=== PATIENT | female | born 2005 | race Caucasian/White ===

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

== ENCOUNTER 2024-03-20 14:42 | Emergency (ER) | payer OTHER, SELFPAY ==
[2024-03-20 14:53] VITALS: BP 137/81; PULSE 92; RESP 18; TEMP 36.5; O2SAT 100
[2024-03-20 15:14] LABS: EDSTREPNEGPOS1 Negative (Negative)
--- NOTE | 2024-03-20 15:15 | ED.URI ---
HPI - URI/Sore Throat General Chief Complaint: Upper Respiratory Infection Stated Complaint: strep symptoms Time Seen by Provider: 03/20/24 15:15 Source: patient Mode of arrival: ambulatory Limitations: no limitations History of Present Illness HPI Narrative: 18-year-old female presents with complaint of nasal congestion, sinus pressure, postnasal drainage, sore throat for the past 2-3 days. Patient reports sore throat is worse at night. Afebrile. Reports fatigue. Patient reports she is congested all the time. In the past tested ENT and biology specialist. Has been told she needs to take allergy medication daily but patient states they do not help so she does not take them anymore. Patient does report that congestion is worse. All systems reviewed and negative except as noted above. Related Data Home Medications Medication Instructions Recorded Confirmed spironolactone 25 mg tablet 25 mg PO DAILY 01/21/24 03/20/24 Allergies Allergy/AdvReac Type Severity Reaction Status Date / Time No Known Allergies Allergy Verified 03/20/24 14:58 Review of Systems Review of Systems: CONSTITUTIONAL: Denies fever, chills, or sweats. reports fatigue. EYES: Denies visual changes, redness, or discharge. ENT: Reports rhinorrhea, congestion, sore throat. Denies otalgia. CARDIOVASCULAR: Denies chest pain, palpitations, or edema. RESPIRATORY: Denies cough or dyspnea. GASTROINTESTINAL: Denies abdominal pain, nausea, vomiting, or diarrhea. GENITOURINARY: Denies dysuria or hematuria. SKIN: Denies rash or itching. MUSCULOSKELETAL: Denies back pain, joint pain, or myalgia. NEUROLOGIC: Denies headache, numbness, or weakness. PSYCHIATRIC: Denies anxiety or depression. All other systems reviewed are negative, except as documented in HPI. [facility] Past Medical History Medical History Acid reflux Anemia Asthma Environmental allergies Family History Family History Grandparent Breast cancer Diabetes mellitus Hypertension Lung cancer Father Diabetes mellitus Hypertension Social History Social History Smoking status: Never smoker Alcohol intake: never Substance use: never Lack of Transportation: No Lack of Food: Never True Current Housing: I Have Housing Concerned About Future Housing: No Difficulty Paying Gas/Electric Bills: No Difficulty Paying for Meds: No Currently Unemployed: No Education: High School Diploma/GED Living arrangements: with family Occupation/Education: student Gender identity (if verbalized by the patient): Female Sexual Orientation (if Verbalized by the Patient): Straight or Heterosexual Spiritual care concerns: No Comments At time of signature, agree with nursing past medical, surgical, social and family history. There is no relevant family history pertinent to the presenting complaint. Exam Narrative: GENERAL: This is a well-nourished, well-developed patient, in no apparent distress. HEAD: normocephalic, atraumatic. EYES: PERRL. Sclera clear/white. Vision is grossly intact. EARS: External ears normal, auditory canals clear and without drainage, TMs normal without perforation. Hearing grossly intact. NOSE: External nose normal with Purulent nasal drainage, erythema and swelling to bilateral nares. Ethmoid and maxillary sinus tenderness on palpation bilaterally. THROAT: Mucous membranes moist, Erythematous with postnasal drainage. No swelling or exudates. NECK: Neck supple, non-tender without lymphadenopathy, masses or thyromegaly. CARDIOVASCULAR: Regular rate and rhythm without murmurs, gallops, or rubs. RESPIRATORY: Clear to auscultation. Breath sounds equal bilaterally. No wheezes, rales, or rhonchi. SKIN: warm, Dry, intact with no suspicious lesions or rash, good texture and turgor. NEURO: awake, alert, and oriented to person, place and time. There were no obvious focal neurologic abnormalities. EXTREMITIES: No joint tenderness, effusion, or edema noted. Course Course Level of Care: Express Care Visit Vital Signs Vital signs: Vital Signs Temperature 36.5 C 03/20/24 14:53 Pulse Rate 92 03/20/24 14:53 Respiratory Rate 18 03/20/24 14:53 Blood Pressure 137/81 03/20/24 14:53 Pulse Oximetry 100 03/20/24 14:53 Oxygen Delivery Room Air 03/20/24 14:53 Temperature 36.5 C 03/20/24 14:53 Pulse Rate 92 03/20/24 14:53 Respiratory Rate 18 03/20/24 14:53 Blood Pressure 137/81 03/20/24 14:53 Pulse Oximetry 100 03/20/24 14:53 Oxygen Delivery Room Air 03/20/24 14:53 Reviewed MDM - URI/Sore Throat MDM Narrative Medical decision making narrative: negative strep test. Will treat patient with antibiotic for bacterial sinusitis due to duration of symptoms and exam findings. Patient is aware of diagnosis, understands and agrees to treatment plan. Anticipatory guidance given. Patient agrees to follow-up as directed and is aware of reasons to seek care at the emergency department. Portions of this record may have been created with voice recognition software Differential Diagnosis Differential diagnosis: Likely upper respiratory infection, sinusitis and viral infection Lab Data Labs: Lab Results 03/20/24 Range/Units 15:12 POC Grp A Strep Screen Negative (Negative) Discharge Plan Discharge Clinical Impression: Acute bacterial sinusitis Patient Disposition: Home, Self-Care Condition: Stable Instructions: Antibiotic Form, Sinusitis (ED) Additional Instructions: your strep test was negative today. Take medications as prescribed. Take ibuprofen or Tylenol every 6-8 hours as needed for pain. Drink at least 64 oz of water a day. Follow-up with your doctor if symptoms are not improving. Prescriptions: New amoxicillin 875 mg tablet 875 mg PO Q12H 7 Days Qty: 14 0RF methylprednisolone [Medrol (Erickson)] 4 mg tablets,dose pack See Rx Instructions PO .COMPLEX Qty: 21 0RF Rx Instructions: orally per package directions fexofenadine [Cara Allergy] 180 mg tablet 180 mg PO DAILY 30 Days Qty: 30 0RF azelastine 205.5 mcg (0.15 %) spray,non-aerosol 2 spray intranasal DAILY Qty: 30 0RF Rx Instructions: administer into each nostril No Action albuterol sulfate 2.5 mg /3 mL (0.083 %) solution for nebulization 2.5 mg inhalation Q4H PRN (Reason: shortness of breath or wheezing) Qty: 75 0RF spironolactone 25 mg tablet 25 mg PO DAILY etonogestrel-ethinyl estradiol [EluRyng] 0.12-0.015 mg/24 hr ring See Rx Instructions .ROUTE .COMPLEX Qty: 3 4RF Dose Instruction: INSERT 1 RING VAGINALLY ONCE DIRECTED Rx Instructions: INSERT 1 RING VAGINALLY ONCE DIRECTED Follow-up/Referrals: Severino Zelaya MD [Primary Care Provider] - Time of Disposition: 15:27
== END 2024-03-20 15:30 | disposition home or self-care (01) ==
PROVIDERS: Emergency Provider Nurse Practitioner Family; PCP Pediatrics
DX: J01.90 Acute sinusitis, unspecified (principal); K21.9 Gastro-esophageal reflux disease without esophagitis; J45.909 Unspecified asthma, uncomplicated
CPT/HCPCS: 87081; 87880; 99213; G0463

== ENCOUNTER 2024-05-09 10:38 | Outpatient (CLI) | payer OTHER, SELFPAY ==
--- OUTSIDE RECORDS SUMMARY | 2024-05-16 22:39 | XMS_ITS | Encounter Summary ---
Author Organization [facility] Address [facility] [place] [address] Care Team Providers Care Funeral Service Manager Name Role Phone Severino Zelaya Primary Care Provider Unavailsushil e Encounter Details Date Type Department Care Team (Latest Contact Info) Description 01/20/2024 Travel Social History Tobacco Use Types Packs/Day Years Used Date Smoking Tobacco: Never Smokeless Tobacco: Never Alcohol Use Standard Drinks/Week Comments Never 0 (1 standard drink = 0.6 oz pur e alcohol) AUDIT-C Answer Date Recorded Q1: How often do you have a drink containing alc ohol? Never 08/13/2020 Average Number of Drinks Not on file 021 Frequency of Binge Drinking Not on file 07/17 PHQ-2 Answer Date Recorded Patient Health Questionnaire-2 Score 0 01/20/2024 Sex and Gender Information Value Date Recorded Sex Assigned at Not on file Gender Identity Not on file Sexual Orientation Not on file documented as of this encounter Plan of Treatment Not on file documented as of this encounter Visit Diagnoses Not on filedocumented in this encounter Care Teams Funeral Service Manager Relationship Specialty Start Date End Date Severino Zelaya Update Information PCP - General 07/03/20 documented as of this encounter
--- OUTSIDE RECORDS SUMMARY | 2024-05-16 22:39 | XMS_ITS | Encounter Summary ---
Author Organization [facility] Address [facility] [address] Care Team Providers Care Patient Scheduling Manager Name Role Phone Severino Zelaya Primary Care Provider Onel e Encounter Details Date Type Department Care Team (Latest Contact Info) Description 02/18/2023 Travel Social History Tobacco Use Types Packs/Day [...] of Binge Drinking Not on file 07/17 Sex and Gender Information Value Date Recorded Sex Assigned at Not on file Gender Identity Not on file Sexual Orientation Not on file documented as of this encounter Plan of Treatment Not on file documented as of this encounter Visit Diagnoses Not on filedocumented in this encounter Care Teams Patient Scheduling Manager Relationship Specialty Start Date End Date Severino Zelaya Update Information PCP - General 07/03/20 documented as of this encounter
--- OUTSIDE RECORDS SUMMARY | 2024-05-16 22:39 | XMS_ITS | Encounter Summary ---
Author Organization [facility] Address [address] [place] [address] Care Team Providers Care Ice Cream Vendor Name Role Phone Severino Zelaya Primary Care Provider Unavailsushil e Reason for Visit * Reason Comments Follow-up Sinus congestion. ed prescribed meds for 2 weeks then quit. Encounter Details Date Type Department Care Team (Latest Contact Info) Description 02/18/2023 10:19 AM CDT - 02/18/2023 11:59 PM CDT Hospital Encounter [facility] - ENT [address] [facility] [place] [address] Greg Ochoa MD [address] [place] [address] Discharge Disposition: Home or Self Care Social History Tobacco Use Types Packs/Day Years [...] on file documented as of this encounter Last Filed Vital Signs Vital Sign Reading Time Taken Comments Blood Pressure - - Pulse - - Temperature - - Respiratory Rate - - Oxygen Saturation - - Inhaled Oxygen Concentration - - Weight 86.8 kg (191 lb 5.8 oz) 02/19/20 10:23 AM CDT Height 167.5 cm (5' 5.95 ) 02/18/2023 1 0:23 AM CDT Body Mass Index 30.94 02/18/2023 10:23 AM CDT Body Mass Index Percentile 95.19% 02/18 10:23 AM CDT Growth Chart: [facility] (Girls, 2- 20 Years) documented in this encounter Discharge Instructions * Patient Instructions* Greg Ochoa MD - 02/18/2023 10:54 AM CDT 1. Take flonase, astelin, claritin, singulair as desired. 2. Will arrange for allergy testing. Call if no you haven't heard from us by next week. 3. FU with ENT some time after testing complete. Depending on interval symptoms, exam, we may consider watchful waiting, additional medications, allergy immunotherapy, or ultimately a surgery including septoplasty/turbinate reduction. Today, pt with mild symptom improvement with meds. Surgery offered, but family prefers testing for now. ENT Nurse Office: [phone] documented in this encounter Medications at Time of Discharge Medication Sig Dispensed Refills Start Date End Date Advair Diskus 100-50 MCG/ACT inhaler INHALE 1 PUFF BY MOUTH EVERY 12 HOURS 10/12/2022 albuterol (Proventil;Ventolin) (2.5 MG/3ML) 0.083% nebulizer solution 10/12/2022 albuterol HFA (PROVENTIL;VENTOLIN;NV OAIR) 108 (90 Base) MCG/ACT inhaler Inhale 2 (two) puffs by mouth every 6 hours as needed 08/11/2020 clindamycin (CLEOCIN) 1 % gel Apply to affected area on face daily. 30 day supply. 30 g 3 04/15/2021 clindamycin-benzoyl peroxide (BENZACLIN) 1-5 % gel Apply to face area daily. 30 days supply. 50 g 3 12/10/2020 diphenhydrAMINE (Benadryl) 25 MG tablet Take by mouth every 4 hours as needed for Itching EluRyng 0.12-0.015 MG/24HR vaginal ring INSERT 1 RING VAGINALLY 1 TIME MONTHLY DIRECTED 12/06/2022 FEROSUL 325 (65 Fe) MG tablet Take 325 mg by mouth 2 times daily 07/02/2020 fluticasone propionate (Flonase) 50 MCG/ACT nasal spray [place] 2 (two) sprays into each nostril once daily montelukast (Singulair) 10 MG tablet Take 1 (one) tablet by mouth once daily 30 tablet 3 12/24/2022 azelastine (Astelin) 0.1 % nasal spray [place] 1 (one) spray into each nostril 2 times daily 30 mL 3 12/24/2022 01/20/2024 tretinoin (RETIN-A) 0.025 % creamIndications:Acne vulgaris Pea sized amount to entire face at night. 30 days supply. 20 g 3 04/15/2021 12/13/2023 documented as of this encounter Progress Notes * Greg Ochoa MD - 02/18/2023 10:27 AM CDT ENT Clinic Note 02/18/2023 Chief Complaint Patient presents with ??? Follow-up Sinus congestion. Used prescribed meds for 2 weeks then quit. History of Present Illness 12/24/2022: 17 yo WF with PMH s/f asthma, acne, who presents with 1) allergic rhinitis, suspect incomplete control on current regimen 2) nasal obstruction, with moderate-severe L septal deviation and turbinate hypertrophy on scope 12/24/22 ?? Chronic congestion/minimal response to OTC meds She's always had sinus problems. Always stuffy and congested. This year worse. Really started in July? Stuffy. Has asthma but never had trouble until this year. Was at and ER. Gave her an advairinhaler. Can't blow her nose. Sniff it/swallow it. Trouble breathing. Sometimes in her lungs. We tried claritin/claritin D/zyrtec and zyrtec D/ignacia, nose spray. Sometimes it works for a while. I always feel like there is something in my throat and I can't get it out. I made this appt. ?? Took her to an ENT when she was small. History of Present Illness 02/18/2023: 17 yo WF with PMH s/f asthma, acne, who presents with 1) allergic rhinitis, suspect incomplete control on current regimen 2) nasal obstruction, with moderate-severe L septal deviation and turbinate hypertrophy on scope 12/24/22 Take flonase, astelin, claritin, singulair. I felt fine for a while. And then once fall started to hit it was really bad. She's stuffy right now. Which is her normal. Pt feels like her symptoms on medicines were 50% better. I really wasn't congested when I started taking it. She really didn't like that white bottle nose spray. Tastes really bad. Allergies: Patient has no known allergies. Medications: Current Outpatient Medications: ??? Advair Diskus 100-50 MCG/ACT inhaler, INHALE 1 PUFF BY MOUTH EVERY 12 HOURS, Disp: , Rfl: ??? albuterol (Proventil;Ventolin) (2.5 MG/3ML) 0.083% nebulizer solution, , Disp: , Rfl: ??? albuterol HFA (PROVENTIL;VENTOLIN;PROAIR) 108 (90 Base) MCG/ACT inhaler, Inhale 2 (two) puffs by mouth every 6 hours as needed, Disp: , Rfl: ??? azelastine (Astelin) 0.1 % nasal spray, [place]field 1 (one) spray into each nostril 2 times daily, Disp: 30 mL, Rfl: 3 ??? clindamycin (CLEOCIN) 1 % gel, Apply to affected area on face daily. 30 day supply. (Patient not taking: Reported on 06/09/2022), Disp: 30 g, Rfl: 3 ??? clindamycin-benzoyl peroxide (BENZACLIN) 1-5 % gel, Apply to face area daily. 30 days supply. (Patient not taking: Reported on 06/09/2022), Disp: 50 g, Rfl: 3 ??? diphenhydrAMINE (Benadryl) 25 MG tablet, Take by mouth every 4 hours as needed for Itching, Disp: , Rfl: ??? EluRyng 0.12-0.015 MG/24HR vaginal ring, INSERT 1 RING VAGINALLY 1 TIME MONTHLY DIRECTED, Disp: , Rfl: ??? FEROSUL 325 (65 Fe) MG tablet, Take 325 mg by mouth 2 times daily (Patient not taking: Reportedon 06/09/2022), Disp: , Rfl: ??? fluticasone propionate (Flonase) 50 MCG/ACT nasal spray, [place]field 2 (two) sprays into each nostrilonce daily, Disp: , Rfl: ??? montelukast (Singulair) 10 MG tablet, Take 1 (one) tablet by mouth once daily, Disp: 30 tablet,Rfl: 3 ??? tretinoin (RETIN-A) 0.025 % cream, Pea sized amount to entire face at night. 30 days supply. (Patient not taking: Reported on 06/09/2022), Disp: 20 g, Rfl: 3 No past medical history on file. No significant change in past medical, surgical, social, or family history or review of systems. Physical Exam: Height: 167.5 cm (5' 5.95 ) Weight: 86.8 kg (191 lb 5.8 oz) Body mass index is 30.94 kg/m??. Estimated body mass index is 30.94 kg/m?? as calculated from the following: Height as of this encounter: 1.675 m (5' 5.95 ). Weight as of this encounter: 86.8 kg (191 lb 5.8 oz). 97 %ile (Z= 1.85) based on CDC (Girls, 2-20 Years) [id number] data using vitals from 02/18/2023. Constitutional: no retractions or cyanosis Head and Face: no lesions or masses; facies symmetrical Eyes: ocular motion with gaze alignment Ears: Inspection: normal pinnae shape and position Otoscopy: External canal: normal bilaterally Tympanic membrane: Right ear: normal appearance and landmarks Left ear: normal appearance and landmarks Nasal: normal external nose, mucous membranes, moderate L septal deviation Oral Cavity: moist mucous membranes; normal uvula, palate and tongue size Throat: tonsils 1-2+ Neck: supple without tenderness or crepitus; no palpable adenopathy Cranial Nerve Exam: grossly intact; CN VII symmetrical Respiration: unlabored breathing Skin: skin healthy ASSESSMENT: 17 yo WF with PMH s/f asthma, acne, who presents with 1) allergic rhinitis, suspect incomplete control on current regimen 2) nasal obstruction, with moderate-severe L septal deviation and turbinate hypertrophy on scope 12/24/22 PLAN: 1. Take flonase, astelin, claritin, singulair as desired. 2. Will arrange for allergy testing. Call if no you haven't heard from us by next week. 3. FU with ENT some time after testing complete. Depending on interval symptoms, exam, we may consider watchful waiting, additional medications, allergy immunotherapy, or ultimately a surgery including septoplasty/turbinate reduction. Today, pt with mild symptom improvement with meds. Surgery offered, but family prefers testing for now. Greg Ochoa MD documented in this encounter Plan of Treatment Not on file documented as of this encounter Visit Diagnoses Diagnosis Allergic rhinitis, unspecified seasonality, unspecified trigger- Primary Nasal septal deviation Deviated nasal septum Nasal turbinate hypertrophy Hypertrophy of nasal turbinates documented in this encounter Care Teams Ice Cream Vendor Relationship Specialty Start Date End Date Severino Zelaya Update Information PCP - General 07/03/20 documented as of this encounter
--- OUTSIDE RECORDS SUMMARY | 2024-05-16 22:39 | XMS_ITS | Encounter Summary ---
Author Organization [facility] Address [address] [place] [address] Care Team Providers Care Spring Layer Name Role Phone Severino Zelaya MD Primary Care Provider [phone] Reason for Referral * Radiology Services - Closed Specialty Diagnoses / Procedures Referred By Ricardo garcia Referred To Contact Diagnoses Vesicoureteral reflux, unspecified or without reflux nephropathy Unspecified urinary incontinence Procedures US KIDNEY AND BLADDER Chichi Gonzalez, CAPABILITY LEAD-SKEINER [address] [place] [address] [facility] [address] [place] [phone] Referral ID Status Reason Start Date Expiration Date Visits Re quested Visits Authorized [id number] Closed 10/17/2013 10/17/2013 1 1 Reason for Visit * Radiology Services - Closed Specialty Diagnoses / Procedures Referred By Ricardo garcia Referred To Contact Diagnoses Vesicoureteral reflux, unspecified or without reflux nephropathy Unspecified urinary incontinence Procedures US KIDNEY AND BLADDER Chichi Gonzalez, CAPABILITY LEAD-SKEINER [address] [place] [address] [facility] [place] [address] [place] [phone] Referral ID Status Reason Start Date Expiration Date Visits Re quested Visits Authorized [id number] Closed 10/17/2013 10/17/2013 1 1 Encounter Details Date Type Department Care Team (Latest Contact Info) Description 10/17/2013 7:35 AM CDT - 10/17/2013 8:31 AM CDT Hospital Encounter [facility] - Ultrasound [address] [place] [id number] Chichi Gonzalez, CAPABILITY LEAD-SKEINER [address] [place] [address] Discharge Disposition: Home or Self Care Social History Tobacco Use Types Packs/Day Years Used Date Smoking Tobacco: Never Assessed Sex and Gender Information Value Date Recorded Sex Assigned at Not on file Gender Identity Not on file Sexual Orientation Not on file documented as of this encounter Miscellaneous Notes * Miscellaneous Scans - Document, Scanned - 10/27/2013 4:36 AM CDT documented in this encounter Plan of Treatment Not on file documented as of this encounter Procedures Procedure Name Priority Date/Time Associated Diagnosis Comments US KIDNEYS W BLADDER Routine 10/17/2013 8:13 AM CDT Vesicoureteral reflux, unspecified or without reflux nephropathy Unspecified Urinary Incontinence documented in this encounter Results * US KIDNEY AND BLADDER (10/17/2013 8:13 AM CDT) Anatomical Region Laterality Modality Ultrasound 10/17/2013 8:21 AM CDT Impressions 10/17/2013 1:00 PM CDT Normal renal ultrasound. D: Mary Kate Alexis M.D. I, Arpita Yuan, have personally reviewed the images and I agree with this report. Narrative 10/17/2013 1:00 PM CDT EXAMINATION: Renal ultrasound dated ??October 17, 2013 COMPARISON: December 20, 2008 FINDINGS: Both kidneys have grown since the prior exam. Renal cortical echogenicity is normal. ??No hydronephrosis, masses, or stones are seen. The ureters are not dilated. Length: Right kidney ??10.0 x 4.0 x 4.7 cm Left kidney ??9.6 x 3.5 x 3.7 cm The bladder is distended with fluid, measuring up to 14.2 cm in diameter. The bladder wall thickness measures approximately 5 mm, within normal limits. Procedure Note Arpita Yuan MD - 10/17/2013 EXAMINATION: Renal ultrasound dated October 17, 2013 COMPARISON: December 20, 2008 FINDINGS: Both kidneys have grown since the prior exam. Renal cortical echogenicity is normal. No hydronephrosis, masses, or stones are seen. The ureters are not dilated. Length: Right kidney 10.0 x 4.0 x 4.7 cm Left kidney 9.6 x 3.5 x 3.7 cm The bladder is distended with fluid, measuring up to 14.2 cm in diameter. The bladder wall thickness measures approximately 5 mm, within normal limits. IMPRESSION Normal renal ultrasound. D: Mary Kate Alexis M.D. I, Arpita Yuan, have personally reviewed the images and I agree with this report. Chichi Gonzalez CAPABILITY LEAD-SKEINER US ORDERABLE S documented in this encounter Visit Diagnoses Diagnosis Vesicoureteral reflux, unspecified or without reflux nephropathy Unspecified urinary incontinence documented in this encounter Care Teams Spring Layer Relationship Specialty Start Date End Date Severino Zelaya MD PCP - General Pediatrics 08/23/13 07/02/20 documented as of this encounter
--- OUTSIDE RECORDS SUMMARY | 2024-05-16 22:39 | XMS_ITS | Encounter Summary ---
Author Organization [facility] Address [address] [place], [place] [address] [address] Care Team Providers Care Quilting Machine Helper Name Role Phone Severino Zelaya Primary Care Provider Unavailabl e Reason for Visit * Reason Comments Refill Request Encounter Details Date Type Department Care Team (Late st Contact Info) Description 03/21/2021 Refill [facility] [address] [facility] [place] [phone] Marialuisa Gupta DO [address] [place] [address] Refill Request Social History Tobacco Use Types Packs/Day Years [...] as of this encounter Miscellaneous Notes * Telephone Encounter - Nicole Ye - 03/21/2021 9:45 PM CDT KEEGAN 12/10/20 RTC in 4 months KEEGAN states Increase Spironolactone to 150mg daily NOV 04/15/21 rx sent for 30 days Nicole Ye documented in this encounter Plan of Treatment Not on file documented as of this encounter Visit Diagnoses Diagnosis Acne vulgaris Other acne documented in this encounter Care Teams Quilting Machine Helper Relationship Specialty Start Date End Date Severino Zelaya Update Information PCP - General 07/03/20 documented as of this encounter
--- OUTSIDE RECORDS SUMMARY | 2024-05-16 22:39 | XMS_ITS | Encounter Summary ---
Author Organization [facility] Address [address] [place], [place] [address] [address] Care Team Providers Care Finished Hardware Erector Name Role Phone Severino Zelaya Primary Care Provider Unavailabl e Reason for Referral * Medication Prior Authorization - Closed Specialty Diagnoses / Procedures Referred By Ricardo t Referred To Contact Marialuisa Gupta DO [address] [place] [address] Referral ID Status Reason Start Date Expiration Date Visits Re quested Visits Authorized [id number] Closed 1 1 Reason for Visit * Reason Comments Acne 4 month follow up, s ymptoms have improved, but having an flare today Encounter Details Date Type Department Care Team (Late st Contact Info) Description 12/10/2020 10:50 AM CDT Office Visit [facility] [address] [facility] [place] [id number] Marialuisa Gupta DO [address] [place] [address] Acne vulgaris (Primary Dx) Social History Tobacco Use Types Packs/Day Years [...] on file Sexual Orientation Not on file COVID-19 Exposure Response Date Recorded In the last month, have you been in contact with someone who was confirmed or suspected to have Coronavirus / COVID-19? Unable to assess 11/13/2020 9:43 AM CDT documented as of this encounter Patient Instructions * Patient Instructions* Marialuisa Gupta DO - 12/10/2020 11:37 AM CDT Thank you for your visit today. We will follow up with you in Increase spironolactone to 150mg daily. Start benzaclin gel daily (morning). Continue tretinoin 0.025% cream nightly. Spironolactone What is Spironolactone? Spironolactone is a potassium-sparing diuretic (water pill) that prevents your body from absorbing too much salt and keeps your potassium levels from dropping too low. Spironolactone was originally used to treat high blood pressure, congestive heart failure, cirrhosis of the liver, or kidney disorders. However, now it is used more often to help regulate hormonal imbalances in females and prescribed by dermatologists for conditions such as hormonal acne, excess hair growth, and male pattern hair loss. For adult women who don't completely respond to antibiotics for acne and if there is suspicion of ahormonal component, spironolactone is often a very good choice. It is not an antibiotic, but ratherblocks hormones from binding in the skin and therefore is helpful for hormone-induced acne. Onset of improvement ranges from weeks to up to 6 months, so it could be a slow process, but it is effective more often than not. Side Effects The most common side effect is change in menstrual patterns (approx 15-20%). Less common side effects are headache and breast tenderness. In people who are prone to low blood pressure, they can sometimes get dizzy upon standing. It can cause low potassium, but in young healthy patients who are not on blood pressure medications, we do not need to check potassium levels. To decrease the chances of side effects, spironolactone is often started at a lower dose and then increased over time. You cannot take spironolactone if you are or trying to become , as it can be harmful to an unborn baby ( category D). It can also be passed into breast milk. If you are thinking about , thisis not a good choice for acne treatment. What should I discuss with my doctor before starting spironolactone? Do not use this medicine if you have: - Kidney disease or are unable to urinate; - High potassium levels; or - If you are taking potassium supplements or other potassium-sparing diuretics (water-pills) - If you are , trying to become , or documented in this encounter Progress Notes * Marialuisa Gupta DO - 12/10/2020 11:30 AM CDT Chief Complaint Patient presents with ??? Acne 4 month follow up, symptoms have improved, but having an flare today HPI: Aris Stephens a 15 year old female presents for acne. Here with mother and sisters. LV 08/13/20 - 1. Acne - mod/severe. start Spironolactone 100mg daily, Doxy 100mg BID, start tretinoin 0.025% cream QHS, start BP wash daily. Stop clindamycin, continue OCP Concerns: 1. Acne Status of condition: - Improved overall, but with flaring in the past week - Pt did not start Doxycycline after last visit - Also states she thinks she would not want to do Accutane for her acne (was discussed last visit) Current treatment: Spironolactone 100mg daily, tretinoin 0.025% cream once every other week Side effects of treatment: none History of acne: Duration: 3 years Location: face>buttock Symptoms: deep inflammatory cystic papules Exacerbating factors: ovulation, has regular periods Previous treatment: clindamycin TID - did not help Pertinent additional history: -was on karine, made periods worse. Was on lo lo estrin in the past as well. Endorses picking Past medical history, social history and family history were reviewed. ROS: As per HPI above. PE: No acute distress. Mood clear/affect appropriate. Alert and oriented. Sclera anicteric. Mucous membranes moist. Waist up skin exam was conducted to include the scalp, face, lips/teeth, lids/conjunctiva, ears, neck, chest, back, right and left hands and forearms and was normal with the following exceptions: - Few inflammatory papules on the R cheek and chin today - Rare follicular red papules on posterior upper L thigh A/P: Problem List Items Addressed This Visit [facility] Problems Acne vulgaris - Improving overall, however, with recent flare - Increase Spironolactone to 150mg daily - Will hold off on Doxycycline at this time (recommended at previous visit) - Start Benzaclin 1-5% gel QAM - Cont tretinoin 0.025% cream Relevant Medications tretinoin (RETIN-A) 0.025 % cream spironolactone (ALDACTONE) 50 MG tablet Coding Rationale New or est? Established Patient Highest problem complexity: 1 or more chronic illnesses with exacerbation, progression, or side effects of treatment Highest level of risk: Moderate Suggested code: 80973 RTC 4 mo Patient seen and discussed with attending physician Dr Eric Gupta DO [facility] Dermatology Resident, PGY-4 * Ashok Reyes MD - 12/10/2020 11:28 AM CDT Patient seen and examined with Resident. Please see note for further details. I was present for thekey portions of any procedures performed. I confirm history, exam, assessment and plan with the following exceptions/additions: CC: acne vulgaris HPI: Has hx acne vulgaris since yrs. Occurs josie face. Superf & deep, inflamed lesions when at its worst. ROS: No recent relevant illnesses/fevers or other skin complaints except noted otherwise. Relevant past medical history, social history and family history were reviewed, no changes or remarkable points unless otherwise noted. Siblings acne PE: -as above Gen: Alert, oriented, NAD, affect appropriate, pleasant Skin: Exam of the face, eyelids, scalp, lips, neck, bilat upper extr including nails and digits, chest, back, abd, bilat lower extr examined and unremarkable unless otherwise noted below: -papules Assessment/Plan Acne vulgaris -maximize topicals incl rx -figueroa Ashok Reyes MD documented in this encounter Plan of Treatment Not on file documented as of this encounter Visit Diagnoses Diagnosis Acne vulgaris- Primary Other acne documented in this encounter Care Teams Finished Hardware Erector Relationship Specialty Start Date End Date Severino Zelaya Update Information PCP - General 07/03/20 documented as of this encounter
--- OUTSIDE RECORDS SUMMARY | 2024-05-16 22:39 | XMS_ITS | Encounter Summary ---
Author Organization [facility] Address [address] [place] [address] Care Team Providers Care Stadium Attendant Name Role Phone Severino Zelaya MD Primary Care Provider [phone] Encounter Details Date Type Department Care Team (Latest Contact Info) Description 10/17/2013 8:32 AM CDT - 10/17/2013 10:16 AM CDT Hospital Encounter [facility] - [address] [place] [address] Severino Zelaya MD [address] [place] [address] Discharge Disposition: Home or Self Care Social History Tobacco Use Types Packs/Day Years Used Date Smoking Tobacco: Never Assessed Sex and Gender Information Value Date Recorded Sex Assigned at Not on file Gender Identity Not on file Sexual Orientation Not on file documented as of this encounter Last Filed Vital Signs Vital Sign Reading Time Taken Comments Blood Pressure - - Pulse 96 10/17/2013 9:15 AM CDT Temperature 36.1 ??C (96.9 ??F) 10/17/2013 8:30 AM CD T Respiratory Rate 12 10/17/2013 9:15 AM CDT Oxygen Saturation 98% 10/17/2013 10: 15 AM CDT Inhaled Oxygen Concentration - - Weight 52.8 kg (116 lb 6.5 oz) 10/17/2013 8:30 A M CDT Height 148 cm (4' 10.27 ) 10/17/2013 8:30 AM CDT Body Mass Index 24.11 10/17/2013 8:30 AM CDT Body Mass Index Percentile 97.06% 10/17/2013 8:3 0 AM CDT Growth Chart: [facility] (Girls, 2- 20 Years) documented in this encounter Discharge Instructions * Discharge Instructions* Kaykay Robins RN - 10/17/2013 10:15 AM CDT Post Sedation Instructions Your child may experience any of the following: Alert one minute, drowsy, dizzy, or sleepy the next minute. Sometimes irritable ( cranky ) throughout the day. Not hungry for a few hours until sedation medication has worn off . Rest: Your child may be drowsy for the rest of the day. It is best to lay your child on his/her side while asleep. Allow your child to sleep 3-4 hours, then arouse the child and offer sips of clear fluids.Allow your child to rest as much as desired. Check your child frequency to make sure he/she is sleeping comfortably and not having breathing problems. Traveling Home: Your child should be placed in a car seat or other appropriate auto restraint for the trip home. Beaware your child may be at risk for breathing problems should their head fall forward while in a sitting position. Have someone else sit next to the child if possible while traveling home so they canbe checked on frequently. Even though your child may appear awake and not as sleepy, they still maybe clumsy and should be watched so they stay safe. Nourishment: Begin feeding with sips of clear liquids (apple juice, Bernardo-Aid, or water), then increase liquids as tolerated. Begin with liquids and light foods that are not irritating to the stomach. If your child vomits, stop feeding for 30-60 minutes, then gradually resume clear liquids as tolerated. Call the doctor if your child has: Frequent nausea or vomiting Excessive weakness or dizziness Breathing problems If your child refuses to drink If your child is very sleepy or is difficult to wake from sleep Your child received Sedative: Versed Route by mouth If you have questions please call: Dept: Special Procedures [phone] If unable to contact the department, seek medical care from your laundry worker or [facility] * Discharge Instructions* Document, Scanned - 10/18/2013 10:08 PM CDT documented in this encounter Procedure Notes * Mariola Staley MD - 10/17/2013 11:05 AM CDT POST-SEDATION EVALUATION 10/17/2013 11:05 AM Aris Stephens is a 8 y.o. female sedated today for VCUG. The patient is sufficiently recovered from the acute administration of the sedation so as to participate in the evaluation or neurologic status has returned to pre-sedation or expected level of consciousness. The post-sedation assessment was completed based upon the elements below. The patient is stable andhas adequately recovered from sedation unless otherwise noted. Post-sedation Evaluation: Temp: 96.9 ??F Pulse: 96 Resp: 12 SpO2: 98 % Pain Rating Score #: 0 Resp function: Natural Airway Cardiac Function: Stable Mental Status : Awake/Alert Pain: Comfortable / acceptable Nausea / Vomiting: None Post Procedure Hydration: Adequate A post-op evaluation was performed on the patient with the following assessment: No Apparent Anesthesia Complications;Vital Signs and Mental Status unchanged from Preop Unless otherwise indicated, the patient is being discharged from sedation service care. Mariola Staley MD documented in this encounter Consult Notes * Mariola Staley MD - 10/17/2013 9:03 AM CDTAssociated Order(s): IP CONSULT TO PEDIATRIC SEDATION SERVICES Pediatric Sedation Consultation Note Aris Stephens 2005 [id number] Admit Date: 10/17/2013 8:32 AM Pediatrics was consulted by pediatric urology service to evaluate their patient Aris Stephens [place] [facility] for VCUG. History of Present Illness Aris Stephens is a 8 y.o. female who presents for VCUG to evaluate for vesicoureteral reflux and urinary incontinence. Patient had a VCUG at the age of 2 and is was very traumatic for her. Parent and patient requesting sedation/anxiolysis for this procedure. Past Medical History No history on file. No past medical history on file. No past surgical history on file. Allergies No Known Allergies Family History No family history on file. Social History History Social History Narrative ??? No narrative on file Review of Systems Constitutional: Denies fever, fatigue, unexplained weight loss/gain Eyes: denies erythema, injection, d/c ENT: denies otalgia and otorrhea, denies rhinorrhea, denies oral lesions or pharyngitis CV: denies tachycardia or bradycardia, cyanosis, palpitations Pulmonary: denies cough, shortness of breath, wheezing GI: denies vomiting diarrhea, nausea, abdominal pain : denies dysuria, frequency, urgency Neuro: denies headaches, syncope, dizziness or recent seizures Allergy: denies any drug or food related allergies Exam Vitals Temp: 96.9 ??F (10/17/13829) Pulse: 96 (10/17/13914) Resp: 12 (10/17/13914) Height: 148 cm (4' 10.27 ) (10/17/13829) Weight: 52.8 kg (116 lb 6.5 oz) (10/17/13829) Gen: Awake, alert, NAD Neck:supple, no LAD, no masses Heart: normal S1/S2, no murmur Lungs: Clear to Auscultation Bilaterally Abd: Soft, Non-tender, non-distended, Normal bowel sounds, no organomegaly Ext: Moves all extremities well, no peripheral edema, no pain to palpation Impression/Recommendations Procedural Sedation - Aris presents for VCUG. Aris will likely require minimal sedation and anxiolysis for this procedure and this can be accomplished with midazolam alone. Will given midazolam 20 mg oral route 20 minutes prior to procedure. I will be present throughout and will provide furthersedation if required. Thank you for allowing us to participate in the care of your patient. Please feel free to contact us with further questions. Mariola Staley MD Credentialed: Rajinder 05/16/12 CC: Severino Zelaya [address] [place] [id number] documented in this encounter Miscellaneous Notes * Miscellaneous Scans - Document, Scanned - 10/18/2013 10:08 PM CDT * Miscellaneous Scans - Document, Scanned - 10/18/2013 10:08 PM CDT * Miscellaneous Scans - Document, Scanned - 10/18/2013 10:08 PM CDT documented in this encounter Plan of Treatment Not on file documented as of this encounter Visit Diagnoses Not on filedocumented in this encounter Administered Medications Inactive Administered Medications - up to 3 most recent administrations Medication Order MAR Action Action Date Dose Rate Site midazolam (VERSED) solution 20 mg 20 mg, Oral, INTRA-PROCEDURE MULTIPLE, Starting on Wed10/17/13 at 0902, Until Wed10/18/13 at 0118, 10 - 15 minutes prior to sedation. Maximum dose = 20 mg (per dose). High Risk, High Alert Medication: Must document double check on IV MAR flowsheet. $ Given 10/17/2013 9:04 AM CDT 20 mg documented in this encounter Care Teams Stadium Attendant Relationship Specialty Start Date End Date Severino Zelaya MD PCP - General Pediatrics 08/23/13 07/02/20 documented as of this encounter
--- OUTSIDE RECORDS SUMMARY | 2024-05-16 22:39 | XMS_ITS | Encounter Summary ---
Author Organization [facility] Address [facility] [place] [address] Care Team Providers Care Hub Lead Name Role Phone Severino Zelaya Primary Care Provider Unavailabl e Reason for Referral * Procedure (Routine) - Closed Specialty Diagnoses / Procedures Referred By Ricardo t Referred To Contact Pulmonary Disease Diagnoses Other cough Procedures Complete PFT [facility] PFT Lab Jensen Arceo MD [address] [place] [address] DIV OF ALLERGY/[place] [address] [facility] [address] [place] [address] Referral ID Status Reason Start Date Expiration Date Visits Re quested Visits Authorized [id number] Closed 01/20/2024 01/19/2025 1 1 Encounter Details Date Type Department Care Team (Late st Contact Info) Description 01/20/2024 2:00 PM CDT Office Visit [facility] - Allergy [address] [place] [address], [place] [address] Jensen Arceo MD [address] OF [place] [address] Allergic rhinitis, unspecified seasonality, unspecified trigger (Primary Dx); Other cough; Gastroesophageal reflux disease without esophagitis Social History Tobacco Use Types Packs/Day Years [...] Sign Reading Time Taken Comments Blood Pressure 123/77 01/20/2024 2:18 PM CDT Pulse 98 01/20/2024 2:18 PM CDT Temperature 36.5 ??C (97.7 ??F) 01/20/2024 2:18 PM CD T Respiratory Rate - - Oxygen Saturation 98% 01/20/2024 2:18 PM CDT Inhaled Oxygen Concentration - - Weight 87.3 kg (192 lb 6.4 oz) 01/20/2024 2:18 P M CDT Height 165.1 cm (5' 5 ) 01/20/2024 2:18 PM CDT Body Mass Index 32.02 01/20/2024 2:18 PM CDT documented in this encounter Patient Instructions * Patient Instructions* Jensen Arceo MD - 01/20/2024 4:04 PM CDT Nose, your allergy skin test today showed to house dust mites, see instructions below to reduce your exposure, and a mold called Alternaria which can be present in outdoor air as well as indoor dust. Your skin test were affected by something called dermatographia is him which means by scratching the skinyou get a certain amount of a reaction from that. At some point in the future should allergy shots be considered, we would advise obtaining allergy blood test to take out the factor of the dermatographia is him. Suggested for nose spray, you use azelastine 2 sprays each nostril twice daily as needed. You should get benefit within 15 to 30 minutes, although full benefit is achieved when you are taking it on ongoing basis for a number of days at a time. If having congestion, would also stressed that she use fluticasone Flonase nasal spray 1 spray eachnostril twice daily, spacing out by about 10 minutes from the azelastine spray If you get your nose under better control by the use of the nose sprays, you will be more likely tokeep open the passageways to your sinuses, and potentially be less likely to develop sinus infections Acid reflux Discussed possible role of acid reflux aggravating nose problems, although you have structural noseproblems that have been diagnosed by Dr. Foy Asthma? Getting lung function test For pressurized spray can such as albuterol, breathing and slowly over 5 seconds to get full benefit Should you use the Advair Diskus, that is inhaled rapidly, however the onset of benefit is typically 60 minutes or more, much slower than the relief that 1 would expect from albuterol Nasal Somerset technique: Avoid spraying nose spray towards center of nose [septum], use nose to toes position [after spraying upright, then bending down as far as you can for approximately 20 seconds] to prevent medication dripping down throat and to reduce taste. If you develop nose bleeds, hold taking nose spray for several days, andif nose bleeds * continue, please contact us. What are house dust mites? Tiny microscopic creatures called house dust mites are an important cause of allergic reactions to house dust. They belong to the family of eight-legged creatures called arachnids. This family also includes spiders, chiggersand ticks. Dust mites are urrutia creatures that live well and multiply easily in warm, humid places. They prefer temperatures at or above 70 degrees Fahrenheit with a relative humidity of 75 percent to 80 percent and whenthe humidity falls below 40 percent to 50 percent. They are rarely found in dry climates. As many as 10 percent of the general population and (in some regions) 90 percent of people with allergic asthma are sensitive to dust mites. Dust mite particles are just the right size to be inhaled. They are found in the highest concentrations in pillows, mattresses, carpeting and upholstered furniture. They float into the air when anyone vacuums, walks on a carpet or disturbs bedding, but settle out of the air once the disturbance is over. A dust mite allergic patient who sleeps for eight hours every night spends one third of his life with his nose in direct contact with a pillow loaded with dust mite particles! There may be many as 19,000 dust mites in an amount of dust equal to the weight of a paper clip. Mites eat particles of skin and dander, so they thrive in places where there are people. Dust mites don't bite, and cannot spread diseases. They are harmful only to people who become allergic to them. While usual household insecticides have no effect on dust mites, there are several ways that allergicpeople can reduce exposure. How to Avoid Dust Mites Avoidance of house dust is the least expensive and most effective method of treating allergies to house dust mites. First line steps- Focus on the bedroom - people spend a lot of time there and the bedroom often contains the most dust mites. Routine Cleaning - dust and vacuum at least once a week. The person with allergies should should beout of the room during and after cleaning for at least 30 minutes to allow the dust particles to settle. If this is not possible, use a facemask purchased from a mail order supplier. Window Covers - use washable curtains rather than blinds, (more difficult to clean). Avoid clutter to minimize places that collect dust. Bedding - use only synthetic, hypoallergenic, washable blankets and pillows. Avoid old quilts, downcomforters and old mattresses. - Wash all bedding, mattress pads and pillows every 2 weeks to kill the dust mites and destroy the mite allergen. Alternatively, bedspreads may be dry cleaned frequently. - Cover all bedding in the room (pillows, mattresses) with hypoallergenic casings.Search the internet for dust mite covers to find vendors. Fatimah -The ideal floor covering is either hardwood or linoleum, with throw rugs that can be washed weekly. Stuffed Animals - these are a major reservoir for dust mites. Either put them on a shelf, or wash in hot water every month. Items too delicate to be washed, may be placed a tightly sealed plastic bag, and put in the freeze overnight. Allow the item to completely thaw before removing from the bag, to prevent condensing moisture to ackerman any remaining dust mite eggs. Furniture - keep overstuffed furniture and bookshelves to a minimum in the bedroom. Closets - minimize clutter; store infrequently used items in areas other than the bedroom, because disturbing these items may trigger allergic reactions. Vents & Ducts - replace filters on central heating and cooling units every 4-6 weeks. Cover thebedroom ducts with a filter that can be made from gauze or cheesecloth; check the internet for similar duct filters. Change filters once a month when heating and air-conditioning is used. Commercial cleaning of the vents and ducts is not recommended. Consider using a high-efficiency or electrostatic filter. Gastroesophageal Reflux Disease (GERD) Gastroesophageal reflux disease, or GERD occurs when the lower esophageal sphincter (LES) does not close properly and the stomach contents leak back, or reflux, into the esophagus. The esophagus carried food from the mouth tothe stomach. The LES is a ring of muscles at the bottom of the esophagus that acts like a valve between the esophagus and the stomach. When refluxed stomach acid touches the lining of the esophagus, it causes a burning sensation in the chest or throat called heartburn. The fluid may even be tasted in the back of the mouth, and this is called acid indigestion. Occasional heartburn is common but does not necessarily mean one has GERD. Heartburn that occurs more than twice a week may be considered GERD, and it can eventually lead to more serious health problems. The term Laryngopharyngeal Reflux (LPR) refers to the backflow of food or stomach acid all of the way back up into the larynx (the voice box) or the pharynx (the throat). LPR can occur during the dayor night, even if a person who has LPR hasn't eaten anything during the last couple of hours. What are the symptoms of GERD? Dry cough Bad breath Persistent heartburn and acid regurgitation Pain in the chest Hoarseness or sore throat in the morning Trouble swallowing (feels like you have food stuck in your throat, a choking sensation, or that your throat is tight) Other factors that may contribute to GERD include: Alcohol use Overweight Smoking Hiatal Hernia Food associated with reflux events include: (foods to avoid or eat in moderation) Gonzales fruits Chocolate Drinks with caffeine Fatty and fried foods Garlic and onions Mint flavorings Spicy foods Tomato-based foods such as, spaghetti sauce, chili, and pizza How is GERD treated? Depending on how severe your GERD is, treatment may involve one or more of the following - lifestyle changes, medications or surgery. Lifestyle Changes: If you smoke, stop Do not drink alcohol Lose weight if needed Eat small meals Wear loose-fitting clothes Avoid lying down for 3 hours after meals Raise the head of your bed 6 to 8 inches by putting blocks of wood under the bedposts. Medications used to treat GERD include [id number] Antacids (Kaila-Galien, Maalox, Rolaids, etc.), Foaming agents (Gaviscon), H2 blockers such as (Tagament, Pepcid, Zantac), and prescription medications called Proton Pump Inhibitors (Prevacid, Protonix, Nexium, Aciphex). Your doctor is the best source of information on how to use medications for GERD. What if symptoms persist? If your heartburn does not improve with lifestyle changes or medications, you may need to be referred to a Station Worker (GI) - (a doctor that specializes in diseases of the gastrointestinal tract). Some tests that may be performed include: Barium Swallow Upper endoscopy PH monitoring examination Fundoplication (surgical procedure) documented in this encounter Progress Notes * Jensen Arceo MD - 01/20/2024 3:19 PM CDT Images from the original note were not included. ATTENDING I have verified the documentation of the medical student including all history, exam, and medical decision-making details. I have personally performed a physical exam and have personally reviewed thedata to support my medical decision-making as outlined in the note derived from the student note that I have edited below, and I arrive at the conclusions and plan as noted. My total encounter time on DOS was 61 minutes which includes time spent prior to the visit and after the visit in direct care of the patient. Time involved in the performance of separately billable procedures [skin testing] and teaching is not included in total time date of service. Allergy & Immunology Initial Visit Note REFERRING PHYSICIAN: Dr. Greg Rushing, ENT CHIEF COMPLAINT: allergies HISTORY OF PRESENT ILLNESS Aris Stephens is a 18 year old female who presents for evaluation of rhinitis. She has not seen an Visualization Developer before. She saw ENT on 02/18/23 and was diagnosed with allergic rhinitis and nasal obstruction, with moderate-severe L septal deviation and turbinate hypertrophy based on fiberoptic largyngoscopy done 12/24/22. Surgery is option. Rhinoconjunctivitis Symptoms started in childhood She has been having nasal congestion, rhinorrhea, eye itching, morning sore throat, wheezing, all year long, worse in early Spring (July). Most bothersome symptom(s): congestion Nasal congestion is equal on both sides Currently using: Flonase 2 SEN QD PRN (about once a month), Claritin PRN (once a month), Singulair 10 mg PRN (once a month). Does not remember to take meds Prescribed Astelin by ENT but not using Previously tried Zyrtec/Zyrtec-D, Cara?D , and Sudafed-D works better (uses sometimes when feeling really congested) They feel like they have to change regimens frequently because meds stop working Last took nasal spray and oral antihistamine in November Symptoms are best relieved with Sudafed-D. Flonase clears congestion for a min or two and comes back Symptoms does not improve on vacations out of the area. Symptoms are triggered/worsened with exposure to: Irritants: [] Detergents/soap, [] cooking odors, [] perfumes/strong odor, [] passive smoke exposure House Dust: [] Dusting, [] vacuuming Molds: [] cutting grass, [] raking leaves, [] basements Pets/animals: [x] Dogs [x] Cats , any animals Weather: [] hot , [] Cold, [] humid, [] damp, [] sudden temperature/humidity changes Medications: [] aspirin/NSAID exposure, [] Lisinopril Rhinosinusitis: She has had 1-2 sinus infections per year requiring antibiotics. She had experienced throat pain, worse congestion, facial pressure HOW LONG decreased smell/taste: Yes -- only when congested Halitosis: No facial pressure: Yes when congested green/yellow drainage: No Previously sinus CTs/x-rays:No Asthma: Since childhood (~2 years old) Usually exertion induced 2x this year went ER (winter and spring) Patient Thought had PNA -- congestion, coughing, chest pain, wheezing and had SOB ---> got Advair at one of those visits --> took Advair for about week or so and felt like it helped She is not taking Advair 100-50 mcgand Singulair 10 mg QD She uses albuterol rarely (about once a month after phsical activity or sick). Last used 5 months ago She has shortness of breath, or cough after URI and on cold air exposure. She has lingering cough after URI. She has never been intubated for asthma in the past. She has never been hospitalized for asthma Over the last year, she has received prednisone steroid burst once (unsure if she did but likely when but it was during a visit for a URI) Asthma Control Test Score 24/25 In the past 4 weeks, how much of the time did your asthma keep you from getting as much done at work, school, or home? All of the time (1). Most of the time (2). Some of the time (3). A little of thetime (4). None of the time (5). 2. During the past 4 weeks,how often have you had shortness of breath? More than once a day (1). Once a day (2). 3-6 times a week (3). Once or twice a week (4). Not at all (5). 3. During the past 4 weeks, how often did your asthma symptoms (wheezing, coughing, shortness of breath, chest tightness, of pain) wake you up at night or earlier than usual in the morning? 4 or morenights a week (1). 2-3 nights a week (2). Once a week (3). Once or twice (4). Not at all (5). 4. During the past 4 weeks, how often have you used your rescue inhaler or nebulizer medication (such as albuterol)? 3 or more times per day (1). 1-2 times per day (2). 2-3 times per week (3). Once aweek or less (4). Not at all (5). 5. How would you rate your asthma control during the past 4 weeks? Not controlled at all (1). Poorly controlled (2). Somewhat controlled (3). Well controlled (4). Completely controlled (5). Vocal Cord Dysfunction: History of hoarseness: No Feeling of throat tightness: No GERD screening: Currently taking Tums PRN Wakes up in middle of the night every night Eating anything triggers it [x] epigastric pain [x] regurgitation of food -- sometimes [] wakes up with sour or bitter taste [] eats within 3 hours prior to bed [] drinks liquids within 1 hour prior to bed Eczema: None Urticaria: No itching, hives, or swelling Infection History Infection #/lifetime Infection #/lifetime Pneumonia 2 Bronchiolitis 0 Bronchitis 1 Croup 0 OM 4 Influenza 0 Pharyngitis 5 Thrush 0 Cellulitis 0 Zoster 0 Abscess 0 Varicella 0 Diarrhea 0 Fungal nail infection 0 Conjunctivitis 0 Fungal skin infection 0 Sinusitis 10 IV antibiotics 0 ALLERGIES & SENSITIVITIES: Food: Tolerates milk, egg, wheat, soy, peanut, tree nuts, fish, and shellfish. Drug: Patient has no known allergies. No Known Allergies Stinging insect: No sensitivity Latex (e.g. gloves, balloons, condoms): none Current Outpatient Medications Medication Sig Advair Diskus 100-50 MCG/ACT inhaler INHALE 1 PUFF BY MOUTH EVERY 12 HOURS (Patient not taking: Reported on 12/13/2023) albuterol (Proventil;Ventolin) (2.5 MG/3ML) 0.083% nebulizer solution (Patient not taking: Reportedon 12/13/2023) albuterol HFA (PROVENTIL;VENTOLIN;PROAIR) 108 (90 Base) MCG/ACT inhaler Inhale 2 (two) puffs by mouth every 6 hours as needed (Patient not taking: Reported on 12/13/2023) azelastine (Astelin) 0.1 % nasal spray Somerset 2 (two) sprays into each nostril 2 times daily clindamycin (CLEOCIN) 1 % gel Apply to affected area on face daily. 30 day supply. (Patient not taking: Reported on 06/09/2022) clindamycin-benzoyl peroxide (BENZACLIN) 1-5 % gel Apply to face area daily. 30 days supply. (Patient not taking: Reported on 06/09/2022) diphenhydrAMINE (Benadryl) 25 MG tablet Take by mouth every 4 hours as needed for Itching doxycycline hyclate 100 MG tablet Take 1 (one) tablet by mouth 2 times daily Reasons: Common Acne EluRyng 0.12-0.015 MG/24HR vaginal ring INSERT 1 RING VAGINALLY 1 TIME MONTHLY DIRECTED famotidine (Pepcid) 20 MG tablet Take 1 (one) tablet by mouth 2 times daily FEROSUL 325 (65 Fe) MG tablet Take 325 mg by mouth 2 times daily (Patient not taking: Reported on 06/09/2022) fluticasone propionate (Flonase) 50 MCG/ACT nasal spray [place] 2 (two) sprays into each nostril oncedaily (Patient not taking: Reported on 12/13/2023) montelukast (Singulair) 10 MG tablet Take 1 (one) tablet by mouth once daily (Patient not taking: Reported on 12/13/2023) spironolactone (Aldactone) 100 MG tablet TAKE 2 TABLETS BY MOUTH EVERY DAY No current facility-administered medications for this visit. 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 IMMUNIZATION STATUS: Stated as up to date, has not received COVID19 vaccines. SOCIAL/ENVIRONMENTAL HISTORY: She lives in a House for 8 years, with central heat/air Basement: [] none [x] unfinished [x] finished [] dry [] damp. 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 Disease Father's side Mother's side Brother and sister Allergic rhinitis negative Positive Positive Asthma negative Positive Positive Food allergy negative negative negative Atopic dermatitis negative negative negative Rheumatoid arthritis negative negative negative SLE negative negative negative Thyroid disease negative negative negative Immunodeficiency negative negative negative Urticaria negative negative negative Leukemia negative negative negative Lymphoma negative negative negative REVIEW OF SYSTEMS: Per MS4 Constitutional: [] weight changes [] fever/chills [] night sweats [] sleep problems [] loss of appetite [] fatigue Eyes: [] vision difficulty [] frequent tearing [] redness [x] itching [] dark circles ENT: [] hearing difficulty [] earache [x] nasal congestion [] nose bleeds [x] sore throat [x] sinusproblems [] headache near eyes [x] post nasal drip [] itchy nose CV: [] chest pain [] palpitations [] orthopnea [] leg swelling. Resp: [x] frequent cough [] hemoptysis [] shortness of breath [] wheezing GI: [] nausea [] vomiting [] diarrhea [] constipation [] change in bowel pattern [] abdominal pain [x] heartburn : [] dysuria [] hematuria MS: [] back pain [] joint pain [] bone pain, swelling, or redness [] muscle pain, cramps, or weakness Skin: [] rash [] itching [] suspicious lesions or spots [] dryness Neuro: [] weakness [] seizures [] frequent headaches [] lightheadedness or dizziness or syncope Psych: [] depression [] anxiety Endocrine: [] polyuria [] polydipsia [] flushing Heme/Lymph: [] easy bruising [] prolonged bleeding [] enlarged lymph nodes Allergic/Immunologic: [] hives [x] hay fever [] persistent infections [] pneumonia [] sinus infection [] history of meningitis [] HIV exposure [] angioedema PHYSICAL EXAM: BP 123/77 (BP Location: Left arm, Patient Position: Sitting, BP Cuff Size: Adult) Pulse 98 Temp97.7 ??F (36.5 ??C) (Temporal) Ht 1.651 m (5' 5 ) Wt 87.3 kg (192 lb 6.4 oz) SpO2 98% GENERAL: No acute distress EYES: Conjunctiva clear bilaterally; no allergic shiners present. ENT: ---EARS: TM clear bilaterally ---NOSE: mucosa pale & boggy, turbinates enlarged, no secretions ---OROPHARYNX: no cobblestoning, nonerythematous CARDIOVASCULAR: Heart with regular rate and rhythm, normal S1 RESPIRATORY: Lungs clear to auscultation bilaterally, no wheezes/rales/rhonchi ABDOMEN: Soft, non-tender, non-distended EXTREMITIES: No cyanosis, edema, or clubbing SKIN: No lesions/rashes LYMPHATIC: Palpation of nodes in neck reveals no lymphadenopathy PSYCHIATRIC: Pleasant, conversant TESTING: Percutaneous Skin Testing by Multi-test (read at 20 minutes): NOTE #40 Skin tests done; on scanned sheet negative briceno not entered for Boards 4 and 5, but tablethat follows records negative results BOARD 1 (PERENNIAL) Cockroach -- Cat -- Mouse 1+ Dog -- Saline/glycerin -- Derm far (dust mite) -- Histamine 3+ Appropriately positive Derm ptery (dust mite) 2+ BOARD 2 (MOLDS AND BASIC SEASONAL SCREEN) Alternaria (mold) 2+ Penicillium (mold) -- Aspergillus (mold) -- KORTS (grass) -- Bipolaris (mold) -- Ragan (tree) -- Cladosporium (mold) 1+ Ragweeed, SHORT (DEC-FEB) -- BOARD 3 (SPRING) Sami (tree) -- Elm (tree) -- Birch (tree) -- Centennial (tree) JUL -- Happy (tree) -- Maple/[place] (tree) AUG 15+ [place] (tree) -- Bar[place] (tree) -- BOARD 4 (SPRING/SUMMER) [place] (tree) -- [place] (tree) -- Sweet gum (tree) -- [place] (tree) -- Bahia (grass) ALEXIS -- Marion (tree) -- Bermuda (grass) -- Dock/[place]air (weed) -- BOARD 5 (SUMMER/FALL) Radhames (grass) -- Ordaz elder (weed) -- Burning camejo (weed) -- Mugwort (weed) -- Uzbek plantain (weed) -- Pigweed (weed) -- Lambs quarter (weed) -- Ragweed, GIANT DEC-FEB 14+ Extracts: Blank 1:20 in 50% glycerin except Cat/D. ptery/D. far (Blank 10,000 BAU/ml) and Dog (Tomasa-Winter AP-dog) TESTING:og (Tomasa-Winter AP-dog) ASSESSMENT AND PLAN Encounter Diagnoses Name Primary? Allergic rhinitis, unspecified seasonality, unspecified trigger Yes Other cough Gastroesophageal reflux disease without esophagitis Allergic Rhinitis: Dermatographism: - Allergic skin testing today showed sensitivity to house dust mites and Alternaria - Certain skin findings more difficult to discern due to dermatographism - If she were to opt for allergy shots in the future, recommend allergy blood testing - Explained that her rhinitis symptoms may be multifactorial including sensitivity to environmentalallergens, anatomic structural problems as diagnosed by ENT, and possible contribution from GERD - Discussed and provided written information on environmental control measures to decrease overall relevant aeroallergen exposure. - Start azelastine 0.1% 2 spray each nostril BID - Discussed that Flonase and azelastine can be both be used for better control of symptoms - Can continue to use Flonase 2 sprays each nostril daily or PRN - Recommended patient use nasal sprays at ~10 minutes apart with nose to toes technique. Rationale discussed and technique demonstrated. Mild Persistent Asthma: - Continue using ADVAIR Diskus 100-50 mcg 1 puff BID - Continue albuterol rescue inhaler PRN - Proper inhaler technique discussed with patient. - For albuterol or other pressured container recommended patient breath out, puff, and inhale slowly over 5 seconds, then hold breath for up to 10 seconds. - For Advair inhale quickly as the medication is sprayed - Obtain PFTs for further evaluation GERD: - Start famotidine 20 mg BID See detailed patient Instructions in After Visit Summary that were discussed. FOLLOWS Nose, your allergy skin test today showed to house dust mites, see instructions below to reduce your exposure, and a mold called Alternaria which can be present in outdoor air as well as indoor dust. Your skin test were affected by something called dermatographia is him which means by scratching the skinyou get a certain amount of a reaction from that. At some point in the future should allergy shots be considered, we would advise obtaining allergy blood test to take out the factor of the dermatographia is him. Suggested for nose spray, you use azelastine 2 sprays each nostril twice daily as needed. You should get benefit within 15 to 30 minutes, although full benefit is achieved when you are taking it on ongoing basis for a number of days at a time. If having congestion, would also stressed that she use fluticasone Flonase nasal spray 1 spray eachnostril twice daily, spacing out by about 10 minutes from the azelastine spray If you get your nose under better control by the use of the nose sprays, you will be more likely tokeep open the passageways to your sinuses, and potentially be less likely to develop sinus infections Acid reflux Discussed possible role of acid reflux aggravating nose problems, although you have structural noseproblems that have been diagnosed by Dr. Foy Asthma? Getting lung function test For pressurized spray can such as albuterol, breathing and slowly over 5 seconds to get full benefit Should you use the Advair Diskus, that is inhaled rapidly, however the onset of benefit is typically 60 minutes or more, much slower than the relief that 1 would expect from albuterol Nasal [place] technique: Avoid spraying nose spray towards center of nose [septum], use nose to toes position [after spraying upright, then bending down as far as you can for approximately 20 seconds] to prevent medication dripping down throat and to reduce taste. If you develop nose bleeds, hold taking nose spray for several days, andif nose bleeds * continue, please contact us. What are house dust mites? Tiny microscopic creatures called house dust mites are an important cause of allergic reactions to house dust. They belong to the family of eight-legged creatures called arachnids. This family also includes spiders, chiggersand ticks. Dust mites are urrutia creatures that live well and multiply easily in warm, humid places. They prefer temperatures at or above 70 degrees Fahrenheit with a relative humidity of 75 percent to 80 percent and whenthe humidity falls below 40 percent to 50 percent. They are rarely found in dry climates. As many as 10 percent of the general population and (in some regions) 90 percent of people with allergic asthma are sensitive to dust mites. Dust mite particles are just the right size to be inhaled. They are found in the highest concentrations in pillows, mattresses, carpeting and upholstered furniture. They float into the air when anyone vacuums, walks on a carpet or disturbs bedding, but settle out of the air once the disturbance is over. A dust mite allergic patient who sleeps for eight hours every night spends one third of his life with his nose in direct contact with a pillow loaded with dust mite particles! There may be many as 19,000 dust mites in an amount of dust equal to the weight of a paper clip. Mites eat particles of skin and dander, so they thrive in places where there are people. Dust mites don't bite, and cannot spread diseases. They are harmful only to people who become allergic to them. While usual household insecticides have no effect on dust mites, there are several ways that allergicpeople can reduce exposure. How to Avoid Dust Mites Avoidance of house dust is the least expensive and most effective method of treating allergies to house dust mites. First line steps- Focus on the bedroom - people spend a lot of time there and the bedroom often contains the most dust mites. Routine Cleaning - dust and vacuum at least once a week. The person with allergies should should beout of the room during and after cleaning for at least 30 minutes to allow the dust particles to settle. If this is not possible, use a facemask purchased from a mail order supplier. Window Covers - use washable curtains rather than blinds, (more difficult to clean). Avoid clutter to minimize places that collect dust. Bedding - use only synthetic, hypoallergenic, washable blankets and pillows. Avoid old quilts, downcomforters and old mattresses. - Wash all bedding, mattress pads and pillows every 2 weeks to kill the dust mites and destroy the mite allergen. Alternatively, bedspreads may be dry cleaned frequently. - Cover all bedding in the room (pillows, mattresses) with hypoallergenic casings.Search the internet for dust mite covers to find vendors. Fatimah -The ideal floor covering is either hardwood or linoleum, with throw rugs that can be washed weekly. Stuffed Animals - these are a major reservoir for dust mites. Either put them on a shelf, or wash in hot water every month. Items too delicate to be washed, may be placed a tightly sealed plastic bag, and put in the freeze overnight. Allow the item to completely thaw before removing from the bag, to prevent condensing moisture to ackerman any remaining dust mite eggs. Furniture - keep overstuffed furniture and bookshelves to a minimum in the bedroom. Closets - minimize clutter; store infrequently used items in areas other than the bedroom, because disturbing these items may trigger allergic reactions. Vents & Ducts - replace filters on central heating and cooling units every 4-6 weeks. Cover thebedroom ducts with a filter that can be made from gauze or cheesecloth; check the internet for similar duct filters. Change filters once a month when heating and air-conditioning is used. Commercial cleaning of the vents and ducts is not recommended. Consider using a high-efficiency or electrostatic filter. Gastroesophageal Reflux Disease (GERD) Gastroesophageal reflux disease, or GERD occurs when the lower esophageal sphincter (LES) does not close properly and the stomach contents leak back, or reflux, into the esophagus. The esophagus carried food from the mouth tothe stomach. The LES is a ring of muscles at the bottom of the esophagus that acts like a valve between the esophagus and the stomach. When refluxed stomach acid touches the lining of the esophagus, it causes a burning sensation in the chest or throat called heartburn. The fluid may even be tasted in the back of the mouth, and this is called acid indigestion. Occasional heartburn is common but does not necessarily mean one has GERD. Heartburn that occurs more than twice a week may be considered GERD, and it can eventually lead to more serious health problems. The term Laryngopharyngeal Reflux (LPR) refers to the backflow of food or stomach acid all of the way back up into the larynx (the voice box) or the pharynx (the throat). LPR can occur during the dayor night, even if a person who has LPR hasn't eaten anything during the last couple of hours. What are the symptoms of GERD? Dry cough Bad breath Persistent heartburn and acid regurgitation Pain in the chest Hoarseness or sore throat in the morning Trouble swallowing (feels like you have food stuck in your throat, a choking sensation, or that your throat is tight) Other factors that may contribute to GERD include: Alcohol use Overweight Smoking Hiatal Hernia Food associated with reflux events include: (foods to avoid or eat in moderation) [place] fruits Chocolate Drinks with caffeine Fatty and fried foods Garlic and onions Mint flavorings Spicy foods Tomato-based foods such as, spaghetti sauce, chili, and pizza How is GERD treated? Depending on how severe your GERD is, treatment may involve one or more of the following - lifestyle changes, medications or surgery. Lifestyle Changes: If you smoke, stop Do not drink alcohol Lose weight if needed Eat small meals Wear loose-fitting clothes Avoid lying down for 3 hours after meals Raise the head of your bed 6 to 8 inches by putting blocks of wood under the bedposts. Medications used to treat GERD include [id number]-fyzttky Antacids (Kaila-Galien, Maalox, Rolaids, etc.), Foaming agents (Gaviscon), H2 blockers such as (Tagament, Pepcid, Zantac), and prescription medications called Proton Pump Inhibitors (Prevacid, Protonix, Nexium, Aciphex). Your doctor is the best source of information on how to use medications for GERD. What if symptoms persist? If your heartburn does not improve with lifestyle changes or medications, you may need to be referred to a Station Worker (GI) - (a doctor that specializes in diseases of the gastrointestinal tract). Some tests that may be performed include: Barium Swallow Upper endoscopy PH monitoring examination Fundoplication (surgical procedure) Return in about 6 months (around 07/19/2024). * Gi Rucker - 01/20/2024 1:04 PM CDT Allergy & Immunology Initial Visit Note REFERRING PHYSICIAN: Dr. Greg Rushing, ENT CHIEF COMPLAINT: allergies HISTORY OF PRESENT ILLNESS Aris Stephens is a 18 year old female who presents for evaluation of rhinitis. She has not seen an Visualization Developer before. She saw ENT on 02/18/23 and was diagnosed with allergic rhinitis and nasal obstruction, with moderate-severe L septal deviation and turbinate hypertrophy based on fiberoptic largyngoscopy done 12/24/22. She was given the option to have surgery, but opted for allergy evaluation for medical management. Rhinoconjunctivitis Symptoms started in childhood She has been having nasal congestion, rhinorrhea, eye itching, morning sore throat, wheezing, all year long, worse in early Spring (July). Most bothersome symptom(s): congestion Nasal congestion is equal on both sides Currently using: Flonase 2 SEN QD PRN (about once a month), Claritin PRN (once a month), Singulair 10 mg PRN (once a month). Prescribed Astelin by ENT but not using Previously tried Zyrtec/Zyrtec-D, Cara, and Sudafed-D works better (uses sometimes when feeling really congested) They feel like they have to change regimens frquently because meds stop working Last took nasal spray and oral antihistamine in November Symptoms are best relieved with Sudafed-D. Flonase clears congestion for a minute or two and comes back Symptoms does not improve on vacations out of the area. Symptoms are triggered/worsened with exposure to: Irritants: [] Detergents/soap, [] cooking odors, [] perfumes/strong odor, [] passive smoke exposure House Dust: [] Dusting, [] vacuuming Molds: [] cutting grass, [] raking leaves, [] basements Pets/animals: [x] Dogs [x] Cats , any animals Weather: [] hot , [] Cold, [] humid, [] damp, [] sudden temperature/humidity changes Medications: [] aspirin/NSAID exposure, [] Lisinopril Rhinosinusitis: She has had 1-2 sinus infections per year requiring antibiotics. She had experienced throat pain, worse congestion, facial pressure that last >10 days decreased smell/taste: Yes -- when congested Halitosis: No facial pressure: Yes -- when congested green/yellow drainage: No Had ENT fiberoptic largyngoscopy 12/24/22 showing nasal obstruction, with moderate-severe L septal deviation and turbinate hypertrophy Previously sinus CTs/x-rays:No Asthma: Diagnosed in childhood (~2 years old) She has shortness of breath, or cough after URI and on cold air exposure. She has lingering cough after URI. Usually exertion induced symptoms Went ER twice this year for exacerbation symptoms (winter 2022 and spring 2023) Thought she had pneumonia due to congestion, coughing, chest pain, wheezing. and SOB got Advair prescribed at one of those visits took Advair for about week or so and felt like it helped Not currently using prescribed Advair and Singulair 10 mg QD She uses albuterol rarely (about once a month after phsical activity or sick). Last used 5 months ago She has never been intubated for asthma in the past. She has never been hospitalized for asthma Over the last year, she has received prednisone steroid burst once (unsure if she did but likely when but it was during a visit for a URI) Asthma Control Test Score 24/25 In the past 4 weeks, how much of the time did your asthma keep you from getting as much done at work, school, or home? All of the time (1). Most of the time (2). Some of the time (3). A little of thetime (4). None of the time (5). 2. During the past 4 weeks,how often have you had shortness of breath? More than once a day (1). Once a day (2). 3-6 times a week (3). Once or twice a week (4). Not at all (5). 3. During the past 4 weeks, how often did your asthma symptoms (wheezing, coughing, shortness of breath, chest tightness, of pain) wake you up at night or earlier than usual in the morning? 4 or morenights a week (1). 2-3 nights a week (2). Once a week (3). Once or twice (4). Not at all (5). 4. During the past 4 weeks, how often have you used your rescue inhaler or nebulizer medication (such as albuterol)? 3 or more times per day (1). 1-2 times per day (2). 2-3 times per week (3). Once aweek or less (4). Not at all (5). 5. How would you rate your asthma control during the past 4 weeks? Not controlled at all (1). Poorly controlled (2). Somewhat controlled (3). Well controlled (4). Completely controlled (5). Vocal Cord Dysfunction Screening: History of hoarseness: No Feeling of throat tightness: No GERD: Currently taking Tums PRN Wakes up in middle of the night every night Eating anything triggers it [x] epigastric pain [x] regurgitation of food -- sometimes [] wakes up with sour or bitter taste [] eats within 3 hours prior to bed [] drinks liquids within 1 hour prior to bed Eczema: None Urticaria: No itching, hives, or swelling Infection History Infection #/lifetime Infection #/lifetime Pneumonia 2 Bronchiolitis 0 Bronchitis 1 Croup 0 OM 4 Influenza 0 Pharyngitis 5 Thrush 0 Cellulitis 0 Zoster 0 Abscess 0 Varicella 0 Diarrhea 0 Fungal nail infection 0 Conjunctivitis 0 Fungal skin infection 0 Sinusitis 10 IV antibiotics 0 ALLERGIES & SENSITIVITIES: Food: Tolerates milk, egg, wheat, soy, peanut, tree nuts, fish, and shellfish. Drug: Patient has no known allergies. No Known Allergies Stinging insect: No sensitivity Latex (e.g. gloves, balloons, condoms): none Current Outpatient Medications Medication Sig Advair Diskus 100-50 MCG/ACT inhaler INHALE 1 PUFF BY MOUTH EVERY 12 HOURS (Patient not taking: Reported on 12/13/2023) albuterol (Proventil;Ventolin) (2.5 MG/3ML) 0.083% nebulizer solution (Patient not taking: Reportedon 12/13/2023) albuterol HFA (PROVENTIL;VENTOLIN;PROAIR) 108 (90 Base) MCG/ACT inhaler Inhale 2 (two) puffs by mouth every 6 hours as needed (Patient not taking: Reported on 12/13/2023) azelastine (Astelin) 0.1 % nasal spray [place] 2 (two) sprays into each nostril 2 times daily clindamycin (CLEOCIN) 1 % gel Apply to affected area on face daily. 30 day supply. (Patient not taking: Reported on 06/09/2022) clindamycin-benzoyl peroxide (BENZACLIN) 1-5 % gel Apply to face area daily. 30 days supply. (Patient not taking: Reported on 06/09/2022) diphenhydrAMINE (Benadryl) 25 MG tablet Take by mouth every 4 hours as needed for Itching doxycycline hyclate 100 MG tablet Take 1 (one) tablet by mouth 2 times daily Reasons: Common Acne EluRyng 0.12-0.015 MG/24HR vaginal ring INSERT 1 RING VAGINALLY 1 TIME MONTHLY DIRECTED famotidine (Pepcid) 20 MG tablet Take 1 (one) tablet by mouth 2 times daily FEROSUL 325 (65 Fe) MG tablet Take 325 mg by mouth 2 times daily (Patient not taking: Reported on 06/09/2022) fluticasone propionate (Flonase) 50 MCG/ACT nasal spray [place] 2 (two) sprays into each nostril oncedaily (Patient not taking: Reported on 12/13/2023) montelukast (Singulair) 10 MG tablet Take 1 (one) tablet by mouth once daily (Patient not taking: Reported on 12/13/2023) spironolactone (Aldactone) 100 MG tablet TAKE 2 TABLETS BY MOUTH EVERY DAY No current facility-administered medications for this visit. 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 IMMUNIZATION STATUS: Stated as up to date, has not received COVID19 vaccines. SOCIAL/ENVIRONMENTAL HISTORY: She lives in a House for 8 years, with central heat/air Basement: [] none [x] unfinished [x] finished [] dry [] damp. 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 FAMILY HISTORY: Disease Father's side Mother's side Brother and sister Allergic rhinitis negative Positive Positive Asthma negative Positive Positive Food allergy negative negative negative Atopic dermatitis negative negative negative Rheumatoid arthritis negative negative negative SLE negative negative negative Thyroid disease negative negative negative Immunodeficiency negative negative negative Urticaria negative negative negative Leukemia negative negative negative Lymphoma negative negative negative REVIEW OF SYSTEMS: Constitutional: [] weight changes [] fever/chills [] night sweats [] sleep problems [] loss of appetite [] fatigue Eyes: [] vision difficulty [] frequent tearing [] redness [x] itching [] dark circles ENT: [] hearing difficulty [] earache [x] nasal congestion [] nose bleeds [x] sore throat [x] sinusproblems [] headache near eyes [x] post nasal drip [] itchy nose CV: [] chest pain [] palpitations [] orthopnea [] leg swelling. Resp: [x] frequent cough [] hemoptysis [] shortness of breath [] wheezing GI: [] nausea [] vomiting [] diarrhea [] constipation [] change in bowel pattern [] abdominal pain [x] heartburn : [] dysuria [] hematuria MS: [] back pain [] joint pain [] bone pain, swelling, or redness [] muscle pain, cramps, or weakness Skin: [] rash [] itching [] suspicious lesions or spots [] dryness Neuro: [] weakness [] seizures [] frequent headaches [] lightheadedness or dizziness or syncope Psych: [] depression [] anxiety Endocrine: [] polyuria [] polydipsia [] flushing Heme/Lymph: [] easy bruising [] prolonged bleeding [] enlarged lymph nodes Allergic/Immunologic: [] hives [x] hay fever [] persistent infections [] pneumonia [] sinus infection [] history of meningitis [] HIV exposure [] angioedema PHYSICAL EXAM: BP 123/77 (BP Location: Left arm, Patient Position: Sitting, BP Cuff Size: Adult) Pulse 98 Temp97.7 ??F (36.5 ??C) (Temporal) Ht 1.651 m (5' 5 ) Wt 87.3 kg (192 lb 6.4 oz) SpO2 98% GENERAL: No acute distress EYES: Conjunctiva clear bilaterally; no allergic shiners present. ENT: ---EARS: TM clear bilaterally ---NOSE: mucosa pale & boggy, turbinates enlarged, no secretions ---OROPHARYNX: no cobblestoning, nonerythematous CARDIOVASCULAR: Heart with regular rate and rhythm, normal S1 RESPIRATORY: Lungs clear to auscultation bilaterally, no wheezes/rales/rhonchi ABDOMEN: Soft, non-tender, non-distended EXTREMITIES: No cyanosis, edema, or clubbing SKIN: No lesions/rashes LYMPHATIC: Palpation of nodes in neck reveals no lymphadenopathy PSYCHIATRIC: Pleasant, conversant TESTING: Percutaneous Skin Testing by Multi-test (read at 20 minutes): BOARD 1 (PERENNIAL) Cockroach -- Cat -- Mouse 1+ Dog -- Saline/glycerin -- Derm far (dust mite) -- Histamine 3+ Appropriately positive Derm ptery (dust mite) 2+ BOARD 2 (MOLDS AND BASIC SEASONAL SCREEN) Alternaria (mold) 2+ Penicillium (mold) -- Aspergillus (mold) -- KORTS (grass) -- Bipolaris (mold) -- Ragan (tree) -- Cladosporium (mold) 1+ Ragweeed, SHORT () -- BOARD 3 (SPRING) Sami (tree) -- Elm (tree) -- Birch (tree) -- [place]ennial (tree) JUL -- Happy (tree) -- Maple/[place] (tree) AUG 15+ [place] (tree) -- [place] (tree) -- BOARD 4 (SPRING/SUMMER) [place] (tree) -- [place] (tree) -- Sweet gum (tree) -- [place] (tree) -- Bahia (grass) ALEXIS -- [place] (tree) -- Berm[place] (grass) -- Dock/[place] (weed) -- BOARD 5 (SUMMER/FALL) Radhames (grass) -- Ordaz elder (weed) -- Burning camejo (weed) -- Mugwort (weed) -- Uzbek plantain (weed) -- Pigweed (weed) -- Lambs quarter (weed) -- Ragweed, GIANT FEB 14+ Extracts: Blank 1:20 in 50% glycerin except Cat/D. ptery/D. far (Blank 10,000 BAU/ml) and Dog (Jessica AP-dog) ASSESSMENT AND PLAN Encounter Diagnoses Name Primary? Allergic rhinitis, unspecified seasonality, unspecified trigger Yes Other cough Gastroesophageal reflux disease without esophagitis Allergic Rhinitis: Dermatographism: - Allergic skin testing today showed sensitivity to house dust mites and Alternaria - Certain skin findings more difficult to discern due to dermatographism - If she were to opt for allergy shots in the future, recommend allergy blood testing - Explained that her rhinitis symptoms may be multifactorial including sensitivity to environmentalallergens, anatomic structural problems as diagnosed by ENT, and possible contribution from GERD - Discussed and provided written information on environmental control measures to decrease overall relevant aeroallergen exposure. - Start azelastine 0.1% 2 spray each nostril BID - Discussed that Flonase and azelastine can be both be used for better control of symptoms - Can continue to use Flonase 2 sprays each nostril daily or PRN - Recommended patient use nasal sprays at ~10 minutes apart with nose to toes technique. Rationale discussed and technique demonstrated. Mild Persistent Asthma: - Continue using ADVAIR Diskus 100-50 mcg 1 puff BID - Continue albuterol rescue inhaler PRN - Proper inhaler technique discussed with patient. - For albuterol or other pressured container recommended patient breath out, puff, and inhale slowly over 5 seconds, then hold breath for up to 10 seconds. - For Advair inhale quickly as the medication is sprayed - Obtain PFTs for further evaluation GERD: - Start famotidine 20 mg BID Return in about 6 months (around 07/19/2024). Signed: This note and any recommendations are not final until attested by the attending physician. Gi Rucker, MS4 01/20/2024 4:43 PM documented in this encounter Plan of Treatment Scheduled Orders Name Type Priority Associated Diagnoses Orde r Schedule Complete PFT [facility] PFT Lab Respiratory Care Routine Other cough Ordered: 01/20/2024 documented as of this encounter Visit Diagnoses Diagnosis Allergic rhinitis, unspecified seasonality, unspecified trigger- Primary Other cough Gastroesophageal reflux disease without esophagitis Esophageal reflux documented in this encounter Care Teams Hub Lead Relationship Specialty Start Date End Date Severino Zelaya Update Information PCP - General 07/03/20 documented as of this encounter
--- OUTSIDE RECORDS SUMMARY | 2024-05-16 22:39 | XMS_ITS | Encounter Summary ---
Author Organization [facility] Address [address] [place] [address] [place] [address] Care Team Providers Care Fur Sorter Name Role Phone Severino Zelaya Primary Care Provider Onel e Encounter Details Date Type Department Care Team (Latest Contact Info) Description 12/13/2023 Travel Social History Tobacco Use Types Packs/Day [...] on filedocumented in this encounter Care Teams Fur Sorter Relationship Specialty Start Date End Date Severino Zelaya Update Information PCP - General 07/03/20 documented as of this encounter
--- OUTSIDE RECORDS SUMMARY | 2024-05-16 22:39 | XMS_ITS | Encounter Summary ---
Author Organization [facility] Address [address] [place] [address] Care Team Providers Care Graves Registration Specialist Name Role Phone Severino Zelaya Primary Care Provider Unavailsushil e Reason for Visit * Reason Comments Injury Knee playing soccer Encounter Details Date Type Department Care Team (Late st Contact Info) Description 01/22/2021 11:28 PM CDT - 01/23/2021 1:06 AM CDT Emergency ER at [address] [address] Americo Daly MD [address] [place] [id number] Injury of left knee, initial encounter; Acute pain of left knee Discharge Disposition: Home or Self Care Social [...] Sign Reading Time Taken Comments Blood Pressure 144/78 01/22/2021 11:03 PM CDT Pulse 72 01/22/2021 11:03 PM CDT Temperature 36.6 ??C (97.9 ??F) 01/22/2021 11:03 PM C DT Respiratory Rate 16 01/22/2021 11:03 PM CDT Oxygen Saturation - - Inhaled Oxygen Concentration - - Weight 74 kg (163 lb 2.3 oz) 01/22/2021 11:03 PM CDT Height - - Body Mass Index - - documented in this encounter Discharge Instructions * Attachments The following attachments cannot be sent through Care Everywhere. * Swollen Knee Joint (AfterCare(R) Instructions(ER/ED)) (Surinamese) documented in this encounter Medications at Time of Discharge Medication Sig Dispensed Refills Start Date End Date albuterol HFA (PROVENTIL;VENTOLIN;PRO AIR) 108 (90 Base) MCG/ACT inhaler Inhale 2 (two) puffs by mouth every 6 hours as needed 08/11/2020 clindamycin-benzoyl peroxide (BENZACLIN) 1-5 % gel Apply to face area daily. 30 days supply. 50 g 3 12/10/2020 FEROSUL 325 (65 Fe) MG tablet Take 325 mg by mouth 2 times daily 07/02/2020 clindamycin (CLEOCIN) 1 % gel Apply to affected area on face daily. 30 day supply. 60 g 3 12/23/2020 04/15/2021 doxycycline monohydrate 100 MG capsuleIndications:Acne vulgaris Take 1 (one) capsule by mouth every 12 hours 60 capsule 3 08/13/2020 12/24/2022 drospirenone-ethinyl estradiol (ADRIANA) 3-0.02 MG tablet Take 1 (one) tablet by mouth once daily 07/02/2020 12/24/2022 spironolactone (ALDACTONE) 50 MG tabletIndications:Acne vulgaris Take three tablets daily. 90 tablet 3 12/10/2020 03/21/2021 tretinoin (RETIN-A) 0.025 % creamIndications:Acne vulgaris Pea sized amount to entire face at night. 30 days supply. 20 g 3 12/10/2020 04/15/2021 documented as of this encounter ED Notes * Nichol Foley MD - 01/23/2021 1:06 AM CDT [facility] ED Encounter Note A oovecofiq-pt-mjlzmzme working with a supervising attending writes the following note. As such, the note will be abbreviated specifying couch portions of the ED encounter. A more complete note of the ED encounter from the supervising attending physician can be found in the medical record. HISTORY Provider contact with the patient: 01/23/2021 Aris Stephens [id number] Chief Complaint Patient presents with ??? Injury Knee playing soccer The chief complaint narrative was entered by a triage nurse, not by physician. HPI I have discussed the HPI documented in the supervisory provider's note, unless otherwise stated below. REVIEW OF SYSTEMS I have discussed the ROS documented in supervisory provider's note, unless otherwise stated below. PHYSICAL EXAM I have discussed the PE documented in supervisory provider's note. Pertinent physical exam findingsstated below. Physical Exam PE: BP 144/78 Pulse 72 Temp 97.9 ??F (36.6 ??C) (Oral) Resp 16 Wt 74 kg (163 lb 2.3 oz) PROCEDURE Procedures LABS/ORDERS Orders Placed This Encounter ??? CRUTCHES ADULT TALL ??? XR KNEE LEFT 2VW OR LESS XR KNEE LEFT 2VW OR LESS (Results Pending) No results found for this visit on 01/22/21. ED COURSE Aris Stephens is a 15 year old female presenting with: - patient playing soccer earlier this afternoon - running, tried to abruptly stop to kick ball with right leg, felt left knee give out and fell on field, unable to ambulate afterwards - did not feel a pop - unable to appreciate if knee hyperextended vs rolled Differential Diagnoses: Muscle sprain vs ligament sprain vs fracture vs patellar dislocation Clinical Impressions as of Jan 24 528 Injury of left knee, initial encounter Acute pain of left knee ED Management: - patient exam reassuring: no bruising, no edema noted - anterior/posterior drawer negative, valgus/varus negative - no concern for MCL, LCL or intra-articular process - pain to palpation just distal to patellar, on tibial plateau - Xray negative for fracture - discussed supportive care including ice, rest, elevation, nonweight bearing, pain management - crutches provided - f/u in PCP or ortho in two weeks if not improved Medical Decision Making CLINICAL IMPRESSIONS AND DISPOSITION Final Diagnosis: Final diagnoses: Injury of left knee, initial encounter Acute pain of left knee Disposition: DC * Ebony Dudley RN - 01/23/2021 1:05 AM CDT Pt given crutches and crutch teaching, knee wrapped in shirley wrap. * Ebony Dudley RN - 01/23/2021 1:05 AM CDT Discharge instructions reviewed with mom including symptom management of knee injury and further symptoms to watch for and follow up with PCP and ortho and medications. Patient alert, awake, ambulatory, NAD at this time. No questions or concerns. * Americo Daly MD - 01/23/2021 12:14 AM CDT Provider contact with the patient: 01/23/2021 12:14 AM [facility] Aris Stephens [id number] History Chief Complaint Patient presents with ??? Injury Knee playing soccer Chief complaint narrative was entered by triage nurse, not by physician. I have read the resident/medical student/COLOR GRINDER history. Unless appended by me below, I agree with findings as documented. HPI History provided per: Patient Aris Stephens is a 15 year old female with no significant PMHx who presents to ED for evaluation of a knee injury that began today. Pt was running at soccer practice when she went to stop and her knee gave out. Pt denies hearing a pop but was unable to ambulate afterwards. No swelling or bruisingnoted. No exacerbating or alleviating factors. No other recent injuries or illnesses. All immunizations are up-to-date. No Known Allergies No past medical history on file. Social History Socioeconomic History ??? Marital status: Single Spouse name: Not on file ??? Number of children: Not on file ??? Years of education: Not on file ??? Highest education level: Not on file Occupational History ??? Not on file Tobacco Use ??? Smoking status: Never Smoker ??? Smokeless tobacco: Never Used Vaping Use ??? Vaping Use: Never used Substance and Sexual Activity ??? Alcohol use: Never ??? Drug use: Never ??? Sexual activity: Never Other Topics Concern ??? Not on file Social History Narrative ??? Not on file Social Determinants of Health Financial Resource Strain: ??? Difficulty of Paying Living Expenses: Food Insecurity: ??? Worried About Running Out of Food in the Last Year: ??? Ran Out of Food in the Last Year: Transportation Needs: ??? Lack of Transportation (Medical): ??? Lack of Transportation (Non-Medical): Physical Activity: ??? Days of Exercise per Week: ??? Minutes of Exercise per Session: Stress: ??? Feeling of Stress : Social Connections: ??? Frequency of Communication with Friends and Family: ??? Frequency of Social Gatherings with Friends and Family: ??? Attends Mu-Ism Services: ??? Active Member of Clubs or Organizations: ??? Attends Club or Organization Meetings: ??? Marital Status: Intimate Partner Violence: ??? Fear of Current or Ex-Partner: ??? Emotionally Abused: ??? Physically Abused: ??? Sexually Abused: No family history on file. Patient's Medications New Prescriptions No medications on file Previous Medications ALBUTEROL HFA (PROVENTIL;VENTOLIN;PROAIR) 108 (90 BASE) MCG/ACT INHALER Inhale 2 puffs by mouth every 6 hours as needed CLINDAMYCIN (CLEOCIN) 1 % GEL Apply to affected area on face daily. 30 day supply. CLINDAMYCIN-BENZOYL PEROXIDE (BENZACLIN) 1-5 % GEL Apply to face area daily. 30 days supply. DOXYCYCLINE MONOHYDRATE 100 MG CAPSULE Take 1 (one) capsule by mouth every 12 hours DROSPIRENONE-ETHINYL ESTRADIOL (ADRIANA) 3-0.02 MG TABLET Take 1 tablet by mouth once daily FEROSUL 325 (65 FE) MG TABLET Take 325 mg by mouth 2 times daily SPIRONOLACTONE (ALDACTONE) 50 MG TABLET Take three tablets daily. TRETINOIN (RETIN-A) 0.025 % CREAM Pea sized amount to entire face at night. 30 days supply. Modified Medications No medications on file Discontinued Medications No medications on file Review of Systems All relevant systems reviewed and all negative except as noted in resident/medical student/COLOR GRINDER and attending HPI/ROS. Constitutional: No activity change, appetite change or fever HENT: No congestion or rhinorrhea Respiratory: No cough or wheezing Cardiovascular: Negative GI: No abdominal pain, diarrhea, nausea or vomiting : No decreased urine output MS: +knee injury Neuro: Negative Skin: No rash or wounds All other systems negative except as noted above. Physical Exam I have reviewed the resident/medical student/COLOR GRINDER physical exam. Unless appended by me below, I agreewith the PE as documented. Vitals: 01/22/21 2303 BP: (!) 144/78 Pulse: 72 Resp: 16 Temp: 97.9 ??F (36.6 ??C) Weight: 74 kg (163 lb 2.3 oz) Constitutional: Pt appears well-developed and well-nourished; in no acute distress Head: Normocephalic; atraumatic. Eyes: Conjunctivae are normal. ENT: Mucous membranes moist. Neck: Supple. Normal ROM. Cardiovascular: Regular rate and rhythm. S1 and S2 normal. No murmurs, rubs or gallops. Pulmonary: Normal respiratory effort. Breath sounds clear and equal bilaterally; no wheezing, rales, or rhonchi. Abdominal: Soft. No abdominal tenderness. No distension. Extremities: Full ROM. Neurological: Pt is alert and interactive. Skin: No rash or lesions. Nursing notes and vitals reviewed. Procedures Procedures Labs/Orders Orders Placed This Encounter ??? XR KNEE LEFT 2VW OR LESS XR KNEE LEFT 2VW OR LESS (Results Pending) No results found for this visit on 01/22/21. ED Course Initial Assessment & Plan: 15 yo female presents with left knee injury while at soccer practice. XR normal. Physical exam not concerning for intraarticular injuries. Attempt to walk patient but states pain too much. Will place in shirley wrap and crutches. RICE protocol. Will DC home with supportive care. 12:24 AM The patient remains stable at the time of discharge. My/Our clinical impression was discussed and results were reviewed. The patient/guardian was given the opportunity to ask questions, and I/we addressed them as completely as possible given the information available at present. The therapeutic plan was discussed, instructions were given and the importance of primary care follow up was stressed and encouraged. The patient/guardian voiced understanding of the plan, indications to return, and the need for follow up. Medical Decision Making Medical Decision Making I have reviewed the: Previous Chart, Nursing Notes, Vitals. I have interpreted the following results: X-Ray, Oxygen Saturation. I have discussed the case with Family/Caregiver. The total time providing critical care (excluding time spent for procedures) was: 0 minutes. Clinical Impression and Disposition Final Diagnosis: Final diagnoses: Injury of left knee, initial encounter Acute pain of left knee New Medications: New Prescriptions No medications on file I have advised the patient to follow-up with: Severino Zelaya Update Information Call As needed, If symptoms worsen [facility] [address] [place] [address] Schedule an appointment as soon as possible for a visit F/u with ortho if pain does not improve in two weeks Disposition: Discharged 01/23/2021 12:24 AM Scribe Attestation By signing my name below, I, Francisco Bates, attest that this documentation has been prepared under the direction and in the presence of Dr. Daly Electronically Signed: Francisco Bates 01/23/2021 12:14 AM Provider Attestation I, Dr. Daly, personally performed the services described in this documentation. All medical record entries made by the scribe were at my direction and in my presence. I have reviewed the chart andagree that the record reflects my personal performance and is accurate and complete. I have fully pa rticipated in the care of this patient. I have reviewed all pertinent clinical information available to me during this encounter, including history, physical exam and plan. I have reviewed nursing notes, vital signs, available labs and radiographic studies. With respect to physicians in training and mid-level providers, I, Dr. Daly, agree with the assessment and plan except if revised in my note. documented in this encounter Plan of Treatment Not on file documented as of this encounter Procedures Procedure Name Priority Date/Time Associated Diagnosis Comments XR KNEE LEFT 2VW OR LESS STAT 01/22/2021 11:43 PM CDT Injury of left knee, initial encounter documented in this encounter Results * XR KNEE LEFT 2VW OR LESS (01/22/2021 11:43 PM CDT) Anatomical Region Laterality Modality Lower Extremity Radiographic Arti ging 01/23/2021 7:48 AM CDT Impressions 01/23/2021 7:48 AM CDT No fracture or dislocation. *Reading Radiologist: Bo Cuello on 01/23/2021 at 7:48 AM Narrative 01/23/2021 7:48 AM CDT INDICATION: Pain COMPARISON: None available. TECHNIQUE: Frontal and lateral views of the left knee. FINDINGS: There is no fracture or osseous abnormality. The joint alignment is normal. The soft tissues are normal without evidence of joint effusion. Procedure Note Bo Cuello, DO - 01/23/2021 INDICATION: Pain COMPARISON: None available. TECHNIQUE: Frontal and lateral views of the left knee. FINDINGS: There is no fracture or osseous abnormality. The joint alignment is normal. The soft tissues are normal without evidence of joint effusion. IMPRESSION No fracture or dislocation. *Reading Radiologist: Bo Cuello on 01/23/2021 at 7:48 AM Americo Daly MD DIAGNOSTIC IMAGING O RDERABLES documented in this encounter Visit Diagnoses Diagnosis Injury of left knee, initial encounter Acute pain of left knee documented in this encounter Care Teams Graves Registration Specialist Relationship Specialty Start Date End Date Severino Zelaya Update Information PCP - General 07/03/20 documented as of this encounter
--- OUTSIDE RECORDS SUMMARY | 2024-05-16 22:39 | XMS_ITS | Encounter Summary ---
Author Organization [facility] Address [address] [facility] [place] [address] Care Team Providers Care Environmental Monitoring Technician Name Role Phone Severino Zelaya MD Primary Care Provider [phone] Reason for Visit * Reason Onset Date Comments Follow-up 10/27/2013 Encounter Details Date Type Department Care Team (Late st Contact Info) Description 10/27/2013 Telephone [facility] Pediatrics - Urology [address] [place] [address] Nettie Jimenez APRN-CNP [address] [place] [phone] Follow-up Social History Tobacco Use Types Packs/Day Years Used Date Smoking Tobacco: Never Assessed Sex and Gender Information Value Date Recorded Sex Assigned at Not on file Gender Identity Not on file Sexual Orientation Not on file documented as of this encounter Miscellaneous Notes * Telephone Encounter - Nettie Jimenez APRN-CNP - 10/27/2013 2:[address] Caceres reviewed Nancy records and tests last week and is recommending a procedure to correct the reflux. If you have questions or wish to have an apt scheduled with / Nicki, please callGU nurseline at [phone] documented in this encounter Plan of Treatment Not on file documented as of this encounter Visit Diagnoses Not on filedocumented in this encounter Care Teams Environmental Monitoring Technician Relationship Specialty Start Date End Date Severino Zelaya MD PCP - General Pediatrics 08/23/13 07/02/20 documented as of this encounter
--- OUTSIDE RECORDS SUMMARY | 2024-05-16 22:39 | XMS_ITS | Encounter Summary ---
Author Organization [facility] Address [address] [place] [address] Care Team Providers Care Interior Decorator Paperhanging Name Role Phone Severino Zelaya MD Primary Care Provider [phone] Reason for Visit * Reason Comments Evaluation VUR Encounter Details Date Type Department Care Team (Latest Contact Info) Description 12/11/2013 10:30 AM CDT - 12/11/2013 11:59 PM CDT Hospital Encounter [facility] Pediatrics - Urology [address] [place] [id number] Trent Caceres MD [address] [place] [id number] Discharge Disposition: Home or Self Care Social History Tobacco Use Types Packs/Day Years Used Date Smoking Tobacco: Never Assessed Sex and Gender Information Value Date Recorded Sex Assigned at Not on file Gender Identity Not on file Sexual Orientation Not on file documented as of this encounter Last Filed Vital Signs Vital Sign Reading Time Taken Comments Blood Pressure 120/60 12/11/2013 10:41 AM CDT Pulse 76 12/11/2013 10:41 AM CDT Temperature - - Respiratory Rate 20 12/11/2013 10:4 1 AM CDT Oxygen Saturation - - Inhaled Oxygen Concentration - - Weight 50.7 kg (111 lb 11.2 oz) 014 10:41 AM CDT Height 146.8 cm (4' 9.8 ) 12/11/2013 10 :41 AM CDT Body Mass Index 23.51 12/11/2013 10:41 AM CDT Body Mass Index Percentile 96.36% 12/11 10:41 AM CDT Growth Chart: [facility] (Girls, 2- 20 Years) documented in this encounter Medications at Time of Discharge Medication Sig Dispensed Refills Start Date End Date montelukast (SINGULAIR) 5 MG chew tablet Take 5 mg by mouth at bedtime. 08/13/2020 documented as of this encounter Progress Notes * Trent Caceres MD - 12/11/2013 11:10 AM CDT Urologic Surgery Clinic Note 12/11/2013 HPI: Aris Stephens (8 y.o.female) was seen in clinic on 12/11/2013 for further evaluation of vesicoureteral reflux. This was previously bilateral grade III, but was right grade I She's had some infections in the past, but primarily dribbling and malodorous urine. She's been well recently and has been on a q2hr voiding schedule. She has no constipation or encopresis. Past Medical History: has no past medical history on file. Current Outpatient Prescriptions Medication Sig Dispense Refill ??? montelukast (SINGULAIR) 5 MG chew tablet Take 5 mg by mouth at bedtime. No current facility-administered medications for this encounter. Family History: na Social History: na ROS: Review of Symptoms:as above; seems to have vaginal voiding with postvoid dribbling All Others Negative: YES Physical Exam: height is 1.468 m (4' 9.8 ) and weight is 50.667 kg (111 lb 11.2 oz). Her blood pressure is 120/60 and her pulse is 76. Her respiration is 20. General appearance: alert, well appearing, and in no distress. Abdominal exam: soft, nontender, nondistended, no masses or organomegaly. Imaging: [facility]:as above Assessment: Aris Stephens is a 8 y.o. 2 m.o. female with resolving vesicoureteral reflux and improvement of her urinary symptoms. Plan: Can f/u prn. No further imaging needed. documented in this encounter Plan of Treatment Not on file documented as of this encounter Visit Diagnoses Not on filedocumented in this encounter Care Teams Interior Decorator Paperhanging Relationship Specialty Start Date End Date Severino Zelaya MD PCP - General Pediatrics 08/23/13 07/02/20 documented as of this encounter
--- OUTSIDE RECORDS SUMMARY | 2024-05-16 22:39 | XMS_ITS | Encounter Summary ---
Author Organization [facility] Address [facility] [facility] [place] [address] Care Team Providers Care Tire Worker Name Role Phone Severino Zelaya MD Primary Care Provider [phone] Reason for Referral * Radiology Services - Closed Specialty Diagnoses / Procedures Referred By Ricardo garcia Referred To Contact Diagnoses Urinary tract infection, site not specified Procedures FL CYSTOGRAM VOIDING Chichi Gonzalez, PASSENGER BOOKING CLERK-CHIEF DEPUTY SHERIFF [address] [place] [address] Referral ID Status Reason Start Date Expiration Date Visits Re quested Visits Authorized [id number] Closed 09/04/2013 03/03/2014 1 1 Reason for Visit * Radiology Services - Closed Specialty Diagnoses / Procedures Referred By Ricardo garcia Referred To Contact Diagnoses Urinary tract infection, site not specified Procedures FL CYSTOGRAM VOIDING Chichi Gonzalez, PASSENGER BOOKING CLERK-CHIEF DEPUTY SHERIFF [address] [place] [address] Referral ID Status Reason Start Date Expiration Date Visits Re quested Visits Authorized [id number] Closed 09/04/2013 03/03/2014 1 1 Encounter Details Date Type Department Care Team (Latest Contact Info) Description 10/17/2013 7:35 AM CDT - 10/17/2013 8:31 AM CDT Hospital Encounter [facility] Pediatrics - Radiology [address] [place] [address] Chichi Gonzalez, PASSENGER BOOKING CLERK-CHIEF DEPUTY SHERIFF [address] [place] [address] Discharge Disposition: Home or Self Care Social [...] Procedure Name Priority Date/Time Associated Diagnosis Comments FL CYSTOGRAM VOIDING Routine 10/17/2013 10:05 AM CDT Urinary tract infection, site not specified documented in this encounter Results * FL CYSTOGRAM VOIDING (10/17/2013 10:05 AM CDT) Anatomical Region Laterality Modality Abdomen, Pelvis Radio Fluoroscop y 10/17/2013 10:3 0 AM CDT Impressions 10/17/2013 11:49 AM CDT 1. Grade 1 right vesicoureteral reflux. 2. No post void residual. D: Jenaro Crowe MD. I, Arpita Yuan, have personally reviewed the images and I agree with this report. Narrative 10/17/2013 11:49 AM CDT EXAM: Voiding cystogram, AP, oblique, and post void views DATE: 10/17/2013 at 9:01 AM HISTORY: Urinary tract infection. COMPARISON: Voiding cystogram 05/27/2008 FINDINGS: City Detective images show moderate amount of stool within the colon. The osseous structures are intact. The bladder was catheterized by the space technologist to infuse 700 mL Cystografin by gravity. The bladder was smooth in contour without evidence of filling defects. Mild right vesicoureteral reflux is seen into the distal aspect of the right ureter. No vesicoureteral reflux is seen on the left. The bladder emptied completely. Procedure Note Arpita Yuan MD - 10/17/2013 EXAM: Voiding cystogram, AP, oblique, and post void views DATE: 10/17/2013 at 9:01 AM HISTORY: Urinary tract infection. COMPARISON: Voiding cystogram 05/27/2008 FINDINGS: City Detective images show moderate amount of stool within the colon. The osseous structures are intact. The bladder was catheterized by the space technologist to infuse 700 mL Cystografin by gravity. The bladder was smooth in contour without evidence of filling defects. Mild right vesicoureteral reflux is seen into the distal aspect of the right ureter. No vesicoureteral reflux is seen on the left. The bladder emptied completely. IMPRESSION 1. Grade 1 right vesicoureteral reflux. 2. No post void residual. D: Jenaro Crowe MD. I, Arpita Yuan, have personally reviewed the images and I agree with this report. Chichi Gonzalez PASSENGER BOOKING CLERK-[facility] FLUOROSCOPY ORDERABLES documented in this encounter Visit Diagnoses Diagnosis Urinary tract infection, site not specified- Primary Vesicoureteral reflux, unspecified or without reflux nephropathy documented in this encounter Administered Medications Inactive Administered Medications - up to 3 most recent administrations Medication Order MAR Action Action Date Dose Rate Site diatrizoate meglumine (CYSTOGRAFIN-DILUTE) 18 % solution Urethral, CONTRAST ONCE, Starting on Tu10/17/13 at 0940, Until 10/18/13 at 0118 $ Given 10/17/2013 9:42 AM CDT 700 mL documented in this encounter Care Teams Tire Worker Relationship Specialty Start Date End Date Severino Zelaya MD PCP - General Pediatrics 08/23/13 07/02/20 documented as of this encounter
--- OUTSIDE RECORDS SUMMARY | 2024-05-16 22:39 | XMS_ITS | Encounter Summary ---
Author Organization [facility] Address [address] [place] [address] [place] [address] Care Team Providers Care Shearer Helper Name Role Phone Severino Zelaya Primary Care Provider Unavailabl e Reason for Visit * Reason Onset Date Comments Refill Request 03/31/2022 Appt ..23 but out of meds now for 1 month Encounter Details Date Type Department Care Team (Late st Contact Info) Description 03/31/2022 Telephone [facility] [address] [facility] [place] [address] Daylin Michaels MD [address] [place] [address] Refill Request (Appt 1..23 but out of meds now for 1 month) Social History Tobacco Use Types Packs/Day Years [...] encounter Miscellaneous Notes * Telephone Encounter - Sidra Toledo - 04/01/2022 8:37 AM CST LV 04/15/21 [place] 06/09/22 RTC 3mths *refilled through appt* Sidra Toledo CARE RN * Telephone Encounter - Eliazar Ricci - 03/31/2022 2:05 PM CST Pt in need of Nurse call. Pt without Spironolactone for 1 month. Please call to arrange refill, pharmacy has made attempts to refill without success. CARE RN documented in this encounter Plan of Treatment Not on file documented as of this encounter Visit Diagnoses Diagnosis Acne vulgaris Other acne documented in this encounter Care Teams Shearer Helper Relationship Specialty Start Date End Date Severino Zelaya Update Information PCP - General 07/03/20 documented as of this encounter
--- OUTSIDE RECORDS SUMMARY | 2024-05-16 22:39 | XMS_ITS | Encounter Summary ---
Author Organization [facility] Address [address] [place] [address] Care Team Providers Care Radial Drill Press Operator For Plastic Name Role Phone Severino Zelaya MD Primary Care Provider [phone] Encounter Details Date Type Department Care Team (Latest Contact Info) Description 10/17/2013 10:17 AM CDT - 10/17/2013 10:59 AM CDT Hospital Encounter [address] [address] Chichi Gonzalez, [address] [address] Discharge Disposition: Home or Self Care Social [...] Procedure Name Priority Date/Time Associated Diagnosis Comments URINALYSIS REFLEX TO MICROSCOPIC NO CULTURE Routine 10/17/2013 9:50 AM CDT Vesicoureteral reflux, unspecified or without reflux nephropathy URINE MICROSCOPIC ONLY Routine 10/17/2013 9:50 AM CDT Vesicoureteral reflux, unspecified or without reflux nephropathy CULTURE URINE Routine 10/17/2013 9:50 AM CDT Vesicoureteral reflux, unspecified or without reflux nephropathy documented in this encounter Results * URINALYSIS MICROSCOPIC ONLY (10/17/2013 9:50 AM CDT) RBC UA 0-2 0-2, 2-5 # /hpf 10/17/2013 11:03 AM CDT [facility] WBC UA 0-2 0-2, 2-5 # /hpf 10/17/2013 11:03 AM CDT [facility] Bacteria UA None Seen None Seen, Trace 10/17/2013 11:03 AM CDT [facility] Epithelial Cell UA 0-2 0-2, 2-5 10/17/2013 11:03 AM T [facility] Urine URINE SPECIMEN COLLECTION, CATHETERIZED / Unknown 10/17/2013 9:50 AM CDT 10/17/2013 10:22 AM CDT Chichi Gonzalez [facility] - URINAL YSIS ORDERABLES Performing Organization Address City/State/[facility] Co de Phone Number [facility] [address] [place] [address] * (ABNORMAL) URINALYSIS ROUTINE AUTO (10/17/2013 9:50 AM CDT) Color UA Yellow Straw, Yellow, Dark Yellow 10/17/2013 11:03 AM CDT [facility] Clarity UA Clear 10/17/2013 11:03 AM T [facility] Specific [place] UA 1.015 1.005 - 1.030 10/17/2013 11:03 AM T [facility] pH UA 6.0 5.0 - 8.0 pH 10/17/2013 11:03 AM T [facility] Protein UA Negative Negative 10/17/2013 11:03 AM T [facility] Blood UA Trace(A) Negative 10/17/2013 11:03 AM T [facility] Leukocyte UA Negative Negative 10/17/2013 11:03 AM CDT [facility] Nitrite UA Negative Negative 10/17/2013 11:03 AM CDT [facility] Glucose UA Negative Negative 10/17/2013 11:03 AM CDT [facility] Ketone UA Negative Negative 10/17/2013 11:03 AM CDT [facility] Bilirubin UA Negative Negative 10/17/2013 11:03 AM CDT [facility] Urobilinogen UA 0.2 0.1 - 1.0 EU/dL 10/17/2013 11:03 AM CDT [facility] Urine URINE SPECIMEN COLLECTION, CATHETERIZED / Unknown 10/17/2013 9:50 AM CDT 10/17/2013 10:22 AM CDT Chichi Gonzalez [facility] - URINAL YSIS ORDERABLES Performing Organization Address [facility]/ZIP Co de Phone Number [facility] [place] [address] * CULTURE URINE (10/17/2013 9:50 AM CDT) Culture No Growth (<100 CFU/mL) 10/19/2013 5:32 AM CDT [facility] Urine URINE SPECIMEN COLLECTION, CATHETERIZED / Unknown 10/17/2013 9:50 AM CDT 10/17/2013 10:22 AM CDT Chichi Gonzalez [facility] - MICROB IOLOGY ORDERABLES Performing Organization Address City/[facility]/ZIP Co de Phone Number [facility] [address] [place] documented in this encounter Visit Diagnoses Diagnosis Vesicoureteral reflux, unspecified or without reflux nephropathy- Primary documented in this encounter Care Teams Radial Drill Press Operator For Plastic Relationship Specialty Start Date End Date Severino Zelaya MD PCP - General Pediatrics 08/23/13 07/02/20 documented as of this encounter
--- OUTSIDE RECORDS SUMMARY | 2024-05-16 22:39 | XMS_ITS | Encounter Summary ---
Author Organization [facility] Address [address] [place] [address] [place] [address] Care Team Providers Care Supervisor Maintenance Name Role Phone Severino Zelaya Primary Care Provider Unavailabl e Reason for Visit * Reason Onset Date Comments Medication Prior Auth Request 12/11/2020 be [email or web address] Encounter Details Date Type Department Care Team ([facility] st Contact Info) Description 12/11/2020 Telephone [facility] [address] [place] [address], [facility] [place] [id number] Ashok Reyes MD [address] [place] [address] [address] [place] [address] Medication Prior Auth Request (benzaclin ) Social History Tobacco Use Types Packs/Day Years [...] AM CDT documented as of this encounter Miscellaneous Notes * Addendum Note - Dilia Cavanaugh - 12/23/2020 5:51 PM CDTAddended by: DILIA CAVANAUGH on: 12/23/2020 05:51 PM Modules accepted: Orders * Telephone Encounter - Dilia Cavanaugh - 12/23/2020 5:51 PM CDT Changed to clindamycin gel per Dr Gupta's okay and sent to pharmacy Dilia Cavanaugh * Telephone Encounter - Dilia Cavanaugh - 12/23/2020 3:25 PM CDT Denied stating patient must try and fail 2 preferred alternatives for at least 90 days Alternative listed Clindamycin phosphate 1% gel Dilia Cavanaugh * Telephone Encounter - Dilia Cavanaugh - 12/11/2020 11:47 AM CDT PA was started on CMM for patients Benzaclin [place] [id number] Awaiting insurance response Dilia Cavanaugh documented in this encounter Plan of Treatment Not on file documented as of this encounter Visit Diagnoses Not on filedocumented in this encounter Care Teams Supervisor Maintenance Relationship Specialty Start Date End Date Severino Zelaya Update Information PCP - General 07/03/20 documented as of this encounter
--- OUTSIDE RECORDS SUMMARY | 2024-05-16 22:39 | XMS_ITS | Referral Summary ---
Author Organization [facility] Address [address] [facility] [place] [address] Care Team Providers Care Welding Setter Name Role Phone Severino Zelaya Primary Care Provider Unavailabl e Source Comments [facility],non-owned Affiliates and Associated Physician Practices is amultiple site organization consisting of ambulatory clinics and hospital sitesin [place], [place], [place] and [place]. This disclosure is being madepursuant to the Care Everywhere program and may not contain all information available regarding this patient. Last updated 18.[facility] Allergies No known active allergies Medications * Be aware that medications may not be up to date on this document. Alwaysverify current medications with the patient. Medication Sig Dispensed Refills Start Date End Date Status albuterol HFA (PROVENTIL;VENTOLI N;PROAIR) 108 (90 Base) MCG/ACT inhaler Inhale 2 (two) puffs by mouth every 6 hours as needed 08/11/2020 Active FEROSUL 325 (65 Fe) MG tablet Take 325 mg by mouth 2 times daily 07/02/2020 Active clindamycin-benzoy l peroxide (BENZACLIN) 1-5 % gel Apply to face area daily. 30 days supply. 50 g 3 12/10/2020 Active Additional Information Patient not taking.Reported on 06/09/2022 clindamycin (CLEOCIN) 1 % gel Apply to affected area on face daily. 30 day supply. 30 g 3 04/15/2021 Active Additional Information Patient not taking.Reported on 06/09/2022 Advair Diskus 100-50 MCG/ACT inhaler INHALE 1 PUFF BY MOUTH EVERY 12 HOURS 10/12/2022 Active EluRyng 0.12-0.015 MG/24HR vaginal ring INSERT 1 RING VAGINALLY 1 TIME MONTHLY DIRECTED 12/06/2022 Active albuterol (Proventil;Ventoli n) (2.5 MG/3ML) 0.083% nebulizer solution 10/12/2022 Active montelukast (Singulair) 10 MG tablet Take 1 (one) tablet by mouth once daily 30 tablet 3 12/24/2022 Active Additional Information Patient not taking.Reported on 12/13/2023 fluticasone propionate (Flonase) 50 MCG/ACT nasal spray [place] 2 (two) sprays into each nostril once daily Active diphenhydrAMINE (Benadryl) 25 MG tablet Take by mouth every 4 hours as needed for Itching Active spironolactone (Aldactone) 100 MG tabletIndications: Acne vulgaris TAKE 2 TABLETS BY MOUTH EVERY DAY 180 tablet 05/25/2023 Active doxycycline hyclate 100 MG tabletIndications: Acne Vulgaris Take 1 (one) tablet by mouth 2 times daily Reasons: Common Acne 60 tablet 2 12/13/2023 Active famotidine (Pepcid) 20 MG tablet Take 1 (one) tablet by mouth 2 times daily 90 tablet 4 01/20/2024 Active azelastine (Astelin) 0.1 % nasal spray [place] 2 (two) sprays into each nostril 2 times daily 30 mL 11 01/20/2024 Active Active Problems Problem Noted Date Diagnosed Date Acne vulgaris 08/13/2020 Assessment & Plan (08/13/2020 6:21 PM CDT): -mod/severe, mild scarring -discussed tx options including -has meridian, needs to fail 2 antibiotics before trial isotretinoin -stop clindamycin -start doxycycline 100 mg BID discussed sun sensitivity -start tretinoin 0.025% cr nightly to face, pea sized amount to entire face rather then spor treatment -start BP wash daily, samples provided -start spironolactone 100 mg daily, discussed SE defects, increased urination, patient will return on control, lo lo estrin vs rec ortho tri cyclen (did not tolerate karine) -consider isotretinoin at f/u if not improved 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 Assessment & Plan (08/13/2020 6:22 PM CDT): -L posterior upper thigh -suspect ruptured cyst due to size, though patient recalls no previous cyst -consider staph furuncle, patient on doxycycline for acne, no pustule to culture currently -monitor for resolution at next visit Immunizations Name Administration Dates Next Due DTAP, HISTORIC VACCINE 01/09/2010,2005,05/14/2005,04/02,2004 HEP A PED and ADULT, HISTORIC VACCINE 02/03/2007 ,03/04/2006 HEP B, HISTORIC VACCINE 05/14/2005,04/02/2005, Hib,HISTORIC VACCINE 03/04/2006,04/02/2005,10/25 Human Papilloma Virus Nine[place] lent Vaccine 03/18/2020,12/08/2018 Human Papilloma Virus [place]sha valent Vaccine 01/23/2016 INFLUENZA 01/23/2016,02/18/2015,01/14/2011 MENINGOCOCCAL MCV4O 02/24/2016 MMR 01/09/2010,09/17/2005 POLIO OPV 01/09/2010, 5,04/02/2005,10/25 Pneumococcal Pcv13 Conj 09/17/2005,05/14,04/02/2005,10/25 TDAP (7yrs+) 02/18/2015 VARICELLA 01/09/2010,09/17/2005 Social History Tobacco Use Types Packs/Day Years Used Date Smoking Tobacco: Never Smokeless Tobacco: Never Tobacco Cessation:Counseling Given: Not Answered Alcohol Use Standard Drinks/Week Comments Never 0 [...] on file Sexual Orientation Not on file Last Filed Vital Signs Vital Sign Reading Time Taken Comments Blood Pressure 123/77 01/20/2024 2:18 PM CDT Pulse 98 01/20/2024 2:18 PM CDT Temperature 36.5 ??C (97.7 ??F) 01/20/2024 2:18 PM CD T Respiratory Rate 16 01/22/2021 11:03 PM CDT Oxygen Saturation 98% 01/20/2024 2:18 PM CDT Inhaled Oxygen Concentration - - Weight 87.3 kg (192 lb 6.4 oz) 01/20/2024 2:18 P M CDT Height 165.1 cm (5' 5 ) 01/20/2024 2:18 PM CDT Body Mass Index 32.02 01/20/2024 2:18 PM CDT Plan of Treatment Not on file Care Teams Welding Setter Relationship Specialty Start Date End Date Severino Zelaya Update Information PCP - General 07/03/20
--- OUTSIDE RECORDS SUMMARY | 2024-05-16 22:39 | XMS_ITS | Clinical Summary ---
Author Organization [facility] Address [address] [facility] [place] [address] Care Team Providers Care Travel Pta Name Role Phone Severino Zelaya Primary Care Provider Unavailsushil e Source Comments [facility],non-owned Affiliates and Associated Physician Practices is amultiple site organization consisting of ambulatory clinics and hospital sitesin [place], [place], [place] and [place]. This disclosure is being madepursuant to the Care Everywhere program and may not contain all information available regarding this patient. Last updated 18.[facility] Allergies No known active allergies Medications * [...] fluticasone propionate (Flonase) 50 MCG/ACT nasal spray [place] 2 (two) sprays into each nostril once [...] Active azelastine (Astelin) 0.1 % nasal spray [place] 2 (two) sprays into each nostril 2 [...] 01/20/2024 2:18 PM CDT Plan of Treatment Health Maintenance Due Date Last Done Comments HEPATITIS B VACCINE (4 of 4 - 4-dose series) 05/28/2005 05/14/2005, 04/02/2005, 2004 HIV SCREENING 09/13/2019 CHLAMYDIA/GONORRHEA SCREENING 2020 HEPATITIS C SCREENING 09/08/2022 COVID-19 VACCINE ( season) 2024 INFLUENZA VACCINE (#1) 2024 6, 02/18/2015, 01/14/2011 DTAP/TDAP/TD VACCINES (7 - Td or Tdap) 02/18/2025 02/18/2015, 01/09/2010, 03/04/2006, Additional history exists ZOSTER VACCINE (1 of 2) 2054 PNEUMOCOCCAL VACCINE Completed 09/17/2005, 05/14/2005, 04/02/2005, Additional history exists HIB VACCINE Completed 03/04/2006, 03/17, 2004 MENINGOCOCCAL VACCINE Aged Out 02/24/2016 No radha nitin eligible based on patient's age to complete this topic HPV VACCINE Completed 03/18/2020, 11/15, 01/23/2016 DEPRESSION SCREENING Completed 01/20/2024 Care Teams Travel Pta Relationship Specialty Start Date End Date Severino Zelaya Update Information PCP - General 07/03/20
--- OUTSIDE RECORDS SUMMARY | 2024-05-16 22:39 | XMS_ITS | Encounter Summary ---
Author Organization [facility] Address [facility] [facility] [place] [address] Care Team Providers Care Atm Technician Name Role Phone Severino Zelaya Primary Care Provider Unavailabl e Reason for Visit * Reason Comments Acne face Encounter Details Date Type Department Care Team (Late st Contact Info) Description 12/13/2023 2:50 PM CDT Office Visit [facility] - Dermatology [address] [place] [phone] [place] [address] [place] [phone] Other acne (Primary Dx) Social History Tobacco Use Types [...] on file documented as of this encounter Patient Instructions * Patient Instructions* Bernard Banuelos MD - 12/13/2023 3:07 PM CDT It was a pleasure seeing you in the office today. Please make a follow up appointment in 2 months to see how your acne is doing. Most acne treatments take 6-8 weeks to start being effective so consistent use of medications is very important. Please follow your acne regimen as we discussed: Take spironolactone 100mg twice daily. This medication can cause increased urination, breast tenderness, irregular menses, and rarely highpotassium. Anti-androgenic effects of this medication can cause feminization of the male fetus during the first trimester so women must not get while on this medication. Take doxycycline 100mg twice daily. This medication can cause GI upset so take with food. This medication can cause photosensitivity (ie, easier to sunburn) so wear sunscreen daily. ACNE VULGARIS What causes acne? Acne can be treated but it can't be cured. Pimples begin in your pores, which are connected to oil glands. When the oil and cells that line your pores stick together, the pore gets blocked, forming ablackhead or powell.The blackhead is not dirt, so scrubbing can't remove it. Whiteheads form larger pimples when the oil, cells and germs collected in the pore break through the pore wall and cause irritation under the skin. What makes acne worse? Picking Washing too often or scrubbing Friction - for example, helmet chin straps or tight headbands or hats Menstrual cycles Stress - exercise, plenty of sleep, and a healthy diet can help reduce stress. Experts disagree about whether certain foods make acne worse. What does not make acne worse? Dirt does not cause acne. You do not need to wash multiple times a day or use astringents, masks orscrubbers. Makeup does not cause acne, but the safest products are labeled oil-free or noncomedogenic. . How is acne treated? There are many effective medications to choose from. The biggest difference in the products is the feel or smell. Some medications cause side effects in some people. Your doctor will help you choose the medication that you will like best. Some people need to use more than one medication. You will need to use medicine every day for at least 6 weeks to see a change in your skin. Be patient. Don't give up. documented in this encounter Progress Notes * Bernard Banuelos MD - 12/13/2023 3:07 PM CDT Chief Complaint Patient presents with Acne face HPI: Aris Stephens a 18 year old female presents with complaint of acne. Location: Face, Duration: years Symptoms: none Severity: Moderate-severe Exacerbating factors: Not being on her period Alleviating factors: None Previous treatments: spironolactone 100 mg BID, various topicals Effect of treatment: Patient did not think topicals were helpful. Spironolacotne initially did great for her, but recently it hasn't been enough Previous workup: none Past medical history, social history and family history were reviewed. ROS: As per HPI above. PE: No acute distress. Mood clear/affect appropriate. Alert and oriented. Mucous membranes moist. Sclera anicteric. Visible skin exam was conducted to include the scalp, face, lips/teeth, lids/conjunctiva, ears, neck, right and left hands and forearms and was normal with the following exceptions: -On the cheeks, and chin are multiple open and closed comedones with inflammatory papules throughout A/P: Lisa was seen today for acne. Diagnoses and all orders for this visit: Acne vulgaris - Counseled patient on diagnosis, etiology, natural disease course, and treatment options - Start doxy 100mg BID, counseled SE, take with food, sun protection - Continue spironolactone 100 mg BID - Future considerations: isotretinoin RTC in 3-4 months Billing Guide Bernard Banuelos MD documented in this encounter Plan of Treatment Not on file documented as of this encounter Visit Diagnoses Diagnosis Other acne- Primary documented in this encounter Care Teams Atm Technician Relationship Specialty Start Date End Date Severino Zelaya Update Information PCP - General 07/03/20 documented as of this encounter
--- OUTSIDE RECORDS SUMMARY | 2024-05-16 22:39 | XMS_ITS | Patient Health Summary ---
Author Organization [facility] Address [address] [facility] [place] [address] Care Team Providers Care Real Estate Office Manager Name Role Phone Severino Zelaya Primary Care Provider Onel e Note from [facility],non-owned Affiliates and Associated Physician Practices is amultiple site organization consisting of ambulatory clinics and hospital sitesin [place], [place], [place] and [place]. This disclosure is being madepursuant to the Care Everywhere program and may not contain all information available regarding this patient. Last updated 18.[facility] Allergies No known active allergies Medications * Be aware that medications may not be up to date on this document. Alwaysverify current medications with the patient. * albuterol HFA (PROVENTIL;VENTOLIN;PROAIR) 108 (90 Base) MCG/ACT inhaler (Started 08/11/2020) Inhale 2 (two) puffs by mouth every 6 hours as needed * FEROSUL 325 (65 Fe) MG tablet(Started 07/02/2020) Take 325 mg by mouth 2 times daily * clindamycin-benzoyl peroxide (BENZACLIN) 1-5 % gel(Started 12/10/2020) Apply to face area daily. 30 days supply. 3 refills by 12/10/2021 * clindamycin (CLEOCIN) 1 % gel(Started 04/15/2021) Apply to affected area on face daily. 30 day supply. 3 refills by 04/15/2022 * Advair Diskus 100-50 MCG/ACT inhaler(Started 10/12/2022) INHALE 1 PUFF BY MOUTH EVERY 12 HOURS * EluRyng 0.12-0.015 MG/24HR vaginal ring(Started 12/06/2022) INSERT 1 RING VAGINALLY 1 TIME MONTHLY DIRECTED * albuterol (Proventil;Ventolin) (2.5 MG/3ML) 0.083% nebulizer solution(Started 10/12/2022) * montelukast (Singulair) 10 MG tablet(Started 12/24/2022) Take 1 (one) tablet by mouth once daily 3 refills by 12/24/2023 * fluticasone propionate (Flonase) 50 MCG/ACT nasal spray [place]rose 2 (two) sprays into each nostril once daily * diphenhydrAMINE (Benadryl) 25 MG tablet Take by mouth every 4 hours as needed for Itching * spironolactone (Aldactone) 100 MG tablet(Started 05/25/2023) TAKE 2 TABLETS BY MOUTH EVERY DAY * doxycycline hyclate 100 MG tablet(Started 12/13/2023) Take 1 (one) tablet by mouth 2 times daily Reasons: Common Acne 2 refills by 12/12/2024 * famotidine (Pepcid) 20 MG tablet(Started 01/20/2024) Take 1 (one) tablet by mouth 2 times daily 4 refills by 01/19/2025 * azelastine (Astelin) 0.1 % nasal spray(Started 01/20/2024) [place] 2 (two) sprays into each nostril 2 times daily 11 refills by 01/19/2025 Active Problems Problem Noted Date Diagnosed Date Acne vulgaris 08/13/2020 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 Immunizations * DTAP, HISTORIC VACCINE(Given 01/09/2010, 03/04/2006, 05/14/2005, 04/02/2005, 2004) * HEP A PED and ADULT, HISTORIC VACCINE(Given 02/03/2007, 03/04/2006) * HEP B, HISTORIC VACCINE(Given 05/14/2005, 04/02/2005, 2004) * Hib,HISTORIC VACCINE(Given 03/04/2006, 04/02/2005, 2004) * Human Papilloma Virus Ninevalent Vaccine(Given 03/18/2020, 12/08/2018) * Human Papilloma Virus Quadrivalent Vaccine(Given 01/23/2016) * INFLUENZA(Given 01/23/2016, 02/18/2015, 01/14/2011) * MENINGOCOCCAL MCV4O(Given 02/24/2016) * MMR(Given 01/09/2010, 09/17/2005) * POLIO OPV(Given 01/09/2010, 05/14/2005, 04/02/2005, 2004) * Pneumococcal Pcv13 Conj(Given 09/17/2005, 05/14/2005, 04/02/2005, 2004) * TDAP (7yrs+)(Given 02/18/2015) * VARICELLA(Given 01/09/2010, 09/17/2005) Social History Tobacco Use Types Packs/Day Years [...] Mass Index 32.02 01/20/2024 2:18 PM CDT Procedures * XR KNEE LEFT 2VW OR LESS(Performed 01/22/2021) Performed for Injury of left knee, initial encounter * LAB RESULTS ORDER(Performed 10/24/2013) * FL CYSTOGRAM VOIDING(Performed 10/17/2013) Performed for Urinary tract infection, site not specified * CALCIUM/CREAT RATIO URINE RANDOM PANEL(Performed 10/17/2013) Performed for Unspecified Urinary Incontinence * URINE MICROSCOPIC ONLY(Performed 10/17/2013) Performed for Vesicoureteral reflux, unspecified or without reflux nephropathy * URINALYSIS REFLEX TO MICROSCOPIC NO CULTURE(Performed 10/17/2013) Performed for Vesicoureteral reflux, unspecified or without reflux nephropathy * CULTURE URINE(Performed 10/17/2013) Performed for Vesicoureteral reflux, unspecified or without reflux nephropathy * US KIDNEYS W BLADDER(Performed 10/17/2013) Performed for Vesicoureteral reflux, unspecified or without reflux nephropathy, Unspecified UrinaryIncontinence Results * XR KNEE LEFT 2VW OR [...] Americo Daly MD DIAGNOSTIC IMAGING O RDERABLES * LAB RESULTS ORDER (10/24/2013 10:35 PM CDT) Narrative 10/24/2013 10:35 PM CDT Ordered by an unspecified provider. Transcriptions Document, Scanned - 10/24/2013 10:35 PM CDT Scanned Document LAB - THERAPEUTIC DR JUNIOR MONITORING ORDERABLES * FL CYSTOGRAM VOIDING (10/17/2013 10:05 AM [...] tract infection. COMPARISON: Voiding cystogram 05/27/2008 FINDINGS: Bus Inspector images show moderate amount of stool within the colon. The osseous structures are intact. The bladder was catheterized by the radiology specialist to infuse 700 mL Cystografin by gravity. [...] tract infection. COMPARISON: Voiding cystogram 05/27/2008 FINDINGS: Bus Inspector images show moderate amount of stool within the colon. The osseous structures are intact. The bladder was catheterized by the radiology specialist to infuse 700 mL Cystografin by gravity. [...] I agree with this report. Chichi Gonzalez POUNCER-TRAINING DESIGNER FLUOROSCOPY ORDERABLES * (ABNORMAL) URINALYSIS ROUTINE AUTO (10/17/2013 9:50 AM CDT) Color UA Yellow Straw, Yellow, Dark Yellow 10/17/2013 11:03 AM T [facility] Clarity UA Clear 10/17/2013 11:03 AM [facility] Specific [place] UA 1.015 1.005 - 1.030 10/17/2013 11:03 AM [facility] pH UA 6.0 5.0 - 8.0 pH 10/17/2013 11:03 AM [facility] Protein UA Negative Negative 10/17/2013 11:03 AM [facility] Blood UA Trace(A) Negative 10/17/2013 11:03 AM [facility] Leukocyte UA Negative Negative 10/17/2013 11:03 AM [facility] Nitrite UA Negative Negative 10/17/2013 11:03 AM [facility] Glucose UA Negative Negative 10/17/2013 11:03 AM [facility] Ketone UA Negative Negative 10/17/2013 11:03 AM [facility] Bilirubin UA Negative Negative 10/17/2013 11:03 AM [facility] Urobilinogen UA 0.2 0.1 - 1.0 EU/dL 10/17/2013 11:03 AM [facility] Urine URINE SPECIMEN COLLECTION, CATHETERIZED / Unknown 10/17/2013 9:50 AM CDT 10/17/2013 10:22 AM CDT Chichi Gonzalez POUNCER-TRAINING DESIGNER LAB - URINAL YSIS ORDERABLES [facility] [address] [place] [address] * URINALYSIS MICROSCOPIC ONLY (10/17/2013 9:50 AM CDT) RBC UA 0-2 0-2, 2-5 # /hpf 10/17/2013 11:03 AM CDT [facility] WBC UA 0-2 0-2, 2-5 # /hpf 10/17/2013 11:03 AM CDT [facility] Bacteria UA None Seen None Seen, Trace 10/17/2013 11:03 AM CDT [facility] Epithelial Cell UA 0-2 0-2, 2-5 10/17/2013 11:03 AM CDT [facility] Urine URINE SPECIMEN COLLECTION, CATHETERIZED / Unknown 10/17/2013 9:50 AM CDT 10/17/2013 10:22 AM CDT Chichi Gonzalez APRN-[facility] LAB - URINAL YSIS ORDERABLES Performing Organization Address [facility] Co de Phone Number [facility] [address] [place] [phone] * CULTURE URINE (10/17/2013 9:50 AM CDT) Culture No Growth (<100 CFU/mL) 10/19/2013 5:32 AM CDT [facility] Urine URINE SPECIMEN COLLECTION, CATHETERIZED / Unknown 10/17/2013 9:50 AM CDT 10/17/2013 10:22 AM CDT Chichi Gonzalez POUNCER-TRAINING DESIGNER LAB - MICROB IOLOGY ORDERABLES Performing Organization Address [facility] Co de Phone Number [facility] [address] [place] [address], [facility] [place] * CALCIUM/CREAT RATIO URINE RANDOM PANEL (10/17/2013 9:50 AM CDT) Calcium Urine 4.16 mg/dL 10/17/2013 1:48 PM CDT [facility] Creatinine Urine 28.65 mg/dL 10/17/2013 1:48 PM CDT [facility] Calcium/Creatin ine Ratio Urine 0.15 10/17/2013 1:48 PM CDT [facility] Urine URINE SPECIMEN OBTAINED BY CLEAN CATCH PROCEDURE / Unknown 10/17/2013 9:50 AM CDT 10/17/2013 12:52 PM CDT Narrative [facility] - 10/17/2013 1:48 PM CDT Normal ? <0.16 Borderline ??0.16-0.20 Abnormal ?? >0.20 Nettie Jimenez SEBASTRAINING DESIGNER LAB - URINE CHEM ISTRY ORDERABLES [facility] [address] [facility] [place] [address] * US KIDNEY AND BLADDER (10/17/2013 8:13 [...] I agree with this report. Chichi Gonzalez POUNCER-TRAINING DESIGNER US ORDERABLE S Care Teams Real Estate Office Manager Relationship Specialty Start Date End Date Severino Zelaya Update Information PCP - General 07/03/20
--- OUTSIDE RECORDS SUMMARY | 2024-05-16 22:39 | XMS_ITS | Encounter Summary ---
Author Organization [facility] Address [facility] [facility] [place] [address] Care Team Providers Care Renovator Machine Operator Name Role Phone Severino Zelaya Primary Care Provider Unavailabl e Reason for Visit * Reason Comments Acne facial Encounter Details Date Type Department Care Team (Late st Contact Info) Description 04/15/2021 10:50 AM PAYROLL PROCESSOR Office Visit [facility] [address] [facility] [place] [address] Rochelle Gupta, [address] [place] [address] Acne vulgaris (Primary Dx) Social [...] this encounter Patient Instructions * Patient Instructions* Rochelle Gupta DO - 04/15/2021 11:52 AM PAYROLL PROCESSOR Thank you for your visit today. We will follow up with you in 3-4 months Increase spironolactone to 200mg daily. Continue daily control (chanell). Increase use of tretinoin cream to nightly Start clindamycin gel every morning. Start using benzoyl peroxide 4% wash (over the counter). This comes in various brands such as Neutrogena clear pore or cerave acne foaming facial cleanser. Use as a face wash every morning. OLL PROCESSOR documented in this encounter Progress Notes * Ashok Reyes MD - 04/15/2021 12:00 PM CST Patient seen and examined with Resident. Please [...] examined and unremarkable unless otherwise noted below: -papules, comedones Assessment/Plan Acne vulgaris -impr, not enough -maximize topicals incl rx -figueroa--incr dose Ashok Reyes MD OLL PROCESSOR * Rochelle Gupta DO - 04/15/2021 11:42 AM CST Chief Complaint Patient presents with ??? Acne facial HPI: Aris Triplett Angelo a 15 year old female presents for skin exam. Patient is here with her mom today. 11/2020 - Increase Spironolactone to 150mg QD, start Benzaclin 1-5% gel, cont tretinoin 0.025% cream. Concerns: 1. Acne Status of condition: Improved - Still with flares, cheeks - Also states she thinks she would not want to do Accutane for her acne (was discussed last visit -does not tolerate blood draws) Current treatment: - Spironolactone 150mg daily - Chanell OCP daily (through Ob) - Clindamycin 1% gel four times weekly - Tretinoin 0.25% cream once weekly Side effects of treatment: none History of acne: Duration: ~3 years Location: face>buttock Symptoms: deep inflammatory cystic papules Exacerbating factors: ovulation, has regular periods Previous treatment: clindamycin TID - did not help Pertinent additional history: -was on chanell, made periods worse. Was on lo lo estrin in the past as well. Endorses picking ?? Past medical history, social history and family history were reviewed. ?? ROS: As per HPI above. PE: No acute distress. Mood clear/affect appropriate. Alert and oriented. Mucous membranes moist. Sclera anicteric. Waist up skin exam was conducted to include the scalp, face, lips/teeth, lids/conjunctiva, ears, neck, chest, back, right and left hands and forearms and was normal with the following exceptions: - Inflammatory pink papules b/l cheeks - Acneiform scarring b/l cheeks - Scattered closed comedones A/P: Aris was seen today for acne. Diagnoses and all orders for this visit: Acne vulgaris - Improving, still active - Increase Spironolactone to 200mg daily - Cont Chanell QD (through Credit Office Manager) - Increase tretinoin 0.025% use to nightly - Increase Clindamycin 1% gel to QAM, BP wash QAM - tretinoin (RETIN-A) 0.025 % cream; Pea sized amount to entire face at night. 30 days supply. - spironolactone (ALDACTONE) 100 MG tablet; TAKE 2 TABLETS BY MOUTH DAILY Other orders - clindamycin (CLEOCIN) 1 % gel; Apply to affected area on face daily. 30 day supply. RTC in 3 months Coding Rationale New or est? Established Patient Highest problem complexity: 1 or more chronic illnesses with exacerbation, progression, or side effects of treatment Highest level of risk: Moderate Suggested code: 31573 Rochelle Gupta DO OLL PROCESSOR documented in this encounter Miscellaneous Notes * Addendum Note - Rochelle Gupta DO - 04/24/2021 3:32 PM CSTAddended by: ROCHELLE GUPTA on: 04/24/2021 03:32 PM Modules accepted: Orders OLL PROCESSOR documented in this encounter Plan of Treatment Not on file documented as of this encounter Visit Diagnoses Diagnosis Acne vulgaris- Primary Other acne documented in this encounter Care Teams Renovator Machine Operator Relationship Specialty Start Date End Date Severino Zelaya Update Information PCP - General 07/03/20 documented as of this encounter
--- OUTSIDE RECORDS SUMMARY | 2024-05-16 22:39 | XMS_ITS | Encounter Summary ---
Author Organization [facility] Address [address] [place], [place] [address] [address] Care Team Providers Care Procurement Agent Name Role Phone Severino Zelaya Primary Care Provider Unavailabl e Reason for Visit * Reason Comments Refill Request Encounter Details Date Type Department Care Team (Late st Contact Info) Description 05/25/2023 Refill [facility] - Dermatology [address] [place] [address], [place] [address] Ashok Reyes MD [address] [place] [address] [address] [place] [address] Refill Request Social History Tobacco Use Types [...] encounter Miscellaneous Notes * Telephone Encounter - Bernard Banuelos MD - 05/25/2023 1:49 PM CST Patient will need to be seen before any additional refills are given after today. GAGE LOAN REVIEWER * Telephone Encounter - Liz Crawley - 05/25/2023 12:40 PM CST LV: 06/09/22 NV: no appointment RTC: 6 months to 1 year Liz Crawley GAGE LOAN REVIEWER documented in this encounter Plan of Treatment Not on file documented as of this encounter Visit Diagnoses Diagnosis Acne vulgaris Other acne documented in this encounter Care Teams Procurement Agent Relationship Specialty Start Date End Date Severino Zelaya Update Information PCP - General 07/03/20 documented as of this encounter
--- OUTSIDE RECORDS SUMMARY | 2024-05-16 22:39 | XMS_ITS | Encounter Summary ---
Author Organization [facility] Address [address] [place], [place] [address] [address] Care Team Providers Care Automotive Airconditioning Mechanic Name Role Phone Severino Zelaya Primary Care Provider Onel e Encounter Details Date Type Department Care Team (Late st Contact Info) Description 12/17/2023 Telephone [facility]erm[facility] [address] [facility], [place] [address] Osiel Lama MD [address] [facility] [place] [address] Social History Tobacco Use Types Packs/Day Years [...] encounter Miscellaneous Notes * Telephone Encounter - Bay Cohen - 12/17/2023 11:07 AM CDT Booked patient with Dr. Lama 03/16/24 at 1:00 pm Patient accepted date and time. documented in this encounter Plan of Treatment Not on file documented as of this encounter Visit Diagnoses Not on filedocumented in this encounter Care Teams Automotive Airconditioning Mechanic Relationship Specialty Start Date End Date Severino Zelaya Update Information PCP - General 07/03/20 documented as of this encounter
--- OUTSIDE RECORDS SUMMARY | 2024-05-16 22:39 | XMS_ITS | Encounter Summary ---
Author Organization [facility] Address [facility] [facility] [place] [address] Care Team Providers Care International Account Executive Name Role Phone Severino Zelaya Primary Care Provider Unavailabl e Reason for Visit * Reason Comments Acne Face MEDICATION REFILL Encounter Details Date Type Department Care Team (Late st Contact Info) Description 06/09/2022 11:10 AM MERCHANDISE CLERK Office Visit [facility] General Dermatology [address] [facility] [place] [address] Daylin Michaels MD [address] [place] [address] Acne vulgaris (Primary Dx) Social History Tobacco [...] this encounter Patient Instructions * Patient Instructions* Daylin Michaels MD - 06/09/2022 11:59 AM MERCHANDISE CLERK It was a pleasure seeing you in clinic today. We will follow up with you in 6 months to 1 year, depending on how your acne is doing. Try to decrease your dose of Spironolactone to 100 mg (1 pill) once daily. If tolerating well and acne is doing well on this, continue dose. If your acne flares and is not doing well on above dose, increase back up to 200 mg (2 pills) once daily. HANDISE CLERK documented in this encounter Progress Notes * Daylin Michaels MD - 06/09/2022 11:49 AM CST Chief Complaint Patient presents with ??? Acne Face ??? MEDICATION REFILL HPI: Aris Stephens a 16 year old female presents for follow up of acne. Patient was last seen on 04/15/21. Patient is here with mother today. Concerns: 1. Acne Status of condition: Doing well Current treatment: - Spironolactone to 200mg daily - pt reprots sometimes forgets to take and sometimes only takes 1 pill once daily without acne flaring - Patient got Nuva ring placed ~2 months, stopped taking Chanell then - Not using Tretinoin QHS ( can't rememeber to/doesn't want to per mother) - Not using Clindamycin 1% gel ( same reason as above ) - Easier to take pills than apply topicals Side effects of treatment: none ROS: ??As per HPI above. ?? PE: No acute distress. Mood clear/affect appropriate. Alert and oriented. Mucous membranes moist. Sclera anicteric. Visible skin exam was conducted to include the scalp, face, lips/teeth, lids/conjunctiva, ears, neck, right and left hands and forearms and was normal with the following exceptions: - Face overall clear today - Chest and back clear A/P: Aris was seen today for acne and medication refill. Diagnoses and all orders for this visit: Acne vulgaris - Face, chest, and back overall clear today. Iinconsistent use of Spironolactone (pt reports taking1 pill QD sometimes and forgetting to take on some days); pt denies recent flares - Since patient's condition is doing well, discussed decreasing dose of Spironolactone - pt prefersto go down to 100 mg QD instead of 150 mg QD. Advised that if doing well on 100 mg QD, to continue this dose. If pt starts to flare, okay to increase back up to 200 mg QD. - Patient defers refill of topicals at this time (she is not currently using them and prefers oral over topical meds) RTC in 6 months to 1 year, depending on how patient is doing. Coding Rationale New or est? Established Patient Highest problem complexity: 1 stable chronic illness Highest level of risk: Moderate Suggested code: 08292 Patient was seen, examined, and discussed with attending physician, Dr. Reyes. Daylin Michaels MD Dermatology Resident, PGY-4 [facility], Department of Dermatology HANDISE CLERK * Ashok Reyes MD - 06/09/2022 11:36 AM CST I have seen and examined the patient with the resident and I agree with the findings and plan of care as documented by the resident. I confirm history, exam, assessment and plan with no exceptions/additions unless otherwise noted: Date of Service: 06/09/22 CC: acne vulgaris HPI: Has hx acne [...] bilat upper extr including nails and digits, examined and unremarkable unless otherwise noted below: -minimal papules, comedones Assessment/Plan Acne vulgaris -impr -figueroa Ashok Reyes MD HANDISE CLERK documented in this encounter Plan of Treatment Not on file documented as of this encounter Visit Diagnoses Diagnosis Acne vulgaris- Primary Other acne documented in this encounter Care Teams International Account Executive Relationship Specialty Start Date End Date Severino Zelaya Update Information PCP - General 07/03/20 documented as of this encounter
--- OUTSIDE RECORDS SUMMARY | 2024-05-16 22:39 | XMS_ITS | Encounter Summary ---
Author Organization [facility] Address [address] [place] [address] Care Team Providers Care Track Repair Person Name Role Phone Severino Zelaya Primary Care Provider Onel e Encounter Details Date Type Department Care Team (Late st Contact Info) Description 11/13/2020 9:45 AM CDT - 11/13/2020 12:13 PM CDT Hospital Encounter [facility] at [address] [address] Dee Pelletier MD [address] [place] [id number] Social History Tobacco Use Types Packs/Day Years [...] AM CDT documented as of this encounter Medications at Time of Discharge Medication Sig Dispensed Refills Start Date End Date albuterol HFA (PROVENTIL;VENTOLIN;PRO AIR) 108 (90 Base) MCG/ACT inhaler Inhale 2 (two) puffs by mouth every 6 hours as needed 08/11/2020 FEROSUL 325 (65 Fe) MG tablet Take 325 mg by mouth 2 times daily 07/02/2020 doxycycline monohydrate 100 MG capsuleIndications:Acne vulgaris Take 1 (one) capsule by mouth every 12 hours 60 capsule 3 08/13/2020 12/24/2022 drospirenone-ethinyl estradiol (ADRIANA) 3-0.02 MG tablet Take 1 (one) tablet by mouth once daily 07/02/2020 12/24/2022 spironolactone (ALDACTONE) 100 MG tabletIndications:Acne vulgaris Take 1 (one) tablet by mouth once daily 90 tablet 1 08/13/2020 12/10/2020 tretinoin (RETIN-A) 0.025 % creamIndications:Acne vulgaris Pea sized amount to entire face at night. 30 days supply. 20 g 5 08/13/2020 12/10/2020 documented as of this encounter Plan of Treatment Not on file documented as of this encounter Visit Diagnoses Diagnosis Screening for cardiovascular condition Screening for other and unspecified cardiovascular conditions documented in this encounter Care Teams Track Repair Person Relationship Specialty Start Date End Date Severino Zelaya Update Information PCP - General 07/03/20 documented as of this encounter
--- OUTSIDE RECORDS SUMMARY | 2024-05-16 22:39 | XMS_ITS | Encounter Summary ---
Author Organization [facility] Address [address] [place] [address] Care Team Providers Care Laborer Turkey Farm Name Role Phone Severino Zelaya Primary Care Provider Unavailsushil e Reason for Visit * Reason Comments Congested Nose Sinus Problem Encounter Details Date Type Department Care Team (Latest Contact Info) Description 12/24/2022 10:50 AM CDT - 12/24/2022 4:22 PM CDT Hospital Encounter [facility] Pediatrics - ENT [address] [place] [address] Greg Ochoa MD [address] [place] [address] Discharge Disposition: Home or Self Care Social [...] - Inhaled Oxygen Concentration - - Weight 90 kg (198 lb 6.6 oz) 12/24/2022 11:15 AM CDT Height 166.3 cm (5' 5.47 ) 12/24/2022 11:15 AM C DT Body Mass Index 32.54 12/24/2022 11:15 AM CDT Body Mass Index Percentile 96.11% 12/24/2022 11: 15 AM CDT Growth Chart: [facility] (Girls, 2- 20 Years) documented in this encounter Discharge Instructions * Patient Instructions* Greg Ochoa MD - 12/24/2022 12:27 PM CDT 1. Take flonase, astelin, claritin, singulair. 2. FU with ENT in 4-6 weeks. Depending on interval symptoms, exam, we may consider watchful waiting, additional medications, allergy referral, or ultimately a surgery including septoplasty/turbinate reduction. ENT Nurse Office: [phone] documented in this encounter Medications at Time of Discharge Medication Sig Dispensed Refills Start Date End Date Advair Diskus 100-50 MCG/ACT inhaler INHALE 1 PUFF BY MOUTH EVERY 12 HOURS 10/12/2022 albuterol (Proventil;Ventolin) (2.5 MG/3ML) 0.083% nebulizer solution 10/12/2022 albuterol HFA (PROVENTIL;VENTOLIN;SD OAIR) 108 (90 Base) MCG/ACT inhaler Inhale 2 (two) puffs by mouth every 6 hours as needed 08/11/2020 clindamycin (CLEOCIN) 1 % gel Apply to affected area on face daily. 30 day supply. 30 g 3 04/15/2021 clindamycin-benzoyl peroxide (BENZACLIN) 1-5 % gel Apply to face area daily. 30 days supply. 50 g 3 12/10/2020 EluRyng 0.12-0.015 MG/24HR vaginal ring INSERT 1 RING VAGINALLY 1 TIME MONTHLY DIRECTED 12/06/2022 FEROSUL 325 (65 Fe) MG tablet Take 325 mg by mouth 2 times daily 07/02/2020 montelukast (Singulair) 10 MG tablet Take 1 (one) tablet by mouth once daily 30 tablet 3 12/24/2022 azelastine (Astelin) 0.1 % nasal spray Bovina 1 (one) spray into each nostril 2 times daily 30 mL 3 12/24/2022 01/20/2024 tretinoin (RETIN-A) 0.025 % creamIndications:Acne vulgaris Pea sized amount to entire face at night. 30 days supply. 20 g 3 04/15/2021 12/13/2023 documented as of this encounter Progress Notes * Greg Ochoa MD - 12/24/2022 11:22 AM CDT ENT Clinic Note 12/24/2022 Chief Complaint Patient presents with ??? Congested Nose ??? Sinus Problem History of Present Illness 12/24/2022: 17 yo WF with PMH s/f asthma, acne, who presents with 1) allergic rhinitis, suspect incomplete control on current regimen 2) nasal obstruction, with moderate-severe L septal deviation and turbinate hypertrophy on scope 12/24/22 Chronic congestion/minimal response to OTC meds She's [...] get it out. I made this appt. Took her to an ENT when she was small. Allergies: Patient has no known allergies. Medications: Current Outpatient Medications: ??? Advair Diskus 100-50 MCG/ACT inhaler, INHALE 1 PUFF BY MOUTH EVERY 12 HOURS, Disp: , Rfl: ??? albuterol (Proventil;Ventolin) (2.5 MG/3ML) 0.083% nebulizer solution, , Disp: , Rfl: ??? albuterol HFA (PROVENTIL;VENTOLIN;PROAIR) 108 (90 Base) MCG/ACT inhaler, Inhale 2 (two) puffs by mouth every 6 hours as needed, Disp: , Rfl: ??? clindamycin (CLEOCIN) 1 % gel, Apply to affected area on face daily. 30 day supply. (Patient not taking: Reported on 06/09/2022), Disp: 30 g, Rfl: 3 ??? clindamycin-benzoyl peroxide (BENZACLIN) 1-5 % gel, Apply to face area daily. 30 days supply. (Patient not taking: Reported on 06/09/2022), Disp: 50 g, Rfl: 3 ??? EluRyng 0.12-0.015 MG/24HR vaginal ring, INSERT 1 RING VAGINALLY 1 TIME MONTHLY DIRECTED, Disp: , Rfl: ??? FEROSUL 325 (65 Fe) MG tablet, Take 325 mg by mouth 2 times daily (Patient not taking: Reportedon 06/09/2022), Disp: , Rfl: ??? tretinoin (RETIN-A) 0.025 % cream, Pea sized amount to entire face at night. 30 days supply. (Patient not taking: Reported on 06/09/2022), Disp: 20 g, Rfl: 3 No past medical history on file. Immunizations: are up to date hearing screen passed and development: Age appropriate yes Receiving additional services: no Surgical History: No past surgical history on file. Previous Surgery No Family history: hearing loss No. Surgical or anesthesia complications No Bleeding problems: no ENT sx - You saw Neal - said he had a deviated septum. Tonsils or tonsils and adenoids out. Seeing the other doctor at 1:40 today. Social history: Lives with biological mother, 3 siblings. Here with biological mother. Exposure to smoking: No. Aris attends school. Starting college soon ( [employer] ) Review of systems: Constitutional: child is weight appropriate Ears, Nose, Mouth, Throat: has had no tonsillitis or strep throat; has not had frequent URI's Cardiovascular: does not have heart disease Respiratory: has asthma or wheezing Integumentary: does not have rash or eczema Neurological: does not have seizures Endocrine: does not have a history of thyroid problems Hematologic: does not have easy bruising Gastrointestinal: does not have reflux disease or GI illness Psychiatric: does not have ADHD or depression Allergy/Immunology: has known environmental or food allergy Physical Exam: Height: 166.3 cm (5' 5.47 ) There is no height or weight on file to calculate BMI. Estimated body mass index is 23.51 kg/m?? as calculated from the following: Height as of 12/11/13: 1.468 m (4' 9.8 ). Weight as of 12/11/13: 50.7 kg (111 lb 11.2 oz). No weight on file for this encounter. Constitutional: no retractions or cyanosis Head and Face: no lesions or masses; facies symmetrical Eyes: ocular motion with gaze alignment Ears: Inspection: normal pinnae shape and position Otoscopy: External canal: normal bilaterally Tympanic membrane: Right ear: normal appearance and landmarks Left ear: normal appearance and landmarks Nasal: normal external nose, mucous membranes and septum Oral Cavity: moist mucous membranes; normal uvula, palate and tongue size Throat: tonsils 1-2+ Neck: supple without tenderness or crepitus; no palpable adenopathy Cranial Nerve Exam: grossly intact; CN VII symmetrical Respiration: unlabored breathing Skin: skin healthy Procedure: fiberoptic laryngoscopy Indication: nasal obstruction Note: Verbal consent for the procedure was obtained.Pt was anesthetized topically flexible scope passed through the nares Findings: Moderate severe left septal deviation, turbinate hypertrophy, otherwise normal nasal cavity. Adenoids obstructing 5% of postnasal space (normal less than 40%). Otherwise normal nasopharynx,oropharynx, hypopharynx, and larynx. Good TVC mobility bilaterally. ASSESSMENT: 17 yo WF with PMH s/f asthma, acne, who presents with 1) allergic rhinitis, suspect incomplete control on current regimen 2) nasal obstruction, with moderate-severe L septal deviation and turbinate hypertrophy on scope 12/24/22 PLAN: 1. Take flonase, astelin, claritin, singulair. 2. FU with ENT in 4-6 weeks. Depending on interval symptoms, exam, we may consider watchful waiting, additional medications, allergy referral, or ultimately a surgery including septoplasty/turbinate reduction. Greg Ochoa MD documented in this encounter Plan of Treatment Not on file documented as of this encounter Visit Diagnoses Diagnosis Allergic rhinitis, unspecified seasonality, unspecified trigger- Primary Nasal septal deviation Deviated nasal septum Nasal turbinate hypertrophy Hypertrophy of nasal turbinates documented in this encounter Administered Medications Inactive Administered Medications - up to 3 most recent administrations Medication Order MAR Action Action Date Dose Rate Site lidocaine (Xylocaine) 4 % solution Topical, ONCE, 1 dose, On Rebecca 12/24/22 at 1200 $ Given 12/24/2022 11:48 AM CDT oxymetazoline (Afrin) 0.05 % nasal spray 1 spray 1 spray, Each Nostril, NOW, 1 dose, On Rebecca 12/24/22 at 1145, . WASTE DISPOSAL INSTRUCTIONS: Black Bin Disposal required. $ Given 12/24/2022 11:47 AM CDT 1 spray documented in this encounter Care Teams Laborer Turkey Farm Relationship Specialty Start Date End Date Severino Zelaya Update Information PCP - General 07/03/20 documented as of this encounter
--- OUTSIDE RECORDS SUMMARY | 2024-05-16 22:39 | XMS_ITS | Encounter Summary ---
Author Organization [facility] Address [facility] [facility] [place] [address] Care Team Providers Care Hypoid Gear Generator Name Role Phone Severino Zelaya Primary Care Provider Onel e Encounter Details Date Type Department Care Team (Latest Contact Info) Description 11/13/2020 Travel Social History Tobacco Use Types Packs/Day [...] AM CDT documented as of this encounter Plan of Treatment Not on file documented as of this encounter Visit Diagnoses Not on filedocumented in this encounter Care Teams Hypoid Gear Generator Relationship Specialty Start Date End Date Severino Zelaya Update Information PCP - General 07/03/20 documented as of this encounter
--- OUTSIDE RECORDS SUMMARY | 2024-05-16 22:39 | XMS_ITS | Encounter Summary ---
Author Organization [facility] Address [facility] [facility] [place] [address] Care Team Providers Care Clothespin Drier Operator Name Role Phone Severino Zelaya Primary Care Provider Unavailabl e Reason for Visit * Reason Comments Establish Care Acne Facial & Buttock Encounter Details Date Type Department Care Team (Late st Contact Info) Description 08/13/2020 9:30 AM CDT Office Visit [facility] [address] [facility] [place] [id number] [place] [id number] [phone] Acne vulgaris (Primary Dx); Neoplasm of uncertain behavior Social History Tobacco Use Types Packs/Day Years [...] this encounter Patient Instructions * Patient Instructions* Dolores Delgadillo MD - 08/13/2020 10:04 AM CDT It was a pleasure seeing you in the office today. We will plan on following up with you in 4 months for your acne. Please follow YOUR ACNE REGIMEN as we discussed: Spironolactone 100 mg one tab daily Can restart lo estrin, or if you are switching consider ortho tri cyclen Start taking Doxycycline 100 mg twice daily. You can take this medication whenever it is convenient, but do not take it just before lying down. If you get any stomach upset with this medication, try taking it with food. The medication helps decrease the inflammationin your skin. EVERY MORNING: -Wash your face, chest and back with a benzoyl peroxide wash. I recommend Neutrogena Clear Pore 3.5% wash as it works well, but is not too drying to use with other acne prescription medications. Remember this can bleach fabrics, so it is best to use in the shower. EVERY EVENING: -Apply a pea sized amount of tretinoin 0.025% cream to your entire face. This medication is known as a retinoid and prevents new acne from forming, but it takes a few months to work at its fullest. Make sure you follow the instructions below to allow your skin to get usedto the medication. Please call us with any questions about your care. RETINOIDS (Tretinoin, Adapalene, Tazarotene) This topical medication helps treat and prevent acne. Your acne may become worse before it gets better. Use only a pea size amount for the entire face. Do not use only for spot treatment. Dot the cream on each side of your forehead, each side of your cheek and your chin, then spread a thin layer over your entire face. Stop all other toners, cleansers, scrubs, and acne products that are not prescribed by your doctor. Wash your face with a mild soap such as Dove for sensitive skin, Cetaphil, Purpose, or Oil of Olay.It is best if you wait until the skin is completely dry, 20 -30 minutes, before applying the medication. HOW TO USE: Week 1 use only Wednesday and Wednesday Week 2 use every other day Week 3 use every day only if you are able to tolerate the medication. Otherwise continue using every other day. You can expect some peeling / flaking but your skin should not be irritated. If irritation occurs use the medication less often. Use a non-comedogenic moisturizer (Cetaphil, Purpose, Oil of Olay, or Neutrogena) in the morning and / or night if needed. Stop the medication if you become . Be cautious with waxing (upper lip / eyebrows) when on these products - skin may be more sensitive. You may need to discontinue them a week or more before such treatments. 10. Be patient. It may take as long as 3 months before you notice improvement. WHAT YOU NEED TO KNOW ABOUT ACNE What causes acne? Acne can be treated but it can???t be cured. Pimples begin in your pores, which are connected to oil glands. When the oil and cells that line your pores stick together, the pore gets blocked, forminga blackhead or powell.The blackhead is not dirt, so scrubbing can???t remove it. Whiteheads formlarger pimples when the oil, cells and germs collected in the pore break through the pore wall and c ause irritation under the skin. What makes acne worse? Picking Washing too often or scrubbing Friction - for example, helmet chin straps or tight headbands or hats Menstrual cycles Stress makes everything worse, including acne. Exercise, plenty of sleep, and a healthy diet help reduce stress. Experts disagree about whether certain foods make acne worse. What does not make acne worse? Dirt does not cause acne. You do not need to wash multiple times a day or use astringents, masks orscrubbers. Makeup does not cause acne, but the safest products are labeled ???oil-free?? , ???nonacnegenic?? or ???noncomedogenic.?? . How is acne treated? There are [...] a change in your skin. Be patient. Don???t give up. documented in this encounter Progress Notes * Sidra Harley MD - 08/13/2020 10:12 AM CDT I have seen and examined the patient with the resident and I agree with the findings and plan of care as documented by the resident. Date of Service: 08/13/2020 1. AV with early scarring -spironolactone -BP -tretinoin -restart OCP from PCP -alfredo Harley MD * Dolores Delgadillo MD - 08/13/2020 9:40 AM CDT Chief Complaint Patient presents with ??? Establish Care ??? Acne Facial & Buttock HPI: Aris Stephens a 14 year old female presents for acne. Here with mother and sister Concerns: 1. acne Duration: 3 years Location: face>buttock Symptoms: deep inflammatory cystic papules Progression: worsening Exacerbating factors: ovulation Current treatment: clindamycin TID , not helping Pertinent additional history: -stopped control recently, was on lo lo estrogen -was on karine, made periods worse Has regular periods for at least three years Endorses picking Past medical history, social history and family history were reviewed. ROS: As per HPI above. PE: No acute distress. Mood clear/affect appropriate. Alert and oriented. Sclera anicteric. Mucous membranes moist. Waist up skin exam was conducted to include the scalp, face, lips/teeth, lids/conjunctiva, ears, neck, chest, back, right and left hands and forearms and was normal with the following exceptions: Rare inflammatory papule on upper back Moderate densely scattered inflammatory cystic and comedonal papules on face with mild scarring Rare follicular red papules on posterior upper thighs L posterior upper thigh with large 3 cm subcutaneous firm ill defined nodule without fluctuance with overlying red desquamating papule A/P: Problem List Items Addressed This Visit Acne vulgaris - Primary -mod/severe, mild scarring -discussed tx options including [...] -consider isotretinoin at f/u if not improved Relevant Medications spironolactone (ALDACTONE) 100 MG tablet doxycycline monohydrate 100 MG capsule tretinoin (RETIN-A) 0.025 % cream Neoplasm of uncertain behavior -L posterior upper thigh -suspect ruptured cyst due to size, though patient recalls no previous cyst -consider staph furuncle, patient on doxycycline for acne, no pustule to culture currently -monitor for resolution at next visit Coding Rationale New or est? New Patient Highest problem complexity: 1 undiagnosed new problem with uncertain prognosis Highest level of risk: Moderate Suggested code: 54754 RTC 4 mo Patient seen and discussed with attending physician Dr Cherri Delgadillo MD [facility] Dermatology Resident, PGY-4 documented in this encounter Plan of Treatment Not on file documented as of this encounter Visit Diagnoses Diagnosis Acne vulgaris- Primary Other acne Neoplasm of uncertain behavior Neoplasm of uncertain behavior, site unspecified * Assessment & Plan Note - Dolores Delgadillo MD - 08/13/2020 6:21 PM CDT Associated Problem(s): Neoplasm of uncertain behavior -L posterior upper thigh -suspect ruptured cyst due to size, though patient recalls no previous cyst -consider staph furuncle, patient on doxycycline for acne, no pustule to culture currently -monitor for resolution at next visit * Assessment & Plan Note - Dolores Delgadillo MD - 08/13/2020 3:10 PM CDT Associated Problem(s): Acne vulgaris -mod/severe, mild scarring -discussed tx options including [...] -consider isotretinoin at f/u if not improved documented in this encounter Care Teams Clothespin Drier Operator Relationship Specialty Start Date End Date Severino Zelaya Update Information PCP - General 07/03/20 documented as of this encounter
--- OUTSIDE RECORDS SUMMARY | 2024-05-16 22:39 | XMS_ITS | Encounter Summary ---
Author Organization [facility] Address [address] [place] [address] Care Team Providers Care Dungeon Master Name Role Phone Severino Zelaya MD Primary Care Provider [phone] Reason for Visit * Reason Onset Date Comments Follow-up 10/23/2013 Encounter Details Date Type Department Care Team (Late st Contact Info) Description 10/23/2013 Telephone [facility] Pediatrics - Urology [address] [place] [id number] Nettie Jimenez APRN-CNP [address] [place] [id number] Follow-up Social History Tobacco Use Types Packs/Day Years Used Date Smoking Tobacco: Never Assessed Sex and Gender Information Value Date Recorded Sex Assigned at Not on file Gender Identity Not on file Sexual Orientation Not on file documented as of this encounter Miscellaneous Notes * Telephone Encounter - Nettie Jimenez APRN-CNP - 10/23/2013 10:[address] Caceres reviewed records and diagnostic studies. He is recommending an office visit with him to discuss surgical correction of the reflux, but it is essential for her to adhere to the timed voiding regimen to tone and shrink her bladder. Please call [phone] ext [phone], to discuss and to schedule apt. With Dr. Caceres documented in this encounter Plan of Treatment Not on file documented as of this encounter Visit Diagnoses Not on filedocumented in this encounter Care Teams Dungeon Master Relationship Specialty Start Date End Date Severino Zelaya MD PCP - General Pediatrics 08/23/13 07/02/20 documented as of this encounter
--- OUTSIDE RECORDS SUMMARY | 2024-05-16 22:39 | XMS_ITS | Encounter Summary ---
Author Organization [facility] Address [address] [place] [address] [place] [address] Care Team Providers Care Pole Truck Driver Name Role Phone Severino Zelaya Primary Care Provider Unavailabl e Reason for Visit * Reason Comments Refill Request Encounter Details Date Type Department Care Team (Late st Contact Info) Description 04/22/2021 Refill [facility] [address] [facility] [place] [phone] Marialuisa Gupta DO [address] [place] [address] Refill Request Social History Tobacco [...] acne documented in this encounter Care Teams Pole Truck Driver Relationship Specialty Start Date End Date Severino Zelaya Update Information PCP - General 07/03/20 documented as of this encounter
--- OUTSIDE RECORDS SUMMARY | 2024-05-16 22:39 | XMS_ITS | Encounter Summary ---
Author Organization [facility] Address [address] [place], [place] [address] [place] [address] Care Team Providers Care Steam Station Supervisor Name Role Phone Severino Zelaya Primary Care Provider Unavailabl e Reason for Visit * Reason Comments Refill Request Encounter Details Date Type Department Care Team (Late st Contact Info) Description 12/31/2021 Refill [facility] [address] [facility] [place] [phone] Marialuisa Gupta DO [address] [place] [address] Refill Request Social History Tobacco [...] * Telephone Encounter - Sidra Toledo - 01/01/2022 11:52 AM CDT LV 04/15/21 [place] no appts scheduled RTC 3mths Sidra Toledo documented in this encounter Plan of Treatment Not on file documented as of this encounter Visit Diagnoses Diagnosis Acne vulgaris Other acne documented in this encounter Care Teams Steam Station Supervisor Relationship Specialty Start Date End Date Severino Zelaya Update Information PCP - General 07/03/20 documented as of this encounter
--- OUTSIDE RECORDS SUMMARY | 2024-05-16 22:39 | XMS_ITS | Encounter Summary ---
Author Organization [facility] Address [facility] [facility] [place] [address] Care Team Providers Care Fundraising Manager Name Role Phone Severino Zelaya Primary Care Provider Onel e Encounter Details Date Type Department Care Team (Latest Contact Info) Description 12/24/2022 Travel Social History Tobacco Use Types Packs/Day [...] on filedocumented in this encounter Care Teams Fundraising Manager Relationship Specialty Start Date End Date Severino Zelaya Update Information PCP - General 07/03/20 documented as of this encounter
--- OUTSIDE RECORDS SUMMARY | 2024-05-16 22:40 | XMS_ITS | Encounter Summary ---
Author Organization [facility] Address [address] [facility] [place] [address] Care Team Providers Care Incident Response Coordinator Name Role Phone Severino Zelaya MD Primary Care Provider [phone] Reason for Visit * Reason Comments Follow-up enuresis Encounter Details Date Type Department Care Team (Latest Contact Info) Description 10/17/2013 11:00 AM CDT - 10/17/2013 11:59 PM T Hospital Encounter [facility] Pediatrics - Urology [address] [place] [address] Chichi Gonzalez, DATA CONVERSION DEVELOPER-[address] [address] Discharge Disposition: Home or Self Care Social [...] - Inhaled Oxygen Concentration - - Weight 51.4 kg (113 lb 5.1 oz) 10/18/19 14 11:14 AM CDT Height 149.3 cm (4' 10.78 ) 10/17/2013 11:14 AM CDT Body Mass Index 23.06 10/17/2013 11:14 AM CDT Body Mass Index Percentile 96.13% 10/17 11:14 AM CDT Growth Chart: [facility] (Girls, 2- 20 Years) documented in this encounter Discharge Instructions * Patient Instructions* Nettie Jimenez APRN-MORE - 10/17/2013 12:15 PM CDT ?? Void every 2 hours during waking hours, Sing the ABC's to self and void again. ?? Urinary and bowel limitations and recommendations ?? Elimination diary for 2 weeks ?? School letter ?? Wiggle and wick--girls should wipe front to back. Take another piece of toilet paper, hold it against her private area, stand up and wiggle a little or jump. This will catch any drops of urine that may be caught in her private area. ?? Behavior modification reward calendar for 4 weeks BOWEL MANAGEMENT PROTOCOL Many children with urinary tract problems also have the added problem of constipation or infrequentbowel movements. The following recommendations have been developed as the first step in eliminatingthe risk factor for developing urinary tract problems. Lack of success with this protocol may warrant further evaluation. STEP 1: Keep track of your child's bowel movements on an elimination diary for 2 weeks. Foods to be encouraged: Your child should pick at least 3 from these groups: Whole grain bread e.g.. Gill Castaneda Brumble, Cinnamon Raisin, Brown Sugar, Smooth and Soft; Wonder- Whole Grain White; Iron Kids or Essentials bread. Gill Castaneda also has a hot dog and hamburger buns that are whole grain. Arnold brand high fiber buns. Check the fiber content on the package. Fresh fruits especially apples and pears (not bananas) Salads or any fresh vegetables-uncooked is best but cooked works too. Dried fruits e.g. Raisins, prunes, apricots, Craisins by Sanders Bancroft (they come in flavors of wilson, strawberry, orange and plain) Hot cereal (especially oatmeal). Bran, Total, Wheaties, Frosted Mini Wheats, Frosted Northbridge Mini Wheats Fiber Plus granola bars or any other high fiber granola bar. Fiber One low calorie lemon bars, brownies, and cinnamon bars Kashi cereals (there are multiple varieties/may also a small amount to another cereal if hesitant to try it alone) Increase fluids-drinks 6-8 glasses per day with one glass before breakfast. Good juices: Grape (white or purple), prune, peach, apricot, or pear nectars: if no urinary symptoms may also use orange or orange combinations to treat constipation. Mix koolaid or another juice like Paulo D with prune juice and freeze to make popsicles. Use equal parts of each. Popcorn-for children over 3 years old. Wal[employer] has raisin bran bagels (7Gm. Fiber) and fig bars (1 Gm. Per cookie) as well as breakfast breads like cinnamon raisin. Shannan Splash (fiber infusion packets/just add to water). Sugarfree life savers--start with a 2 per day may help BM's since it has a laxative effect. Nelida says 4 life-savers and eating them in excess may have laxative effect. So increase 1 per day to see how many work. Smooth Move Tea-- (12 yo or older) tea bags to make hot cup of tea; available at [employer], [employer] and [employer]; drink in the evening and get up with soft BM in the morning. In the tea/coffee section. Yogi brand--Get Regular tea (also for 12 yo and older) in the herbal tea section. Benefiber can be added to foods or liquids and used in cooking to add fiber. 2. Limited quantities of milk: 2-3 servings (8 ounce/serving) are enough for a day. That should include milk, cheese, yogurt, ice cream, cottage cheese, and custard. Too much dairy products can cause hard BM's. 3. Eliminate the following foods for the first month (each of these foods/drinks may cause hardened or infrequent bowel movements). Cheese Apple Juice Tea Applesauce Bananas 4. The following foods/drinks may be bladder irritants/discontinue for bladder health: Caffeine Brown chocolate Sussex fruits and juices Carbonation Energy drinks Gatorade Zyrtec Benadryl STEP 2: Send the calendar to our office (att'n. Pediatric Urology) or fax it to us at [phone].Include your child's name, your name and a daytime phone number with the area code. We will call you back to advise you. DO'S AND DON'TS OF URINARY AND BOWEL HEALTH DO'S: Use Dove or Tone bar soap without additives (we have no data on either soap in its liquid form). These are the closest to normal skin pH. Use all cotton panties (not just cotton panty liners) Use unscented menstrual pads and tampons Use menstrual pads without plastic liners Use diaper wipes without alcohol or scents SHOWERS! --hand held showers offer the benefit of better hygiene. (If you do not have a hand held shower, you can use an empty squirt bottle filled with warm water. Bancroft the genital area to improve hygiene after spreading the labia apart). Use color and fragrance free moisturizers and cleansers. May have sodium LAURATH sulfate. Wipe front to back and use different paper when cleaning after having a bowel movement. Potty train when closer to 3 years and can tell you he/she has to go and shows interest in learning. Being able to wake up dry is also a sign of readiness. Girls should spread their legs in a V-Shape when urinating. Always wipe from front to the back. Drink more water and decrease salt. Eat more fruits and vegetables. Boys should not drape their penis over the waistband of pants. Pull pants down to void. Can try taking sugarfeee lifesavers to help make BM's soft. Start with 1-2 per day and increase if needed. DO NOT'S: The following may cause problems with your bladder: Caffeine (check all drinks, sodas, yogurts, ice cream, etc for caffeine eg mocha flavors) Sussex fruit and juices Energy drinks (contain guarana) Carbonation Chocolate (white chocolate is ok) Gatorade (too much salt) Zyrtec (allergy medicine) The following may cause problems with the bowel: Bananas Applesauce Apple juice or apple juice combinations Tea Slices of cheese, grilled cheese, string cheese, etc. More than 3 servings of milk products per day -- there is also some possible correlation to bedwetting so no milk products after lunch may also help. The following have been associated with infections, irritation, and/or blood in the urine: Always menstrual pads or any other pads with a plastic barrier on the pad. Tampons and menstrual pads with scent or deodorant Thong underwear Douches Powders Many bath soaps are very harsh and extremely irritating to skin in the genital area eg. Zest, Ivory, Tongan Spring, Coast, Dial, Lever 2000 Bubble baths or tub baths with shampoo and soapy water Scented toilet paper Diaper wipes with alcohol Cleansers and moisturizers with color, fragrance or sodium LAURYL sulfate Potty training at 2 years or younger -- many children learn to hold too well Soda has been associated with kidney stones No powders, talc, or diaper ointments should be used after diaper changes Other possible associations with enuresis or bed wetting are carbonated drinks, artificial colors, citric acid (orange, lemon and grapefruit), vitamin C, sugary foods and candy, and milk products in the evening. documented in this encounter Medications at Time of Discharge Medication Sig Dispensed Refills Start Date End Date montelukast (SINGULAIR) 5 MG chew tablet Take 5 mg by mouth at bedtime. 08/13/2020 documented as of this encounter Progress Notes * Nettie Jimenez APRN-CNP - 10/17/2013 1:16 PM CDT Aris Stephens is a 8 y.o. White/ female who comes to us today for an evaluation and management of bilateral gr 3 vesicoureteral reflux, urine leakage, and foul odor to urine. Aris Stephens was originally seen here in Urology in 2008; she was diagnosed with bilateral grade 3 vesicoureteral reflux after she had a febrile urinary tract infection. Mom reports her sewage plant supervisor told them Aris would outgrow the reflux and did not need to take maintenance antibiotics. Mom requested a visit to Urology now because the child frequently has damp underwear and a very foul odor to her urine;mom is concerned she still has reflux. Mom states child is very stubborn and embaressed by the situation and doesn't like to talk about it. We think she voids about 5 times a day; parents think she has bowel movements every other day. She is in good health otherwise. FAMILY HISTORY No known history of kidney or bladder issues except for kidney stones in maternal grand mother SOCIAL HISTORY: Lives with family; attends elementary school ROS: Complete Negative Except For: bilateral grade 3 vesicoureteral reflux, urinary leakage, foul odor ASSESSMENT: Ht 1.493 m (4' 10.78 ) Wt 51.4 kg (113 lb 5.1 oz) BMI 23.06 kg/m2 GENERAL: still sleepy from the sedation for the VCUG SKIN: negative HEENT: normocephalic CHEST: clear all lung ferguson CARDIO: RRR ABDOMEN/GI: Soft, no tenderness to palpation, bowel sounds present : Female exam: Deep vestible NEUROMUSCULAR: grossly normal IMPRESSION Megacystis Grade 1 vesicoureteral reflux DISCHARGE INSTRUCTIONS: UA, urine culture, calcium/creatinine ratio- obtained in Radiology Will review testing with Dr. Caceres q 2 hr timed voiding schedule during the day, with special emphasis on positioning and wiping techniques; spend 1-2 full minutes by the clock Elimination diary x 2 weeks- return to me for review Enuresis protocol, bowel managemeent protocol, do's and don'ts of bladder and bowel health Follow up pending Contact info Call if questions or concerns BACILIO Long 10/19/2013 9:48 AM documented in this encounter Procedure Notes * Document, Scanned - 10/24/2013 10:35 PM CDTAssociated Order(s): LAB RESULTS ORDER documented in this encounter Miscellaneous Notes * Miscellaneous Scans - Document, Scanned - 10/19/2013 2:00 AM CDT documented in this encounter Plan of Treatment Not on file documented as of this encounter Procedures Procedure Name Priority Date/Time Associated Diagnosis Comments LAB RESULTS ORDER 10/24/2013 10: 35 PM CDT CALCIUM/CREAT RATIO URINE RANDOM PANEL Routine 10/17/2013 9:50 AM CDT Unspecified Urinary Incontinence documented in this encounter Results * LAB RESULTS ORDER (10/24/2013 10:35 PM CDT) Narrative 10/24/2013 10:35 PM CDT Ordered by an unspecified provider. Transcriptions Document, Scanned - 10/24/2013 10:35 PM CDT Scanned Document LAB - THERAPEUTIC DR UG MONITORING ORDERABLES * CALCIUM/CREAT RATIO URINE RANDOM PANEL (10/17/2013 9:50 AM CDT) Calcium Urine 4.16 mg/dL 10/17/2013 1:48 PM CDT [facility] Creatinine Urine 28.65 mg/dL 10/17/2013 1:48 PM CDT [facility] Calcium/Creatin ine Ratio Urine 0.15 10/17/2013 1:48 PM CDT [facility] Urine URINE SPECIMEN OBTAINED BY CLEAN CATCH PROCEDURE / Unknown 10/17/2013 9:50 AM CDT 10/17/2013 12:52 PM CDT Narrative [facility] - 10/17/2013 1:48 PM CDT Normal ? <0.16 Borderline ??0.16-0.20 Abnormal ?? >0.20 Nettie [facility]IB[facility] - URINE CHEM ISTRY ORDERABLES Performing Organization Address City/State/[facility] Co de Phone Number [facility] [address] [place] [address] documented in this encounter Visit Diagnoses Diagnosis Unspecified urinary incontinence- Primary Cystitis, unspecified Vesicoureteral reflux, unspecified or without reflux nephropathy documented in this encounter Care Teams Incident Response Coordinator Relationship Specialty Start Date End Date Severino Zelaya MD PCP - General Pediatrics 08/23/13 07/02/20 documented as of this encounter
--- OUTSIDE RECORDS SUMMARY | 2024-05-16 22:40 | XMS_ITS | Encounter Summary ---
Author Organization [facility] Address [facility] [facility] [place], [place] [address] [place] [address] Care Team Providers Care Sizer Hand Name Role Phone Unavailable Primary Care Provider Unavailabl e Encounter Details Date Type Department Care Team (Latest Contact Info) Description 11/02/2023 Travel Social History Tobacco Use Types Packs/Day Years Used Date Smoking Tobacco: Never Assessed Comments Unknown Sex and Gender Information Value Date Recorded Sex Assigned at Not on file Legal Sex Female 12:04 PM CDT Gender Identity Not on file Sexual Orientation Not on file documented as of this encounter Plan of Treatment Not on file documented as of this encounter Visit Diagnoses Not on filedocumented in this encounter
--- OUTSIDE RECORDS SUMMARY | 2024-05-16 22:40 | XMS_ITS | Encounter Summary ---
Author Organization [facility] Address [address] [facility] [place] [address] Care Team Providers Care Scale Shooter Name Role Phone Severino Zelaya MD Primary Care Provider [phone] Reason for Referral * Radiology Services - Closed Specialty Diagnoses / Procedures Referred By Ricardo garcia Referred To Contact Diagnoses Urinary tract infection, site not specified Procedures FL CYSTOGRAM VOIDING Chichi Gonzalez, LAMAR-CONSUMER SERVICES CONSULTANT [address] [place] [address] Referral ID Status Reason Start Date Expiration Date Visits Re quested Visits Authorized [id number] Closed 09/04/2013 03/03/2014 1 1 Electronically signed by Chichi Gonzalez MEDICAL INSURANCE CLERK-CONSUMER SERVICES CONSULTANT at 09/04/2013 3:32 PM CDT Reason for Visit * Reason Onset Date Comments Consultation 09/04/2013 Encounter Details Date Type Department Care Team ([facility] Contact Info) Description 09/04/2013 Telephone [facility] Pediatrics - Urology [address] [place] [id number] Chichi Nicholson I, RN Consultation Social History Tobacco Use Types Packs/Day Years Used Date Smoking Tobacco: Never Assessed Sex and Gender Information Value Date Recorded Sex Assigned at Not on file Gender Identity Not on file Sexual Orientation Not on file documented as of this encounter Miscellaneous Notes * Telephone Encounter - Chichi Nicholson I RN - 09/04/2013 3:39 PM CDT Mom returned call, per report, Aris continues to be wet during the day with foul odor to urine, but when cultures are obtained they are usually negative for UTI. Talked with mom about follow up RUSand VCUG, mom verbalized understanding and would like to have VCUG sedated, as the previous one wasvery traumatic for Aris. Will coordinate appointments and inform mom of date and times. Orders placed in EPIC. Talked with sedation department, will schedule appointments for October 17, 2013[facility] and explain sedation procedure. documented in this encounter Plan of Treatment Not on file documented as of this encounter Results * FL CYSTOGRAM VOIDING [...] tract infection. COMPARISON: Voiding cystogram 05/27/2008 FINDINGS: Program Services Assistant images show moderate amount of stool within the colon. The osseous structures are intact. The bladder was catheterized by the medical lab technologist to infuse 700 mL Cystografin by [...] tract infection. COMPARISON: Voiding cystogram 05/27/2008 FINDINGS: Program Services Assistant images show moderate amount of stool within the colon. The osseous structures are intact. The bladder was catheterized by the medical lab technologist to infuse 700 mL Cystografin by [...] I agree with this report. Chichi Gonzalez MEDICAL INSURANCE CLERK-[facility] FLUOROSCOPY ORDERABLES documented in this encounter Visit Diagnoses Diagnosis Urinary tract infection, site not specified- Primary Urinary tract infection, site not specified- Primary Vesicoureteral reflux, unspecified or without reflux nephropathy documented in this encounter Care Teams Scale Shooter Relationship Specialty Start Date End Date Severino Zelaya MD PCP - General Pediatrics 08/23/13 07/02/20 documented as of this encounter
--- OUTSIDE RECORDS SUMMARY | 2024-05-16 22:40 | XMS_ITS | Encounter Summary ---
Author Organization [facility] Address [address] [place] [address] Care Team Providers Care Instructional Design Technologist Name Role Phone Severino Zelaya MD Primary Care Provider [phone] Reason for Visit * Reason Onset Date Comments Consultation 08/23/2013 Encounter Details Date Type Department Care Team (Late st Contact Info) Description 08/23/2013 Telephone [facility] Pediatrics - Urology [facility] [place] [address] Chichi Nicholson I RN Consultation Social History Tobacco Use Types Packs/Day Years Used Date Smoking Tobacco: Never Assessed Sex and Gender Information Value Date Recorded Sex Assigned at Not on file Gender Identity Not on file Sexual Orientation Not on file documented as of this encounter Miscellaneous Notes * Telephone Encounter - Chichi Nicholson RN - 08/23/2013 3:43 PM CDT Mom called requesting urology office visit for Aris due to urinary frequency and daytime wetting accidents. Mom reports Aris's underware are always damp with very foul odor. Per mom, Aris was seen by urology about 5 years ago, diagnosed with grade 3 VUR, no follow up since then. Mom states Aris has not been taking antibiotics. Mom requesting records from PCP to be faxed to urology. Will request old chart from [facility]. When records received, will review and call mom to schedule office visit with any recommended testing. Mom verbalized understanding. documented in this encounter Plan of Treatment Not on file documented as of this encounter Visit Diagnoses Not on filedocumented in this encounter Care Teams Instructional Design Technologist Relationship Specialty Start Date End Date Severino Zelaya MD PCP - General Pediatrics 08/23/13 07/02/20 documented as of this encounter
--- OUTSIDE RECORDS SUMMARY | 2024-05-16 22:40 | XMS_ITS | Encounter Summary ---
Author Organization [facility] Address [address] [facility] [place] [address] Care Team Providers Care Director University Name Role Phone Severino Zelaya MD Primary Care Provider [phone] Reason for Visit * Reason Onset Date Comments Consultation 08/25/2013 Encounter Details Date Type Department Care Team (Late st Contact Info) Description 08/25/2013 Telephone [facility] Pediatrics - Urology [facility] [place] [address] Chichi Nicholson I RN Consultation Social History Tobacco Use Types Packs/Day Years Used Date Smoking Tobacco: Never Assessed Sex and Gender Information Value Date Recorded Sex Assigned at Not on file Gender Identity Not on file Sexual Orientation Not on file documented as of this encounter Miscellaneous Notes * Telephone Encounter - Chichi Nicholson RN - 08/25/2013 12:10 PM CDT Message left on home phone that records have been received from [facility] and reviewed. Requested call back to discuss recommendations (GIOVANNI and VCUG) and schedule appointments. [facility] [place] [place] [facility]. documented in this encounter Plan of Treatment Not on file documented as of this encounter Visit Diagnoses Not on filedocumented in this encounter Care Teams Director University Relationship Specialty Start Date End Date Severino Zelaya MD PCP - General Pediatrics 08/23/13 07/02/20 documented as of this encounter
--- OUTSIDE RECORDS SUMMARY | 2024-05-16 22:40 | XMS_ITS | Clinical Summary ---
Author Organization [facility] Address [facility] [facility] [place] [address] [place] [address] Care Team Providers Care Client Services Director Name Role Phone Unavailable Primary Care Provider Unavailabl e Immunizations Name Administration Dates Next Due Dtap (Generic) 01/09/2010, 6,05/14/2005,03/17,2004 HPV GARDASIL 9-VALENT 03/18/2020,12/08/2018 HPV4 (Gardasil) 01/23/2016 Hepatitis A (Generic) 02/03/2007,03/04/2006 Hepatitis B 05/14/2005,04/02/2005,2004 Hib (Generic) 03/04/2006,04/02/2005,2004 Influenza (Generic) 01/14/2011 Influenza Adult (Generic) 01/23/2016,02/18/2015 MENINGOCOCCAL A C Y&W-135 oligosaccharide (MENVEO) 02/24/2016 MMR (MMRII) 01/09/2010,09/17/2005 Pneumococcal (Prevnar 13) 09/17/2005,,04/02/2005,10/15 Polio Opv (Generic) 01/09/2010, 5,04/02/2005,10/15 Tdap (Generic) 02/18/2015 Varicella (Varivax) 01/09/2010,09/17/2005 Social History Tobacco Use Types Packs/Day Years Used Date Smoking Tobacco: Never Assessed Comments Unknown Sex and Gender Information Value Date Recorded Sex Assigned at Not on file Legal Sex Female 12:04 PM CDT Gender Identity Not on file Sexual Orientation Not on file Plan of Treatment Health Maintenance Due Date Last Done Comments Hepatitis B Vaccines (4 of 4 - 4-dose series) 05/28/2005 05/14/2005, 04/02/2005, 2004 Annual Physical 09/13/2007 Hepatitis C 2022 COVID-19 Vaccine ( season) 2024 Influenza Adult (#1) 2024 01/23/2016, 02/18/2015, 01/14/2011 DTaP, Tdap and Td Vaccines (7 - Td or Tdap) 02/18/2025 02/18/2015, 01/09/2010, 03/04/2006, Additional history exists Pneumococcal Vaccine: Pediatrics (0 to 5 Years) and At-Risk Patients (6 to 64 Years) Completed 09/17/2005, 05/14/2005, 04/02/2005, Additional history exists Meningococcal Vaccine Aged Out 02/24/2016 No radha nitin eligible based on patient's age to complete this topic HPV Vaccines Completed 03/18/2020, 11/15, 01/23/2016 RSV Immunizations Under 20 Months Aged Out No longer eligible based on patient's age to complete this topic Insurance
--- OUTSIDE RECORDS SUMMARY | 2024-05-16 22:40 | XMS_ITS | Encounter Summary ---
Author Organization [facility] Address [facility]. [place], [place] [address] [place] [address] Care Team Providers Care Nremt Name Role Phone Unavailable Primary Care Provider Unavailabl e Encounter Details Date Type Department Care Team (Latest Contact Info) Description 12/30/2021 Travel Social History Tobacco Use Types Packs/Day Years Used Date Smoking Tobacco: Never Assessed Comments Unknown Sex and Gender Information Value Date Recorded Sex Assigned at Not on file Legal Sex Female 12:04 PM CDT Gender Identity Not on file Sexual Orientation Not on file COVID-19 Exposure Response Date Recorded In the last 10 days, have yo u been in contact with someone who was confirmed or suspected to have Coronavirus/COVID-19? No / Unsure 12/30/2021 2:22 PM CDT documented as of this encounter Plan of Treatment Not on file documented as of this encounter Visit Diagnoses Not on filedocumented in this encounter
--- OUTSIDE RECORDS SUMMARY | 2024-05-16 22:40 | XMS_ITS | Encounter Summary ---
Author Organization [facility] Address [address] [facility] [place] [address] Care Team Providers Care Medical Delivery Technician Name Role Phone Severino Zelaya MD Primary Care Provider [phone] Reason for Referral * Radiology Services - Closed Specialty Diagnoses / Procedures Referred By Ricardo garcia Referred To Contact Diagnoses Vesicoureteral reflux, unspecified or without reflux nephropathy Unspecified urinary incontinence Procedures US KIDNEY AND BLADDER Chichi Gonzalez, ELECTROPLATER-PATENT LEATHER SORTER [address] [place] [address] [facility] OP [address] [place] [phone] Referral ID Status Reason Start Date Expiration Date Visits Re quested Visits Authorized [id number] Closed 10/17/2013 10/17/2013 1 1 Encounter Details Date Type Department Care Team (Late st Contact Info) Description 08/25/2013 Orders Only [facility] Pediatrics - Urology [address] [place] [id number] Chichi Nicholson I, RN Vesicoureteral reflux, unspecified or without reflux nephropathy ; Unspecified urinary incontinence Social History Tobacco Use Types Packs/Day Years Used Date Smoking Tobacco: Never Assessed Sex and Gender Information Value Date Recorded Sex Assigned at Not on file Gender Identity Not on file Sexual Orientation Not on file documented as of this encounter Plan of Treatment Not on file documented as of this encounter Results * US KIDNEY AND [...] I agree with this report. Chichi Gonzalez ELECTROPLATER-PATENT LEATHER SORTER US ORDERABLE S documented in this encounter Visit Diagnoses Diagnosis Vesicoureteral reflux, unspecified or without reflux nephropathy- Primary Unspecified urinary incontinence Vesicoureteral reflux, unspecified or without reflux nephropathy Unspecified urinary incontinence documented in this encounter Care Teams Medical Delivery Technician Relationship Specialty Start Date End Date Severino Zelaya MD PCP - General Pediatrics 08/23/13 07/02/20 documented as of this encounter
== END 2024-05-09 10:39 | disposition home or self-care (01) ==
LOC: ANHLAB 10:39
PROVIDERS: PCP Pediatrics; Visit Provider Obstetrics & Gynecology
DX: N92.6 Irregular menstruation, unspecified (principal)
CPT/HCPCS: 36415; 84702

== ENCOUNTER 2024-05-11 10:53 | Outpatient (CLI) | payer OTHER, SELFPAY | END 2024-05-11 10:54 | disposition home or self-care (01) | PROVIDERS: PCP Pediatrics; Visit Provider Obstetrics & Gynecology | DX: N93.9 Abnormal uterine and vaginal bleeding, unspecified (principal) | CPT/HCPCS: 36415; 84702 ==

== ENCOUNTER 2024-05-30 14:44 | Outpatient (CLI) | payer OTHER, SELFPAY ==
--- NOTE | ~2024-05-30 | US_ITS ---
EXAMINATION: US OB <= 14 weeks fetus DATE: 05/30/2024 15:21 INDICATION: with inconclusive viability during first trimester TECHNIQUE: Real-time pelvic ultrasound utilizing transabdominal probe was performed. The ran alaniz radiologist was not present for the study. COMPARISON: None. FINDINGS: The uterus measures 10.0 x 7.1 x 8.0 cm. There is an intrauterine gestational sac. A single internal pole is identified. The crown rump length measures 4.1 cm, which correlates with an estimated gestational age of 11 weeks and 0 days. heart motion is identified measuring 166 beats per alysa te (bpm) by M-mode Doppler. The right ovary measures 3.1 x 2.0 x 3.1 cm. Sami of flow seen at the right ovary on color Doppler at the periphery of a 1.6 cm very hypoechoic corpus luteum cyst. The left ovary is not visualized. There is no free fluid in the pelvis. IMPRESSION: 1. Single living fetus with heart of 166 bpm. 2. Gestational age by ultrasound of 11 weeks 0 day(s) +/- 7 day(s) with ultrasound estimated date of delivery (BILL) of 12/19/2024. Reviewed, dictated and finalized at location B. SULFIDE OPERATOR IMPRESSION: 1. Single living fetus with heart of 166 bpm. 2. Gestational age by ultrasound of 11 weeks 0 day(s) +/- 7 day(s) with ultras ound estimated date of delivery (BILL) of 12/19/2024.
== END 2024-05-30 14:45 | disposition home or self-care (01) ==
PROVIDERS: PCP Pediatrics; Visit Provider Nurse Practitioner Obstetrics & Gynecology
DX: O36.80X0 Pregnancy with inconclusive fetal viability, not applicable or unspecified (principal); Z3A.11 11 weeks gestation of pregnancy
CPT/HCPCS: 76801

== ENCOUNTER 2024-06-20 18:11 | Emergency (ER) | payer OTHER, SELFPAY ==
--- OUTSIDE RECORDS SUMMARY | 2024-06-20 18:14 | XMS_ITS | Clinical Summary ---
Author Organization [facility] Address [address] [place] [address] Care Team Providers Care Chro Name Role Phone Unavailable Primary Care Provider [...] 05/28/2005 05/14/2005, 04/02/2005, 2004 Annual Physical 09/13/2007 PHQ-2 (Physician [place]) 2016 Meningococcal B Vaccine (1 of 2 - Standard) 2020 Hepatitis C 2022 COVID-19 Vaccine (1 - season) 2024 Influenza Adult (#1) 2024 01/23/2016, 02/18/2015, 01/14/2011 PHQ-2 (Physician [place]) 05/17/2024 DTaP, Tdap and Td Vaccines (7 - [...]
--- OUTSIDE RECORDS SUMMARY | 2024-06-20 18:14 | XMS_ITS | Referral Summary ---
Author Organization [facility] Address [address] [place] [address] Care Team Providers Care Retail Service Technician Name Role Phone Severino Zelaya Primary Care Provider Unavailabl e Source Comments [facility],non-owned Affiliates and Associated Physician Practices is amultiple site organization consisting of ambulatory clinics and hospital sitesin [place], [place], [place] and [place]. This disclosure is being madepursuant to the Care Everywhere program and may not contain all information available regarding this patient. Last updated 18.[facility] Allergies No known active allergies Medications [...] fluticasone propionate (Flonase) 50 MCG/ACT nasal spray [place] 2 (two) sprays into each nostril once [...] Active azelastine (Astelin) 0.1 % nasal spray [place] 2 (two) sprays into each nostril 2 [...] Due DTAP, HISTORIC VACCINE 01/09/2010,2005,05/14/2005,04/02,2004 HEP A PED/ADULT VACCINE 02/03/2007,03/04/2006 HEP B VACCINE 05/14/2005,04/02/2005,2004 HIB VACCINE 03/04/2006,04/02/2005,2004 Human Papilloma Virus [place] lent Vaccine 03/18/2020,12/08/2018 Human Papilloma Virus [place] valent Vaccine 01/23/2016 INFLUENZA VACCINE 01/23/2016,02/18/2015,01/15/20 11 MENINGOCOCCAL MCV4O 02/24/2016 MMR 01/09/2010,09/17/2005 POLIO OPV [...] of Treatment Not on file Care Teams Retail Service Technician Relationship Specialty Start Date End Date Severino Zelaya Update Information PCP - General 07/03/20
--- OUTSIDE RECORDS SUMMARY | 2024-06-20 18:14 | XMS_ITS | Patient Health Summary ---
Author Organization [facility] Address [address] [facility] [place] [address] Care Team Providers Care Nipping Machine Operator Name Role Phone Severino Zelaya Primary Care Provider Onel e Note from [facility],non-owned Affiliates and Associated Physician Practices is amultiple site organization consisting of ambulatory clinics and hospital sitesin [place], [place], [place] and [place]. This disclosure is being madepursuant to the Care Everywhere program and may not contain all information available regarding this patient. 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 Immunizations * DTAP, HISTORIC VACCINE(Given 01/09/2010, 03/04/2006, 05/14/2005, 04/02/2005, 2004) * HEP A PED/ADULT VACCINE(Given 02/03/2007, 03/04/2006) * HEP B VACCINE(Given 05/14/2005, 04/02/2005, 2004) * HIB VACCINE(Given 03/04/2006, 04/02/2005, 2004) * Human Papilloma Virus Ninevalent Vaccine(Given 03/18/2020, 12/08/2018) * Human Papilloma Virus Quadrivalent Vaccine(Given 01/23/2016) * INFLUENZA VACCINE(Given 01/23/2016, 02/18/2015, 01/14/2011) * MENINGOCOCCAL MCV4O(Given 02/24/2016) [...] CDT Scanned Document LAB - THERAPEUTIC DR PACHECO MONITORING ORDERABLES * [place] CYSTOGRAM VOIDING (10/17/2013 [...] tract infection. COMPARISON: Voiding cystogram 05/27/2008 FINDINGS: Senior Nuclear Medicine Technologist images show moderate amount of stool within the colon. The osseous structures are intact. The bladder was catheterized by the electrical design technologist to infuse 700 mL Cystografin by [...] tract infection. COMPARISON: Voiding cystogram 05/27/2008 FINDINGS: Senior Nuclear Medicine Technologist images show moderate amount of stool within the colon. The osseous structures are intact. The bladder was catheterized by the electrical design technologist to infuse 700 mL Cystografin by [...] I agree with this report. Chichi Gonzalez CRACKER DOUGH MIXER[facility] FLUOROSCOPY ORDERABLES * (ABNORMAL) URINALYSIS ROUTINE AUTO (10/17/2013 9:50 AM CDT) Color UA Yellow Straw, Yellow, Dark Yellow 10/17/2013 11:03 AM T [facility] Clarity UA Clear 10/17/2013 11:03 AM [facility] Specific [place] UA 1.015 1.005 - 1.030 10/17/2013 11:03 AM [facility] pH UA 6.0 5.0 - 8.0 pH 10/17/2013 11:03 AM T [facility] Protein UA Negative Negative 10/17/2013 11:03 AM [facility] Blood UA Trace(A) Negative 10/17/2013 11:03 AM T [facility] Leukocyte UA Negative Negative 10/17/2013 11:03 AM T [facility] Nitrite UA Negative Negative 10/17/2013 11:03 AM T [facility] Glucose UA Negative Negative 10/17/2013 11:03 AM T [facility] Ketone UA Negative Negative 10/17/2013 11:03 AM [facility] Bilirubin UA Negative Negative 10/17/2013 11:03 AM [facility] Urobilinogen UA 0.2 0.1 - 1.0 EU/dL 10/17/2013 11:03 AM [facility] Urine URINE SPECIMEN COLLECTION, CATHETERIZED / Unknown 10/17/2013 9:50 AM CDT 10/17/2013 10:22 AM CDT Chichi Gonzalez CRACKER DOUGH MIXER[facility] LAB - URINAL YSIS ORDERABLES [facility] [address] [place] [address] * URINALYSIS MICROSCOPIC ONLY (10/17/2013 9:50 AM CDT) RBC UA 0-2 0-2, 2-5 # /hpf 10/17/2013 11:03 AM CDT [facility] WBC UA 0-2 0-2, 2-5 # /hpf 10/17/2013 11:03 AM CDT [facility] Bacteria UA None Seen None Seen, Trace 10/17/2013 11:03 AM CDT [facility] Epithelial Cell UA 0-2 0-2, 2-5 10/17/2013 11:03 AM CDT [facility] Urine URINE SPECIMEN COLLECTION, CATHETERIZED / Unknown 10/17/2013 9:50 AM CDT 10/17/2013 10:22 AM CDT Chichi Gonzalez [facility] - URINAL YSIS ORDERABLES Performing Organization Address City/[facility]/ZIP Co de Phone Number [facility] [address] [place] [phone] * CULTURE URINE (10/17/2013 9:50 AM CDT) Pathologist [facility] Culture No Growth (<100 CFU/mL) 10/19/2013 5:32 AM CDT [facility]CRO[facility] Urine URINE SPECIMEN COLLECTION, CATHETERIZED / Unknown 10/17/2013 9:50 AM CDT 10/17/2013 10:22 AM CDT Chichi Gonzalez [facility] - MICROB IOLOGY ORDERABLES Performing Organization Address City/[facility]/ZIP Co de Phone Number [facility] MICROBIOLOGY [address] [place] [address], [facility] * CALCIUM/CREAT RATIO URINE RANDOM PANEL (10/17/2013 9:50 AM CDT) Calcium Urine 4.16 mg/dL 10/17/2013 1:48 PM CDT [facility] Creatinine Urine 28.65 mg/dL 10/17/2013 1:48 PM CDT [facility] Calcium/Creatin ine Ratio Urine 0.15 10/17/2013 1:48 PM CDT [facility] Urine URINE SPECIMEN OBTAINED BY CLEAN CATCH PROCEDURE / Unknown 10/17/2013 9:50 AM CDT 10/17/2013 12:52 PM CDT Narrative [facility] - 10/17/2013 1:48 PM CDT Normal ? <0.16 Borderline ??0.16-0.20 Abnormal ?? >0.20 Nettie Jimenez [facility] LAB - URINE CHEM ISTRY ORDERABLES [facility] [address] [facility] [place] [address] * US KIDNEY AND BLADDER (10/17/2013 8:13 [...] I agree with this report. Chichi Gonzalez CRACKER DOUGH MIXER-CRANE LADLE PERSON US ORDERABLE S Care Teams Nipping Machine Operator Relationship Specialty Start Date End Date Severino Zelaya Update Information PCP - General 07/03/20
--- OUTSIDE RECORDS SUMMARY | 2024-06-20 18:14 | XMS_ITS | Clinical Summary ---
Author Organization [facility] Address [address] [place] [address] Care Team Providers Care Driving Instructor Name Role Phone Severino Zelaya Primary Care Provider Unavailsushil e Source Comments [facility],non-owned Affiliates and Associated Physician Practices is amultiple site organization consisting of ambulatory clinics and hospital sitesin [place], [place], [place] and [place]. This disclosure is being madepursuant to the Care Everywhere program and may not contain all information available regarding this patient. Last updated 18.[facility] Allergies No known active allergies Medications * [...] fluticasone propionate (Flonase) 50 MCG/ACT nasal spray [place] 2 (two) sprays into each nostril once [...] Active azelastine (Astelin) 0.1 % nasal spray [place] 2 (two) sprays into each nostril 2 [...] 2004 HIV SCREENING 09/13/2019 CHLAMYDIA/GONORRHEA SCREENING 2020 MENINGOCOCCAL (Group B) VACCINE (1 of 2 - Standard) 2020 HEPATITIS C SCREENING 09/08/2022 COVID-19 VACCINE () 01/16/2024 INFLUENZA VACCINE (#1) 2024 6, 02/18/2015, 01/14/2011 DEPRESSION SCREENING 05/17/2024 01/20/2024 DTAP/TDAP/TD VACCINES (7 - Td or Tdap) 02/18/2025 02/18/2015, 01/09/2010, 03/04/2006, Additional history exists ZOSTER VACCINE (1 of 2) 2054 PNEUMOCOCCAL VACCINE Completed 09/17/2005, 05/14/2005, 04/02/2005, Additional history exists HIB VACCINE Completed 03/04/2006, 03/17, 2004 MENINGOCOCCAL VACCINE Aged Out 02/24/2016 No radha nitin eligible based on patient's age to complete this topic HPV VACCINE Completed 03/18/2020, 11/15, 01/23/2016 Care Teams Driving Instructor Relationship Specialty Start Date End Date Severino Zelaya Update Information PCP - General 07/03/20
--- OUTSIDE RECORDS SUMMARY | 2024-06-20 18:14 | XMS_ITS | Encounter Summary ---
Author Organization [facility] Address [address] [place], [place] [address] [address] Care Team Providers Care Pediatric Associate Name Role Phone Severino Zelaya Primary Care Provider Onel e Encounter Details Date Type Department Care Team (Late st Contact Info) Description 12/17/2023 Telephone [facility] - Dermatology [address] [facility] [place] [address] Osiel Lama MD [address] [facility] [place] [address] Social History Tobacco Use Types [...] on filedocumented in this encounter Care Teams Pediatric Associate Relationship Specialty Start Date End Date Severino Zelaya Update Information PCP - General 07/03/20 documented as of this encounter
--- OUTSIDE RECORDS SUMMARY | 2024-06-20 18:14 | XMS_ITS | Encounter Summary ---
Author Organization [facility] Address [address] [place] [address] [place] [address] Care Team Providers Care Tennis Camp Instructor Name Role Phone Severino Zelaya Primary Care Provider Unavailabl e Reason for Visit * Reason Comments Refill Request Encounter Details Date Type Department Care Team (Late st Contact Info) Description 04/22/2021 Refill [facility] D[facility] [address] [facility] [place] [id number] Marialuisa Gupta DO [address] [place] [address] Refill Request Social History Tobacco [...] acne documented in this encounter Care Teams Tennis Camp Instructor Relationship Specialty Start Date End Date Severino Zelaya Update Information PCP - General 07/03/20 documented as of this encounter
[2024-06-20 18:17] VITALS: BP 135/96; PULSE 137; RESP 20; TEMP 37.6; O2SAT 100
--- NOTE | 2024-06-20 18:17 | ED.URI ---
HPI - URI/Sore Throat General Chief Complaint: Upper Respiratory Infection Stated Complaint: URI Time Seen by Provider: 06/20/24 18:16 Source: patient Mode of arrival: ambulatory Limitations: no limitations History of Present Illness HPI Narrative: Patient is a 18-year-old female with a cough and congestion for the past few days. Her significant other has similar symptoms and is here being seen today too. She is 4 months. No complaints during the . she was prior sick with a gastroenteritis earlier last month and then was sick again and placed on azithromycin by the primary doctor. She is finishing azithromycin today. She is here with new sickness complaint over the past 3 days. MD elicited complaint: fever, cough, sore throat and nasal congestion Pertinent past history: other ( at this time 4 months) Onset (ago): day(s) (3) Consistency: constant Severity: moderate Pain scale (0-10): 2 Description of mucous: clear Able to tolerate fluids by mouth: Yes Exacerbating factors: nothing Relieving factors: nothing Context: sick contacts and other(s) with similar symptoms Associated symptoms: fever, myalgias, rhinorrhea, nasal congestion, sore throat and cough Treatments prior to arrival: antibiotics Related Data Home Medications ?Medication ?Instructions ?Recorded ?Confirmed ?Last Taken ?Type vitamin#30 30 mg iron-10 cap PO 05/31/24 05/31/24 Unknown History mg iron-folic acid 1 mg-omg3 capsule Allergies Allergy/AdvReac Type Severity Reaction Status Date / Time No Known Allergies Allergy Verified 06/20/24 18:39 Review of Systems Review of Systems: All systems reviewed & are unremarkable except as noted in HPI and below Constitutional: Constitutional: Reports no additional constitutional complaints Eyes: Eyes: Reports no additional eye complaints ENT: Reports system reviewed and no additional complaints, except as documented Cardiovascular: Cardiovascular: Reports no additional cardiovascular complaints Respiratory: Respiratory: Reports no additional respiratory complaints Gastrointestinal: Gastrointestinal: Reports no additional gastrointestinal complaints Genitourinary: Genitourinary: Reports no additional female genitourinary complaints Musculoskeletal: Musculoskeletal: Reports no additional musculoskeletal complaints Integumentary/Breasts: Skin/Breast: Reports system reviewed and no additional complaints, except as docu Neurologic: Reports system reviewed and no additional complaints, except as documented Psychiatric: Psychiatric: Reports no additional psychiatric complaints Endocrine: Endocrine: Reports no additional endocrine complaints Hematologic/Lymphatic: Hematologic/Lymphatic: Reports no additional hematologic/lymphatic complaints Allergic/Immunologic: Allergic/Immunologic: Reports no additional allergic/immunologic complaints [facility] Past Medical History Medical History Environmental allergies Asthma Acid reflux Anemia Family History Family History Grandparent Breast cancer Diabetes mellitus Hypertension Lung cancer Father Diabetes mellitus Hypertension Social History Social History Smoking status: Never smoker Alcohol intake: never Substance use: never Lack of Transportation: No Lack of Food: Never True Current Housing: I Have Housing Concerned About Future Housing: No Difficulty Paying Gas/Electric Bills: No Difficulty Paying for Meds: No Currently Unemployed: No Education: High School Diploma/GED Living arrangements: with family Occupation/Education: student Gender identity (if verbalized by the patient): Female Sexual Orientation (if Verbalized by the Patient): Straight or Heterosexual Spiritual care concerns: No Exam Const: General: ill appearing Nutritional Appearance: well nourished Orientation/consciousness: patient oriented x3 Limitations: no limitations HENMT: Head: normal to inspection Ears: external ears normal Face/Nose/Sinus: Normal external nose present Eyes: Conjunctivae: conjunctivae normal Pupils: Equal, round and reactive pupils present EOM: EOMs intact bilaterally Neck: Neck: normal visual inspection Chest: Chest palpation & inspection: normal inspection of the chest Resp: Effort & Inspection: normal respiratory effort and not labored Auscultation: clear to auscultation bilaterally and no crackles Cardio: Rate: regular rate Rhythm: regular rhythm Heart sounds: no murmurs GI: Inspection: non-distended GI Palp: Yes Soft to palpation and No Tenderness to palpation present (GI) Auscultation: normal bowel sounds : General: Yes bladder normal to palpation Back/Spine/Pelvis: Back: no CVA tenderness Skin: General skin exam: normal color Rashes: no rashes Wounds: no wounds Neuro: General: patient oriented x3 Cranial nerves: Yes Nystagmus not present Speech: normal speech Extrem: General: normal to inspection Psych: Mental Status: mental status grossly normal Affect: normal affect Attitude: cooperative Course Vital Signs Vital signs: Vital Signs Oxygen Delivery Room Air 06/20/24 18:11 Temperature 37.7 C H 06/20/24 19:57 Pulse Rate 126 H 06/20/24 19:57 Respiratory Rate 18 06/20/24 19:57 Blood Pressure 130/64 06/20/24 19:57 Pulse Oximetry 100 06/20/24 19:57 Oxygen Delivery Room Air 06/20/24 19:00 MDM - URI/Sore Throat MDM Narrative Medical decision making narrative: Patient is a 18-year-old female with viral-like syndrome and . We will go ahead and check COVID panel at this time and strep. Urinalysis also done. Urinalysis was equivocal. Due to the fact that she is we will go ahead and add 7 days of antibiotics to cover urine possible infection. She will get Tamiflu. Lab Data Attestation: I reviewed the patient's lab results. Labs: Lab Results 06/20/24 06/20/24 Range/Units 18:20 18:40 Urine Color Light yellow (Yellow) Urine Appearance Cloudy A (Clear) Urine pH 7.5 (5.0-8.0) Ur Specific [place] 1.020 (1.010-1.020) Urine Protein Negative (Negative) Urine Glucose (UA) Negative (Negative) Urine Ketones Negative (Negative) Ur Blood (Man) Negative (Negative) Urine Nitrate Negative (Negative) Urine Bilirubin Negative (Negative) Urine Urobilinogen 0.2 (0.2-1.0) mg/dL Ur Leukocyte Esterase Trace H (Negative) Urine RBC 0-2 (0-2) /hpf Urine WBC 0-3 (0-3) /hpf Ur Squamous Epith Cells Rare (Few) /hpf Amorphous Sediment Moderate H (None) Urine Bacteria 1+ H (None) /hpf Influenza A (RT-PCR) Positive A (Negative) Influenza B (RT-PCR) Negative (Negative) RSV (RT-PCR) Negative (Negative) SARS-CoV-2 RNA (RT-PCR) Negative (Negative) Group A Strep (PCR) Not detected (Negative) Discharge Plan Discharge Clinical Impression: Influenza A Qualifiers: Weeks of gestation: unspecified Qualified Code(s): Z34.90 - Encounter for supervision of normal , unspecified, unspecified trimester UTI (urinary tract infection) Qualifiers: Urinary tract infection type: acute cystitis Hematuria presence: without hematuria Qualified Code(s): N30.00 - Acute cystitis without hematuria Patient Disposition: Home, Self-Care Condition: Stable Instructions: Influenza (ED) Patient Language: Malay Prescriptions: New oseltamivir [Tamiflu] 75 mg capsule 75 mg PO BID 5 Days Qty: 10 0RF cephalexin 500 mg capsule 500 mg PO BID 7 Days Qty: 14 0RF No Action albuterol sulfate 2.5 mg /3 mL (0.083 %) solution for nebulization 2.5 mg inhalation Q4H PRN (Reason: shortness of breath or wheezing) Qty: 75 0RF fexofenadine [Cara Allergy] 180 mg tablet 180 mg PO DAILY 30 Days Qty: 30 0RF PNV #[id number] 30 mg iron-10 mg iron-1 mg capsule PO Follow-up/Referrals: UNKNOWN,DOCTOR [Non-Staff] - Stand Alone Forms: Work/School Release IP Time of Disposition: 19:27
--- NOTE | 2024-06-20 18:27 | PC.NURSE ---
covid culture sent to lab
[2024-06-20 18:47] LABS: Add Urine Microscopic? YES; Appearance Urine Cloudy (Clear); Bilirubin Urine Negative (Negative); Blood Urine Negative (Negative); Color Urine Light Yellow (Yellow); Glucose Urine UA Negative (Negative); Ketones Urine Negative (Negative); Leukocyte Esterase Ur Trace (Negative); Nitrate Urine Negative (Negative); Protein Urine Negative (Negative); Urobilinogen Urine 0.2 mg/dL (0.2-1.0); pH Urine 7.5 (5.0-8.0)
[2024-06-20 18:52] LABS: RBC Urine 0-2 /hpf (0-2); Squamous Epithelial Cell Urine Rare /hpf (Few); WBC Urine 0-3 /hpf (0-3)
[2024-06-20 18:53] LABS: Amorphous Sediment Urine Moderate; Bacteria Urine 1+ /hpf
[2024-06-20 19:00] VITALS: BP 140/96; PULSE 122; RESP 20; TEMP 37.4; O2SAT 99
--- OUTSIDE RECORDS SUMMARY | 2024-06-20 19:01 | XMS_ITS | Clinical Summary ---
Author Organization [facility] Address [address] [place] [address] Care Team Providers Care Manager Mall Name Role Phone Unavailable Primary Care Provider [...] 04/02/2005, 2004 Annual Physical 09/13/2007 PHQ-2 (Physician [place]) 2016 Meningococcal B Vaccine (1 of 2 - Standard) 2020 Hepatitis C 2022 COVID-19 Vaccine (1 - season) 2024 Influenza Adult (#1) 2024 01/23/2016, 02/18/2015, 01/14/2011 PHQ-2 (Physician [place]) 05/17/2024 DTaP, Tdap and Td Vaccines (7 [...]
--- OUTSIDE RECORDS SUMMARY | 2024-06-20 19:01 | XMS_ITS | Encounter Summary ---
Author Organization [facility] Address [address] [place] [address] [place] [address] Care Team Providers Care Dock Operations Supervisor Name Role Phone Severino Zelaya Primary Care Provider Unavailabl e Reason for Visit * Reason Comments Refill Request Encounter Details Date Type Department Care Team (Late st Contact Info) Description 04/22/2021 Refill [facility] [address] [facility], [place] [phone] Marialuisa Gupta DO [address] [place] [address] Refill Request Social History Tobacco [...] acne documented in this encounter Care Teams Dock Operations Supervisor Relationship Specialty Start Date End Date Severino Zelaya Update Information PCP - General 07/03/20 documented as of this encounter
--- OUTSIDE RECORDS SUMMARY | 2024-06-20 19:01 | XMS_ITS | Clinical Summary ---
Author Organization [facility] Address [address] [facility] [place] [address] Care Team Providers Care Campaign Management Senior Manager Name Role Phone Severino Zelaya Primary Care Provider Unavailsushil e Source Comments [facility],non-owned Affiliates and Associated Physician Practices is amultiple site organization consisting of ambulatory clinics and hospital sitesin [place], [place], [place] and [place]. This disclosure is being madepursuant to the Care Everywhere program and may not contain all information available regarding this patient. Last updated 18.[facility] Allergies No known active allergies Medications [...] fluticasone propionate (Flonase) 50 MCG/ACT nasal spray [place] 2 (two) sprays into each nostril once [...] Active azelastine (Astelin) 0.1 % nasal spray [place] 2 (two) sprays into each nostril 2 [...] VACCINE Completed 03/18/2020, 11/15, 01/23/2016 Care Teams Campaign Management Senior Manager Relationship Specialty Start Date End Date Severino Zelaya Update Information PCP - General 07/03/20
--- OUTSIDE RECORDS SUMMARY | 2024-06-20 19:01 | XMS_ITS | Encounter Summary ---
Author Organization [facility] Address [address] [place], [place] [address] [address] Care Team Providers Care Medical Planner Name Role Phone Severino Zelaya Primary Care Provider Onel e Encounter Details Date Type Department Care Team (Late st Contact Info) Description 12/17/2023 Telephone [facility] [address] [facility], [place] [address] Osiel Lama MD [address] [facility] [place] [address] Social History Tobacco Use Types [...] on filedocumented in this encounter Care Teams Medical Planner Relationship Specialty Start Date End Date Severino Zelaya Update Information PCP - General 07/03/20 documented as of this encounter
--- OUTSIDE RECORDS SUMMARY | 2024-06-20 19:01 | XMS_ITS | Referral Summary ---
Author Organization [facility] Address [address] [facility] [place] [address] Care Team Providers Care Etl Bi Developer Name Role Phone Severino Zelaya Primary Care Provider Unavailabl e Source Comments [facility],non-owned Affiliates and Associated Physician Practices is amultiple site organization consisting of ambulatory clinics and hospital sitesin [place], [place], [place] and [place]. This disclosure is being madepursuant to the Care Everywhere program and may not contain all information available regarding this patient. Last updated 18.[facility] Allergies No known active allergies [...] fluticasone propionate (Flonase) 50 MCG/ACT nasal spray [place] 2 (two) sprays into each nostril once [...] Active azelastine (Astelin) 0.1 % nasal spray [place] 2 (two) sprays into each nostril 2 [...] of Treatment Not on file Care Teams Etl Bi Developer Relationship Specialty Start Date End Date Severino Zelaya Update Information PCP - General 07/03/20
--- OUTSIDE RECORDS SUMMARY | 2024-06-20 19:01 | XMS_ITS | Patient Health Summary ---
Author Organization [facility] Address [address] [place] [address] Care Team Providers Care Telegraphic Instrument Supervisor Name Role Phone Severino Zelaya Primary Care Provider Onel e Note from [facility],non-owned Affiliates and Associated Physician Practices is amultiple site organization consisting of ambulatory clinics and hospital sitesin [place], [place], [place] and [place]. This disclosure is being madepursuant to the Care Everywhere program and may not contain all information available regarding this patient. Last updated 18.[facility] Allergies No known active allergies Medications * [...] fluticasone propionate (Flonase) 50 MCG/ACT nasal spray [place] 2 (two) sprays into each nostril once [...] azelastine (Astelin) 0.1 % nasal spray(Started 01/20/2024) [place] 2 (two) sprays into each nostril 2 [...] tract infection. COMPARISON: Voiding cystogram 05/27/2008 FINDINGS: Inventory Control/Shipping Receiving images show moderate amount of stool within the colon. The osseous structures are intact. The bladder was catheterized by the senior cytogenetic technologist to infuse 700 mL Cystografin by [...] tract infection. COMPARISON: Voiding cystogram 05/27/2008 FINDINGS: Inventory Control/Shipping Receiving images show moderate amount of stool within the colon. The osseous structures are intact. The bladder was catheterized by the senior cytogenetic technologist to infuse 700 mL Cystografin by [...] I agree with this report. Chichi Gonzalez DIRECTOR [facility] FLUOROSCOPY ORDERABLES * (ABNORMAL) URINALYSIS ROUTINE AUTO (10/17/2013 9:50 AM CDT) Color UA Yellow Straw, Yellow, Dark Yellow 10/17/2013 11:03 AM T [facility] Clarity UA Clear 10/17/2013 11:03 AM [facility] Specific [place] UA 1.015 1.005 - 1.030 10/17/2013 11:03 AM [facility] pH UA 6.0 5.0 - 8.0 pH 10/17/2013 11:03 AM T [facility] Protein UA Negative Negative 10/17/2013 11:03 AM [facility] Blood UA Trace(A) Negative 10/17/2013 11:03 AM T [facility] Leukocyte UA Negative Negative 10/17/2013 11:03 AM T [facility] Nitrite UA Negative Negative 10/17/2013 11:03 AM T [facility] Glucose UA Negative Negative 10/17/2013 11:03 AM T [facility] Ketone UA Negative Negative 10/17/2013 11:03 AM [facility] Bilirubin UA Negative Negative 10/17/2013 11:03 AM [facility] Urobilinogen UA 0.2 0.1 - 1.0 EU/dL 10/17/2013 11:03 AM [facility] Urine URINE SPECIMEN COLLECTION, CATHETERIZED / Unknown 10/17/2013 9:50 AM CDT 10/17/2013 10:22 AM CDT Chichi Gonzalez DIRECTOR [facility] LAB - URINAL YSIS ORDERABLES [facility] [address] [place] [address] * URINALYSIS MICROSCOPIC ONLY (10/17/2013 9:50 AM CDT) RBC UA 0-2 0-2, 2-5 # /hpf 10/17/2013 11:03 AM CDT [facility] WBC UA 0-2 0-2, 2-5 # /hpf 10/17/2013 11:03 AM CDT [facility] Bacteria UA None Seen None Seen, Trace 10/17/2013 11:03 AM CDT [facility] Epithelial Cell UA 0-2 0-2, 2-5 10/17/2013 11:03 AM CDT [facility] Urine URINE SPECIMEN COLLECTION, CATHETERIZED / Unknown 10/17/2013 9:50 AM CDT 10/17/2013 10:22 AM CDT Chichi Gonzalez [facility]OR [facility] - URINAL YSIS ORDERABLES Performing Organization Address City/[facility]/ZIP Co de Phone Number [facility] [address] [place] [phone] * CULTURE URINE (10/17/2013 9:50 AM CDT) Pathologist [facility] Culture No Growth (<100 CFU/mL) 10/19/2013 5:32 AM CDT [facility] Urine URINE SPECIMEN COLLECTION, CATHETERIZED / Unknown 10/17/2013 9:50 AM CDT 10/17/2013 10:22 AM CDT Chichi Gonzalez DIRECTOR [facility] - MICROB IOLOGY ORDERABLES Performing Organization Address City/[facility]/ZIP Co de Phone Number [facility] [address] [place] [address], [facility] * CALCIUM/CREAT RATIO URINE RANDOM PANEL (10/17/2013 9:50 AM CDT) Calcium Urine 4.16 mg/dL 10/17/2013 1:48 PM CDT [facility] Creatinine Urine 28.65 mg/dL 10/17/2013 1:48 PM CDT [facility] Calcium/Creatin ine Ratio Urine 0.15 10/17/2013 1:48 PM CDT [facility] Urine URINE SPECIMEN OBTAINED BY CLEAN CATCH PROCEDURE / Unknown 10/17/2013 9:50 AM CDT 10/17/2013 12:52 PM CDT Narrative [facility] - 10/17/2013 1:48 PM CDT Normal ? <0.16 Borderline ??0.16-0.20 Abnormal ?? >0.20 Nettie Jimenez [facility] - URINE CHEM ISTRY ORDERABLES [facility] [address] [place] [address] * US KIDNEY AND BLADDER (10/17/2013 8:13 [...] I agree with this report. Chichi Gonzalez DIRECTOR CHECK-REUSE TECHNICIAN US ORDERABLE S Care Teams Telegraphic Instrument Supervisor Relationship Specialty Start Date End Date Severino Zelaya Update Information PCP - General 07/03/20
[2024-06-20 19:03] LABS: SARS-CoV-2 RNA PCR Negative (Negative)
--- NOTE | 2024-06-20 19:03 | PC.NURSE ---
HIV FORM SIGNED. HEART TONES OBTAINED. PT IS AWAITING RESULTS. LIGHTS OFF, KLEENEX PROVIDED. WILL CONTINUE TO MONITOR.
[2024-06-20 19:05] LABS: Influenza A QL RT-PCR Positive (Negative); Influenza B QL RT-PCR Negative (Negative); RSV RNA, RT-PCR Negative (Negative)
[2024-06-20 19:17] LABS: Strep Group A RT-PCR NOT DETECTED (Negative)
[2024-06-20 19:57] VITALS: BP 130/64; PULSE 126; RESP 18; TEMP 37.7; O2SAT 100
[2024-06-20] MEDS: OSELTAMIVIR PHOSPHATE 75 MG CAPSULE PO (19:57)
--- NOTE | 2024-06-20 20:45 | PC.NURSE ---
Tried to call pt to let her know that ERP called in antibiotic for UTI. Unable to reach pt.
== END 2024-06-20 20:25 | disposition home or self-care (01) ==
PROVIDERS: Emergency Provider Emergency Medicine; PCP Nurse Practitioner Family
DX: O26.899 Other specified pregnancy related conditions, unspecified trimester (principal); J10.1 Influenza due to other identified influenza virus with other respiratory manifestations; O23.10 Infections of bladder in pregnancy, unspecified trimester; N30.00 Acute cystitis without hematuria; Z20.822 Contact with and (suspected) exposure to COVID-19
CPT/HCPCS: 81001; 87637; 87651; 99283; A9270

== ENCOUNTER 2024-06-21 09:57 | Emergency (ER) | payer OTHER, SELFPAY ==
[2024-06-21 10:20] VITALS: BP 133/79; PULSE 125; RESP 18; TEMP 36.4; O2SAT 100
--- OUTSIDE RECORDS SUMMARY | 2024-06-21 10:49 | XMS_ITS | Encounter Summary ---
Author Organization [facility] Address [address] [place], [place] [address] [address] Care Team Providers Care Agronomy Research Manager Name Role Phone Severino Zelaya Primary Care Provider Onel e Encounter Details Date Type Department Care Team (Late st Contact Info) Description 12/17/2023 Telephone [facility] [address] [facility], [place] [address] Osiel Lama MD [address] [facility] [place] [address] Social History Tobacco Use Types [...] on filedocumented in this encounter Care Teams Agronomy Research Manager Relationship Specialty Start Date End Date Severino Zelaya Update Information PCP - General 07/03/20 documented as of this encounter
--- OUTSIDE RECORDS SUMMARY | 2024-06-21 10:49 | XMS_ITS | Patient Health Summary ---
Author Organization [facility] Address [address] [facility] [place] [address] Care Team Providers Care Headline Writer Name Role Phone Severino Zelaya Primary Care Provider Onel e Note from [facility],non-owned Affiliates and Associated Physician Practices is amultiple site organization consisting of ambulatory clinics and hospital sitesin [place], [place], [place]. This disclosure is being madepursuant to the Care Everywhere program and may not contain all information available regarding this patient. Last updated 18.[facility] Allergies No known active allergies Medications [...] fluticasone propionate (Flonase) 50 MCG/ACT nasal spray [place] 2 (two) sprays into each nostril once [...] azelastine (Astelin) 0.1 % nasal spray(Started 01/20/2024) [place] 2 (two) sprays into each nostril 2 [...] tract infection. COMPARISON: Voiding cystogram 05/27/2008 FINDINGS: Air Traffic Supervisor images show moderate amount of stool within the colon. The osseous structures are intact. The bladder was catheterized by the radiology asst to infuse 700 mL Cystografin by gravity. [...] tract infection. COMPARISON: Voiding cystogram 05/27/2008 FINDINGS: Air Traffic Supervisor images show moderate amount of stool within the colon. The osseous structures are intact. The bladder was catheterized by the radiology asst to infuse 700 mL Cystografin by gravity. [...] I agree with this report. Chichi Gonzalez RESEARCH SOIL SCIENTIST-[facility] FLUOROSCOPY ORDERABLES * (ABNORMAL) URINALYSIS ROUTINE AUTO (10/17/2013 9:50 AM CDT) Color UA Yellow Straw, Yellow, Dark Yellow 10/17/2013 11:03 AM T [facility] Clarity UA Clear 10/17/2013 11:03 AM [facility] Specific [place] UA 1.015 1.005 - 1.030 10/17/2013 11:03 AM [facility] pH UA 6.0 5.0 - 8.0 pH 10/17/2013 11:03 AM T [facility] Protein UA Negative Negative 10/17/2013 11:03 AM [facility] Blood UA Trace(A) Negative 10/17/2013 11:03 AM T [facility] Leukocyte UA Negative Negative 10/17/2013 11:03 AM T [facility] Nitrite UA Negative Negative 10/17/2013 11:03 AM T [facility] Glucose UA Negative Negative 10/17/2013 11:03 AM T [facility] Ketone UA Negative Negative 10/17/2013 11:03 AM [facility] Bilirubin UA Negative Negative 10/17/2013 11:03 AM [facility] Urobilinogen UA 0.2 0.1 - 1.0 EU/dL 10/17/2013 11:03 AM [facility] Urine URINE SPECIMEN COLLECTION, CATHETERIZED / Unknown 10/17/2013 9:50 AM CDT 10/17/2013 10:22 AM CDT Chichi Gonzalez RESEARCH SOIL SCIENTIST-[facility] LAB - URINAL YSIS ORDERABLES [facility] [address] [place] [address] * URINALYSIS MICROSCOPIC ONLY (10/17/2013 9:50 AM CDT) RBC UA 0-2 0-2, 2-5 # /hpf 10/17/2013 11:03 AM CDT [facility] WBC UA 0-2 0-2, 2-5 # /hpf 10/17/2013 11:03 AM CDT [facility] Bacteria UA None Seen None Seen, Trace 10/17/2013 11:03 AM CDT [facility] Epithelial Cell UA 0-2 0-2, 2-5 10/17/2013 11:03 AM CDT [facility] Urine URINE SPECIMEN COLLECTION, CATHETERIZED / Unknown 10/17/2013 9:50 AM CDT 10/17/2013 10:22 AM CDT Chichi Gonzalez RESEARCH SOIL [facility]ENT[facility] - URINAL YSIS ORDERABLES Performing Organization Address City/[facility]/ZIP Co de Phone Number [facility] [address] [place] [phone] * CULTURE URINE (10/17/2013 9:50 AM CDT) Pathologist [facility] Culture No Growth (<100 CFU/mL) 10/19/2013 5:32 AM CDT [facility] Urine URINE SPECIMEN COLLECTION, CATHETERIZED / Unknown 10/17/2013 9:50 AM CDT 10/17/2013 10:22 AM CDT Chichi Gonzalez RESEARCH [facility]IL [facility]ENT[facility] - MICROB IOLOGY ORDERABLES Performing Organization Address City/[facility]/ZIP Co de Phone Number [facility] [address] [place] [address], [facility] * CALCIUM/CREAT RATIO URINE RANDOM PANEL (10/17/2013 9:50 AM CDT) Calcium Urine 4.16 mg/dL 10/17/2013 1:48 PM CDT [facility] Creatinine Urine 28.65 mg/dL 10/17/2013 1:48 PM CDT [facility] Calcium/Creatin ine Ratio Urine 0.15 10/17/2013 1:48 PM CDT [facility] Urine URINE SPECIMEN OBTAINED BY CLEAN CATCH PROCEDURE / Unknown 10/17/2013 9:50 AM CDT 10/17/2013 12:52 PM CDT Narrative [facility] - 10/17/2013 1:48 PM CDT Normal ? <0.16 Borderline ??0.16-0.20 Abnormal ?? >0.20 Nettie Jimenez [facility] - URINE CHEM ISTRY ORDERABLES [facility] [address] [facility] [place] [address] * US KIDNEY AND BLADDER (10/17/2013 8:13 [...] I agree with this report. Chichi Gonzalez RESEARCH SOIL SCIENTIST-SHRIMP HEADER US ORDERABLE S Care Teams Headline Writer Relationship Specialty Start Date End Date Severino Zelaya Update Information PCP - General 07/03/20
--- OUTSIDE RECORDS SUMMARY | 2024-06-21 10:49 | XMS_ITS | Clinical Summary ---
Author Organization [facility] Address [address] [facility] [place] [address] Care Team Providers Care Document Restorer Name Role Phone Severino Zelaya Primary Care Provider Unavailsushil e Source Comments [facility],non-owned Affiliates and Associated Physician Practices is amultiple site organization consisting of ambulatory clinics and hospital sitesin [place], [place], [place] and [place]. This disclosure is being madepursuant to the Care Everywhere program and may not contain all information available regarding this patient. Last updated 18.[facility] Allergies No known active allergies Medications [...] fluticasone propionate (Flonase) 50 MCG/ACT nasal spray [place] 2 (two) sprays into each nostril once [...] Active azelastine (Astelin) 0.1 % nasal spray [place] 2 (two) sprays into each nostril 2 [...] VACCINE Completed 03/18/2020, 11/15, 01/23/2016 Care Teams Document Restorer Relationship Specialty Start Date End Date Severino Zelaya Update Information PCP - General 07/03/20
--- OUTSIDE RECORDS SUMMARY | 2024-06-21 10:49 | XMS_ITS | Encounter Summary ---
Author Organization [facility] Address [address] [place] [address] [place] [address] Care Team Providers Care Scientific Glass Blower Name Role Phone Severino Zelaya Primary Care Provider Unavailabl e Reason for Visit * Reason Comments Refill Request Encounter Details Date Type Department Care Team (Late st Contact Info) Description 04/22/2021 Refill [facility] [address] [facility], [place] [id number] Marialuisa Gupta DO [address] [place] [address] Refill Request Social History Tobacco [...] acne documented in this encounter Care Teams Scientific Glass Blower Relationship Specialty Start Date End Date Severino Zelaya Update Information PCP - General 07/03/20 documented as of this encounter
--- OUTSIDE RECORDS SUMMARY | 2024-06-21 10:49 | XMS_ITS | Referral Summary ---
Author Organization [facility] Address [address] [facility] [place] [address] Care Team Providers Care Director Of Retail Name Role Phone Severino Zelaya Primary Care Provider Unavailabl e Source Comments [facility],non-owned Affiliates and Associated Physician Practices is amultiple site organization consisting of ambulatory clinics and hospital sitesin [place], [place], [place] and [place]. This disclosure is being madepursuant to the Care Everywhere program and may not contain all information available regarding this patient. Last updated 18.[facility] Allergies No known active allergies Medications * [...] fluticasone propionate (Flonase) 50 MCG/ACT nasal spray [place] 2 (two) sprays into each nostril once [...] Active azelastine (Astelin) 0.1 % nasal spray [place] 2 (two) sprays into each nostril 2 [...] of Treatment Not on file Care Teams Director Of Retail Relationship Specialty Start Date End Date Severino Zelaya Update Information PCP - General 07/03/20
--- OUTSIDE RECORDS SUMMARY | 2024-06-21 10:49 | XMS_ITS | Clinical Summary ---
Author Organization [facility] Address [address] [place] [address] Care Team Providers Care Straddle Bug Name Role Phone Unavailable Primary Care Provider [...] 04/02/2005, 2004 Annual Physical 09/13/2007 PHQ-2 (Physician [place]) 2016 Meningococcal B Vaccine (1 of 2 - Standard) 2020 Hepatitis C 2022 COVID-19 Vaccine (1 - season) 2024 Influenza Adult (#1) 2024 01/23/2016, 02/18/2015, 01/14/2011 PHQ-2 (Physician [place]) 05/17/2024 DTaP, Tdap and Td Vaccines (7 [...]
--- NOTE | 2024-06-21 11:29 | ECG_ITS ---
Test Date: 2024-06-21 14:59:36 Measurements Intervals Carbon Rate: 112 P: 43 WY: 125 QRS: 48 QRSD: 86 T: -5 QT: 305 QTc: 417 Interpretive Statements SINUS TACHYCARDIA EARLY PRECORDIAL R/S TRANSITION NONSPECIFIC ST & T-WAVE ABNORMALITY- INF/LAT LEADS BASELINE WANDER- III, AVF, V4-V6 ABNORMAL ECG No previous ECG available for comparison Electronically Signed On 06-21-2024 15:06:27 CO PILOT by Bg Dorado D.O.
--- NOTE | 2024-06-21 11:30 | ED.URI ---
HPI - URI/Sore Throat General Chief Complaint: Upper Respiratory Infection <Negra Aquino APRN - Last Filed: 06/21/24 14:03> Stated Complaint: flu A+, 4 months preg <Negra Aquino APRN - Last Filed: 06/21/24 14:03> Time Seen by Provider: 06/21/24 11:15 <Negra Aquino APRN - Last Filed: 06/21/24 14:03> Focused HPI: Patient is a 18-year-old female who presents to the ER after being diagnosed with influenza at an urgent care yesterday. She endorses runny nose, chills, back pain, fevers. Patient reports her symptoms started approximately 3 days ago. She reports she is 14 weeks . Patient reports she was started on Tamiflu yesterday but it made her quite ill last night so she has not picked up her prescription. She and her mother reports her biggest concern is her bilateral back pain. Patient reports she was recently on a Z-Erickson because there was concern that she had mycoplasma pneumonia. She reports her last ultrasound was on May 30, but heart sounds were performed yesterday at urgent care and they were normal although patient does not remember the baby's heart rate. Patient denies any abdominal cramping, vaginal bleeding, urinary symptoms. She denies any blood in her urine and reports she has continued to urinate regularly. This is patient's 1st . She reports her last menstrual period was about 5 months ago and she is due a December 22. GENERAL: Ill-appearing, well-nourished, and in no acute distress. HEAD: Normocephalic, atraumatic. CHEST: Clear to auscultation. ?No respiratory distress. + Congestion. HEART: Tachycardia. NEURO: ?Alert and oriented x3. Patient screened in triage and initial orders placed.? ?Additional care and disposition to be based upon?diagnostic testing and treatment. <Negra Aquino APRN - Last Filed: 06/21/24 14:03> Related Data Home Medications: Home Medications ?Medication ?Instructions ?Recorded ?Confirmed ?Last Taken ?Type vitamin#30 30 mg iron-10 cap PO 05/31/24 05/31/24 Unknown History mg iron-folic acid 1 mg-omg3 capsule <Negra Aquino APRN - Last Filed: 06/21/24 14:03> Allergies/Adverse Reactions: Allergies Allergy/AdvReac Type Severity Reaction Status Date / Time No Known Allergies Allergy Verified 06/20/24 18:39 <Negra Aquino APRN - Last Filed: 06/21/24 14:03> PMFSH Past Medical History Medical History: Medical History Environmental allergies Asthma Acid reflux Anemia <Negra Aquino APRN - Last Filed: 06/21/24 14:03> Family History Family History: Family History Grandparent Breast cancer Diabetes mellitus Hypertension Lung cancer Father Diabetes mellitus Hypertension <Negra Aquino APRN - Last Filed: 06/21/24 14:03> Social History Social History: Social History Smoking status: Never smoker Alcohol intake: never Substance use: never Lack of Transportation: No Lack of Food: Never True Current Housing: I Have Housing Concerned About Future Housing: No Difficulty Paying Gas/Electric Bills: No Difficulty Paying for Meds: No Currently Unemployed: No Education: High School Diploma/GED Living arrangements: with family Occupation/Education: student Gender identity (if verbalized by the patient): Female Sexual Orientation (if Verbalized by the Patient): Straight or Heterosexual Spiritual care concerns: No <Negra Aquino APRN - Last Filed: 06/21/24 14:03> Exam Narrative: APPEARANCE: No apparent distress. Well-appearing Head: atraumatic. EYES: EOMI, NOSE: Atraumatic NECK: Trachea midline RESPIRATORY: No increased rate of breathing clear to auscultation CARDIOVASCULAR: Tachycardic, no peripheral edema ABDOMINAL: Non-distended soft nontender MUSCULOSKELETAl: No obvious deformities NEURO: Alert. Moving 4/4 extremities SKIN:: Warm, dry. Normal color PSYCHIATRIC: Normal affect <Merlin Doan MD - Last Filed: 06/21/24 16:59> Course Vital Signs Vital signs: Vital Signs Temperature 97.6 F 06/21/24 10:20 Pulse Rate 125 H 06/21/24 10:20 Respiratory Rate 18 06/21/24 10:20 Blood Pressure 133/79 06/21/24 10:20 Pulse Oximetry 100 06/21/24 10:20 Temperature 97.6 F 06/21/24 10:20 Pulse Rate 125 H 06/21/24 10:20 Respiratory Rate 18 06/21/24 10:20 Blood Pressure 133/79 06/21/24 10:20 Pulse Oximetry 100 06/21/24 10:20 <Negra Aquino APRN - Last Filed: 06/21/24 14:03> Vital Signs Temperature 97.6 F 06/21/24 10:20 Pulse Rate 125 H 06/21/24 10:20 Respiratory Rate 18 06/21/24 10:20 Blood Pressure 133/79 06/21/24 10:20 Pulse Oximetry 100 06/21/24 10:20 Temperature 97.6 F 06/21/24 10:20 Pulse Rate 125 H 06/21/24 10:20 Respiratory Rate 18 06/21/24 10:20 Blood Pressure 133/79 06/21/24 10:20 Pulse Oximetry 100 06/21/24 10:20 <Merlin Doan MD - Last Filed: 06/21/24 16:59> MDM - URI/Sore Throat MDM Narrative Medical decision making narrative: -Course: 18-year-old female presenting with flu symptoms. Physical exam she is tachycardic but well appearing overall. Abdominal exam is benign and she has no OBGYN complaints. Given Tylenol/fluid resuscitation with normalization of vital signs. Mother was concerned about her lower back pain which appears to just be muscle aches from her influenza infection. UA showed 6-10 wbcs and +1 leuk esterase. She will be treated due to . Patient will be discharged with Keflex and Zofran. OBGYN follow-up. Given return precautions. -DDX includes but is not limited to: Influenza, dehydration, UTI <Merlin Doan MD - Last Filed: 06/21/24 16:59> Lab Data Result diagrams: 06/21/24 15:21 06/21/24 15:21 <Negra Aquino APRN - Last Filed: 06/21/24 14:03> Labs: Lab Results 06/21/24 06/21/24 Range/Units 15:21 15:51 WBC 4.9 (4.5-10.0) K/mm3 RBC 3.82 L (4.2-5.4) M/mm3 Hgb 11.8 L (12.0-15.0) g/dL Hct 32.9 L (37.0-47.0) % MCV 86.1 (80-100) fl MCH 30.9 (26-34) pg MCHC 35.9 (32-36) g/dl RDW 13.3 (11.5-14.5) % Plt Count 185 (150-375) k/mm3 MPV 9.4 (7.4-10.4) fl Immature Gran % (Auto) 0.2 (0-0.5) % Neut % (Auto) 73.8 H (45.5-73.1) % Lymph % (Auto) 13.4 L (18.3-44.2) % [place] % (Auto) 12.0 H (2.6-8.5) % Eos % (Auto) 0.4 (0-4.4) % Baso % (Auto) 0.2 (0.2-1.2) % Lymph # (Auto) 0.66 L (0.9-3.2) K/mm3 [place] # (Auto) 0.6 (0.1-0.6) K/mm3 Eos # (Auto) 0.0 (0-0.3) K/mm3 Baso # (Auto) 0.0 (0.0-0.1) K/mm3 Abs Immat Gran (auto) 0.01 (0.00-0.031) K/mm3 Absolute Neuts (auto) 3.6 (1.3-6.7) K/mm3 Absolute Nucleated RBC 0.000 (0.0-0.012) K/mm3 Nucleated RBC % 0.0 (0.0-0.2) % PT 13.2 (11.1-14.7) Seconds INR 1.0 APTT 30.4 (22.3-36.8) Seconds Sodium 134 (134-143) mmol/L Potassium 3.2 L (3.4-5.0) mmol/L Chloride 101 (98-107) mmol/L Carbon Dioxide 19 L (22-30) mmol/L Anion Gap 14 H (4-12) mmol/L BUN 4 L (8-21) mg/dL Creatinine 0.46 L (0.7-1.0) mg/dL Estim Creat Clear Calc 186 ml/min Estimated GFR > 60 (59 - ) Glucose 104 (65-110) mg/dL Lactic Acid 2.1 H (0.7-2.0) mmol/L Calcium 8.9 (8.9-10.7) mg/dL Total Bilirubin 0.3 (0.2-1.3) mg/dL AST 40 H (14-36) U/L ALT 35 (6-35) U/L Alkaline Phosphatase 63 (45-116) U/L Troponin I < 0.012 (0.000-0.034) ng/mL Total Protein 7.0 (6.3-8.6) g/dL Albumin 3.6 L (3.7-5.6) g/dL Lipase 37 (23-300) U/L Urine Color Yellow (Yellow) Urine Appearance Clear (Clear) Urine pH 6.0 (5.0-9.0) Ur Specific [place] 1.004 (1.001-1.035) Urine Protein Negative (Negative) mg/dL Urine Glucose (UA) Negative (Negative) mg/dL Urine Ketones Negative (Negative) mg/dL Ur Blood (Man) Trace (Negative) Urine Nitrate Negative (Negative) Urine Bilirubin Negative (Negative) Urine Urobilinogen 0.2 (<2.0) mg/dL Leukocyte Esterase Rfl 1+ H (Negative) GABRIELA/UL Urine RBC 0-2 (0-2) /hpf Urine WBC 6-10 H (0-3) /hpf Ur Squamous Epith Cells Occasional (Few) /hpf Urine Bacteria None seen /hpf Urine Casts 0-2 <Negra Aquino, SENIOR MARKETING DATA ANALYST - Last Filed: 06/21/24 14:03> Lab Results 06/21/24 06/21/24 Range/Units 15:21 15:51 WBC 4.9 (4.5-10.0) K/mm3 RBC 3.82 L (4.2-5.4) M/mm3 Hgb 11.8 L (12.0-15.0) g/dL Hct 32.9 L (37.0-47.0) % MCV 86.1 (80-100) fl MCH 30.9 (26-34) pg MCHC 35.9 (32-36) g/dl RDW 13.3 (11.5-14.5) % Plt Count 185 (150-375) k/mm3 MPV 9.4 (7.4-10.4) fl Immature Gran % (Auto) 0.2 (0-0.5) % Neut % (Auto) 73.8 H (45.5-73.1) % Lymph % (Auto) 13.4 L (18.3-44.2) % [place] % (Auto) 12.0 H (2.6-8.5) % Eos % (Auto) 0.4 (0-4.4) % Baso % (Auto) 0.2 (0.2-1.2) % Lymph # (Auto) 0.66 L (0.9-3.2) K/mm3 [place] # (Auto) 0.6 (0.1-0.6) K/mm3 Eos # (Auto) 0.0 (0-0.3) K/mm3 Baso # (Auto) 0.0 (0.0-0.1) K/mm3 Abs Immat Gran (auto) 0.01 (0.00-0.031) K/mm3 Absolute Neuts (auto) 3.6 (1.3-6.7) K/mm3 Absolute Nucleated RBC 0.000 (0.0-0.012) K/mm3 Nucleated RBC % 0.0 (0.0-0.2) % PT 13.2 (11.1-14.7) Seconds INR 1.0 APTT 30.4 (22.3-36.8) Seconds Sodium 134 (134-143) mmol/L Potassium 3.2 L (3.4-5.0) mmol/L Chloride 101 (98-107) mmol/L Carbon Dioxide 19 L (22-30) mmol/L Anion Gap 14 H (4-12) mmol/L BUN 4 L (8-21) mg/dL Creatinine 0.46 L (0.7-1.0) mg/dL Estim Creat Clear Calc 186 ml/min Estimated GFR > 60 (59 - ) Glucose 104 (65-110) mg/dL Lactic Acid 2.1 H (0.7-2.0) mmol/L Calcium 8.9 (8.9-10.7) mg/dL Total Bilirubin 0.3 (0.2-1.3) mg/dL AST 40 H (14-36) U/L ALT 35 (6-35) U/L Alkaline Phosphatase 63 (45-116) U/L Troponin I < 0.012 (0.000-0.034) ng/mL Total Protein 7.0 (6.3-8.6) g/dL Albumin 3.6 L (3.7-5.6) g/dL Lipase 37 (23-300) U/L Urine Color Yellow (Yellow) Urine Appearance Clear (Clear) Urine pH 6.0 (5.0-9.0) Ur Specific [place] 1.004 (1.001-1.035) Urine Protein Negative (Negative) mg/dL Urine Glucose (UA) Negative (Negative) mg/dL Urine Ketones Negative (Negative) mg/dL Ur Blood (Man) Trace (Negative) Urine Nitrate Negative (Negative) Urine Bilirubin Negative (Negative) Urine Urobilinogen 0.2 (<2.0) mg/dL Leukocyte Esterase Rfl 1+ H (Negative) GABRIELA/UL Urine RBC 0-2 (0-2) /hpf Urine WBC 6-10 H (0-3) /hpf Ur Squamous Epith Cells Occasional (Few) /hpf Urine Bacteria None seen /hpf Urine Casts 0-2 <Merlin Doan MD - Last Filed: 06/21/24 16:59> Discharge Plan Discharge Clinical Impression: Influenza <Negra Aquino APRN - Last Filed: 06/21/24 14:03> Patient Disposition: Home, Self-Care <Negra Aquino APRN - Last Filed: 06/21/24 14:03> Condition: Stable <Negra Aquino APRN - Last Filed: 06/21/24 14:03> Instructions: Antibiotic Form, Influenza (DC) <Negra Aquino APRN - Last Filed: 06/21/24 14:03> Additional Instructions: You were seen in the emergency department for flu. Please make sure you are drinking plenty of fluids. Please complete a course of cephalexin as you may have a UTI. Use Zofran for nausea. If your condition is getting worse, you develop abdominal pain or vaginal bleeding please return to the ED for re-evaluation. <Negra Aquino APRN - Last Filed: 06/21/24 14:03> Patient Language: Slovenian <Negra Aquino APRN - Last Filed: 06/21/24 14:03> Prescriptions: New cephalexin 500 mg capsule 500 mg PO Q12H Qty: 1 0RF ondansetron 4 mg tablet,disintegrating 4 mg PO Q8H PRN (Reason: nausea and vomiting) Qty: 30 0RF No Action oseltamivir [Tamiflu] 75 mg capsule 75 mg PO BID 5 Days Qty: 10 0RF cephalexin 500 mg capsule 500 mg PO BID 7 Days Qty: 14 0RF albuterol sulfate 2.5 mg /3 mL (0.083 %) solution for nebulization 2.5 mg inhalation Q4H PRN (Reason: shortness of breath or wheezing) Qty: 75 0RF fexofenadine [Cara Allergy] 180 mg tablet 180 mg PO DAILY 30 Days Qty: 30 0RF PNV #[id number] 30 mg iron-10 mg iron-1 mg capsule PO <Negra Aquino APRN - Last Filed: 06/21/24 14:03> Follow-up/Referrals: Ale Robles, STRUCTURAL DRAFTSMAN [Advanced Practice Nurse] - <Negra Aquino APRN - Last Filed: 06/21/24 14:03>
[2024-06-21] MEDS: SODIUM CHLORIDE 0.9% IV 3,000 ML 999 ML IV CONT (15:22)
[2024-06-21] MEDS: ACETAMINOPHEN 500 MG TABLET 1000 MG PO (15:29)
[2024-06-21 15:33] LABS: Basophils Percent Auto 0.2 % (0.2-1.2); Eosinophils Percent Auto 0.4 % (0-4.4); Hematocrit 32.9 % (37.0-47.0); Hemoglobin 11.8 g/dL (12.0-15.0); Immature Granulocyte Absolute 0.01 K/mm3 (0.00-0.031); Immature Granulocyte Percent A 0.2 % (0-0.5); Lymphocytes Absolute Auto 0.66 K/mm3 (0.9-3.2); Lymphocytes Percent Auto 13.4 % (18.3-44.2); Mean Corpuscular HGB Conc 35.9 g/dl (32-36); Mean Corpuscular Hemoglobin 30.9 pg (26-34); Mean Corpuscular Volume 86.1 fl (80-100); Mean Platelet Volume 9.4 fl (7.4-10.4); Monocytes Absolute Auto 0.6 K/mm3 (0.1-0.6); Neutrophils Absolute Auto 3.6 K/mm3 (1.3-6.7); Neutrophils Percent Auto 73.8 % (45.5-73.1); Platelet Count Result 185 k/mm3 (150-375); Red Blood Count 3.82 M/mm3 (4.2-5.4); Red Cell Distribution Width 13.3 % (11.5-14.5); White Blood Count 4.9 K/mm3 (4.5-10.0)
[2024-06-21 15:44] LABS: Alanine Aminotransferase 35 U/L (6-35); Albumin Level 3.6 g/dL (3.7-5.6); Alkaline Phosphatase 63 U/L (45-116); Anion Gap 14 mmol/L (4-12); Aspartate Amino Transferase 40 U/L (14-36); Bilirubin,Total 0.3 mg/dL (0.2-1.3); Blood Urea Nitrogen 4 mg/dL (8-21); Calcium 8.9 mg/dL (8.9-10.7); Carbon Dioxide 19 mmol/L (22-30); Chloride 101 mmol/L (98-107); Estimated CRCL calculation 186 ml/min; Estimated Glomerular Filt Rate > 60; Glucose 104 mg/dL (65-110); Lactic Acid Reflex 2.1 mmol/L (0.7-2.0); Lipase 37 U/L (23-300); Potassium 3.2 mmol/L (3.4-5.0); Sodium 134 mmol/L (134-143)
[2024-06-21 15:47] LABS: Partial Thromboplastin Time 30.4 Seconds (22.3-36.8); Prothrombin Time 13.2 Seconds (11.1-14.7)
[2024-06-21] MEDS: ONDANSETRON INJ 4 MG/2 ML VIAL 8 MG IV PUSH (15:52)
[2024-06-21 15:55] LABS: Troponin I < 0.012 ng/mL (0.000-0.034)
[2024-06-21 15:59] VITALS: BP 127/80; PULSE 101; RESP 21; O2SAT 100
[2024-06-21 16:06] LABS: Add Urine Microscopic? YES; Appearance Urine Clear (Clear); Bacteria Urine None Seen /hpf; Bilirubin Urine Negative (Negative); Blood Urine Trace (Negative); Color Urine Yellow (Yellow); Glucose Urine UA Negative (Negative); Ketones Urine Negative (Negative); Leukocyte Esterase Ur 1+ LEU/UL (Negative); Nitrate Urine Negative (Negative); Non Pathogenic Casts 0-2; Protein Urine Negative (Negative); RBC Urine 0-2 /hpf (0-2); Specific Grav Ur 1.004 (1.001-1.035); Squamous Epithelial Cell Urine Occasional /hpf (Few); Urobilinogen Urine 0.2 mg/dL (<2.0)
[2024-06-21 16:55] VITALS: PULSE 96; RESP 22; O2SAT 100
--- OUTSIDE RECORDS SUMMARY | 2024-06-21 17:00 | XMS_ITS | Encounter Summary ---
Author Organization [facility] Address [address] [place] [address] [place] [address] Care Team Providers Care Gas Main Fitter Helper Name Role Phone Severino Zelaya Primary Care Provider Unavailabl e Reason for Visit * Reason Comments Refill Request Encounter Details Date Type Department Care Team (Late st Contact Info) Description 04/22/2021 Refill [facility] [address] [facility], [place] [id number] Marialuisa Gupta DO [address] [place] [address] Refill Request Social History Tobacco [...] acne documented in this encounter Care Teams Gas Main Fitter Helper Relationship Specialty Start Date End Date Severino Zelaya Update Information PCP - General 07/03/20 documented as of this encounter
--- OUTSIDE RECORDS SUMMARY | 2024-06-21 17:00 | XMS_ITS | Clinical Summary ---
Author Organization [facility] Address [address] [facility] [place] [address] Care Team Providers Care Vice President Digital Strategist Name Role Phone Severino Zelaya Primary Care Provider Unavailsushil e Source Comments [facility],non-owned Affiliates and Associated Physician Practices is amultiple site organization consisting of ambulatory clinics and hospital sitesin [place], [place], [place] and [place]. This disclosure is being madepursuant to the Care Everywhere program and may not contain all information available regarding this patient. Last updated 18.[facility] Allergies No known active allergies Medications [...] fluticasone propionate (Flonase) 50 MCG/ACT nasal spray [place] 2 (two) sprays into each nostril once [...] Active azelastine (Astelin) 0.1 % nasal spray [place] 2 (two) sprays into each nostril 2 [...] 98 01/20/2024 2:18 PM CDT Temperature 36.5 C (97.7 F) 01/20/2024 2:18 PM CDT Respiratory Rate 16 01/22/2021 11:03 PM CDT [...] VACCINE Completed 03/18/2020, 11/15, 01/23/2016 Care Teams Vice President Digital Strategist Relationship Specialty Start Date End Date Severino Zelaya Update Information PCP - General 07/03/20
--- OUTSIDE RECORDS SUMMARY | 2024-06-21 17:00 | XMS_ITS | Encounter Summary ---
Author Organization [facility] Address [address] [place], [place] [address] [address] Care Team Providers Care Lung Splitter Name Role Phone Severino Zelaya Primary Care Provider Onel e Encounter Details Date Type Department Care Team (Late st Contact Info) Description 12/17/2023 Telephone [facility] [address] [facility] [place] [address] Osiel Lama MD [address] [facility] [place] [address] Social History Tobacco Use Types [...] on filedocumented in this encounter Care Teams Lung Splitter Relationship Specialty Start Date End Date Severino Zelaya Update Information PCP - General 07/03/20 documented as of this encounter
--- OUTSIDE RECORDS SUMMARY | 2024-06-21 17:00 | XMS_ITS | Clinical Summary ---
Author Organization [facility] Address [address] [place] [address] Care Team Providers Care Millinery Blocker Name Role Phone Unavailable Primary Care Provider [...] 04/02/2005, 2004 Annual Physical 09/13/2007 PHQ-2 (Physician Mead) 2016 Meningococcal B Vaccine (1 of 2 - Standard) 2020 Hepatitis C 2022 COVID-19 Vaccine (1 - season) 2024 Influenza Adult (#1) 2024 01/23/2016, 02/18/2015, 01/14/2011 PHQ-2 (Physician Mead) 05/17/2024 DTaP, Tdap and Td Vaccines (7 [...]
--- OUTSIDE RECORDS SUMMARY | 2024-06-21 17:01 | XMS_ITS | Referral Summary ---
Author Organization [facility] Address [address] [facility] [place] [address] Care Team Providers Care Professor Sculpture Name Role Phone Severino Zelaya Primary Care Provider Unavailabl e Source Comments [facility],non-owned Affiliates and Associated Physician Practices is amultiple site organization consisting of ambulatory clinics and hospital sitesin [place], [place], [place] and [place]. This disclosure is being madepursuant to the Care Everywhere program and may not contain all information available regarding this patient. Last updated 18.[facility] Allergies No known active allergies Medications [...] fluticasone propionate (Flonase) 50 MCG/ACT nasal spray [place] 2 (two) sprays into each nostril once [...] Active azelastine (Astelin) 0.1 % nasal spray [place] 2 (two) sprays into each nostril 2 [...] of Treatment Not on file Care Teams Professor Sculpture Relationship Specialty Start Date End Date Severino Zelaya Update Information PCP - General 07/03/20
--- OUTSIDE RECORDS SUMMARY | 2024-06-21 17:01 | XMS_ITS | Patient Health Summary ---
Author Organization [facility] Address [address] [facility] [place] [address] Care Team Providers Care Lasting Machine Operator Bed Name Role Phone Severino Zelaya Primary Care Provider Onel e Note from [facility],non-owned Affiliates and Associated Physician Practices is amultiple site organization consisting of ambulatory clinics and hospital sitesin [place], [place], [place] and [place]. This disclosure is being madepursuant to the Care Everywhere program and may not contain all information available regarding this patient. Last updated 18.[facility] Allergies No known active allergies [...] fluticasone propionate (Flonase) 50 MCG/ACT nasal spray [place] 2 (two) sprays into each nostril once [...] azelastine (Astelin) 0.1 % nasal spray(Started 01/20/2024) [place] 2 (two) sprays into each nostril 2 [...] IMPRESSION No fracture or dislocation. *Reading Radiologist: CuateBo on 01/23/2021 at 7:48 AM Americo Daly [...] tract infection. COMPARISON: Voiding cystogram 05/27/2008 FINDINGS: Ship Purser images show moderate amount of stool within the colon. The osseous structures are intact. The bladder was catheterized by the principal technologist to infuse 700 mL Cystografin by [...] tract infection. COMPARISON: Voiding cystogram 05/27/2008 FINDINGS: Ship Purser images show moderate amount of stool within the colon. The osseous structures are intact. The bladder was catheterized by the principal technologist to infuse 700 mL Cystografin by [...] I agree with this report. Chichi Gonzalez PATRIOT MISSILE [employer] DEFENSE ARTILLERY-[facility] FLUOROSCOPY ORDERABLES * (ABNORMAL) URINALYSIS ROUTINE AUTO (10/17/2013 9:50 AM CDT) Color UA Yellow Straw, Yellow, Dark Yellow 10/17/2013 11:03 AM T [facility] Clarity UA Clear 10/17/2013 11:03 AM T [facility] Specific [place] UA 1.015 1.005 - 1.030 10/17/2013 11:03 AM T [facility] pH UA 6.0 5.0 - 8.0 pH 10/17/2013 11:03 AM T [facility] Protein UA Negative Negative 10/17/2013 11:03 AM T [facility] Blood UA Trace(A) Negative 10/17/2013 11:03 AM T [facility] Leukocyte UA Negative Negative 10/17/2013 11:03 AM T [facility] Nitrite UA Negative Negative 10/17/2013 11:03 AM T [facility] Glucose UA Negative Negative 10/17/2013 11:03 AM T [facility] Ketone UA Negative Negative 10/17/2013 11:03 AM T [facility] Bilirubin UA Negative Negative 10/17/2013 11:03 AM T [facility] Urobilinogen UA 0.2 0.1 - 1.0 EU/dL 10/17/2013 11:03 AM [facility] Urine URINE SPECIMEN COLLECTION, CATHETERIZED / Unknown 10/17/2013 9:50 AM CDT 10/17/2013 10:22 AM CDT Chichi Gonzalez PATRI[employer] ARTILLERY-SPEEDER FRAME TENDER LAB - URINAL YSIS ORDERABLES [facility] [address] [place] [address] * URINALYSIS MICROSCOPIC ONLY (10/17/2013 9:50 AM CDT) RBC UA 0-2 0-2, 2-5 # /hpf 10/17/2013 11:03 AM CDT [facility] WBC UA 0-2 0-2, 2-5 # /hpf 10/17/2013 11:03 AM CDT [facility] Bacteria UA None Seen None Seen, Trace 10/17/2013 11:03 AM CDT [facility] Epithelial Cell UA 0-2 0-2, 2-5 10/17/2013 11:03 AM CDT [facility] Urine URINE SPECIMEN COLLECTION, CATHETERIZED / Unknown 10/17/2013 9:50 AM CDT 10/17/2013 10:22 AM CDT Chichi Gonzalez APRN-[facility] LAB - URINAL YSIS ORDERABLES Performing Organization Address City/[facility]/ZIP Co de Phone Number [facility] [address] [place] [address] * CULTURE URINE (10/17/2013 9:50 AM CDT) Pathologist [facility] [place] Culture No Growth (<100 CFU/mL) 10/19/2013 5:32 AM CDT [facility]CRO[facility] Urine URINE SPECIMEN COLLECTION, CATHETERIZED / Unknown 10/17/2013 9:50 AM CDT 10/17/2013 10:22 AM CDT Chichi Gonzalez PATRIOT MIS[employer] DEFENSE [facility] - MICROB IOLOGY ORDERABLES [facility] [address] [place] [address], [facility] * CALCIUM/CREAT RATIO URINE RANDOM PANEL (10/17/2013 9:50 AM CDT) Calcium Urine 4.16 mg/dL 10/17/2013 1:48 PM CDT [facility] Creatinine Urine 28.65 mg/dL 10/17/2013 1:48 PM CDT [facility] Calcium/Creatin ine Ratio Urine 0.15 10/17/2013 1:48 PM CDT [facility] Urine URINE SPECIMEN OBTAINED BY CLEAN CATCH PROCEDURE / Unknown 10/17/2013 9:50 AM CDT 10/17/2013 12:52 PM CDT Narrative [facility] - 10/17/2013 1:48 PM CDT Normal <0.16 Borderline 0.16-0.20 Abnormal >0.20 Nettie Jimenez [employer] ARTILLERY-SPEEDER FRAME TENDER LAB - URINE CHEM ISTRY ORDERABLES Performing Organization Address City/State/[facility] Co de Phone Number [facility] [address] [facility] [place] [address] * US KIDNEY AND BLADDER (10/17/2013 8:13 AM CDT) Anatomical Region Laterality Modality Ultrasound 10/17/2013 8:21 AM CDT Impressions 10/17/2013 1:00 PM CDT Normal renal ultrasound. D: Mary Kate Alexis M.D. I, Arpita Yuan, have personally reviewed the images and I agree with this report. Narrative 10/17/2013 1:00 PM CDT EXAMINATION: Renal ultrasound dated October 17, 2013 [...] I agree with this report. Chichi Gonzalez [employer] ARTILLERY-SPEEDER FRAME TENDER ORDERABLE S Care Teams Lasting Machine Operator Bed Relationship Specialty Start Date End Date Severino Zelaya Update Information PCP - General 07/03/20
[2024-06-21] MEDS: POTASSIUM CHLORIDE 20 MEQ PACKET (FOR LIQUID) 40 MEQ PO (17:11)
[2024-06-21] MEDS: CEPHALEXIN 500 MG CAPSULE PO (17:16)
[2024-06-21 17:30] VITALS: BP 131/68; PULSE 100; RESP 16; O2SAT 100
[2024-06-21 18:30] LABS: Reflex Lactic Acid Yes or No Add Lactic
== END 2024-06-21 17:30 | disposition home or self-care (01) ==
LOC: ANHED 16:58
PROVIDERS: Registered Nurse; Emergency Provider Emergency Medicine
DX: O98.512 Other viral diseases complicating pregnancy, second trimester (principal); Z3A.14 14 weeks gestation of pregnancy; J11.1 Influenza due to unidentified influenza virus with other respiratory manifestations
CPT/HCPCS: 36415; 80053; 81001; 83605; 83690; 84484; 85025; 85610; 85730; 87086; 93005; 96361; 96374; 99284; A9270; J2405; J7030

== ENCOUNTER 2024-07-10 12:06 | Outpatient (CLI) | payer OTHER, SELFPAY ==
[2024-07-10 12:48] LABS: Hematocrit 32.6 % (37.0-47.0); Hemoglobin 11.2 g/dL (12.0-15.0); Mean Corpuscular HGB Conc 34.4 g/dl (32-36); Mean Corpuscular Hemoglobin 30.3 pg (26-34); Mean Corpuscular Volume 88.1 fl (80-100); Mean Platelet Volume 9.3 fl (7.4-10.4); Platelet Count Result 255 k/mm3 (150-375); Red Cell Distribution Width 13.3 % (11.5-14.5); White Blood Count 9.8 K/mm3 (4.5-10.0)
[2024-07-10 12:55] LABS: Add Urine Microscopic? YES; Appearance Urine Cloudy (Clear); Bacteria Urine 2+ /hpf; Bilirubin Urine Negative (Negative); Blood Urine Negative (Negative); Color Urine Yellow (Yellow); Glucose Urine UA Negative (Negative); Ketones Urine Negative (Negative); Leukocyte Esterase Ur 1+ LEU/UL (Negative); Nitrate Urine Negative (Negative); Non Pathogenic Casts 0-2; Protein Urine Trace mg/dL (Negative); RBC Urine 0-2 /hpf (0-2); Specific Grav Ur 1.027 (1.001-1.035); Squamous Epithelial Cell Urine Many /hpf (Few); WBC Urine 21-50 /hpf (0-3); pH Urine 6.5 (5.0-9.0)
[2024-07-10 13:41] LABS: HIV 1/2 Ab P24 Ag Result Negative (Negative)
[2024-07-10 13:48] LABS: Hepatitis B Surface Antigen Negative (Negative); Rubella IgG Antibody 39.4 IU/ML
--- OUTSIDE RECORDS SUMMARY | 2024-07-10 13:50 | XMS_ITS | Clinical Summary ---
Author Organization [facility] Address [address] [place] [address] Phone Care Team Providers Care Whiting Machine Operator Name Role Phone Unavailable Primary Care Provider Unavailabl e Social History Tobacco Use Types Packs/Day Years Used Date Smoking Tobacco: Never Assessed Comments Unknown Sex and Gender Information Value Date Recorded Sex Assigned at Not on file Legal Sex Female 7:41 AM ART DISPLAY MAKER Gender Identity Not on file Sexual Orientation Not on file Plan of Treatment Upcoming Encounters Date Type Department Care Team (Late st Contact Info) Description 08/03/2024 2:30 PM CDT Appointment [facility] [place] [address] [place] [address] David Tolbert MD [address] [place] [address] Health Maintenance Due Date Last Done Comments CHLAMYDIA SCREENING (ANNUAL) 11-24 YEARS 09/13/2015 HPV VACCINES (1 - 3-dose series) 09/13/2019 DTAP/TDAP/TD VACCINES (1 - Tdap) 09/13/2023 HEPATITIS B VACCINES (1 of 3 - 19+ 3-dose series) 08/16 INFLUENZA VACCINE (#1) 2023
--- OUTSIDE RECORDS SUMMARY | 2024-07-10 13:50 | XMS_ITS | Referral Summary ---
Author Organization [facility] Address [address] [facility] [place] [address] Care Team Providers Care Leveler Name Role Phone Severino Zelaya Primary Care Provider Unavailabl e Source Comments [facility],non-owned Affiliates and Associated Physician Practices is amultiple site organization consisting of ambulatory clinics and hospital sitesin [place], [place], [place] and [place]. This disclosure is being madepursuant to the Care Everywhere program and may not contain all information available regarding this patient. Last updated 18.[facility] Allergies No known active [...] fluticasone propionate (Flonase) 50 MCG/ACT nasal spray [place] 2 (two) sprays into each nostril once [...] Active azelastine (Astelin) 0.1 % nasal spray [place] 2 (two) sprays into each nostril 2 [...] of Treatment Not on file Care Teams Leveler Relationship Specialty Start Date End Date Severino Zelaya Update Information PCP - General 07/03/20
--- OUTSIDE RECORDS SUMMARY | 2024-07-10 13:50 | XMS_ITS | Encounter Summary ---
Author Organization [facility] Address [address] [place], [place] [address] [address] Care Team Providers Care Aviation Electronic Warfare Operator Name Role Phone Severino Zelaya Primary Care Provider Onel e Encounter Details Date Type Department Care Team (Late st Contact Info) Description 12/17/2023 Telephone [facility] Derm[facility]ology [address] [facility] [place] [address] Osiel Lama MD [address] [facility] [place] [address] Social History Tobacco Use Types [...] on filedocumented in this encounter Care Teams Aviation Electronic Warfare Operator Relationship Specialty Start Date End Date Severino Zelaya Update Information PCP - General 07/03/20 documented as of this encounter
--- OUTSIDE RECORDS SUMMARY | 2024-07-10 13:50 | XMS_ITS | Clinical Summary ---
Author Organization [facility] Address [address] [facility] [place] [address] Care Team Providers Care Testing Consultant Name Role Phone Severino Zelaya Primary Care Provider Unavailsushil e Source Comments [facility],non-owned Affiliates and Associated Physician Practices is amultiple site organization consisting of ambulatory clinics and hospital sitesin [place], [place], [place] and [place]. This disclosure is being madepursuant to the Care Everywhere program and may not contain all information available regarding this patient. Last updated 18.[facility] Allergies No known active allergies Medications * [...] fluticasone propionate (Flonase) 50 MCG/ACT nasal spray [place] 2 (two) sprays into each nostril once [...] Active azelastine (Astelin) 0.1 % nasal spray [place] 2 (two) sprays into each nostril 2 [...] rec ortho tri cyclen (did not tolerate kairne) -consider isotretinoin at f/u if not improved [...] VACCINE Completed 03/18/2020, 11/15, 01/23/2016 Care Teams Testing Consultant Relationship Specialty Start Date End Date Severino Zelaya Update Information PCP - General 07/03/20
--- OUTSIDE RECORDS SUMMARY | 2024-07-10 13:50 | XMS_ITS | Encounter Summary ---
Author Organization [facility] Address [address] [place] [address] [place] [address] Care Team Providers Care Studio Musician Name Role Phone Severino Zelaya Primary Care Provider Unavailabl e Reason for Visit * Reason Comments Refill Request Encounter Details Date Type Department Care Team (Late st Contact Info) Description 04/22/2021 Refill [facility] [address] [facility] [place] [id number] Marialuisa Gupta DO [address] [place] [address] Refill Request Social History Tobacco [...] acne documented in this encounter Care Teams Studio Musician Relationship Specialty Start Date End Date Severino Zelaya Update Information PCP - General 07/03/20 documented as of this encounter
--- OUTSIDE RECORDS SUMMARY | 2024-07-10 13:50 | XMS_ITS | Patient Health Summary ---
Author Organization [facility] Address [address] [facility] [place] [address] Care Team Providers Care Nursing Support Worker Name Role Phone Severino Zelaya Primary Care Provider Onel e Note from [facility],non-owned Affiliates and Associated Physician Practices is amultiple site organization consisting of ambulatory clinics and hospital sitesin [place], [place], [place] and [place]. This disclosure is being madepursuant to the Care Everywhere program and may not contain all information available regarding this patient. Last updated 18.[facility] Allergies No known active allergies Medications [...] fluticasone propionate (Flonase) 50 MCG/ACT nasal spray [place] 2 (two) sprays into each nostril once [...] azelastine (Astelin) 0.1 % nasal spray(Started 01/20/2024) [place] 2 (two) sprays into each nostril 2 [...] tract infection. COMPARISON: Voiding cystogram 05/27/2008 FINDINGS: Superintendent Production images show moderate amount of stool within the colon. The osseous structures are intact. The bladder was catheterized by the chief radiology to infuse 700 mL Cystografin by gravity. [...] tract infection. COMPARISON: Voiding cystogram 05/27/2008 FINDINGS: Superintendent Production images show moderate amount of stool within the colon. The osseous structures are intact. The bladder was catheterized by the chief radiology to infuse 700 mL Cystografin by gravity. [...] I agree with this report. Chichi Gonzalez VACCINE CUSTOMER REPRESENTATIVE-[facility] FLUOROSCOPY ORDERABLES * (ABNORMAL) URINALYSIS ROUTINE AUTO (10/17/2013 9:50 AM CDT) Color UA Yellow Straw, Yellow, Dark Yellow 10/17/2013 11:03 AM T [facility] Clarity UA Clear 10/17/2013 11:03 AM T [facility] Specific [place] UA 1.015 1.005 - 1.030 10/17/2013 11:03 AM T [facility] pH UA 6.0 5.0 - 8.0 pH 10/17/2013 11:03 AM T [facility] Protein UA Negative Negative 10/17/2013 11:03 AM T [facility] Blood UA Trace(A) Negative 10/17/2013 11:03 AM T [facility] Leukocyte UA Negative Negative 10/17/2013 11:03 AM T [facility] Nitrite UA Negative Negative 10/17/2013 11:03 AM T [facility] Glucose UA Negative Negative 10/17/2013 11:03 AM T [facility] Ketone UA Negative Negative 10/17/2013 11:03 AM T [facility] Bilirubin UA Negative Negative 10/17/2013 11:03 AM T [facility] Urobilinogen UA 0.2 0.1 - 1.0 EU/dL 10/17/2013 11:03 AM [facility] Urine URINE SPECIMEN COLLECTION, CATHETERIZED / Unknown 10/17/2013 9:50 AM CDT 10/17/2013 10:22 AM CDT Chichi Gonzalez VACCINE CUSTOMER REPRESENTATIVE-[facility] - URINAL YSIS ORDERABLES [facility] [address] [place] [address] * URINALYSIS MICROSCOPIC ONLY (10/17/2013 9:50 AM CDT) RBC UA 0-2 0-2, 2-5 # /hpf 10/17/2013 11:03 AM CDT [facility] WBC UA 0-2 0-2, 2-5 # /hpf 10/17/2013 11:03 AM CDT [facility] Bacteria UA None Seen None Seen, Trace 10/17/2013 11:03 AM CDT [facility] Epithelial Cell UA 0-2 0-2, 2-5 10/17/2013 11:03 AM CDT [facility] Urine URINE SPECIMEN COLLECTION, CATHETERIZED / Unknown 10/17/2013 9:50 AM CDT 10/17/2013 10:22 AM CDT Chichi Gonzalez APRN-[facility] LAB - URINAL YSIS ORDERABLES Performing Organization Address City/[facility]/ZIP Co de Phone Number [facility] [address] [place] [address] * CULTURE URINE (10/17/2013 9:50 AM CDT) Pathologist [facility] Culture No Growth (<100 CFU/mL) 10/19/2013 5:32 AM CDT [facility] Urine URINE SPECIMEN COLLECTION, CATHETERIZED / Unknown 10/17/2013 9:50 AM CDT 10/17/2013 10:22 AM CDT Chichi Gonzalez VACCINE CUSTOMER [facility] - MICROB IOLOGY ORDERABLES [facility] [address] [place] [address], [facility] * CALCIUM/CREAT RATIO URINE RANDOM PANEL (10/17/2013 9:50 AM CDT) Calcium Urine 4.16 mg/dL 10/17/2013 1:48 PM CDT [facility] Creatinine Urine 28.65 mg/dL 10/17/2013 1:48 PM CDT [facility] Calcium/Creatin ine Ratio Urine 0.15 10/17/2013 1:48 PM CDT [facility] Urine URINE SPECIMEN OBTAINED BY CLEAN CATCH PROCEDURE / Unknown 10/17/2013 9:50 AM CDT 10/17/2013 12:52 PM CDT Narrative [facility] - 10/17/2013 1:48 PM CDT Normal <0.16 Borderline 0.16-0.20 Abnormal >0.20 Nettie Jimenez VACCINE CUSTOMER REPRESENTATIVE-[facility] T[facility] LAB - URINE CHEM ISTRY ORDERABLES Performing Organization Address City/State/[facility] Co de Phone Number [facility] [address] [facility] [place] [address] * [facility] (10/17/2013 8:13 [...] I agree with this report. Chichi Gonzalez VACCINE CUSTOMER REPRESENTATIVE-[employer] MACHINE TENDER ORDERABLE S Care Teams Nursing Support Worker Relationship Specialty Start Date End Date Severino Zelaya Update Information PCP - General 07/03/20
--- OUTSIDE RECORDS SUMMARY | 2024-07-10 13:50 | XMS_ITS | Clinical Summary ---
Author Organization [facility] Address [address] [place] [address] Care Team Providers Care Manager Culture Name Role Phone Unavailable Primary Care Provider [...] 04/02/2005, 2004 Annual Physical 09/13/2007 PHQ-2 (Physician [place]) 2016 Meningococcal B Vaccine (1 of 2 - Standard) 2020 Hepatitis C 2022 COVID-19 Vaccine (1 - season) 2024 Influenza Adult (#1) 2024 01/23/2016, 02/18/2015, 01/14/2011 PHQ-2 (Physician [place]) 05/17/2024 DTaP, Tdap and Td Vaccines (7 [...]
[2024-07-10 14:05] LABS: Hepatitis C Virus Antibody Negative (Negative)
[2024-07-11 08:58] LABS: Varicella IgG Antibody 2.59 S/CO
[2024-07-11 13:20] LABS: RPR Screen NON-REACTIVE (NON-REACTIVE)
[2024-07-12 23:23] LABS: Hematocrit 34.2 % (35.0-45.0); Hemoglobin 11.3 g/dL (11.7-15.5); MCV 93.7 fL (80.0-100.0); RDW 14.5 % (11.0-15.0); Red Blood Cell Count 3.65 Million/uL (3.80-5.10)
== END 2024-07-10 12:07 | disposition home or self-care (01) ==
LOC: ANHLAB 12:06
PROVIDERS: Visit Provider Obstetrics & Gynecology
DX: Z34.90 Encounter for supervision of normal pregnancy, unspecified, unspecified trimester (principal)
CPT/HCPCS: 36415; 81001; 83021; 84443; 85027; 86592; 86703; 86762; 86787; 86803; 86850; 86900; 86901; 87086; 87340; G0432

== ENCOUNTER 2024-09-07 14:59 | Outpatient (CLI) | payer MEDICAID, SELFPAY ==
--- OUTSIDE RECORDS SUMMARY | 2024-09-07 16:14 | XMS_ITS | Clinical Summary ---
Author Organization [facility] Address [address] [place] [phone] Phone Care Team Providers Care Physical Meteorologist Name Role Phone Unavailable Primary Care Provider Unavailabl e Encounters Date Type Department Care Team Description 08/31/2024 2:15 PM CDT - 08/31/2024 11:59 PM CDT Hospital Encounter [facility] [address] [place] [address] Maged Ambriz MD Discharge Disposition: Home or Self Care 08/29/2024 External Device Data STL ABSTRACTION Provider, Abstract 08/08/2024 External Device Data STL ABSTRACTION Provider, Abstract 08/08/2024 External Device Data STL ABSTRACTION Provider, Abstract 08/08/2024 External Device Data STL ABSTRACTION Provider, Abstract 08/03/2024 2:30 PM CDT - 08/03/2024 11:59 PM CDT Hospital Encounter [facility] [address] [place] [phone] Ham Guerra MD Discharge Disposition: Home or Self Care from Last 3 Months Social History Tobacco Use Types Packs/Day Years Used Date Smoking Tobacco: Never Assessed Comments Unknown Sex and Gender Information Value Date Recorded Sex Assigned at Not on file 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 Gender Identity Not on file Sexual Orientation Not on file Plan of Treatment Health Maintenance Due Date Last Done Comments HEPATITIS B VACCINES (4 of 4 - 4-dose series) 05/28/2005 05/14/2005, 04/02/2005, 2004 CHLAMYDIA SCREENING (ANNUAL) 11-24 YEARS 09/13/2015 Preventative Visit-Managed Medicaid 09/13/2023 INFLUENZA VACCINE (#1) 2023 DTAP/TDAP/TD VACCINES (2 - T d or Tdap) 02/18/2025 02/18/2015, 01/09/2010, 03/04/2006, Additional history exists HPV VACCINES Completed 03/18/2020, 11/15, 01/23/2016 Procedures Procedure Name Priority Date/Time Associated Diagnosis Comments US OB FOLLOW UP PER FETUS Routine 08/31/2024 3:01 PM CDT screening for malformation using ultrasonics US OB DETAIL SINGLE GEST Routine 08/03/2024 4:00 PM CDT screening for malformation using ultrasonics from Last 3 Months Results * US OB FOLLOW UP PER FETUS (08/31/2024 3:01 PM CDT) Anatomical Region Laterality Modality Pelvis Ultrasound 08/31/2024 2:34 PM CDT Narrative 08/31/2024 3:18 PM CDT STL FOLLOW UP ----- Pat. Name: ARIS STEPHENS Study Date: 08/31/2024 2:34pm Pat. NO: [id number] Referring MD: HAM GUERRA MD Site: [facility]isted Living: Suly Marc RDMS : 2005 Age: 18 ----- INDICATION ----- Screening Follow-Up Maternal Obesity (BMI<40) Complicating CODING ----- Diagnoses Z3A.24: Weeks of gestation O99.212: Obesity complicating Z36.2: Encounter for other screening follow-up Procedures 37854: Ultrasound, uterus, real time with image documentation, follow up, transabdominal approach per fetus HISTORY ----- OB History 1 MATERNAL ASSESSMENT ----- Physical Exam Weight 100 kg. BMI 35.51 kg/m METHOD ----- Transabdominal ultrasound examination ----- Toth . Number of fetuses: 1 DATING ----- GA by prior assessment 24 w + 2 d BILL by prior assessment: 12/19/2024 Ultrasound examination on: 08/31/2024 GA by U/S based upon: AC, BPD, EFW, Femur, HC GA by U/S 24 w + 0 d BILL by U/S: 12/21/2024 Method of dating: Restore dating from previous exam Assigned: based on stated BILL, selected on 08/03/2024 Assigned GA 24 w + 2 d Assigned BILL: 12/19/2024 BIOMETRY ----- BPD 55.9 mm 23w 0d 8% Hadlock OFD 75.9 mm 25w 0d 74% Jose HC 212.0 mm 23w 2d 6% Hadlock AC 194.4 mm 24w 1d 36% Hadlock Femur 45.7 mm 25w 1d 65% Hadlock HC / AC 1.09 24% Nicolaides Weight Calculation: EFW 689 g 24w 1d 44% Hadlock EFW (lb,oz) 1 lb 8 oz EFW by Hadlock ([id number]) Extremities / Bony Struc Biometry: FL / BPD 0.82 FL / HC 0.22 FL / AC 0.24 GENERAL EVALUATION ----- Cardiac activity present. FHR 144 bpm. movements: present. Presentation: breech Placenta: Placental site: posterior Umbilical cord: Cord vessels: 3 vessel cord Amniotic fluid: Amount of AF: normal amount. MVP 4.6 cm. CODY 15.5 cm. Q1 4.6 cm, Q2 3.2 cm, Q3 4.0 cm, Q4 3.8 cm ANATOMY ----- The following structures appear normal: Head / Neck Cranium. Lateral ventricles. Choroid plexus. Midline falx. Cavum septi pellucidi. Cerebellum. Cisterna magna. Face Palate. Heart / Thorax RVOT view. 5-zmyfoj-spryyym view. Cardiac rhythm. Diaphragm. Abdomen Stomach. Kidneys. Bladder. Spine Sacral spine. Extremities / Left foot. Skeleton The following structures could not be adequately visualized: Heart / Thorax 4-chamber view. LVOT view. GROWTH OVERVIEW ----- Exam date GA BPD (mm) HC (mm) AC (mm) FL (mm) HL (mm) EFW (g) 08/03/2024 20w 2d 44.7 19% 170.7 17% 144.5 27% 33.7 52% 32.9 80% 331 34% 08/31/2024 24w 2d 55.9 8% 212.0 6% 194.4 36% 45.7 65% 689 44% COMMENT ----- Patient's name and date of were verified by the dull coat mill operator prior to the exam IMPRESSION ----- Toth @ 24w 2d referred for reassessment of anatomy. - The biometry is consistent with dates with the EFW at the 44%th percentile. - Amniotic fluid indices are within normal limits. - Visualized anatomy is unremarkable. However some views remain limited in the images provided likely due to persistent poor position. Suboptimal imaging includes the followincv, LVOT. Given the persistent suboptimal imaging, a targeted ultrasound is recommended in 1-2 weeks in the Center to complete the anatomy. Thank you for allowing us to participate in the care of your patient. Procedure Note Mikaela Malin MD - 08/31/2024 STL FOLLOW UP ----- Pat. Name:Moshe STEPHENS Date:08/31/2024 2:34pm Pat. NO: [id number] MD:HAM GUERRA MD [facility] RD[facility] :2005Age:18 ----- INDICATION ----- Screening Follow-Up Maternal Obesity (BMI<40) Complicating CODING ----- Diagnoses Z3A.24: Weeks of gestation O99.212: Obesity complicating Z36.2: Encounter for other screeningfollow-up Procedures 35321: Ultrasound, uterus, real time withimage documentation, follow up, transabdominal approach per fetus HISTORY ----- OB History 1 MATERNAL ASSESSMENT ----- Physical Exam Weight 100 kg. BMI 35.51 kg/m METHOD ----- Transabdominal ultrasound examination ----- Toth . Number of fetuses: 1 DATING ----- GA by prior [id number] w + 2 d BILL by prior assessment:12/19/2024 Ultrasound examination on:08/31/2024 GA by U/S based upon:AC, BPD, EFW, Femur, HC GA by U/S24 w + 0 d BILL by U/S:12/21/2024 Method of dating:Restore dating from previous exam Assigned:based on stated BILL, selected on 08/03/2024 Assigned GA24 w + 2 d Assigned BILL:12/19/2024 BIOMETRY ----- BPD 55.9 mm 23w 0d 8%Hadlock OFD 75.9 mm 25w 0d 74%Jose HC 212.0 mm 23w 2d 6%Hadlock AC 194.4 mm 24w 1d 36%Hadlock Femur 45.7 mm 25w 1d 65%Hadlock HC / AC 1.09 24%Nicolaides Weight Calculation: EFW 689 g 24w 1d 44%Hadlock EFW (lb,oz) 1 lb 8 oz EFW by Hadlock ([id number]) Extremities / Bony Struc Biometry: FL / BPD 0.82 FL / HC 0.22 FL / AC 0.24 GENERAL EVALUATION ----- Cardiac activity present. FHR 144 bpm. movements: present.Presentation: breech Placenta: Placental site: posterior Umbilical cord: Cord vessels: 3 vessel cord Amniotic fluid: Amount of AF: normal amount. MVP 4.6 cm. CODY 15.5 cm. Q14.6 cm, Q2 3.2 cm, Q3 4.0 cm, Q4 3.8 cm ANATOMY ----- The following structures appear normal: Head / Neck Cranium. Lateral ventricles. Choroid plexus.Midline falx. Cavum septi pellucidi. Cerebellum. Cisterna magna. Face Palate. Heart / Thorax RVOT view. 7-qxjdtv-lkxoxhk view. Cardiacrhythm. Diaphragm. Abdomen Stomach. Kidneys. Bladder. Spine Sacral spine. Extremities / Left foot. Skeleton The following structures could not be adequately visualized: Heart / Thorax 4-chamber view. LVOT view. GROWTH OVERVIEW ----- Exam date GA BPD (mm) HC (mm) AC (mm) FL(mm) HL (mm) EFW (g) 08/03/2024 20w 2d 44.7 19% 170.7 17% 144.5 27%33.7 52% 32.9 80% 331 34% 08/31/2024 24w 2d 55.9 8% 212.0 6% 194.4 36%45.7 65% 689 44% COMMENT ----- Patient's name and date of were verified by the dull coat mill operator prior tothe exam IMPRESSION ----- Toth @ 24w 2d referred for reassessment of anatomy. - The biometry is consistent with dates with the EFW at the 44%thpercentile. - Amniotic fluid indices are within normal limits. - Visualized anatomy is unremarkable. However some views remainlimited in the images provided likely due to persistent poor position. Suboptimal imaging includes the followincv,LVOT. Given the persistent suboptimal imaging, a targeted ultrasound isrecommended in 1-2 weeks in the Center to complete the anatomy. Thank you for allowing us to participate in the care of your patient. us Maged Ambriz MD US ORDERABLES Final Re sult * US OB DETAIL SINGLE GEST (08/03/2024 4:00 PM CDT) Anatomical Region Laterality Modality Pelvis Ultrasound 08/03/2024 2:50 PM CDT Narrative 08/03/2024 4:03 PM CDT STL COMP ----- Pat. Name: ARIS STEPHENS Study Date: 08/03/2024 2:50pm Pat. NO: [id number] Referring MD: HAM GUERRA MD Site: [facility] Assisted Living: Rach Alicia RDMS : 2005 Age: 18 ----- INDICATION ----- Anatomy Survey Maternal Obesity (BMI<40) Complicating CODING ----- Diagnoses Z3A.20: Weeks of gestation O99.212: Obesity complicating Z36.3: Encounter for screening for malformations Procedures 22784: Ultrasound, uterus, real time with image documentation, and maternal evaluation plus detailed anatomic examination, transabdominal approach HISTORY ----- OB History 1 MATERNAL ASSESSMENT ----- Physical Exam Weight 97 kg. BMI 34.54 kg/m METHOD ----- Transabdominal ultrasound examination ----- Toth . Number of fetuses: 1 DATING ----- Method of dating: based on stated BILL GA by prior assessment 20 w + 2 d BILL by prior assessment: 12/19/2024 Ultrasound examination on: 08/03/2024 GA by U/S based upon: AC, BPD, EFW, Femur, HC GA by U/S 19 w + 6 d BILL by U/S: 12/22/2024 Assigned: based on stated BILL, selected on 08/03/2024 Assigned GA 20 w + 2 d Assigned BILL: 12/19/2024 BIOMETRY ----- BPD 44.7 mm 19w 4d 19% Hadlock OFD 61.3 mm 21w 1d 77% Jose HC 170.7 mm 19w 5d 17% Hadlock Cerebellum tr 20.1 mm 20w 0d 40% Bowers Nuchal fold 4.5 mm AC 144.5 mm 19w 5d 27% Hadlock Femur 33.7 mm 20w 4d 52% Hadlock Humerus 32.9 mm 21w 1d 80% Jose HC / AC 1.18 54% Nicolaides Weight Calculation: EFW 331 g 20w 0d 34% Hadlock EFW (lb,oz) 0 lb 12 oz EFW by Hadlock ([id number]) Head / Face / Neck Biometry: Director Clinical Research 6.5 mm CM 4.6 mm 35% Nicolaides Inner IOD 14.8 mm Nasal 7.1 mm bone Extremities / Bony Struc Biometry: FL / BPD 0.75 88% Hadlock FL / HC 0.20 89% Hadlock FL / AC 0.23 86% Hadlock GENERAL EVALUATION ----- Cardiac activity present. FHR 145 bpm. movements: present. Presentation: breech Placenta: Placental site: posterior Umbilical cord: Cord vessels: 3 vessel cord. Insertion site: normal insertion Amniotic fluid: Amount of AF: normal amount. MVP 3.3 cm ANATOMY ----- The following structures appear normal: Head / Neck Cranium. Lateral ventricles. Choroid plexus. Midline falx. Cavum septi pellucidi. Cerebellum. Cisterna magna. Thalami. Nuchal fold. Face Lips. Profile. Nose. Orbits. Heart / Thorax RVOT view. 3-vessel view. 6-alujyg-uoenzpi view. Situs. Aortic arch view. Ductal arch view. Superior vena cava. Inferior vena cava. High short axis view. Cardiac rhythm. Diaphragm. Abdomen Abdominal wall. Cord insertion. Stomach. Kidneys. Bladder. Genitals. Spine Cervical spine. Thoracic spine. Lumbar spine. Extremities / Arms. Right hand. Left hand. Legs. Right foot. Skeleton The following structures could not be adequately visualized: Face Palate. Heart / Thorax 4-chamber view. LVOT view. Spine Sacral spine. Extremities / Left foot. Skeleton MATERNAL STRUCTURES ----- Cervix Visualized Approach - Transabdominal: Cervical length 37.4 mm Right Ovary Normal Size 23 mm x 19 mm x 16 mm. Vol 3.6 cm Left Ovary Suboptimal GROWTH OVERVIEW ----- Exam date GA BPD (mm) HC (mm) AC (mm) FL (mm) HL (mm) EFW (g) 08/03/2024 20w 2d 44.7 19% 170.7 17% 144.5 27% 33.7 52% 32.9 80% 331 34% COMMENT ----- Patient's name and date of were verified by the dull coat mill operator before the exam IMPRESSION ----- 1. Single living fetus with a gestational age of 20w 2d based on the reported clinical dates. 2. Current growth parameters are consistent with the stated EDC. The fetus is appropriate for gestational age in size at the 34% (331 g). 3. Detailed anatomic survey is unremarkable. No gross structural abnormalities noted. No sonographic markers for aneuploidy noted. - Suboptimal/incomplete views of: palate, 4CH, LVOT, sacral spine, L- foot. 4. Amniotic fluid volume is normal for gestational age. 5. The cervical length is within normal range for gestational age. 6. The right ovary appear normal in size and shape. The left ovary is not well visualized. 7. Placenta is posterior . No previa/not low-lying. The placenta cord insertion is normal. Recommendations: - Recommend interval US in 4 weeks to complete the anatomic survey. Recommend [facility] US for persistent suboptimal visualization on follow-up. - Recommend interval third trimester growth and anatomy at 32 weeks. Thank you for allowing us to participate in the care of this patient. Procedure Note Bria Zultea MD - 08/03/2024 STL COMP ----- Pat. Name:Moshe STEPHENS Date:08/03/2024 2:50pm Pat. NO: [id number] MD:HAM GUERRA MD [facility]2005Age:18 ----- INDICATION ----- Anatomy Survey Maternal Obesity (BMI<40) Complicating CODING ----- Diagnoses Z3A.20: Weeks of gestation O99.212: Obesity complicating Z36.3: [facility] [id number]: Ultrasound, uterus, real time withimage documentation, and maternal evaluation plus detailed anatomic examination,transabdominal approach HISTORY ----- OB History 1 MATERNAL ASSESSMENT ----- Physical Exam Weight 97 kg. BMI 34.54 kg/m METHOD ----- Transabdominal ultrasound examination ----- Toth . Number of fetuses: 1 DATING ----- Method of dating:based on stated BILL GA by prior [id number] w + 2 d BILL by prior assessment:12/19/2024 Ultrasound examination on:08/03/2024 GA by U/S based upon:AC, BPD, EFW, Femur, HC GA by U/S19 w + 6 d BILL by U/S:12/22/2024 Assigned:based on stated BILL, selected on 08/03/2024 Assigned GA20 w + 2 d Assigned BILL:12/19/2024 BIOMETRY ----- BPD 44.7 mm 19w 4d19% Hadlock OFD 61.3 mm 21w 1d77% Jose HC 170.7 mm 19w 5d17% Hadlock Cerebellum tr 20.1 mm 20w 0d40% Bowers Nuchal fold 4.5 mm AC 144.5 mm 19w 5d27% Hadlock Femur 33.7 mm 20w 4d52% Hadlock Humerus 32.9 mm 21w 1d80% Jose HC / AC 1.18 54%Nicolaides Weight Calculation: EFW 331 g 20w 0d 34%Hadlock EFW (lb,oz) 0 lb 12 oz EFW by Hadlock ([id number]) Head / Face / Neck Biometry: Director Clinical Research 6.5 mm CM 4.6 mm 35%Nicolaides Inner IOD 14.8 mm Nasal 7.1 mm bone Extremities / Bony Struc Biometry: FL / BPD 0.75 88%Hadlock FL / HC 0.20 89%Hadlock FL / AC 0.23 86%Hadlock GENERAL EVALUATION ----- Cardiac activity present. FHR 145 bpm. movements: present.Presentation: breech Placenta: Placental site: posterior Umbilical cord: Cord vessels: 3 vessel cord. Insertion site: normalinsertion Amniotic fluid: Amount of AF: normal amount. MVP 3.3 cm ANATOMY ----- The following structures appear normal: Head / Neck Cranium. Lateral ventricles. Choroid plexus.Midline falx. Cavum septi pellucidi. Cerebellum. Cisterna magna. Thalami. Nuchal fold. Face Lips. Profile. Nose. Orbits. Heart / Thorax RVOT view. 3-vessel view. 2-ojuwtn-acdvnwc view.Situs. Aortic arch view. Ductal arch view. Superior vena cava. Inferior vena cava. High short axis view.Cardiac rhythm. Diaphragm. Abdomen Abdominal wall. Cord insertion. Stomach. Kidneys.Bladder. Genitals. Spine Cervical spine. Thoracic spine. Lumbar spine. Extremities / Arms. Right hand. Left hand. Legs. Right foot. Skeleton The following structures could not be adequately visualized: Face Palate. Heart / Thorax 4-chamber view. LVOT view. Spine Sacral spine. Extremities / Left foot. Skeleton MATERNAL STRUCTURES ----- Cervix Visualized Approach - Transabdominal: Cervical length 37.4mm Right Ovary Normal Size 23 mm x 19 mm x 16 mm. Vol 3.6 cm Left Ovary Suboptimal GROWTH OVERVIEW ----- Exam date GA BPD (mm) HC (mm) AC (mm) FL(mm) HL (mm) EFW (g) 08/03/2024 20w 2d 44.7 19% 170.7 17% 144.5 27%33.7 52% 32.9 80% 331 34% COMMENT ----- Patient's name and date of were verified by the dull coat mill operator beforethe exam IMPRESSION ----- 1. Single living fetus with a gestational age of 20w 2d based on thereported clinical dates. 2. Current growth parameters are consistent with the stated EDC. The fetusis appropriate for gestational age in size at the 34% (331 g). 3. Detailed anatomic survey is unremarkable. No gross structuralabnormalities noted. No sonographic markers for aneuploidy noted. - Suboptimal/incomplete views of: palate, 4CH, LVOT, sacral spine, L-foot. 4. Amniotic fluid volume is normal for gestational age. 5. The cervical length is within normal range for gestational age. 6. The right ovary appear normal in size and shape. The left ovary is notwell visualized. 7. Placenta is posterior . No previa/not low-lying. The placenta cordinsertion is normal. Recommendations: - Recommend interval US in 4 weeks to complete the anatomic survey.Recommend MFM US for persistent suboptimal visualization on follow-up. - Recommend interval third trimester growth and anatomy at 32weeks. Thank you for allowing us to participate in the care of this patient. us Ham Guerra MD ORDERABLES Final Result from Last 3 Months Insurance MEDICAID [place]
--- OUTSIDE RECORDS SUMMARY | 2024-09-07 16:14 | XMS_ITS | Encounter Summary ---
Author Organization [facility] Address [address] [place], [place] [address] [address] Care Team Providers Care Men'S Swim Coach Name Role Phone Severino Zelaya Primary Care Provider Onel e Encounter Details Date Type Department Care Team (Late st Contact Info) Description 12/17/2023 Telephone [facility] Dermatology [address] [facility] [place] [address] Osiel Lama MD [address] [facility] [place] [address] Social History Tobacco Use Types [...] of Binge Drinking Not on file 07/17 Comments No Sex and Gender Information Value Date Recorded Sex Assigned at Not on file 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
--- OUTSIDE RECORDS SUMMARY | 2024-09-07 16:14 | XMS_ITS | Clinical Summary ---
Author Organization [facility] Address [address] [place] [address] Care Team Providers Care Scalp Specialist Name Role Phone Severino Zelaya Primary Care Provider Unavailsushil e Source Comments [facility],non-owned Affiliates and Associated Physician Practices is amultiple site organization consisting of ambulatory clinics and hospital sitesin [place], [place], [place] and [place]. This disclosure is being madepursuant to the Care Everywhere program and may not contain all information available regarding this patient. Last updated 18.[facility] Allergies No known active allergies Medications * Be aware that medications may not be up to date on this document. Alwaysverify current medications with the patient. albuterol HFA (PROVENTIL;VENT BARR[place];PROAIR) 108 (90 Base) MCG/ACT inhaler Inhale 2 (two) puffs by mouth every 6 hours as needed 1 Active FEROSUL 325 (65 Fe) MG tablet Take 325 mg by mouth 2 times daily 1 Active clindamycin-renetta zoyl peroxide (BENZACLIN) 1-5 % gel Apply to face area daily. 30 days supply. 50 g 3 1 Active Additional Information Patient not taking.Reported on 06/09/2022 clindamycin (CLEOCIN) 1 % gel Apply to affected area on face daily. 30 day supply. 30 g 3 1 Active Additional Information Patient not taking.Reported on 06/09/2022 Advair Diskus 100-50 MCG/ACT inhaler INHALE 1 PUFF BY MOUTH EVERY 12 HOURS 3 Active EluRyng 0.12-0.015 MG/24HR vaginal ring INSERT 1 RING VAGINALLY 1 TIME MONTHLY DIRECTED 3 Active albuterol (Proventil;Vent barrington) (2.5 MG/3ML) 0.083% nebulizer solution 3 Active montelukast (Singulair) 10 MG tablet Take 1 (one) tablet by mouth once daily 30 tablet 3 3 Active Additional Information Patient not taking.Reported on 12/13/2023 fluticasone propionate (Flonase) 50 MCG/ACT nasal spray Rigby 2 (two) sprays into each nostril once daily Active diphenhydrAMINE (Benadryl) 25 MG tablet Take by mouth every 4 hours as needed for Itching Active spironolactone (Aldactone) 100 MG tabletIndicatio ns:Acne vulgaris TAKE 2 TABLETS BY MOUTH EVERY DAY 180 tablet 4 Active doxycycline hyclate 100 MG tabletIndicatio ns:Acne Vulgaris Take 1 (one) tablet by mouth 2 times daily Reasons: Common Acne 60 tablet 2 4 Active famotidine (Pepcid) 20 MG tablet Take 1 (one) tablet by mouth 2 times daily 90 tablet 4 4 Active azelastine (Astelin) 0.1 % nasal spray Rigby 2 (two) sprays into each nostril 2 times daily 30 mL 11 4 Active Active Problems Problem Noted Date Diagnosed [...] -monitor for resolution at next visit Immunizations Immunization Administration Dates Next Due DTAP, HISTORIC VACCINE 01/09/2010,2005,05/14/2005,04/02,2004 HEP A PED/ADULT VACCINE 02/03/2007,03/04/2006 HEP B VACCINE 05/14/2005,04/02/2005,2004 HIB VACCINE 03/04/2006,04/02/2005,2004 Human Papilloma Virus Nineva lent Vaccine 03/18/2020,12/08/2018 Human Papilloma Virus Daksha valent Vaccine 01/23/2016 INFLUENZA VACCINE 01/23/2016,02/18/2015,01/15/20 11 MENINGOCOCCAL ACWY MENVEO 02/24/2016 MMR 01/09/2010,09/17/2005 POLIO OPV 01/09/2010, 5,04/02/2005,10/25 [...] Recorded Patient Health Questionnaire-2 Score 0 01/20/2024 Comments No Sex and Gender Information Value Date Recorded Sex Assigned at Not on file 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 Gender Identity Not on file Sexual Orientation [...] CHLAMYDIA/GONORRHEA SCREENING 2020 MENINGOCOCCAL (Group B) VACCINE SHARED DECISION-MAKING (1 of 2 - Standard) 2020 HEPATITIS C SCREENING 09/08/2022 COVID-19 VACCINE ( - season) 2024 DEPRESSION SCREENING 05/17/2024 01/20/2024 INFLUENZA VACCINE (Season Ended) 2025 01/23/2016, 02/18/2015, 01/14/2011 DTAP/TDAP/TD VACCINES (7 - Td or Tdap) 02/18/2025 02/18/2015, 01/09/2010, 03/04/2006, Additional history exists ZOSTER VACCINE (1 of 2) 2054 PNEUMOCOCCAL VACCINE Completed 09/17/2005, 05/14/2005, 04/02/2005, Additional history exists HIB VACCINE Completed 03/04/2006, 03/17, 2004 MENINGOCOCCAL GROUPS A/C/Y/W VACCINE Aged Out 02/24/2016 No longer eligible based on patient's age to complete this topic HPV VACCINE Completed 03/18/2020, 11/15, 01/23/2016 Insurance [facility] Care Teams Scalp Specialist Relationship Specialty Start Date End Date Severino Zelaya Update Information PCP - General 07/03/20
--- OUTSIDE RECORDS SUMMARY | 2024-09-07 16:14 | XMS_ITS | Encounter Summary ---
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
--- OUTSIDE RECORDS SUMMARY | 2024-09-07 16:14 | XMS_ITS | Clinical Summary ---
Author Organization [facility] Address [address] [place] [address] Care Team Providers Care Sap Bpc Architect Name Role Phone Unavailable Primary Care Provider Unavailabl e Immunizations Immunization Administration Dates Next Due Dtap (Generic) 01/09/2010, [...] 05/28/2005 05/14/2005, 04/02/2005, 2004 Annual Physical 09/13/2007 Meningococcal B Vaccine (1 of 2 - Standard) 2020 Hepatitis C 2022 COVID-19 Vaccine (1 - season) 2024 PHQ-2 (Physician [place]) 05/17/2024 DTaP, Tdap and Td Vaccines (7 - Td or Tdap) 02/18/2025 02/18/2015, 01/09/2010, 03/04/2006, Additional history exists Pneumococcal Vaccine: Pediatrics (0 to 5 Years) and At-Risk Patients (6 to 49 Years) Completed 09/17/2005, 05/14/2005, 04/02/2005, Additional history exists Meningococcal Vaccine Aged Out 02/24/2016 No radha nitin eligible based on patient's age to complete this topic HPV Vaccines Completed 03/18/2020, 11/15, 01/23/2016 RSV Immunizations Under 20 Months Aged Out No longer eligible based on patient's age to complete this topic Insurance
[2024-09-07 16:20] LABS: Hematocrit 31.9 % (37.0-47.0); Mean Corpuscular HGB Conc 34.5 g/dl (32-36); Mean Corpuscular Hemoglobin 30.5 pg (26-34); Mean Corpuscular Volume 88.4 fl (80-100); Mean Platelet Volume 8.8 fl (7.4-10.4); Platelet Count Result 276 k/mm3 (150-375); Red Blood Count 3.61 M/mm3 (4.2-5.4); Red Cell Distribution Width 13.2 % (11.5-14.5); White Blood Count 11.8 K/mm3 (4.5-10.0)
[2024-09-07 16:30] LABS: Glucose 1 Hour PP 50gm Dose 89 mg/dL
[2024-09-07 17:23] LABS: Creatinine Urine 103.7 mg/dL; Total Protein Urine Random 7 mg/dL; Ur Ttl Prot Creatinine Ratio 0.07 mg/mg (0-0.20)
[2024-09-08 10:05] LABS: Alanine Aminotransferase 15 U/L (6-35); Albumin Level 3.3 g/dL (3.7-5.6); Alkaline Phosphatase 80 U/L (45-116); Anion Gap 6 mmol/L (4-12); Aspartate Amino Transferase 19 U/L (14-36); Bilirubin,Total 0.2 mg/dL (0.2-1.3); Blood Urea Nitrogen 5 mg/dL (8-21); Calcium 8.7 mg/dL (8.9-10.7); Carbon Dioxide 24 mmol/L (22-30); Chloride 106 mmol/L (98-107); Estimated Glomerular Filt Rate > 60; Glucose 84 mg/dL (65-110); Potassium 3.8 mmol/L (3.4-5.0); Sodium 136 mmol/L (134-143)
== END 2024-09-07 15:00 | disposition home or self-care (01) ==
LOC: ANHLAB 15:01
PROVIDERS: Visit Provider Nurse Practitioner Obstetrics & Gynecology
DX: O16.2 Unspecified maternal hypertension, second trimester (principal); Z3A.00 Weeks of gestation of pregnancy not specified
CPT/HCPCS: 36415; 80053; 82570; 82947; 84156; 85027

== ENCOUNTER 2024-09-12 09:25 | Outpatient (CLI) | payer MEDICAID, SELFPAY ==
[2024-09-12] VITALS (8 sets, daily range): BP systolic 94–133; BP diastolic 55–74; PULSE 74–113
[2024-09-12 10:15] LABS: Basophils Percent Auto 0.1 % (0.2-1.2); Eosinophils Absolute Auto 0.1 K/mm3 (0-0.3); Eosinophils Percent Auto 0.6 % (0-4.4); Hematocrit 31.2 % (37.0-47.0); Hemoglobin 10.7 g/dL (12.0-15.0); Immature Granulocyte Absolute 0.04 K/mm3 (0.00-0.031); Immature Granulocyte Percent A 0.4 % (0-0.5); Lymphocytes Absolute Auto 1.73 K/mm3 (0.9-3.2); Lymphocytes Percent Auto 15.2 % (18.3-44.2); Mean Corpuscular HGB Conc 34.3 g/dl (32-36); Mean Corpuscular Hemoglobin 30.4 pg (26-34); Mean Corpuscular Volume 88.6 fl (80-100); Mean Platelet Volume 9.1 fl (7.4-10.4); Monocytes Absolute Auto 0.7 K/mm3 (0.1-0.6); Monocytes Percent Auto 5.8 % (2.6-8.5); Neutrophils Absolute Auto 8.9 K/mm3 (1.3-6.7); Neutrophils Percent Auto 77.9 % (45.5-73.1); Platelet Count Result 279 k/mm3 (150-375); Red Blood Count 3.52 M/mm3 (4.2-5.4); White Blood Count 11.4 K/mm3 (4.5-10.0)
--- OUTSIDE RECORDS SUMMARY | 2024-09-12 10:25 | XMS_ITS | Encounter Summary ---
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
--- OUTSIDE RECORDS SUMMARY | 2024-09-12 10:25 | XMS_ITS | Clinical Summary ---
Author Organization [facility] Address [address] [place] [phone] Phone Care Team Providers Care Swabber Name Role Phone Unavailable Primary Care Provider Unavailabl e Encounters Date Type Department Care Team Description 08/31/2024 2:15 PM CDT - 08/31/2024 11:59 PM CDT Hospital Encounter [facility] [address] [place] [address] Maged Ambriz MD Discharge Disposition: Home or Self Care 08/29/2024 External Device Data STL ABSTRACTION Provider, Abstract 08/08/2024 External Device Data STL ABSTRACTION Provider, Abstract 08/08/2024 External Device Data STL ABSTRACTION Provider, Abstract 08/08/2024 External Device Data STL ABSTRACTION Provider, Abstract 08/03/2024 2:30 PM CDT - 08/03/2024 11:59 PM CDT Hospital Encounter [facility] [address] [place] [phone] Ham Guerra MD Discharge Disposition: Home or Self Care from Last 3 Months Social History Tobacco Use Types Packs/Day Years Used Date Smoking Tobacco: Never Assessed Comments Unknown Sex and Gender Information Value Date Recorded Sex Assigned at Not on file 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 NO: [id number] Referring MD: HAM GUERRA MD Site: [place] [facility] Improvement Engineer: Suly Marc RDMS : 2005 Age: 18 ----- INDICATION ----- Screening Follow-Up Maternal Obesity (BMI<40) Complicating CODING ----- Diagnoses Z3A.24: Weeks of gestation O99.212: Obesity complicating Z36.2: Encounter for other screening follow-up Procedures 63111: Ultrasound, uterus, real time with image documentation, [...] 1 lb 8 oz EFW by Hadlock ([id number]) Extremities / Bony Struc Biometry: FL / [...] Face Palate. Heart / Thorax RVOT view. 1-wgfkcv-genqkzc view. Cardiac rhythm. Diaphragm. Abdomen Stomach. Kidneys. [...] and date of were verified by the data transcriber prior to the exam IMPRESSION ----- Toth [...] Pat. Name:Moshe STEPHENS Date:08/31/2024 2:34pm Pat. NO: [id number] MD:HAM GUERRA MD [facility] RD[facility] :2005Age:18 ----- INDICATION ----- Screening Follow-Up Maternal Obesity (BMI<40) Complicating CODING ----- Diagnoses Z3A.24: Weeks of gestation O99.212: Obesity complicating Z36.2: Encounter for other screeningfollow-up Procedures 24236: Ultrasound, uterus, real time withimage documentation, follow up, transabdominal approach per fetus HISTORY ----- OB History 1 MATERNAL ASSESSMENT ----- Physical Exam Weight 100 kg. BMI 35.51 kg/m METHOD ----- Transabdominal ultrasound examination ----- Toth . Number of fetuses: 1 DATING ----- GA by prior [id number] w + 2 d BILL by prior [...] 1 lb 8 oz EFW by Hadlock ([id number]) Extremities / Bony Struc Biometry: FL / [...] Face Palate. Heart / Thorax RVOT view. 2-ouyinb-vxejasf view. Cardiacrhythm. Diaphragm. Abdomen Stomach. Kidneys. Bladder. [...] and date of were verified by the data transcriber prior tothe exam IMPRESSION ----- Toth @ [...] STEPHENS Study Date: 08/03/2024 2:50pm Pat. NO: [id number] Referring MD: HAM GUERRA MD Site: [place] [facility] Improvement Engineer: Rach Alicia RDMS : 2005 Age: 18 ----- INDICATION ----- Anatomy Survey Maternal Obesity (BMI<40) Complicating CODING ----- Diagnoses Z3A.20: Weeks of gestation O99.212: Obesity complicating Z36.3: Encounter for screening for malformations Procedures 22009: Ultrasound, uterus, real time with image documentation, [...] 0 lb 12 oz EFW by Hadlock ([id number]) Head / Face / Neck Biometry: Surgery Attendant 6.5 mm CM 4.6 mm 35% Nicolaides [...] Heart / Thorax RVOT view. 3-vessel view. 4-pjmtjm-vnncsqe view. Situs. Aortic arch view. Ductal arch [...] and date of were verified by the data transcriber before the exam IMPRESSION ----- 1. Single [...] weeks to complete the anatomic survey. Recommend [facility] US for persistent suboptimal visualization on follow-up. - Recommend interval third trimester growth and anatomy at 32 weeks. Thank you for allowing us to participate in the care of this patient. Procedure Note Bria Zuleta MD - 08/03/2024 STL COMP ----- Pat. Name:Moshe STEPHENS Date:08/03/2024 2:50pm Pat. NO: [id number] MD:HAM GUERRA MD [facility]Rach Alicia RDMS :2005Age:18 ----- INDICATION ----- Anatomy Survey Maternal Obesity (BMI<40) Complicating CODING ----- Diagnoses Z3A.20: Weeks of gestation O99.212: Obesity complicating Z36.3: [facility] 75597: Ultrasound, uterus, real time withimage documentation, and maternal evaluation plus detailed anatomic examination,transabdominal approach HISTORY ----- OB History 1 MATERNAL ASSESSMENT ----- Physical Exam Weight 97 kg. BMI 34.54 kg/m METHOD ----- Transabdominal ultrasound examination ----- Toth . Number of fetuses: 1 DATING ----- Method of dating:based on stated BILL GA by prior [id number] w + 2 d BILL by prior [...] 0 lb 12 oz EFW by Hadlock ([id number]) Head / Face / Neck Biometry: Surgery Attendant 6.5 mm CM 4.6 mm 35%Nicolaides Inner [...] Heart / Thorax RVOT view. 3-vessel view. 9-sdekie-hwefwvo view.Situs. Aortic arch view. Ductal arch view. [...] and date of were verified by the data transcriber beforethe exam IMPRESSION ----- 1. Single living [...]
--- OUTSIDE RECORDS SUMMARY | 2024-09-12 10:25 | XMS_ITS | Encounter Summary ---
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
--- OUTSIDE RECORDS SUMMARY | 2024-09-12 10:25 | XMS_ITS | Clinical Summary ---
Author Organization [facility] Address [address] [facility] [place] [address] Care Team Providers Care Director Design Name Role Phone Severino Zelaya Primary Care Provider Unavailsushil e Source Comments [facility],non-owned Affiliates and Associated Physician Practices is amultiple site organization consisting of ambulatory clinics and hospital sitesin [place], [place], [place] and [place]. This disclosure is being madepursuant to the Care Everywhere program and may not contain all information available regarding this patient. 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
--- OUTSIDE RECORDS SUMMARY | 2024-09-12 10:25 | XMS_ITS | Clinical Summary ---
Author Organization [facility] Address [address] [place] [address] Care Team Providers Care Drafter Structural Name Role Phone Unavailable Primary Care Provider [...] Vaccine (1 - season) 2024 PHQ-2 (Physician [place]) 05/17/2024 DTaP, Tdap and Td Vaccines (7 [...]
[2024-09-12 10:28] LABS: Alanine Aminotransferase 13 U/L (6-35); Albumin Level 3.2 g/dL (3.5-5.1); Alkaline Phosphatase 78 U/L (38-126); Anion Gap 7 mmol/L (4-12); Aspartate Amino Transferase 16 U/L (14-36); Bilirubin,Total < 0.1 mg/dL (0.2-1.3); Blood Urea Nitrogen 6 mg/dL (7-17); Calcium 8.6 mg/dL (8.4-10.2); Carbon Dioxide 23 mmol/L (22-30); Chloride 105 mmol/L (98-107); Estimated Glomerular Filt Rate > 60; Glucose 119 mg/dL (65-110); Potassium 3.4 mmol/L (3.4-5.0); Sodium 135 mmol/L (137-145); Uric Acid 3.5 mg/dL (2.5-7.5)
[2024-09-12 10:30] LABS: Add Urine Microscopic? YES; Appearance Urine Cloudy (Clear); Bacteria Urine Rare /hpf; Bilirubin Urine Negative (Negative); Blood Urine 1+ (Negative); Color Urine Yellow (Yellow); Glucose Urine UA Negative (Negative); Ketones Urine Negative (Negative); Leukocyte Esterase Ur 1+ LEU/UL (Negative); Nitrate Urine Negative (Negative); Non Pathogenic Casts 0-2; Protein Urine Trace mg/dL (Negative); Specific Grav Ur 1.015 (1.001-1.035); Squamous Epithelial Cell Urine None Seen /hpf (Few); Urobilinogen Urine 0.2 mg/dL (<2.0); WBC Urine 21-50 /hpf (0-3); pH Urine 7.5 (5.0-9.0)
[2024-09-12 11:07] LABS: Total Protein Urine Random 37 mg/dL
[2024-09-12 11:16] LABS: Ur Ttl Prot Creatinine Ratio 0.51 mg/mg (0-0.20)
--- NOTE | 2024-09-12 12:30 | PC.NURSE ---
Dr Tolbert informed of BP, UA results and blood work. Ok to dc home with Macrobid.
== END 2024-09-12 12:30 | disposition home or self-care (01) ==
LOC: ANHOBOP 09:32 → ANHOBPP 09:35
PROVIDERS: Visit Provider Obstetrics & Gynecology
DX: O13.9 Gestational [pregnancy-induced] hypertension without significant proteinuria, unspecified trimester (principal); Z3A.00 Weeks of gestation of pregnancy not specified
CPT/HCPCS: 36415; 59025; 80053; 81001; 82570; 84156; 84550; 85025; 87086; 87181; 99199

== ENCOUNTER 2024-09-23 12:24 | Outpatient (CLI) | payer MEDICAID, SELFPAY ==
[2024-09-23] VITALS (8 sets, daily range): BP systolic 135–145; BP diastolic 68–85; PULSE 90–121; O2SAT 100; BMI 35.6
--- OUTSIDE RECORDS SUMMARY | 2024-09-23 12:30 | XMS_ITS | Clinical Summary ---
Author Organization [facility] Address [address] [facility] [place] [address] Care Team Providers Care Hand Embroiderer Name Role Phone Severino Zelaya Primary Care Provider Unavailsushil e Source Comments [facility],non-owned Affiliates and Associated Physician Practices is amultiple site organization consisting of ambulatory clinics and hospital sitesin [place], [place], [place] and [place]. This disclosure is being madepursuant to the Care Everywhere program and may not contain all information available regarding this patient. Last updated 18.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
--- OUTSIDE RECORDS SUMMARY | 2024-09-23 12:30 | XMS_ITS | Encounter Summary ---
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
--- OUTSIDE RECORDS SUMMARY | 2024-09-23 12:30 | XMS_ITS | Encounter Summary ---
Author Organization 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
--- OUTSIDE RECORDS SUMMARY | 2024-09-23 12:30 | XMS_ITS | Clinical Summary ---
Author Organization [facility] Address [address] [place] [address] Phone Care Team Providers Care Assault Amphibious Vehicle Officer Name Role Phone Unavailable Primary Care Provider Unavailabl e Encounters Date Type Department Care Team Description 08/31/2024 2:15 PM CDT - 08/31/2024 11:59 PM CDT Hospital Encounter [facility] [address] [place] [address] Maged Ambriz MD Discharge Disposition: Home or Self Care 08/29/2024 External Device Data STL ABSTRACTION Provider, Abstract 08/08/2024 External Device Data STL ABSTRACTION Provider, Abstract 08/08/2024 External Device Data STL ABSTRACTION Provider, Abstract 08/08/2024 External Device Data STL ABSTRACTION Provider, Abstract 08/03/2024 2:30 PM CDT - 08/03/2024 11:59 PM CDT Hospital Encounter [facility] [address] [place] [phone] Ham Guerra MD Discharge Disposition: Home or Self Care from Last 3 Months Social History Tobacco Use Types Packs/Day Years Used Date Smoking Tobacco: Never Assessed Comments Unknown Sex and Gender Information Value Date Recorded Sex Assigned at Not on file 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 Floor [address] [facility] [address] [place] [phone] Ham Guerra MD [address] [place] [address] Health Maintenance Due Date Last Done Comments HEPATITIS B VACCINES (4 of 4 - 4-dose series) 05/28/2005 05/14/2005, 04/02/2005, 2004 CHLAMYDIA SCREENING (ANNUAL) 11-24 YEARS 09/13/2015 INFLUENZA VACCINE (#1) 2023 DTAP/TDAP/TD VACCINES (2 [...] STEPHENS Study Date: 08/31/2024 2:34pm Pat. NO: [id number] Referring MD: HAM GUERRA MD Site: [place] Color Paste Mixing Supervisor: Suly Marc RDMS : 2005 Age: 18 ----- INDICATION ----- Screening Follow-Up Maternal Obesity (BMI<40) Complicating CODING ----- Diagnoses Z3A.24: Weeks of gestation O99.212: Obesity complicating Z36.2: Encounter for other screening follow-up Procedures 76753: Ultrasound, uterus, real time with image documentation, [...] 1 lb 8 oz EFW by Hadlock ([id number]) Extremities / Bony Struc Biometry: FL / [...] Face Palate. Heart / Thorax RVOT view. 3-xscrmu-vmjgbcj view. Cardiac rhythm. Diaphragm. Abdomen Stomach. Kidneys. [...] and date of were verified by the lion hunter prior to the exam IMPRESSION ----- Toth [...] Pat. Name:Moshe STEPHENS Date:08/31/2024 2:34pm Pat. NO: [id number] :HAM GUERRA MD [facility] RDMS :2005Age:18 ----- INDICATION ----- Screening Follow-Up Maternal Obesity (BMI<40) Complicating CODING ----- Diagnoses Z3A.24: Weeks of gestation O99.212: Obesity complicating Z36.2: Encounter for other screeningfollow-up Procedures 85162: Ultrasound, uterus, real time withimage documentation, follow up, transabdominal approach per fetus HISTORY ----- OB History 1 MATERNAL ASSESSMENT ----- Physical Exam Weight 100 kg. BMI 35.51 kg/m METHOD ----- Transabdominal ultrasound examination ----- Toth . Number of fetuses: 1 DATING ----- GA by prior [id number] w + 2 d BILL by prior [...] 1 lb 8 oz EFW by Hadlock ([id number]) Extremities / Bony Struc Biometry: FL / [...] Face Palate. Heart / Thorax RVOT view. 4-bqjspb-ggrwsng view. Cardiacrhythm. Diaphragm. Abdomen Stomach. Kidneys. Bladder. [...] and date of were verified by the lion hunter prior tothe exam IMPRESSION ----- Toth @ [...] STEPHENS Study Date: 08/03/2024 2:50pm Pat. NO: [id number] Referring MD: HAM GUERRA MD Site: [place] Color Paste Mixing Supervisor: Rach Alicia RDMS : 2005 Age: 18 ----- INDICATION ----- Anatomy Survey Maternal Obesity (BMI<40) Complicating CODING ----- Diagnoses Z3A.20: Weeks of gestation O99.212: Obesity complicating Z36.3: Encounter for screening for malformations Procedures 56434: Ultrasound, uterus, real time with image documentation, [...] 0 lb 12 oz EFW by Hadlock ([id number]) Head / Face / Neck Biometry: Field Cane Scale Clerk 6.5 mm CM 4.6 mm 35% Nicolaides [...] Heart / Thorax RVOT view. 3-vessel view. 1-ngszou-nboossp view. Situs. Aortic arch view. Ductal arch [...] and date of were verified by the lion hunter before the exam IMPRESSION ----- 1. Single [...] weeks to complete the anatomic survey. Recommend MFM US for persistent suboptimal visualization on follow-up. - Recommend interval third trimester growth and anatomy at 32 weeks. Thank you for allowing us to participate in the care of this patient. Procedure Note Bria Zuleta MD - 08/03/2024 STL COMP ----- Pat. Name:Mohse STEPHENS Date:08/03/2024 2:50pm Pat. NO: [id number] MD:HAM GUERRA MD [facility]Rach Alicia RDMS :2005Age:18 ----- INDICATION ----- Anatomy Survey Maternal Obesity (BMI<40) Complicating CODING ----- Diagnoses Z3A.20: Weeks of gestation O99.212: Obesity complicating Z36.3: Encounter for screening formalformations Procedures 80507: Ultrasound, uterus, real time withimage documentation, and maternal evaluation plus detailed anatomic examination,transabdominal approach HISTORY ----- OB History 1 MATERNAL ASSESSMENT ----- Physical Exam Weight 97 kg. BMI 34.54 kg/m METHOD ----- Transabdominal ultrasound examination ----- Toth . Number of fetuses: 1 DATING ----- Method of dating:based on stated BILL GA by prior w + 2 d BILL by prior [...] 0 lb 12 oz EFW by Hadlock ([id number]) Head / Face / Neck Biometry: Field Cane Scale Clerk 6.5 mm CM 4.6 mm 35%Nicolaides Inner [...] Heart / Thorax RVOT view. 3-vessel view. 6-evzkph-xlidkea view.Situs. Aortic arch view. Ductal arch view. [...] and date of were verified by the lion hunter beforethe exam IMPRESSION ----- 1. Single living [...] of this patient. us Ham Guerra MD US ORDERABLES Final Result from Last 3 Months Insurance MEDICAID [place]
--- OUTSIDE RECORDS SUMMARY | 2024-09-23 12:30 | XMS_ITS | Clinical Summary ---
Author Organization [facility] Address [address] [place] [address] Care Team Providers Care Hall Clerk Name Role Phone Unavailable Primary Care Provider [...] Vaccine (1 - season) 2024 PHQ-2 (Physician [place]) 05/17/2024 DTaP, Tdap and Td Vaccines (7 [...]
[2024-09-23 13:10] LABS: Basophils Percent Auto 0.1 % (0.2-1.2); Eosinophils Absolute Auto 0.1 K/mm3 (0-0.3); Eosinophils Percent Auto 0.4 % (0-4.4); Hematocrit 30.7 % (37.0-47.0); Hemoglobin 10.5 g/dL (12.0-15.0); Immature Granulocyte Absolute 0.07 K/mm3 (0.00-0.031); Immature Granulocyte Percent A 0.5 % (0-0.5); Lymphocytes Absolute Auto 2.04 K/mm3 (0.9-3.2); Lymphocytes Percent Auto 14.5 % (18.3-44.2); Mean Corpuscular HGB Conc 34.2 g/dl (32-36); Mean Corpuscular Hemoglobin 30.1 pg (26-34); Mean Platelet Volume 9.4 fl (7.4-10.4); Monocytes Absolute Auto 0.7 K/mm3 (0.1-0.6); Monocytes Percent Auto 4.7 % (2.6-8.5); Neutrophils Absolute Auto 11.3 K/mm3 (1.3-6.7); Neutrophils Percent Auto 79.8 % (45.5-73.1); Platelet Count Result 275 k/mm3 (150-375); Red Blood Count 3.49 M/mm3 (4.2-5.4); White Blood Count 14.1 K/mm3 (4.5-10.0)
[2024-09-23 13:24] LABS: Alanine Aminotransferase 16 U/L (6-35); Albumin Level 3.3 g/dL (3.5-5.1); Alkaline Phosphatase 81 U/L (38-126); Anion Gap 7 mmol/L (4-12); Aspartate Amino Transferase 23 U/L (14-36); Bilirubin,Total 0.2 mg/dL (0.2-1.3); Blood Urea Nitrogen 7 mg/dL (7-17); Calcium 8.9 mg/dL (8.4-10.2); Carbon Dioxide 23 mmol/L (22-30); Chloride 105 mmol/L (98-107); Estimated Glomerular Filt Rate > 60; Glucose 130 mg/dL (65-110); Potassium 3.7 mmol/L (3.4-5.0); Sodium 135 mmol/L (137-145)
== END 2024-09-23 14:30 | disposition home or self-care (01) ==
LOC: ANHOBOP 12:28 → ANHOBPP 12:30
PROVIDERS: Obstetrics & Gynecology; Visit Provider Obstetrics & Gynecology
DX: O13.9 Gestational [pregnancy-induced] hypertension without significant proteinuria, unspecified trimester (principal); Z3A.00 Weeks of gestation of pregnancy not specified
CPT/HCPCS: 36415; 59025; 80053; 84550; 85025; 99199

== ENCOUNTER 2024-09-24 14:17 | Outpatient (NON) | payer MEDICAID, SELFPAY ==
--- OUTSIDE RECORDS SUMMARY | 2024-09-24 15:13 | XMS_ITS | Encounter Summary ---
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
--- OUTSIDE RECORDS SUMMARY | 2024-09-24 15:13 | XMS_ITS | Clinical Summary ---
Author Organization [facility] Address [address] [place] [address] Care Team Providers Care Charge Entry Name Role Phone Unavailable Primary Care Provider [...] Vaccine (1 - season) 2024 PHQ-2 (Physician [place]) 05/17/2024 DTaP, Tdap and Td Vaccines (7 [...]
--- OUTSIDE RECORDS SUMMARY | 2024-09-24 15:13 | XMS_ITS | Clinical Summary ---
Author Organization [facility] uis Address [address] [place] [address] Phone Care Team Providers Care Water Taxi Boat Mate Name Role Phone Unavailable Primary Care Provider Unavailabl e Encounters Date Type Department Care Team Description 08/31/2024 2:15 PM CDT - 08/31/2024 11:59 PM CDT Hospital Encounter [facility] [address] [place] [address] Maged Ambriz MD Discharge Disposition: Home or Self Care 08/29/2024 External Device Data STL ABSTRACTION Provider, Abstract 08/08/2024 External Device Data STL ABSTRACTION Provider, Abstract 08/08/2024 External Device Data STL ABSTRACTION Provider, Abstract 08/08/2024 External Device Data STL ABSTRACTION Provider, Abstract 08/03/2024 2:30 PM CDT - 08/03/2024 11:59 PM CDT Hospital Encounter [facility] [address] [place] [phone] Ham Geurra MD Discharge Disposition: Home or Self Care from Last 3 Months Social History Tobacco Use Types Packs/Day Years Used Date Smoking Tobacco: Never Assessed Comments Unknown Sex and Gender Information Value Date Recorded Sex Assigned at Not on file Legal Sex Female 7:41 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 Maternal and [facility] Floor [facility] [address] [place] [phone] Ham Guerra MD [address] [place] [address] Health Maintenance Due Date Last [...] STEPHENS Study Date: 08/31/2024 2:34pm Pat. NO: [id number] Referring MD: HAM GUERRA MD Site: [place] Compliance Tester: Suly Marc RDMS : 2005 Age: 18 ----- INDICATION ----- Screening Follow-Up Maternal Obesity (BMI<40) Complicating CODING ----- Diagnoses Z3A.24: Weeks of gestation O99.212: Obesity complicating Z36.2: Encounter for other screening follow-up Procedures 23782: Ultrasound, uterus, real time with image documentation, [...] 1 lb 8 oz EFW by Hadlock ([id number]) Extremities / Bony Struc Biometry: FL / [...] Face Palate. Heart / Thorax RVOT view. 0-ihcwei-qpdbgvi view. Cardiac rhythm. Diaphragm. Abdomen Stomach. Kidneys. [...] and date of were verified by the computer information systems professor prior to the exam IMPRESSION ----- Toth [...] Pat. Name:Moshe STEPHENS Date:08/31/2024 2:34pm Pat. NO: [id number] :HAM GUERRA MD [facility] Marc RDMS :2005Age:18 ----- INDICATION ----- Screening Follow-Up Maternal Obesity (BMI<40) Complicating CODING ----- Diagnoses Z3A.24: Weeks of gestation O99.212: Obesity complicating Z36.2: Encounter for other screeningfollow-up Procedures 50438: Ultrasound, uterus, real time withimage documentation, follow up, transabdominal approach per fetus HISTORY ----- OB History 1 MATERNAL ASSESSMENT ----- Physical Exam Weight 100 kg. BMI 35.51 kg/m METHOD ----- Transabdominal ultrasound examination ----- Toth . Number of fetuses: 1 DATING ----- GA by prior [id number] w + 2 d BILL by prior [...] 1 lb 8 oz EFW by Hadlock ([id number]) Extremities / Bony Struc Biometry: FL / [...] Face Palate. Heart / Thorax RVOT view. 6-qxnedh-gafkirb view. Cardiacrhythm. Diaphragm. Abdomen Stomach. Kidneys. Bladder. [...] and date of were verified by the computer information systems professor prior tothe exam IMPRESSION ----- Toth @ [...] STEPHENS Study Date: 08/03/2024 2:50pm Pat. NO: [id number] Referring MD: HAM GUERRA MD Site: [place] Compliance Tester: Rach Alicia RDMS : 2005 Age: 18 ----- INDICATION ----- Anatomy Survey Maternal Obesity (BMI<40) Complicating CODING ----- Diagnoses Z3A.20: Weeks of gestation O99.212: Obesity complicating Z36.3: Encounter for screening for malformations Procedures 35409: Ultrasound, uterus, real time with image documentation, [...] 0 lb 12 oz EFW by Hadlock ([id number]) Head / Face / Neck Biometry: It Portfolio Manager 6.5 mm CM 4.6 mm 35% Nicolaides [...] Heart / Thorax RVOT view. 3-vessel view. 9-vhspjz-nilpsxx view. Situs. Aortic arch view. Ductal arch [...] and date of were verified by the computer information systems professor before the exam IMPRESSION ----- 1. Single [...] Pat. Name:Moshe STEPHENS Date:08/03/2024 2:50pm Pat. NO: [id number] MD:HAM GUERRA MD [facility]Rach Alicia RDMS :2005Age:18 ----- INDICATION ----- Anatomy Survey Maternal Obesity (BMI<40) Complicating CODING ----- Diagnoses Z3A.20: Weeks of gestation O99.212: Obesity complicating Z36.3: Encounter for screening formalformations Procedures 08069: Ultrasound, uterus, real time withimage documentation, and maternal evaluation plus detailed anatomic examination,transabdominal approach HISTORY ----- OB History 1 MATERNAL ASSESSMENT ----- Physical Exam Weight 97 kg. BMI 34.54 kg/m METHOD ----- Transabdominal ultrasound examination ----- Toth . Number of fetuses: 1 DATING ----- Method of dating:based on stated BILL GA by prior [id number] w + 2 d BILL by prior [...] 0 lb 12 oz EFW by Hadlock ([id number]) Head / Face / Neck Biometry: It Portfolio Manager 6.5 mm CM 4.6 mm 35%Nicolaides Inner [...] Heart / Thorax RVOT view. 3-vessel view. 7-zbfgfm-rwrlesx view.Situs. Aortic arch view. Ductal arch view. [...] and date of were verified by the computer information systems professor beforethe exam IMPRESSION ----- 1. Single living [...]
--- OUTSIDE RECORDS SUMMARY | 2024-09-24 15:13 | XMS_ITS | Encounter Summary ---
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
--- OUTSIDE RECORDS SUMMARY | 2024-09-24 15:13 | XMS_ITS | Clinical Summary ---
Author Organization [facility] Address [address] [place] [address] Care Team Providers Care Lead C Developer Name Role Phone Severino Zelaya Primary Care Provider Unavailsushil e Source Comments [facility],non-owned Affiliates and Associated Physician Practices is amultiple site organization consisting of ambulatory clinics and hospital sitesin [place], [place], [place] and [place]. This disclosure is being madepursuant to the Care Everywhere program and may not contain all information available regarding this patient. 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
[2024-09-24 15:25] VITALS: BMI 35.6
[2024-09-24 15:35] LABS: Collection Time Urine 24 HOURS; Patient Weight 220 Lbs; Total Volume 24 Hour Urine 2100 ml
[2024-09-24 15:45] LABS: Creatinine Clearance Urine 187.8 ml/min (75-125); Serum Creat 0.44; Total Protein Urine 24 Hr 189 mg/24hr (28-141); Total Protein Urine Random 9 mg/dL
== END 2024-09-24 14:18 | disposition home or self-care (01) ==
LOC: ANHOBOP 15:11
PROVIDERS: Visit Provider Nurse Practitioner Obstetrics & Gynecology
DX: O16.2 Unspecified maternal hypertension, second trimester (principal)
CPT/HCPCS: 81050; 82575; 84156

== ENCOUNTER 2024-10-11 00:41 | Observation (INO) | payer MEDICAID, SELFPAY ==
[2024-10-11] VITALS (103 sets, daily range): BP systolic 113–155; BP diastolic 64–86; PULSE 32–103; O2SAT 98–100; BMI 41.5
--- OUTSIDE RECORDS SUMMARY | 2024-10-11 00:47 | XMS_ITS | Clinical Summary ---
Author Organization [facility] Address [address] [address] Care Team Providers Care Tree And Shrub Worker Name Role Phone Severino Zelaya Primary Care Provider Unavailsushil e Source Comments [facility],non-owned Affiliates and Associated Physician Practices is amultiple site organization consisting of ambulatory clinics and hospital sitesin [place], [place], [place] and [place]. This disclosure is being madepursuant to the Care Everywhere program and may not contain all information available regarding this patient. Last updated 18.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
--- OUTSIDE RECORDS SUMMARY | 2024-10-11 00:47 | XMS_ITS | Encounter Summary ---
Author Organization [facility] Address 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
--- OUTSIDE RECORDS SUMMARY | 2024-10-11 00:47 | XMS_ITS | Clinical Summary ---
Author Organization [facility] Address [address] [place] [address] Phone Care Team Providers Care Shipbuilding Draftsperson Name Role Phone Unavailable Primary Care Provider Unavailabl e Encounters Date Type Department Care Team Description 10/10/2024 External Device Data STL ABSTRACTION Provider, Abstract 10/05/2024 External Device Data STL ABSTRACTION Provider, Abstract 10/04/2024 External Device Data STL ABSTRACTION Provider, Abstract 10/03/2024 3:16 PM CDT - 10/03/2024 11:59 PM CDT Hospital Encounter [address] [address] Ham Guerra MD Discharge Disposition: Home or Self Care 10/03/2024 External Device Data STL ABSTRACTION Provider, Abstract 08/31/2024 2:15 PM CDT - 08/31/2024 11:59 PM CDT Hospital Encounter [facility] [address] [place] [phone] Maged Ambriz MD Discharge Disposition: Home or Self Care 08/29/2024 External Device Data STL ABSTRACTION Provider, Abstract 08/08/2024 External Device Data STL ABSTRACTION Provider, Abstract 08/08/2024 External Device Data STL ABSTRACTION Provider, Abstract 08/08/2024 External Device Data STL ABSTRACTION Provider, Abstract 08/03/2024 2:30 PM CDT - 08/03/2024 11:59 PM CDT Hospital Encounter [facility] [address] [place] [phone] Ham Guerra MD Discharge Disposition: Home or Self Care from Last 3 Months Social History Tobacco Use Types Packs/Day Years Used Date Smoking Tobacco: Never Assessed Comments Unknown Sex and Gender Information Value Date Recorded Sex Assigned at Not on file 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 Anatomical Region Laterality Modality Pelvis Ultrasound 10/03/2024 2:47 PM CDT Narrative 10/03/2024 4:17 PM CDT STL FOLLOW UP ----- Pat. Name: ARIS STEPHENS Study Date: 10/03/2024 2:47pm Pat. NO: [id number] Referring MD: HAM GUERRA MD Site: [facility] Glass Vial Filler: Saundra Douglas RDMS : 2005 Age: 19 ----- INDICATION ----- Screening Follow-Up Maternal Obesity (BMI<40) Complicating CODING ----- Diagnoses Z3A.29: Weeks of gestation O99.213: Obesity complicating Z36.2: Encounter for other screening follow-up Procedures 79040: Ultrasound, uterus, real time with image documentation, follow up, transabdominal approach per fetus HISTORY ----- OB History 1 MATERNAL ASSESSMENT ----- Physical Exam Weight 80 kg. BMI 28.57 kg/m METHOD ----- Transabdominal ultrasound examination ----- Toth . Number of fetuses: 1 DATING ----- GA by prior assessment 29 w + 0 d BILL by prior assessment: 12/19/2024 Ultrasound examination on: 10/03/2024 GA by U/S based upon: AC, BPD, EFW, Femur, HC GA by U/S 28 w + 6 d BILL by U/S: 12/20/2024 Method of dating: Restore dating from previous exam Assigned: based on stated BILL, selected on 08/03/2024 Assigned GA 29 w + 0 d Assigned BILL: 12/19/2024 BIOMETRY ----- BPD 70.3 mm 28w 2d 16% Hadlock OFD 93.3 mm 30w 1d 78% Jose HC 262.0 mm 28w 4d 9% Hadlock Cerebellum tr 33.2 mm 29w 4d 42% Bowers AC 250.7 mm 29w 2d 52% Hadlock Femur 56.3 mm 29w 4d 52% Hadlock HC / AC 1.05 27% Nicolaides Weight Calculation: EFW 1,357 g 28w 6d 45% Hadlock EFW (lb,oz) 3 lb 0 oz EFW by Hadlock ([id number]) Head / Face / Neck Biometry: Restorative Rehab Aide 5.9 mm CM 5.4 mm 13% Nicolaides Extremities / Bony Struc Biometry: FL / BPD 0.80 FL / HC 0.21 FL / AC 0.22 GENERAL EVALUATION ----- Cardiac activity present. FHR 150 bpm. movements: present. Presentation: cephalic Placenta: Placental site: posterior Umbilical cord: Cord vessels: 3 vessel cord. Insertion site: placental insertion: normal Amniotic fluid: Amount of AF: normal amount. MVP 6.2 cm. CODY 15.5 cm. Q1 6.2 cm, Q2 2.4 cm, Q3 3.5 cm, Q4 3.4 cm ANATOMY ----- The following structures appear normal: Head / Neck Cranium. Lateral ventricles. Choroid plexus. Midline falx. Cavum septi pellucidi. Cerebellum. Cisterna magna. Heart / Thorax 4-chamber view. LVOT view. Diaphragm. Abdomen Stomach. Kidneys. Bladder. GROWTH OVERVIEW ----- Exam date GA BPD (mm) HC (mm) AC (mm) FL (mm) HL (mm) EFW (g) 08/03/2024 20w 2d 44.7 19% 170.7 17% 144.5 27% 33.7 52% 32.9 80% 331 34% 08/31/2024 24w 2d 55.9 8% 212.0 6% 194.4 36% 45.7 65% 689 44% 10/03/2024 29w 0d 70.3 16% 262.0 9% 250.7 52% 56.3 52% 1,357 45% COMMENT ----- Patient's name and date of were verified by the horse breaker prior to the exam IMPRESSION ----- IUP at 29w 0d cephalic presentation AGA growth pattern, EFW 1357 g (45%) with appropriate interval growth Normal amniotic fluid volume, CODY 15.5 cm, MVP 6.2 cm The remaining images from the anatomic survey are completed today with normal appearance of 4ch and LVOT. Anatomy is now complete. Recommendations: - Follow up as clinically indicated Procedure Note Tina Hooper MD - 10/03/2024 STL FOLLOW UP ----- Pat. Name:Moshe STEPHENS Date:10/03/2024 2:47pm Pat. NO: [id number] MD:HAM GUERRA [facility] Douglas RDMS :2005Age:19 ----- INDICATION ----- Screening Follow-Up Maternal Obesity (BMI<40) Complicating CODING ----- Diagnoses Z3A.29: Weeks of gestation O99.213: Obesity complicating Z36.2: Encounter for other screeningfollow-up Procedures 25666: Ultrasound, uterus, real time withimage documentation, follow up, transabdominal approach per fetus HISTORY ----- OB History 1 MATERNAL ASSESSMENT ----- Physical Exam Weight 80 kg. BMI 28.57 kg/m METHOD ----- Transabdominal ultrasound examination ----- Toth . Number of fetuses: 1 DATING ----- GA by prior [id number] w + 0 d BILL by prior assessment:12/19/2024 Ultrasound examination on:10/03/2024 GA by U/S based upon:AC, BPD, EFW, Femur, HC GA by U/S28 w + 6 d BILL by U/S:12/20/2024 Method of dating:Restore dating from previous exam Assigned:based on stated BILL, selected on 08/03/2024 Assigned GA29 w + 0 d Assigned BILL:12/19/2024 BIOMETRY ----- BPD 70.3 mm 28w 2d16% Hadlock OFD 93.3 mm 30w 1d78% Jose HC 262.0 mm 28w 4d9% Hadlock Cerebellum tr 33.2 mm 29w 4d42% Bowers AC 250.7 mm 29w 2d52% Hadlock Femur 56.3 mm 29w 4d52% Hadlock HC / AC 1.05 27%Nicolaides Weight Calculation: EFW 1,357 g 28w 6d45% Hadlock EFW (lb,oz) 3 lb 0 oz EFW by Hadlock ([id number]) Head / Face / Neck Biometry: Restorative Rehab Aide 5.9 mm CM 5.4 mm 13%Nicolaides Extremities / Bony Struc Biometry: FL / BPD 0.80 FL / HC 0.21 FL / AC 0.22 GENERAL EVALUATION ----- Cardiac activity present. FHR 150 bpm. movements: present.Presentation: cephalic Placenta: Placental site: posterior Umbilical cord: Cord vessels: 3 vessel cord. Insertion site: placentalinsertion: normal Amniotic fluid: Amount of AF: normal amount. MVP 6.2 cm. CODY 15.5 cm. Q16.2 cm, Q2 2.4 cm, Q3 3.5 cm, Q4 3.4 cm ANATOMY ----- The following structures appear normal: Head / Neck Cranium. Lateral ventricles. Choroid plexus.Midline falx. Cavum septi pellucidi. Cerebellum. Cisterna magna. Heart / Thorax 4-chamber view. LVOT view. Diaphragm. Abdomen Stomach. Kidneys. Bladder. GROWTH OVERVIEW ----- Exam date GA BPD (mm) HC (mm) AC (mm) FL(mm) HL (mm) EFW (g) 08/03/2024 20w 2d 44.7 19% 170.7 17% 144.5 27%33.7 52% 32.9 80% 331 34% 08/31/2024 24w 2d 55.9 8% 212.0 6% 194.4 36%45.7 65% 689 44% 10/03/2024 29w 0d 70.3 16% 262.0 9% 250.7 52%56.3 52% 1,357 45% COMMENT ----- Patient's name and date of were verified by the horse breaker prior tothe exam IMPRESSION ----- IUP at 29w 0d cephalic presentation AGA growth pattern, EFW 1357 g (45%) with appropriate interval growth Normal amniotic fluid volume, CODY 15.5 cm, MVP 6.2 cm The remaining images from the anatomic survey are completed today withnormal appearance of 4ch and LVOT. Anatomy is now complete. Recommendations: - Follow up as clinically indicated us Ham Guerra MD US ORDERABLES Final Result * US OB DETAIL SINGLE GEST (08/03/2024 4:00 PM CDT) Anatomical Region Laterality Modality Pelvis Ultrasound 08/03/2024 2:50 PM CDT Narrative 08/03/2024 4:03 PM CDT STL COMP ----- Pat. Name: ARIS STEPHENS Study Date: 08/03/2024 2:50pm Pat. NO: [id number] Referring MD: HAM GUERRA MD Site: [facility] Glass Vial Filler: Rach Alicia RDMS : 2005 Age: 18 ----- INDICATION ----- Anatomy Survey Maternal Obesity (BMI<40) Complicating CODING ----- Diagnoses Z3A.20: Weeks of gestation O99.212: Obesity complicating Z36.3: Encounter for screening for malformations Procedures 04055: Ultrasound, uterus, real time with image documentation, [...] 0 lb 12 oz EFW by Hadlock ([id number]) Head / Face / Neck Biometry: Restorative Rehab Aide 6.5 mm CM 4.6 mm 35% Nicolaides [...] Heart / Thorax RVOT view. 3-vessel view. 6-lorpry-ykgshhe view. Situs. Aortic arch view. Ductal arch [...] and date of were verified by the horse breaker before the exam IMPRESSION ----- 1. Single [...] Pat. Name:Moshe STEPHENS Date:08/03/2024 2:50pm Pat. NO: [id number] :HAM GUERRA MD [facility] Alicia RDMS :2005Age:18 ----- INDICATION ----- Anatomy Survey Maternal Obesity (BMI<40) Complicating CODING ----- Diagnoses Z3A.20: Weeks of gestation O99.212: Obesity complicating Z36.3: Encounter for screening formalformations Procedures 33020: Ultrasound, uterus, real time withimage documentation, and maternal evaluation plus detailed anatomic examination,transabdominal approach HISTORY ----- OB History 1 MATERNAL ASSESSMENT ----- Physical Exam Weight 97 kg. BMI 34.54 kg/m METHOD ----- Transabdominal ultrasound examination ----- Toth . Number of fetuses: 1 DATING ----- Method of dating:based on stated BILL GA by prior [id number] w + 2 d BILL by prior [...] 0 lb 12 oz EFW by Hadlock ([id number]) Head / Face / Neck Biometry: Restorative Rehab Aide 6.5 mm CM 4.6 mm 35%Nicolaides Inner [...] Heart / Thorax RVOT view. 3-vessel view. 9-brvcfq-hhsnomo view.Situs. Aortic arch view. Ductal arch view. [...] and date of were verified by the horse breaker beforethe exam IMPRESSION ----- 1. Single living [...] 4 weeks to complete the anatomic survey.Recommend [facility] US for persistent suboptimal visualization on follow-up. - Recommend interval third trimester growth and anatomy at 32weeks. Thank you for allowing us to participate in the care of this patient. us Ham Guerra MD US ORDERABLES Final Result from Last 3 Months Insurance MEDICAID [place]
--- OUTSIDE RECORDS SUMMARY | 2024-10-11 00:47 | XMS_ITS | Encounter Summary ---
Author Organization [facility] Address [address] [place], [place] [address] [place] [address] Care Team Providers Care Cleat Blanker Name Role Phone Severino Zelaya Primary Care Provider Unavailabl e Reason for Visit * Reason Comments Refill Request Encounter Details Date Type Department Care Team (Late st Contact Info) Description 04/22/2021 Refill [facility] [address] 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
--- OUTSIDE RECORDS SUMMARY | 2024-10-11 00:47 | XMS_ITS | Encounter Summary ---
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
[2024-10-11 01:14] LABS: Basophils Percent Auto 0.2 % (0.2-1.2); Eosinophils Absolute Auto 0.1 K/mm3 (0-0.3); Eosinophils Percent Auto 0.8 % (0-4.4); Hematocrit 30.4 % (37.0-47.0); Hemoglobin 10.2 g/dL (12.0-15.0); Immature Granulocyte Absolute 0.08 K/mm3 (0.00-0.031); Immature Granulocyte Percent A 0.6 % (0-0.5); Lymphocytes Absolute Auto 2.92 K/mm3 (0.9-3.2); Lymphocytes Percent Auto 22.6 % (18.3-44.2); Mean Corpuscular HGB Conc 33.6 g/dl (32-36); Mean Corpuscular Hemoglobin 30.2 pg (26-34); Mean Corpuscular Volume 89.9 fl (80-100); Mean Platelet Volume 9.4 fl (7.4-10.4); Monocytes Absolute Auto 0.8 K/mm3 (0.1-0.6); Neutrophils Percent Auto 69.8 % (45.5-73.1); Platelet Count Result 265 k/mm3 (150-375); Red Blood Count 3.38 M/mm3 (4.2-5.4); Red Cell Distribution Width 13.5 % (11.5-14.5); White Blood Count 12.9 K/mm3 (4.5-10.0)
[2024-10-11 01:30] LABS: Alanine Aminotransferase 12 U/L (6-35); Albumin Level 3.1 g/dL (3.5-5.1); Alkaline Phosphatase 87 U/L (38-126); Anion Gap 5 mmol/L (4-12); Aspartate Amino Transferase 23 U/L (14-36); Bilirubin,Total 0.2 mg/dL (0.2-1.3); Blood Urea Nitrogen 9 mg/dL (7-17); Calcium 9.3 mg/dL (8.4-10.2); Carbon Dioxide 24 mmol/L (22-30); Chloride 106 mmol/L (98-107); Estimated Glomerular Filt Rate > 60; Glucose 98 mg/dL (65-110); Potassium 3.7 mmol/L (3.4-5.0); Sodium 135 mmol/L (137-145); Uric Acid 5.5 mg/dL (2.5-7.5)
[2024-10-11 01:31] LABS: Total Protein Urine Random 12 mg/dL
--- NOTE | 2024-10-11 01:48 | PC.NURSE ---
RN called MD and reported pts arrival to unit with complaints of BLAND and elevated blood pressures at home not relieved by 500mg of Tylenol. RN reported blood pressures since arrival to unit as well all labs that had resulted at the time of the phone call. RN reported pts denial of visual disturbances, RUQ pain, nausea and vomiting. RN reported FHT's and contraction pattern. RN reported 1+ bilateral pitting edema in legs as well as 2 beats clonus. RN reported pt is compliant with current rx of Labetolol 200mg BID PO with the last dose being taken at 2130 the night of 10/10. Orders received to keep pts for observation overnight, perform q30 min blood pressures, NST qshift and administer another 500mg of Tylenol PO.
[2024-10-11] MEDS: ACETAMINOPHEN 500 MG TABLET PO (02:05)
[2024-10-11 02:11] LABS: Creatinine Urine 73.7 mg/dL; Ur Ttl Prot Creatinine Ratio 0.16 mg/mg (0-0.20)
--- NOTE | 2024-10-11 02:24 | PC.NURSE ---
Addendum entered by Eliz Troncoso RN 10/11/24 02:35: Phone call to MD at 0148 Original Note: RN called MD and reported pts arrival to unit with complaints of BLAND and elevated blood pressures at home not relieved by 500mg of Tylenol. RN reported blood pressures since arrival to unit as well all labs that had resulted at the time of the phone call. RN reported pts denial of visual disturbances, RUQ pain, nausea and vomiting. RN reported 1+ bilateral pitting edema in legs as well as 2 beats clonus. RN reported pt is compliant with current rx of Labetolol 200mg BID PO with the last dose being taken at 2130 the night of 10/10. Orders received to keep pts for observation overnight, perform q30 min blood pressures, NST qshift and administer another 500mg of Tylenol PO.
--- NOTE | 2024-10-11 03:00 | OBADM ---
This patient, Aris Stephens, admitted to the OB room OB Post 117 for observation. Patient/family oriented to hospital policies and general routines including ID bracelet, bed and alarms, visiting hours, pain management, procedures, bathroom and other care routines, personal items, smoking policy, room service/diet, and visiting hours. Patient/Family are encouraged to report perceived risks to care and to ask questions if they do not understand what they are told or what they should do.
--- NOTE | 2024-10-11 07:44 | PC.NURSE ---
0700--Pt. asleep on R. side, RR even and unlabored, lights off at this time.
--- NOTE | 2024-10-11 08:39 | PC.NURSE ---
Dr. Tolbert at BS to see pt. POC reviewed with pt., orders received for IM celestone, PO labetalol 200mg, then DC home with instructions to not return to work until further notice.
[2024-10-11] MEDS: LABETALOL HCL 100 MG TABLET 200 MG PO (09:01)
[2024-10-11] MEDS: BETAMETHASONE SOD PHOS/ACETATE 30 MG/5 ML VIAL 12 MG IM (09:04)
[2024-10-12 13:01] VITALS: BP 119/70; PULSE 100
--- OUTSIDE RECORDS SUMMARY | 2024-10-12 13:04 | XMS_ITS | Clinical Summary ---
Author Organization [facility] Address [address] [place] [address] Phone Care Team Providers Care Patient Svcs Mgr Name Role Phone Unavailable Primary Care Provider Unavailabl e Encounters Date Type Department Care Team Description 10/10/2024 External Device Data STL ABSTRACTION Provider, Abstract 10/05/2024 External Device Data STL ABSTRACTION Provider, Abstract 10/04/2024 External Device Data STL ABSTRACTION Provider, Abstract 10/03/2024 3:16 PM CDT - 10/03/2024 11:59 PM CDT Hospital Encounter [address] [phone] Ham Guerra MD Discharge Disposition: Home or Self Care 10/03/2024 External Device Data STL ABSTRACTION Provider, Abstract 08/31/2024 2:15 PM CDT - 08/31/2024 11:59 PM CDT Hospital Encounter [facility] [place] [address] [place] [phone] Maged Ambriz MD Discharge Disposition: Home or Self Care 08/29/2024 External Device Data STL ABSTRACTION Provider, Abstract 08/08/2024 External Device Data STL ABSTRACTION Provider, Abstract 08/08/2024 External Device Data STL ABSTRACTION Provider, Abstract 08/08/2024 External Device Data STL ABSTRACTION Provider, Abstract 08/03/2024 2:30 PM CDT - 08/03/2024 11:59 PM CDT Hospital Encounter 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 NO: [id number] Referring MD: HAM GUERRA MD Site: [facility] Construction Job Titles: Saundra Douglas RDMS : 2005 Age: 19 ----- INDICATION ----- Screening Follow-Up Maternal Obesity (BMI<40) Complicating CODING ----- Diagnoses Z3A.29: Weeks of gestation O99.213: Obesity complicating Z36.2: Encounter for other screening follow-up Procedures 61154: Ultrasound, uterus, real time with image documentation, [...] 3 lb 0 oz EFW by Hadlock ([id number]) Head / Face / Neck Biometry: Financial Foundations Associate 5.9 mm CM 5.4 mm 13% Nicolaides [...] and date of were verified by the tube man prior to the exam IMPRESSION ----- IUP [...] Pat. Name:Moshe STEPHENS Date:10/03/2024 2:47pm Pat. NO: [id number] MD:HAM GUERRA MD [facility] RDMS :2005Age:19 ----- INDICATION ----- Screening Follow-Up Maternal Obesity (BMI<40) Complicating CODING ----- Diagnoses Z3A.29: Weeks of gestation O99.213: Obesity complicating Z36.2: Encounter for other screeningfollow-up Procedures 17255: Ultrasound, uterus, real time withimage documentation, follow up, transabdominal approach per fetus HISTORY ----- OB History 1 MATERNAL ASSESSMENT ----- Physical Exam Weight 80 kg. BMI 28.57 kg/m METHOD ----- Transabdominal ultrasound examination ----- Toth . Number of fetuses: 1 DATING ----- GA by prior [id number] w + 0 d BILL by prior [...] 3 lb 0 oz EFW by Hadlock ([id number]) Head / Face / Neck Biometry: Financial Foundations Associate 5.9 mm CM 5.4 mm 13%Nicolaides Extremities [...] and date of were verified by the tube man prior tothe exam IMPRESSION ----- IUP at [...] STEPHENS Study Date: 08/03/2024 2:50pm Pat. NO: [id number] Referring MD: HAM GUERRA MD Site: [place] [employer] Job Titles: Rach Alicia RDMS : 2005 Age: 18 ----- INDICATION ----- Anatomy Survey Maternal Obesity (BMI<40) Complicating CODING ----- Diagnoses Z3A.20: Weeks of gestation O99.212: Obesity complicating Z36.3: Encounter for screening for malformations Procedures 01030: Ultrasound, uterus, real time with image documentation, [...] 0 lb 12 oz EFW by Hadlock ([id number]) Head / Face / Neck Biometry: Financial Foundations Associate 6.5 mm CM 4.6 mm 35% Nicolaides [...] Heart / Thorax RVOT view. 3-vessel view. 0-xzodpa-sjarure view. Situs. Aortic arch view. Ductal arch [...] and date of were verified by the tube man before the exam IMPRESSION ----- 1. Single [...] Pat. Name:Moshe STEPHENS Date:08/03/2024 2:50pm Pat. NO: [id number] :HAM GUERRA MD [facility] Alic[facility] RD[facility] :2005Age:18 ----- INDICATION ----- Anatomy Survey Maternal Obesity (BMI<40) Complicating CODING ----- Diagnoses Z3A.20: Weeks of gestation O99.212: Obesity complicating Z36.3: Encounter for screening formalformations Procedures 63661: Ultrasound, uterus, real time withimage documentation, and maternal evaluation plus detailed anatomic examination,transabdominal approach HISTORY ----- OB History 1 MATERNAL ASSESSMENT ----- Physical Exam Weight 97 kg. BMI 34.54 kg/m METHOD ----- Transabdominal ultrasound examination ----- Toth . Number of fetuses: 1 DATING ----- Method of dating:based on stated BILL GA by prior [id number] w + 2 d BILL by prior [...] 0 lb 12 oz EFW by Hadlock ([id number]) Head / Face / Neck Biometry: Financial Foundations Associate 6.5 mm CM 4.6 mm 35%Nicolaides Inner [...] Heart / Thorax RVOT view. 3-vessel view. 0-jtwfvt-qcayzls view.Situs. Aortic arch view. Ductal arch view. [...] and date of were verified by the tube man beforethe exam IMPRESSION ----- 1. Single living [...] 4 weeks to complete the anatomic survey.Recommend [facility] for persistent suboptimal visualization on follow-up. - Recommend interval third trimester growth and anatomy at 32weeks. Thank you for allowing us to participate in the care of this patient. us Ham Guerra MD US ORDERABLES Final Result from Last 3 Months Insurance MEDICAID [place]
--- NOTE | 2024-10-13 11:52 | PM.OBTRLD ---
OB - Triage/Final Diagnosis Visit Information Comments/Additional reasons for admission: I have assessed the risk for this patient, Aris Stephens, and determined that she would benefit from observation care. Evaluation Laboratory results: Laboratory Tests 10/11/24 01:04 WBC 12.9 H RBC 3.38 L Hgb 10.2 L Hct 30.4 L MCV 89.9 MCH 30.2 MCHC 33.6 RDW 13.5 Plt Count 265 MPV 9.4 Immature Gran % (Auto) 0.6 H Neut % (Auto) 69.8 Lymph % (Auto) 22.6 [place] % (Auto) 6.0 Eos % (Auto) 0.8 Baso % (Auto) 0.2 Lymph # (Auto) 2.92 [place] # (Auto) 0.8 H Eos # (Auto) 0.1 Baso # (Auto) 0.0 Abs Immat Gran (auto) 0.08 H Absolute Neuts (auto) 9.0 H Absolute Nucleated RBC 0.000 Nucleated RBC % 0.0 Sodium 135 L Potassium 3.7 Chloride 106 Carbon Dioxide 24 Anion Gap 5 BUN 9 Creatinine 0.47 L Estim Creat Clear Calc Not Reportable Estimated GFR > 60 Glucose 98 Uric Acid 5.5 Calcium 9.3 Total Bilirubin 0.2 AST 23 ALT 12 Alkaline Phosphatase 87 Total Protein 6.0 L Albumin 3.1 L U Random Total Protein 12 Urine Creatinine 73.7 Protein/Creat Ratio 2 0.16 Vital signs: Vital Signs - 24 hr 10/12/24 13:01 Pulse Rate 100 Blood Pressure 119/70 Final Diagnosis (1) Gestational hypertension: Code(s): O13.9 - Gestational [-induced] hypertension without significant proteinuria, unspecified trimester Status: Acute
== END 2024-10-11 09:15 | disposition home or self-care (01) ==
LOC: ANHOBPP 08:48 → ANHOBOP 10-12 13:01 → ANHOBPP 10-12 13:02
PROVIDERS: Obstetrics & Gynecology; Admitting Provider Obstetrics & Gynecology; Visit Provider Obstetrics & Gynecology
DX: O13.9 Gestational [pregnancy-induced] hypertension without significant proteinuria, unspecified trimester (principal); Z3A.00 Weeks of gestation of pregnancy not specified
CPT/HCPCS: 36415; 59025; 80053; 82570; 84156; 84550; 85025; 96372; 99199; A9270; G0378; G0379; J0702

== ENCOUNTER 2024-10-12 08:55 | Outpatient (CLI) | payer MEDICAID, SELFPAY ==
[2024-10-12] MEDS: BETAMETHASONE SOD PHOS/ACETATE 30 MG/5 ML VIAL 12 MG IM (09:05)
--- OUTSIDE RECORDS SUMMARY | 2024-10-12 09:06 | XMS_ITS | Encounter Summary ---
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
--- OUTSIDE RECORDS SUMMARY | 2024-10-12 09:06 | XMS_ITS | Encounter Summary ---
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
--- OUTSIDE RECORDS SUMMARY | 2024-10-12 09:06 | XMS_ITS | Clinical Summary ---
Author Organization [facility] Address [address] [place] [address] Phone Care Team Providers Care Engravings Polisher Name Role Phone Unavailable Primary Care Provider Unavailabl e Encounters Date Type Department Care Team Description 10/10/2024 External Device Data STL ABSTRACTION Provider, Abstract 10/05/2024 External Device Data ST[facility] ABSTRACTION Provider, Abstract 10/04/2024 External Device Data ST[facility] ABSTRACTION Provider, Abstract 10/03/2024 3:16 PM CDT - 10/03/2024 11:59 PM CDT Hospital Encounter [address] [phone] Ham Guerra MD Discharge Disposition: Home or Self Care 10/03/2024 External Device Data STL ABSTRACTION Provider, Abstract 08/31/2024 2:15 PM CDT - 08/31/2024 11:59 PM CDT Hospital Encounter [facility] [place] [address] [place] [phone] Maged Ambriz MD Discharge Disposition: Home or Self Care 08/29/2024 External Device Data ST[facility] ABSTRACTION Provider, Abstract 08/08/2024 External Device Data [facility] ABSTRACTION Provider, Abstract 08/08/2024 External Device Data [facility] ABSTRACTION Provider, Abstract 08/08/2024 External Device Data [facility] ABSTRACTION Provider, Abstract 08/03/2024 2:30 PM CDT - 08/03/2024 11:59 PM CDT Hospital Encounter [facility] [place] [address] [place] [phone] Ham Guerra MD Discharge Disposition: Home or Self Care from Last 3 Months Social History Tobacco Use Types Packs/Day Years Used Date Smoking Tobacco: Never Assessed Comments Unknown Sex and Gender Information Value Date Recorded Sex Assigned at Not on file 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 NO: [id number] Referring MD: HAM GUERRA MD Site: [facility] Bindery Machine Feeder Offbearer: Saundra Douglas RDMS : 2005 Age: 19 ----- INDICATION ----- Screening Follow-Up Maternal Obesity (BMI<40) Complicating CODING ----- Diagnoses Z3A.29: Weeks of gestation O99.213: Obesity complicating Z36.2: Encounter for other screening follow-up Procedures 46245: Ultrasound, uterus, real time with image documentation, [...] 3 lb 0 oz EFW by Hadlock ([id number]) Head / Face / Neck Biometry: Eating Disorder Psychologist 5.9 mm CM 5.4 mm 13% Nicolaides [...] and date of were verified by the lock fitter prior to the exam IMPRESSION ----- IUP [...] Pat. Name:Moshe STEPHENS Date:10/03/2024 2:47pm Pat. NO: [id number] MD:HAM GUERRA MD [facility]:Saundra Douglas RDMS :2005Age:19 ----- INDICATION ----- Screening Follow-Up Maternal Obesity (BMI<40) Complicating CODING ----- Diagnoses Z3A.29: Weeks of gestation O99.213: Obesity complicating Z36.2: Encounter for other screeningfollow-up Procedures 86810: Ultrasound, uterus, real time withimage documentation, follow up, transabdominal approach per fetus HISTORY ----- OB History 1 MATERNAL ASSESSMENT ----- Physical Exam Weight 80 kg. BMI 28.57 kg/m METHOD ----- Transabdominal ultrasound examination ----- Toth . Number of fetuses: 1 DATING ----- GA by prior [id number] w + 0 d BILL by prior [...] 3 lb 0 oz EFW by Hadlock ([id number]) Head / Face / Neck Biometry: Eating Disorder Psychologist 5.9 mm CM 5.4 mm 13%Nicolaides Extremities [...] and date of were verified by the lock fitter prior tothe exam IMPRESSION ----- IUP at [...] STEPHENS Study Date: 08/03/2024 2:50pm Pat. NO: [id number] Referring MD: HAM GUERRA MD Site: [facility] Machine Feeder Offbearer: Rach Alicia RDMS : 2005 Age: 18 ----- INDICATION ----- Anatomy Survey Maternal Obesity (BMI<40) Complicating CODING ----- Diagnoses Z3A.20: Weeks of gestation O99.212: Obesity complicating Z36.3: Encounter for screening for malformations Procedures 86620: Ultrasound, uterus, real time with image documentation, [...] 0 lb 12 oz EFW by Hadlock ([id number]) Head / Face / Neck Biometry: Eating Disorder Psychologist 6.5 mm CM 4.6 mm 35% Nicolaides [...] Heart / Thorax RVOT view. 3-vessel view. 0-syslnn-egmlbxe view. Situs. Aortic arch view. Ductal arch [...] and date of were verified by the lock fitter before the exam IMPRESSION ----- 1. Single [...] Pat. Name:Moshe STEPHENS Date:08/03/2024 2:50pm Pat. NO: [id number] :HAM GUERRA MD [place]:Rach Alicia RDMS :2005Age:18 ----- INDICATION ----- Anatomy Survey Maternal Obesity (BMI<40) Complicating CODING ----- Diagnoses Z3A.20: Weeks of gestation O99.212: Obesity complicating Z36.3: Encounter for screening formalformations Procedures 36942: Ultrasound, uterus, real time withimage documentation, and maternal evaluation plus detailed anatomic examination,transabdominal approach HISTORY ----- OB History 1 MATERNAL ASSESSMENT ----- Physical Exam Weight 97 kg. BMI 34.54 kg/m METHOD ----- Transabdominal ultrasound examination ----- Toth . Number of fetuses: 1 DATING ----- Method of dating:based on stated BILL GA by prior [id number] w + 2 d BILL by prior [...] 0 lb 12 oz EFW by Hadlock ([id number]) Head / Face / Neck Biometry: Eating Disorder Psychologist 6.5 mm CM 4.6 mm 35%Nicolaides Inner [...] Heart / Thorax RVOT view. 3-vessel view. 3-bshbyd-jjdmnfa view.Situs. Aortic arch view. Ductal arch view. [...] and date of were verified by the lock fitter beforethe exam IMPRESSION ----- 1. Single living [...] 4 weeks to complete the anatomic survey.Recommend [facility] for persistent suboptimal visualization on follow-up. - Recommend interval third trimester growth and anatomy at 32weeks. Thank you for allowing us to participate in the care of this patient. us Ham Guerra MD US ORDERABLES Final Result from Last 3 Months [place] [address]
--- OUTSIDE RECORDS SUMMARY | 2024-10-12 09:06 | XMS_ITS | Clinical Summary ---
Author Organization [facility] Address [address] [facility] [place] [address] Care Team Providers Care Manufacturing Systems Engineer Name Role Phone Severino Zelaya Primary Care Provider Unavailsushil e Source Comments [facility],non-owned Affiliates and Associated Physician Practices is amultiple site organization consisting of ambulatory clinics and hospital sitesin [place], [place], [place] and [place]. This disclosure is being madepursuant to the Care Everywhere program and may not contain all information available regarding this patient. Last updated 18.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
== END 2024-10-12 08:56 | disposition home or self-care (01) ==
LOC: ANHOBOP 08:59
PROVIDERS: Visit Provider Obstetrics & Gynecology
DX: O13.9 Gestational [pregnancy-induced] hypertension without significant proteinuria, unspecified trimester (principal); Z3A.00 Weeks of gestation of pregnancy not specified
CPT/HCPCS: 96372; J0702

== ENCOUNTER 2024-10-16 22:38 | Outpatient (CLI) | payer MEDICAID, SELFPAY ==
[2024-10-16] VITALS (15 sets, daily range): BP systolic 142–143; BP diastolic 80; PULSE 71–92; TEMP 36.9; O2SAT 97–100; BMI 39.4
--- NOTE | 2024-10-16 22:38 | PC.NURSE ---
Pt arrives to unit from home with blurred vision and headache.
--- OUTSIDE RECORDS SUMMARY | 2024-10-16 22:44 | XMS_ITS | Encounter Summary ---
Author Organization [facility] Address [address] [place], [place] [address] [address] Care Team Providers Care Toolroom Attendant Name Role Phone Severino Zelaya Primary Care Provider Unavailabl e Reason for Visit * Reason Comments Refill Request Encounter Details Date Type Department Care Team (Late st Contact Info) Description 04/22/2021 Refill [facility] [address] 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
--- OUTSIDE RECORDS SUMMARY | 2024-10-16 22:44 | XMS_ITS | Clinical Summary ---
Author Organization [facility] Address [address] [place] [address] Phone Care Team Providers Care Plastic Mixer Name Role Phone Unavailable Primary Care Provider Unavailabl e Encounters Date Type Department Care Team Description 10/10/2024 External Device Data STL ABSTRACTION Provider, Abstract 10/05/2024 External Device Data STL ABSTRACTION Provider, Abstract 10/04/2024 External Device Data STL ABSTRACTION Provider, Abstract 10/03/2024 3:16 PM CDT - 10/03/2024 11:59 PM CDT Hospital Encounter [address] [phone] Ham Guerra MD Discharge Disposition: Home or Self Care 10/03/2024 External Device Data STL ABSTRACTION Provider, Abstract 08/31/2024 2:15 PM CDT - 08/31/2024 11:59 PM CDT Hospital Encounter [facility] [address] [place] [phone] Maged Ambriz MD Discharge Disposition: Home or Self Care 08/29/2024 External Device Data STL ABSTRACTION Provider, Abstract 08/08/2024 External Device Data STL ABSTRACTION Provider, Abstract 08/08/2024 External Device Data STL ABSTRACTION Provider, Abstract 08/08/2024 External Device Data STL ABSTRACTION Provider, Abstract 08/03/2024 2:30 PM CDT - 08/03/2024 11:59 PM CDT Hospital Encounter [facility] [address] [place] [phone] Ham Guerra MD Discharge Disposition: Home or Self Care from Last 3 Months Social History Tobacco Use Types Packs/Day Years Used Date Smoking Tobacco: Never Assessed Comments Unknown Sex and Gender Information Value Date Recorded Sex Assigned at Not on file 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 NO: [id number] Referring MD: HAM GUERRA MD Site: [facility] Ediphone Operator: Saundra Douglas RDMS : 2005 Age: 19 ----- INDICATION ----- Screening Follow-Up Maternal Obesity (BMI<40) Complicating CODING ----- Diagnoses Z3A.29: Weeks of gestation O99.213: Obesity complicating Z36.2: Encounter for other screening follow-up Procedures [id number]: Ultrasound, uterus, real time with image documentation, [...] 3 lb 0 oz EFW by Hadlock ([id number]) Head / Face / Neck Biometry: Guest Services Director 5.9 mm CM 5.4 mm 13% Nicolaides [...] and date of were verified by the plumbing engineer prior to the exam IMPRESSION ----- IUP [...] Pat. Name:Moshe STEPHENS Date:10/03/2024 2:47pm Pat. NO: [id number] MD:HAM GUERRA [facility] RD[facility] :2005Age:19 ----- INDICATION ----- Screening Follow-Up Maternal Obesity (BMI<40) Complicating CODING ----- Diagnoses Z3A.29: Weeks of gestation O99.213: Obesity complicating Z36.2: Encounter for other screeningfollow-up Procedures 54132: Ultrasound, uterus, real time withimage documentation, follow up, transabdominal approach per fetus HISTORY ----- OB History 1 MATERNAL ASSESSMENT ----- Physical Exam Weight 80 kg. BMI 28.57 kg/m METHOD ----- Transabdominal ultrasound examination ----- Toth . Number of fetuses: 1 DATING ----- GA by prior [id number] w + 0 d BILL by prior [...] 3 lb 0 oz EFW by Hadlock ([id number]) Head / Face / Neck Biometry: Guest Services Director 5.9 mm CM 5.4 mm 13%Nicolaides Extremities [...] and date of were verified by the plumbing engineer prior tothe exam IMPRESSION ----- IUP at [...] STEPHENS Study Date: 08/03/2024 2:50pm Pat. NO: [id number] Referring MD: HAM GUERRA MD Site: [facility] Ediphone Operator: Rach Alicia RDMS : 2005 Age: 18 ----- INDICATION ----- Anatomy Survey Maternal Obesity (BMI<40) Complicating CODING ----- Diagnoses Z3A.20: Weeks of gestation O99.212: Obesity complicating Z36.3: Encounter for screening for malformations Procedures 22881: Ultrasound, uterus, real time with image documentation, [...] 0 lb 12 oz EFW by Hadlock ([id number]) Head / Face / Neck Biometry: Guest Services Director 6.5 mm CM 4.6 mm 35% Nicolaides [...] Heart / Thorax RVOT view. 3-vessel view. 3-feiivj-cghlpja view. Situs. Aortic arch view. Ductal arch [...] and date of were verified by the plumbing engineer before the exam IMPRESSION ----- 1. Single [...] Pat. Name:Moshe STEPHENS Date:08/03/2024 2:50pm Pat. NO: [id number] :HAM GUERRA MD [facility]Rach Alicia RDMS :2005Age:18 ----- INDICATION ----- Anatomy Survey Maternal Obesity (BMI<40) Complicating CODING ----- Diagnoses Z3A.20: Weeks of gestation O99.212: Obesity complicating Z36.3: Encounter for screening formalformations Procedures 25023: Ultrasound, uterus, real time withimage documentation, and maternal evaluation plus detailed anatomic examination,transabdominal approach HISTORY ----- OB History 1 MATERNAL ASSESSMENT ----- Physical Exam Weight 97 kg. BMI 34.54 kg/m METHOD ----- Transabdominal ultrasound examination ----- Toth . Number of fetuses: 1 DATING ----- Method of dating:based on stated BILL GA by prior [id number] w + 2 d BILL by prior [...] 0 lb 12 oz EFW by Hadlock ([id number]-FL) Head / Face / Neck Biometry: Guest Services Director 6.5 mm CM 4.6 mm 35%Nicolaides Inner [...] Heart / Thorax RVOT view. 3-vessel view. 1-lmesal-ohjbtiv view.Situs. Aortic arch view. Ductal arch view. [...] and date of were verified by the plumbing engineer beforethe exam IMPRESSION ----- 1. Single living [...] 4 weeks to complete the anatomic survey.Recommend [facility] US for persistent suboptimal visualization on follow-up. - Recommend interval third trimester growth and anatomy at 32weeks. Thank you for allowing us to participate in the care of this patient. us Ham Guerra MD US ORDERABLES Final Result from Last 3 Months Insurance [place] [address]
--- OUTSIDE RECORDS SUMMARY | 2024-10-16 22:44 | XMS_ITS | Encounter Summary ---
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
--- OUTSIDE RECORDS SUMMARY | 2024-10-16 22:45 | XMS_ITS | Clinical Summary ---
Author Organization [facility] Address [address] [facility] [place] [address] Care Team Providers Care Supervisor Harvesting Name Role Phone Severino Zelaya Primary Care Provider Unavailsushil e Source Comments [facility],non-owned Affiliates and Associated Physician Practices is amultiple site organization consisting of ambulatory clinics and hospital sitesin [place], [place], [place] and [place]. This disclosure is being madepursuant to the Care Everywhere program and may not contain all information available regarding this patient. 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
--- NOTE | 2024-10-16 23:40 | PC.NURSE ---
Called Dr. Lynne, update on pt, blurred vision, headache 5 out of 10, blood pressure, and labs. Orders received to discharge pt with instructions to take Tylenol 1000 mg every 6 hours as needed for headache, pepcid for heartburn, keep next scheduled appointment, and when to return to the unit.
[2024-10-16 23:46] LABS: Basophils Percent Auto 0.1 % (0.2-1.2); Eosinophils Absolute Auto 0.1 K/mm3 (0-0.3); Eosinophils Percent Auto 0.3 % (0-4.4); Hematocrit 30.2 % (37.0-47.0); Hemoglobin 10.1 g/dL (12.0-15.0); Immature Granulocyte Absolute 0.06 K/mm3 (0.00-0.031); Immature Granulocyte Percent A 0.4 % (0-0.5); Lymphocytes Absolute Auto 3.26 K/mm3 (0.9-3.2); Lymphocytes Percent Auto 21.6 % (18.3-44.2); Mean Corpuscular HGB Conc 33.4 g/dl (32-36); Mean Corpuscular Volume 89.6 fl (80-100); Mean Platelet Volume 9.8 fl (7.4-10.4); Monocytes Absolute Auto 1.1 K/mm3 (0.1-0.6); Monocytes Percent Auto 7.2 % (2.6-8.5); Neutrophils Absolute Auto 10.6 K/mm3 (1.3-6.7); Neutrophils Percent Auto 70.4 % (45.5-73.1); Platelet Count Result 290 k/mm3 (150-375); Red Blood Count 3.37 M/mm3 (4.2-5.4); Red Cell Distribution Width 13.7 % (11.5-14.5); White Blood Count 15.1 K/mm3 (4.5-10.0)
--- NOTE | 2024-10-16 23:47 | PC.NURSE ---
Pt discharged with instructions to take Tylenol 1000 mg every 6 hours as needed for headache, pepcid for heartburn, keep next scheduled appointment, and when to return to the unit.
[2024-10-16 23:53] LABS: Add Urine Microscopic? YES; Appearance Urine Clear (Clear); Bacteria Urine 1+ /hpf; Bilirubin Urine Negative (Negative); Blood Urine Negative (Negative); Color Urine Yellow (Yellow); Glucose Urine UA Negative (Negative); Ketones Urine Negative (Negative); Leukocyte Esterase Ur 3+ LEU/UL (Negative); Nitrate Urine Negative (Negative); Non Pathogenic Casts 0-2; Protein Urine Negative (Negative); RBC Urine 0-2 /hpf (0-2); Specific Grav Ur 1.016 (1.001-1.035); Squamous Epithelial Cell Urine Few /hpf (Few); Urobilinogen Urine 0.2 mg/dL (<2.0); WBC Urine 21-50 /hpf (0-3)
[2024-10-16 23:59] LABS: Alanine Aminotransferase 14 U/L (6-35); Albumin Level 3.1 g/dL (3.5-5.1); Alkaline Phosphatase 99 U/L (38-126); Anion Gap 7 mmol/L (4-12); Aspartate Amino Transferase 24 U/L (14-36); Bilirubin,Total 0.2 mg/dL (0.2-1.3); Blood Urea Nitrogen 10 mg/dL (7-17); Carbon Dioxide 21 mmol/L (22-30); Chloride 106 mmol/L (98-107); Creatinine Urine 73.2 mg/dL; Estimated CRCL calculation 182 ml/min; Estimated Glomerular Filt Rate > 60; Glucose 100 mg/dL (65-110); Potassium 3.9 mmol/L (3.4-5.0); Sodium 134 mmol/L (137-145); Total Protein Urine Random 10 mg/dL; Ur Ttl Prot Creatinine Ratio 0.14 mg/mg (0-0.20); Uric Acid 5.6 mg/dL (2.5-7.5)
== END 2024-10-16 23:47 | disposition home or self-care (01) ==
LOC: ANHOBOP 22:42 → ANHOBPP 10-26 07:38
PROVIDERS: Obstetrics & Gynecology; Visit Provider Obstetrics & Gynecology
DX: O13.9 Gestational [pregnancy-induced] hypertension without significant proteinuria, unspecified trimester (principal); H53.8 Other visual disturbances; Z3A.00 Weeks of gestation of pregnancy not specified
CPT/HCPCS: 36415; 59025; 80053; 81001; 82570; 84156; 84550; 85025; 87086; 99199

== ENCOUNTER 2024-10-25 08:18 | Outpatient (CLI) | payer MEDICAID, SELFPAY ==
[2024-10-25 12:05] LABS: Total Protein Urine Random 11 mg/dL
--- OUTSIDE RECORDS SUMMARY | 2024-10-25 12:43 | XMS_ITS | Clinical Summary ---
Author Organization [facility] Address [address] [place] [address] Phone Care Team Providers Care Diamond Sander Name Role Phone Unavailable Primary Care Provider Unavailabl e Encounters Date Type Department Care Team Description 10/10/2024 External Device Data STL ABSTRACTION Provider, Abstract 10/05/2024 External Device Data STL ABSTRACTION Provider, Abstract 10/04/2024 External Device Data STL ABSTRACTION Provider, Abstract 10/03/2024 3:16 PM CDT - 10/03/2024 11:59 PM CDT Hospital Encounter [address] [phone] Ham Guerra MD Discharge Disposition: Home or Self Care 10/03/2024 External Device Data STL ABSTRACTION Provider, Abstract 08/31/2024 2:15 PM CDT - 08/31/2024 11:59 PM CDT Hospital Encounter [facility] [address] [place] [phone] Maged Ambriz MD Discharge Disposition: Home or Self Care 08/29/2024 External Device Data STL ABSTRACTION Provider, Abstract 08/08/2024 External Device Data STL ABSTRACTION Provider, Abstract 08/08/2024 External Device Data STL ABSTRACTION Provider, Abstract 08/08/2024 External Device Data STL ABSTRACTION Provider, Abstract 08/03/2024 2:30 PM CDT - 08/03/2024 11:59 PM CDT Hospital Encounter [facility] [address] [place] [phone] Ham Guerra MD Discharge Disposition: Home or Self Care from Last 3 Months Social History Tobacco Use Types Packs/Day Years Used Date Smoking Tobacco: Never Assessed Comments Unknown Sex and Gender Information Value Date Recorded Sex Assigned at Not on file 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 NO: [id number] Referring MD: HAM GUERRA MD Site: [facility] Administrative Assistant: Saundra Douglas RDMS : 2005 Age: 19 ----- INDICATION ----- Screening Follow-Up Maternal Obesity (BMI<40) Complicating CODING ----- Diagnoses Z3A.29: Weeks of gestation O99.213: Obesity complicating Z36.2: Encounter for other screening follow-up Procedures 46642: Ultrasound, uterus, real time with image documentation, [...] 3 lb 0 oz EFW by Hadlock ([id number]) Head / Face / Neck Biometry: Pallet Rectifier 5.9 mm CM 5.4 mm 13% Nicolaides [...] and date of were verified by the hat designer prior to the exam IMPRESSION ----- IUP [...] Pat. Name:Moshe STEPHENS Date:10/03/2024 2:47pm Pat. NO: [id number] MD:HAM GUERRA [facility] RDMS :2005Age:19 ----- INDICATION ----- Screening Follow-Up Maternal Obesity (BMI<40) Complicating CODING ----- Diagnoses Z3A.29: Weeks of gestation O99.213: Obesity complicating Z36.2: Encounter for other screeningfollow-up Procedures 43767: Ultrasound, uterus, real time withimage documentation, follow up, transabdominal approach per fetus HISTORY ----- OB History 1 MATERNAL ASSESSMENT ----- Physical Exam Weight 80 kg. BMI 28.57 kg/m METHOD ----- Transabdominal ultrasound examination ----- Toth . Number of fetuses: 1 DATING ----- GA by prior [id number] w + 0 d BILL by prior [...] 3 lb 0 oz EFW by Hadlock ([id number]) Head / Face / Neck Biometry: Pallet Rectifier 5.9 mm CM 5.4 mm 13%Nicolaides Extremities [...] and date of were verified by the hat designer prior tothe exam IMPRESSION ----- IUP at [...] STEPHENS Study Date: 08/03/2024 2:50pm Pat. NO: [id number] Referring MD: HAM GUERRA MD Site: [facility] Administrative Assistant: Rach Alicia RDMS : 2005 Age: 18 ----- INDICATION ----- Anatomy Survey Maternal Obesity (BMI<40) Complicating CODING ----- Diagnoses Z3A.20: Weeks of gestation O99.212: Obesity complicating Z36.3: Encounter for screening for malformations Procedures 31170: Ultrasound, uterus, real time with image documentation, [...] 0 lb 12 oz EFW by Hadlock ([id number]-FL) Head / Face / Neck Biometry: Pallet Rectifier 6.5 mm CM 4.6 mm 35% Nicolaides [...] Heart / Thorax RVOT view. 3-vessel view. 1-gkdhzl-zmtqfvd view. Situs. Aortic arch view. Ductal arch [...] and date of were verified by the hat designer before the exam IMPRESSION ----- 1. Single [...] Pat. Name:Moshe STEPHENS Date:08/03/2024 2:50pm Pat. NO: [id number] :HAM GUERRA MD [facility]Rach Alicia RDMS :2005Age:18 ----- INDICATION ----- Anatomy Survey Maternal Obesity (BMI<40) Complicating CODING ----- Diagnoses Z3A.20: Weeks of gestation O99.212: Obesity complicating Z36.3: Encounter for screening formalformations Procedures 68491: Ultrasound, uterus, real time withimage documentation, and maternal evaluation plus detailed anatomic examination,transabdominal approach HISTORY ----- OB History 1 MATERNAL ASSESSMENT ----- Physical Exam Weight 97 kg. BMI 34.54 kg/m METHOD ----- Transabdominal ultrasound examination ----- Toth . Number of fetuses: 1 DATING ----- Method of dating:based on stated BILL GA by prior [id number] w + 2 d BILL by prior [...] 0 lb 12 oz EFW by Hadlock ([id number]) Head / Face / Neck Biometry: Pallet Rectifier 6.5 mm CM 4.6 mm 35%Nicolaides Inner [...] Heart / Thorax RVOT view. 3-vessel view. 7-fzpxbb-nndyzly view.Situs. Aortic arch view. Ductal arch view. [...] and date of were verified by the hat designer beforethe exam IMPRESSION ----- 1. Single living [...] 4 weeks to complete the anatomic survey.Recommend [facility] US for persistent suboptimal visualization on follow-up. - Recommend interval third trimester growth and anatomy at 32weeks. Thank you for allowing us to participate in the care of this patient. us Ham Guerra MD US ORDERABLES Final Result from Last 3 Months Insurance MEDICAID [place]
--- OUTSIDE RECORDS SUMMARY | 2024-10-25 12:43 | XMS_ITS | Encounter Summary ---
Author Organization [facility] Address [address] [place], [place] [address] [address] Care Team Providers Care Correctional Supply Supervisor Name Role Phone Severino Zelaya Primary Care Provider Unavailabl e Reason for Visit * Reason Comments Refill Request Encounter Details Date Type Department Care Team (Late st Contact Info) Description 04/22/2021 Refill [facility] [address] [facility], [place] [phone] Marialuisa Gupta DO [address] [place] [address] Refill Request Social History Tobacco [...] on file 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
--- OUTSIDE RECORDS SUMMARY | 2024-10-25 12:44 | XMS_ITS | Encounter Summary ---
Author Organization [facility] Address [address] [place], [place] [address] [address] Care Team Providers Care It Admin Name Role Phone Severino Zelaya Primary Care Provider Onel e Encounter Details Date Type Department Care Team (Late st Contact Info) Description 12/17/2023 Telephone [facility] [address] 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
--- OUTSIDE RECORDS SUMMARY | 2024-10-25 12:44 | XMS_ITS | Clinical Summary ---
Author Organization [facility] Address [address] [place] [address] Care Team Providers Care Headliner Installer Name Role Phone Severino Zelaya Primary Care Provider Unavailsushil e Source Comments [facility],non-owned Affiliates and Associated Physician Practices is amultiple site organization consisting of ambulatory clinics and hospital sitesin [place], [place], [place] and [place]. This disclosure is being madepursuant to the Care Everywhere program and may not contain all information available regarding this patient. Last updated 18.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
[2024-10-25 12:45] LABS: Total Protein Urine 24 Hr 154 mg/24hr (28-141); Total Volume 24 Hour Urine 1400 ml
--- OUTSIDE RECORDS SUMMARY | 2024-10-30 08:13 | XMS_ITS | Encounter Summary ---
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
--- OUTSIDE RECORDS SUMMARY | 2024-10-30 08:13 | XMS_ITS | Clinical Summary ---
Author Organization [facility] Address [address] [place] [address] Phone Care Team Providers Care Lower In Supervisor Name Role Phone Unavailable Primary Care Provider Unavailabl e Encounters Date Type Department Care Team Description 10/10/2024 External Device Data STL ABSTRACTION Provider, Abstract 10/05/2024 External Device Data STL ABSTRACTION Provider, Abstract 10/04/2024 External Device Data STL ABSTRACTION Provider, Abstract 10/03/2024 3:16 PM CDT - 10/03/2024 11:59 PM CDT Hospital Encounter [address] [phone] Ham Guerra MD Discharge Disposition: Home or Self Care 10/03/2024 External Device Data STL ABSTRACTION Provider, Abstract 08/31/2024 2:15 PM CDT - 08/31/2024 11:59 PM CDT Hospital Encounter [facility] [address] [place] [phone] Maged Ambriz MD Discharge Disposition: Home or Self Care 08/29/2024 External Device Data STL ABSTRACTION Provider, Abstract 08/08/2024 External Device Data STL ABSTRACTION Provider, Abstract 08/08/2024 External Device Data STL ABSTRACTION Provider, Abstract 08/08/2024 External Device Data STL ABSTRACTION Provider, Abstract 08/03/2024 2:30 PM CDT - 08/03/2024 11:59 PM CDT Hospital Encounter [facility] [address] [place] [phone] Ham Guerra MD Discharge Disposition: Home or Self Care from Last 3 Months Social History Tobacco Use Types Packs/Day Years Used Date Smoking Tobacco: Never Assessed Comments Unknown Sex and Gender Information Value Date Recorded Sex Assigned at Not on file 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 NO: [id number] Referring MD: HAM GUERRA MD Site: [facility] Packager Hand: Saundra Douglas RDMS : 2005 Age: 19 ----- INDICATION ----- Screening Follow-Up Maternal Obesity (BMI<40) Complicating CODING ----- Diagnoses Z3A.29: Weeks of gestation O99.213: Obesity complicating Z36.2: Encounter for other screening follow-up Procedures 55528: Ultrasound, uterus, real time with image documentation, [...] 3 lb 0 oz EFW by Hadlock ([id number]) Head / Face / Neck Biometry: Track Service Person 5.9 mm CM 5.4 mm 13% Nicolaides [...] and date of were verified by the safety tech prior to the exam IMPRESSION ----- IUP [...] Pat. Name:Moshe STEPHENS Date:10/03/2024 2:47pm Pat. NO: [id number] MD:HAM GUERRA MD [facility] Douglas RDMS :2005Age:19 ----- INDICATION ----- Screening Follow-Up Maternal Obesity (BMI<40) Complicating CODING ----- Diagnoses Z3A.29: Weeks of gestation O99.213: Obesity complicating Z36.2: Encounter for other screeningfollow-up Procedures 84834: Ultrasound, uterus, real time withimage documentation, follow up, transabdominal approach per fetus HISTORY ----- OB History 1 MATERNAL ASSESSMENT ----- Physical Exam Weight 80 kg. BMI 28.57 kg/m METHOD ----- Transabdominal ultrasound examination ----- Toth . Number of fetuses: 1 DATING ----- GA by prior [id number] w + 0 d BILL by prior [...] 3 lb 0 oz EFW by Hadlock ([id number]) Head / Face / Neck Biometry: Track Service Person 5.9 mm CM 5.4 mm 13%Nicolaides Extremities [...] and date of were verified by the safety tech prior tothe exam IMPRESSION ----- IUP at [...] STEPHENS Study Date: 08/03/2024 2:50pm Pat. NO: [id number] Referring MD: HAM GUERRA MD Site: [facility] Hand: Rach Alicia RDMS : 2005 Age: 18 ----- INDICATION ----- Anatomy Survey Maternal Obesity (BMI<40) Complicating CODING ----- Diagnoses Z3A.20: Weeks of gestation O99.212: Obesity complicating Z36.3: Encounter for screening for malformations Procedures 15187: Ultrasound, uterus, real time with image documentation, [...] 0 lb 12 oz EFW by Hadlock ([id number]) Head / Face / Neck Biometry: Track Service Person 6.5 mm CM 4.6 mm 35% Nicolaides [...] Heart / Thorax RVOT view. 3-vessel view. 9-euymvn-tdohpyn view. Situs. Aortic arch view. Ductal arch [...] and date of were verified by the safety tech before the exam IMPRESSION ----- 1. Single [...] Pat. Name:Moshe STEPHENS Date:08/03/2024 2:50pm Pat. NO: [id number] :HAM GUERRA MD [facility] Alicia RD[facility] :2005Age:18 ----- INDICATION ----- Anatomy Survey Maternal Obesity (BMI<40) Complicating CODING ----- Diagnoses Z3A.20: Weeks of gestation O99.212: Obesity complicating Z36.3: Encounter for screening formalformations Procedures 67969: Ultrasound, uterus, real time withimage documentation, and maternal evaluation plus detailed anatomic examination,transabdominal approach HISTORY ----- OB History 1 MATERNAL ASSESSMENT ----- Physical Exam Weight 97 kg. BMI 34.54 kg/m METHOD ----- Transabdominal ultrasound examination ----- Toth . Number of fetuses: 1 DATING ----- Method of dating:based on stated BILL GA by prior [id number] w + 2 d BILL by prior [...] 0 lb 12 oz EFW by Hadlock ([id number]) Head / Face / Neck Biometry: Track Service Person 6.5 mm CM 4.6 mm 35%Nicolaides Inner [...] Heart / Thorax RVOT view. 3-vessel view. 1-xfgxwz-ekapfit view.Situs. Aortic arch view. Ductal arch view. [...] and date of were verified by the safety tech beforethe exam IMPRESSION ----- 1. Single living [...] 4 weeks to complete the anatomic survey.Recommend [facility] for persistent suboptimal visualization on follow-up. - Recommend interval third trimester growth and anatomy at 32weeks. Thank you for allowing us to participate in the care of this patient. us Ham Guerra MD US ORDERABLES Final Result from Last 3 Months Insurance MEDICAID [place]
--- OUTSIDE RECORDS SUMMARY | 2024-10-30 08:13 | XMS_ITS | Clinical Summary ---
Author Organization [facility] Address [address] [facility] [place] [address] Care Team Providers Care Tobacco Prevention Health Educator Name Role Phone Severino Zelaya Primary Care Provider Unavailsushil e Source Comments [facility],non-owned Affiliates and Associated Physician Practices is amultiple site organization consisting of ambulatory clinics and hospital sitesin [place], [place], [place] and [place]. 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
--- OUTSIDE RECORDS SUMMARY | 2024-10-30 08:13 | XMS_ITS | Encounter Summary ---
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
== END 2024-10-25 10:49 | disposition home or self-care (01) ==
LOC: ANHLAB 10-30 08:18
PROVIDERS: Visit Provider Obstetrics & Gynecology
DX: Z87.59 Personal history of other complications of pregnancy, childbirth and the puerperium (principal)
CPT/HCPCS: 81050; 84156

== ENCOUNTER 2024-11-02 10:49 | Outpatient (CLI) | payer MEDICAID, SELFPAY ==
--- OUTSIDE RECORDS SUMMARY | 2024-11-02 11:38 | XMS_ITS | Encounter Summary ---
Author Organization [facility] Address 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
--- OUTSIDE RECORDS SUMMARY | 2024-11-02 11:38 | XMS_ITS | Clinical Summary ---
Author Organization [facility] Address [address] [facility] [place] [address] Care Team Providers Care Bag Machine Tender Name Role Phone Severino Zelaya Primary Care Provider Unavailsushil e Source Comments [facility],non-owned Affiliates and Associated Physician Practices is amultiple site organization consisting of ambulatory clinics and hospital sitesin [place], [place], [place] and [place]. This disclosure is being madepursuant to the Care Everywhere program and may not contain all information available regarding this patient. 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
--- OUTSIDE RECORDS SUMMARY | 2024-11-02 11:38 | XMS_ITS | Encounter Summary ---
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
--- OUTSIDE RECORDS SUMMARY | 2024-11-02 11:38 | XMS_ITS | Clinical Summary ---
Author Organization [facility] Address [address] [place] [phone] Phone Care Team Providers Care Model Maker Plaster Name Role Phone Unavailable Primary Care Provider Unavailabl e Encounters Date Type Department Care Team Description 10/31/2024 External Device Data STL ABSTRACTION Provider, Abstract 10/10/2024 External Device Data STL ABSTRACTION Provider, Abstract 10/05/2024 External Device Data STL ABSTRACTION Provider, Abstract 10/04/2024 External Device Data STL ABSTRACTION Provider, Abstract 10/03/2024 3:16 PM CDT - 10/03/2024 11:59 PM CDT Hospital Encounter [facility] [id number] [place] [phone] Ham Guerra MD Discharge Disposition: Home or Self Care 10/03/2024 External Device Data STL ABSTRACTION Provider, Abstract 08/31/2024 2:15 PM CDT - 08/31/2024 11:59 PM CDT Hospital Encounter [facility] [address] [place] [phone] Maged Ambriz MD Discharge Disposition: Home or Self Care 08/29/2024 External Device Data STL ABSTRACTION Provider, Abstract 08/08/2024 External Device Data STL ABSTRACTION Provider, Abstract 08/08/2024 External Device Data STL ABSTRACTION Provider, Abstract 08/08/2024 External Device Data STL ABSTRACTION Provider, Abstract 08/03/2024 2:30 PM CDT - 08/03/2024 11:59 PM CDT Hospital Encounter [facility] [address] [facility] [address] [place] [phone] Ham Guerra MD Discharge Disposition: Home or Self Care from Last 3 Months Social History Tobacco Use Types Packs/Day Years Used Date Smoking Tobacco: Never Assessed Comments Unknown Sex and Gender Information Value Date Recorded Sex Assigned at Not on file 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 NO: [id number] Referring MD: HAM GUERRA MD [facility] Instructor: Saundra Douglas RDMS : 2005 Age: 19 ----- INDICATION ----- Screening Follow-Up Maternal Obesity (BMI<40) Complicating CODING ----- Diagnoses Z3A.29: Weeks of gestation O99.213: Obesity complicating Z36.2: Encounter for other screening follow-up Procedures 29298: Ultrasound, uterus, real time with image documentation, [...] 3 lb 0 oz EFW by Hadlock ([id number]) Head / Face / Neck Biometry: Chief Environmental Commitment Officer 5.9 mm CM 5.4 mm 13% Nicolaides [...] and date of were verified by the food and beverage lead prior to the exam IMPRESSION ----- IUP [...] Pat. Name:Moshe STEPHENS Date:10/03/2024 2:47pm Pat. NO: [id number] MD:HAM GUERRA MD [facility] RDMS :2005Age:19 ----- INDICATION ----- Screening Follow-Up Maternal Obesity (BMI<40) Complicating CODING ----- Diagnoses Z3A.29: Weeks of gestation O99.213: Obesity complicating Z36.2: Encounter for other screeningfollow-up Procedures 62807: Ultrasound, uterus, real time withimage documentation, follow up, transabdominal approach per fetus HISTORY ----- OB History 1 MATERNAL ASSESSMENT ----- Physical Exam Weight 80 kg. BMI 28.57 kg/m METHOD ----- Transabdominal ultrasound examination ----- Toth . Number of fetuses: 1 DATING ----- GA by prior [id number] w + 0 d BILL by prior [...] 3 lb 0 oz EFW by Hadlock ([id number]) Head / Face / Neck Biometry: Chief Environmental Commitment Officer 5.9 mm CM 5.4 mm 13%Nicolaides Extremities [...] and date of were verified by the food and beverage lead prior tothe exam IMPRESSION ----- IUP at [...] STEPHENS Study Date: 08/03/2024 2:50pm Pat. NO: [id number] Referring MD: HAM GUERRA MD [facility] Instructor: Rach Alicia RDMS : 2005 Age: 18 ----- INDICATION ----- Anatomy Survey Maternal Obesity (BMI<40) Complicating CODING ----- Diagnoses Z3A.20: Weeks of gestation O99.212: Obesity complicating Z36.3: Encounter for screening for malformations Procedures 26179: Ultrasound, uterus, real time with image documentation, [...] 0 lb 12 oz EFW by Hadlock ([id number]) Head / Face / Neck Biometry: Chief Environmental Commitment Officer 6.5 mm CM 4.6 mm 35% Nicolaides [...] Heart / Thorax RVOT view. 3-vessel view. 8-tbgucw-ldmverx view. Situs. Aortic arch view. Ductal arch [...] and date of were verified by the food and beverage lead before the exam IMPRESSION ----- 1. Single [...] Pat. Name:Moshe STEPHENS Date:08/03/2024 2:50pm Pat. NO: [id number] MD:HAM GUERRA MD [facility] :2005Age:18 ----- INDICATION ----- Anatomy Survey Maternal Obesity (BMI<40) Complicating CODING ----- Diagnoses Z3A.20: Weeks of gestation O99.212: Obesity complicating Z36.3: Encounter for screening formalformations Procedures 17247: Ultrasound, uterus, real time withimage documentation, and maternal evaluation plus detailed anatomic examination,transabdominal approach HISTORY ----- OB History 1 MATERNAL ASSESSMENT ----- Physical Exam Weight 97 kg. BMI 34.54 kg/m METHOD ----- Transabdominal ultrasound examination ----- Toth . Number of fetuses: 1 DATING ----- Method of dating:based on stated BILL GA by prior [id number] w + 2 d BILL by prior [...] 0 lb 12 oz EFW by Hadlock ([id number]) Head / Face / Neck Biometry: Chief Environmental Commitment Officer 6.5 mm CM 4.6 mm 35%Nicolaides Inner [...] Heart / Thorax RVOT view. 3-vessel view. 7-fvqtdd-ubvdmdd view.Situs. Aortic arch view. Ductal arch view. [...] and date of were verified by the food and beverage lead beforethe exam IMPRESSION ----- 1. Single living [...] 4 weeks to complete the anatomic survey.Recommend [facility] US for persistent suboptimal visualization on follow-up. - Recommend interval third trimester growth and anatomy at 32weeks. Thank you for allowing us to participate in the care of this patient. us Ham Guerra MD ORDERABLES Final Result from Last 3 Months Insurance MEDICAID [place]
--- OUTSIDE RECORDS SUMMARY | 2024-11-02 11:38 | XMS_ITS | Encounter Summary ---
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
--- OUTSIDE RECORDS SUMMARY | 2024-11-02 11:38 | XMS_ITS | Clinical Summary ---
Author Organization [facility] Address [address] [place] [address] Care Team Providers Care Plastic Joint Maker Name Role Phone Unavailable Primary Care Provider [...] Vaccine (1 - season) 2024 PHQ-2 (Physician Ramona) 05/17/2024 DTaP, Tdap and Td Vaccines (7 [...]
[2024-11-02 12:25] LABS: HIV 1/2 Ab P24 Ag Result Negative (Negative)
[2024-11-02 12:28] LABS: Syphilis IgG/IgM Antibody Non-Reactive (Nonreactive)
== END 2024-11-02 10:50 | disposition home or self-care (01) ==
LOC: ANHLAB 10:49
PROVIDERS: Visit Provider Nurse Practitioner Family
DX: Z34.90 Encounter for supervision of normal pregnancy, unspecified, unspecified trimester (principal); Z3A.00 Weeks of gestation of pregnancy not specified
CPT/HCPCS: 36415; 86593; 86703; G0432

== ENCOUNTER 2024-11-14 08:43 | Outpatient (RCR) | payer OTHER, SELFPAY ==
--- OUTSIDE RECORDS SUMMARY | 2024-11-15 11:25 | XMS_ITS | Clinical Summary ---
Author Organization [facility] Address [address] [place] [address] Care Team Providers Care Express Manager Name Role Phone Unavailable Primary Care Provider [...] Vaccine (1 - season) 2024 PHQ-2 (Physician Yawkey) 05/17/2024 DTaP, Tdap and Td Vaccines (7 [...]
--- OUTSIDE RECORDS SUMMARY | 2024-11-15 11:25 | XMS_ITS | Clinical Summary ---
Author Organization [facility] Address [address] [facility] [place] [address] Care Team Providers Care Customer Account Executive Name Role Phone Severino Zelaya Primary Care Provider Unavailsushil e Source Comments [facility],non-owned Affiliates and Associated Physician Practices is amultiple site organization consisting of ambulatory clinics and hospital sitesin [place], [place], [place] and [place]. This disclosure is being madepursuant to the Care Everywhere program and may not contain all information available regarding this patient. 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
--- OUTSIDE RECORDS SUMMARY | 2024-11-15 11:25 | XMS_ITS | Clinical Summary ---
Author Organization [facility] Address [address] [place] [address] Phone Care Team Providers Care Data Analytics Analyst Name Role Phone Unavailable Primary Care Provider Unavailabl e Encounters Date Type Department Care Team Description 10/31/2024 External Device Data STL ABSTRACTION Provider, Abstract 10/10/2024 External Device Data STL ABSTRACTION Provider, Abstract 10/05/2024 External Device Data STL ABSTRACTION Provider, Abstract 10/04/2024 External Device Data STL ABSTRACTION Provider, Abstract 10/03/2024 3:16 PM CDT - 10/03/2024 11:59 PM CDT Hospital Encounter [facility] Maternal and [facility] [address] [place] [phone] Ham Guerra MD Discharge Disposition: Home or Self Care 10/03/2024 External Device Data STL ABSTRACTION Provider, Abstract 08/31/2024 2:15 PM CDT - 08/31/2024 11:59 PM CDT Hospital Encounter [facility] Maternal and [facility] [place] [address] [place] [address] Maged Ambriz MD Discharge Disposition: Home or Self Care 08/29/2024 External Device Data STL ABSTRACTION Provider, Abstract from Last 3 Months Social History Tobacco Use Types Packs/Day Years Used Date Smoking Tobacco: Never Assessed Comments Unknown Sex and Gender Information Value Date Recorded Sex Assigned at Not on file 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 Inboard/Outboard: Saundra Douglas RDMS : 2005 Age: 19 ----- INDICATION ----- Screening Follow-Up Maternal Obesity (BMI<40) Complicating CODING ----- Diagnoses Z3A.29: Weeks of gestation O99.213: Obesity complicating Z36.2: Encounter for other screening follow-up Procedures 14893: Ultrasound, uterus, real time with image documentation, [...] 3 lb 0 oz EFW by Hadlock ([id number]) Head / Face / Neck Biometry: Senior Manager Asset Protection 5.9 mm CM 5.4 mm 13% Nicolaides [...] and date of were verified by the receptionist scheduler prior to the exam IMPRESSION ----- IUP [...] Procedure Note Tina Hooper MD - 10/03/2024 ST FOLLOW UP ----- Pat. Name:Chelsea STEPHENStha Date:10/03/2024 2:47pm Pat. NO: [id number] MD:HAM GUERRA MD [facility]Saundra Douglas RDMS :2005Age:19 ----- INDICATION ----- Screening Follow-Up Maternal Obesity (BMI<40) Complicating CODING ----- Diagnoses Z3A.29: Weeks of gestation O99.213: Obesity complicating Z36.2: Encounter for other screeningfollow-up Procedures 09672: Ultrasound, uterus, real time withimage documentation, follow up, transabdominal approach per fetus HISTORY ----- OB History 1 MATERNAL ASSESSMENT ----- Physical Exam Weight 80 kg. BMI 28.57 kg/m METHOD ----- Transabdominal ultrasound examination ----- Toth . Number of fetuses: 1 DATING ----- GA by prior [id number] w + 0 d BILL by prior [...] 29w 4d52% Hadlock HC / AC 1.05 27%NicolaGigmax Weight Calculation: EFW 1,357 g 28w 6d45% Hadlock EFW (lb,oz) 3 lb 0 oz EFW by Hadlock ([id number]) Head / Face / Neck Biometry: Senior Manager Asset Protection 5.9 mm CM 5.4 mm 13%Nicoyeniides Extremities / Bony Struc Biometry: FL / [...] and date of were verified by the receptionist scheduler prior tothe exam IMPRESSION ----- IUP at 29w 0d cephalic presentation AGA growth pattern, EFW 1357 g (45%) with appropriate interval growth Normal amniotic fluid volume, CODY 15.5 cm, MVP 6.2 cm The remaining images from the anatomic survey are completed today withnormal appearance of 4ch and LVOT. Anatomy is now complete. Recommendations: - Follow up as clinically indicated us Ham Guerra MD ORDERABLES Final Result from Last 3 Months Insurance MEDICAID [place]
--- OUTSIDE RECORDS SUMMARY | 2024-11-15 11:25 | XMS_ITS | Encounter Summary ---
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
--- OUTSIDE RECORDS SUMMARY | 2024-11-15 11:25 | XMS_ITS | Encounter Summary ---
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
[2024-11-15 11:30] VITALS: BMI 39.9
[2024-11-15 12:51] LABS: Serum Creat 0.72
[2024-11-15 13:08] LABS: Total Protein Urine Random 118 mg/dL
[2024-11-15 13:48] LABS: Creatinine Clearance Urine 134.1 ml/min (75-125); Total Volume 24 Hour Urine 1700 ml
[2024-11-15 14:01] LABS: Total Protein Urine 24 Hr 2006 mg/24hr (28-141); Total Volume 24 Hour Urine 1700 ml
== END 2024-11-15 11:14 | disposition home or self-care (01) ==
LOC: ANHOBOP 08:43
PROVIDERS: Visit Provider Obstetrics & Gynecology
DX: O13.9 Gestational [pregnancy-induced] hypertension without significant proteinuria, unspecified trimester (principal); Z3A.00 Weeks of gestation of pregnancy not specified
CPT/HCPCS: 81050; 82575; 84156

== ENCOUNTER 2024-11-16 12:30 | Outpatient (RCR) | payer MEDICAID, SELFPAY ==
[2024-09-28 13:21] LABS: Hematocrit 33.9 % (37.0-47.0); Hemoglobin 11.6 g/dL (12.0-15.0); Immature Granulocyte Percent A 0.4 % (0-0.5); Lymphocytes Absolute Auto 2.01 K/mm3 (0.9-3.2); Mean Corpuscular HGB Conc 34.2 g/dl (32-36); Mean Corpuscular Hemoglobin 30.1 pg (26-34); Mean Corpuscular Volume 87.8 fl (80-100); Nucleated Red Blood Cells Absolute Auto 0.000 K/mm3 (0.0-0.012); Nucleated Red Blood Cells Perc 0.0 % (0.0-0.2); Platelet Count Result 321 k/mm3 (150-375); Red Blood Count 3.86 M/mm3 (4.2-5.4); White Blood Count 13.5 K/mm3 (4.5-10.0)
[2024-09-28 13:25] LABS: Add Urine Microscopic? YES; Appearance Urine Clear (Clear); Glucose Urine UA Negative (Negative); Leukocyte Esterase Ur Trace LEU/UL (Negative); Nitrate Urine Negative (Negative); Non Pathogenic Casts 0-2; Specific Grav Ur 1.008 (1.001-1.035)
[2024-09-28 13:35] LABS: Alanine Aminotransferase 15 U/L (6-35); Albumin Level 3.6 g/dL (3.5-5.1); Alkaline Phosphatase 92 U/L (38-126); Anion Gap 9 mmol/L (4-12); Aspartate Amino Transferase 24 U/L (14-36); Bilirubin,Total 0.3 mg/dL (0.2-1.3); Blood Urea Nitrogen 8 mg/dL (7-17); Calcium 9.2 mg/dL (8.4-10.2); Carbon Dioxide 22 mmol/L (22-30); Chloride 106 mmol/L (98-107); Estimated Glomerular Filt Rate > 60; Glucose 86 mg/dL (65-110); Potassium 3.9 mmol/L (3.4-5.0); Sodium 137 mmol/L (137-145); Total Protein 7.0 g/dL (6.3-8.2); Uric Acid 3.9 mg/dL (2.5-7.5)
[2024-09-28 13:40] VITALS: BP 140/90; PULSE 92
[2024-09-28 14:02] LABS: Total Protein Urine Random 12 mg/dL; Ur Ttl Prot Creatinine Ratio 0.31 mg/mg (0-0.20)
[2024-10-03 11:27] VITALS: BP 138/84; PULSE 105
[2024-10-10 11:25] LABS: Hematocrit 31.7 % (37.0-47.0); Hemoglobin 10.6 g/dL (12.0-15.0); Immature Granulocyte Percent A 0.5 % (0-0.5); Lymphocytes Absolute Auto 1.85 K/mm3 (0.9-3.2); Mean Corpuscular HGB Conc 33.4 g/dl (32-36); Mean Corpuscular Hemoglobin 30.1 pg (26-34); Mean Corpuscular Volume 90.1 fl (80-100); Nucleated Red Blood Cells Absolute Auto 0.000 K/mm3 (0.0-0.012); Nucleated Red Blood Cells Perc 0.0 % (0.0-0.2); Platelet Count Result 259 k/mm3 (150-375); Red Blood Count 3.52 M/mm3 (4.2-5.4); White Blood Count 11.1 K/mm3 (4.5-10.0)
[2024-10-10 11:29] LABS: Add Urine Microscopic? YES; Appearance Urine Turbid (Clear); Glucose Urine UA Negative (Negative); Leukocyte Esterase Ur Negative LEU/UL (Negative); Nitrate Urine Negative (Negative); Non Pathogenic Casts 0-2; Specific Grav Ur 1.017 (1.001-1.035)
[2024-10-10 11:41] LABS: Alanine Aminotransferase 15 U/L (6-35); Albumin Level 3.2 g/dL (3.5-5.1); Alkaline Phosphatase 95 U/L (38-126); Anion Gap 6 mmol/L (4-12); Aspartate Amino Transferase 22 U/L (14-36); Bilirubin,Total 0.2 mg/dL (0.2-1.3); Blood Urea Nitrogen 7 mg/dL (7-17); Calcium 9.0 mg/dL (8.4-10.2); Carbon Dioxide 23 mmol/L (22-30); Chloride 106 mmol/L (98-107); Estimated Glomerular Filt Rate > 60; Glucose 110 mg/dL (65-110); Potassium 3.6 mmol/L (3.4-5.0); Sodium 135 mmol/L (137-145); Total Protein 6.0 g/dL (6.3-8.2); Uric Acid 5.6 mg/dL (2.5-7.5)
[2024-10-10 11:54] LABS: Total Protein Urine Random 9 mg/dL; Ur Ttl Prot Creatinine Ratio 0.08 mg/mg (0-0.20)
[2024-10-10 12:01] VITALS: BP 128/72; PULSE 90
[2024-10-23 12:00] VITALS: BP 118/69; PULSE 108
[2024-10-27 13:18] LABS: Hematocrit 33.3 % (37.0-47.0); Hemoglobin 11.3 g/dL (12.0-15.0); Immature Granulocyte Percent A 0.5 % (0-0.5); Lymphocytes Absolute Auto 2.21 K/mm3 (0.9-3.2); Mean Corpuscular HGB Conc 33.9 g/dl (32-36); Mean Corpuscular Hemoglobin 30.7 pg (26-34); Mean Corpuscular Volume 90.5 fl (80-100); Nucleated Red Blood Cells Absolute Auto 0.000 K/mm3 (0.0-0.012); Nucleated Red Blood Cells Perc 0.0 % (0.0-0.2); Platelet Count Result 256 k/mm3 (150-375); Red Blood Count 3.68 M/mm3 (4.2-5.4); White Blood Count 11.9 K/mm3 (4.5-10.0)
[2024-10-27 13:24] LABS: Add Urine Microscopic? YES; Appearance Urine Clear (Clear); Glucose Urine UA Negative (Negative); Leukocyte Esterase Ur Trace LEU/UL (Negative); Nitrate Urine Negative (Negative); Non Pathogenic Casts 0-2; Specific Grav Ur 1.025 (1.001-1.035)
[2024-10-27 13:30] LABS: Alanine Aminotransferase 13 U/L (6-35); Albumin Level 3.2 g/dL (3.5-5.1); Alkaline Phosphatase 114 U/L (38-126); Anion Gap 6 mmol/L (4-12); Aspartate Amino Transferase 22 U/L (14-36); Bilirubin,Total 0.2 mg/dL (0.2-1.3); Blood Urea Nitrogen 10 mg/dL (7-17); Calcium 8.9 mg/dL (8.4-10.2); Carbon Dioxide 21 mmol/L (22-30); Chloride 107 mmol/L (98-107); Estimated Glomerular Filt Rate > 60; Glucose 124 mg/dL (65-110); Potassium 3.4 mmol/L (3.4-5.0); Sodium 134 mmol/L (137-145); Total Protein 6.2 g/dL (6.3-8.2); Uric Acid 6.1 mg/dL (2.5-7.5)
[2024-10-27 13:48] LABS: Total Protein Urine Random 8 mg/dL; Ur Ttl Prot Creatinine Ratio 0.04 mg/mg (0-0.20)
[2024-10-27 14:16] VITALS: BP 136/81; PULSE 78
[2024-10-30 11:43] LABS: Hematocrit 31.4 % (37.0-47.0); Hemoglobin 10.6 g/dL (12.0-15.0); Immature Granulocyte Percent A 0.3 % (0-0.5); Lymphocytes Absolute Auto 2.06 K/mm3 (0.9-3.2); Mean Corpuscular HGB Conc 33.8 g/dl (32-36); Mean Corpuscular Hemoglobin 30.2 pg (26-34); Mean Corpuscular Volume 89.5 fl (80-100); Nucleated Red Blood Cells Absolute Auto 0.000 K/mm3 (0.0-0.012); Nucleated Red Blood Cells Perc 0.0 % (0.0-0.2); Platelet Count Result 221 k/mm3 (150-375); Red Blood Count 3.51 M/mm3 (4.2-5.4); White Blood Count 11.0 K/mm3 (4.5-10.0)
[2024-10-30 11:53] LABS: Alanine Aminotransferase 14 U/L (6-35); Albumin Level 3.1 g/dL (3.5-5.1); Alkaline Phosphatase 117 U/L (38-126); Anion Gap 5 mmol/L (4-12); Aspartate Amino Transferase 21 U/L (14-36); Bilirubin,Total 0.2 mg/dL (0.2-1.3); Blood Urea Nitrogen 9 mg/dL (7-17); Calcium 9.1 mg/dL (8.4-10.2); Carbon Dioxide 22 mmol/L (22-30); Chloride 107 mmol/L (98-107); Estimated Glomerular Filt Rate > 60; Glucose 105 mg/dL (65-110); Potassium 3.6 mmol/L (3.4-5.0); Sodium 134 mmol/L (137-145); Total Protein 6.1 g/dL (6.3-8.2); Total Protein Urine Random 17 mg/dL; Ur Ttl Prot Creatinine Ratio 0.14 mg/mg (0-0.20); Uric Acid 6.5 mg/dL (2.5-7.5)
[2024-10-30 12:03] LABS: Add Urine Microscopic? YES; Appearance Urine Cloudy (Clear); Glucose Urine UA Negative (Negative); Leukocyte Esterase Ur 1+ LEU/UL (Negative); Need Manual Microscopic Reviewed; Nitrate Urine Negative (Negative); Non Pathogenic Casts 0-2; Specific Grav Ur 1.017 (1.001-1.035)
[2024-10-30 12:23] VITALS: BP 143/85; PULSE 82
[2024-11-03 15:54] VITALS: BP 131/81; PULSE 62
[2024-11-06 12:59] LABS: Hematocrit 32.5 % (37.0-47.0); Hemoglobin 10.7 g/dL (12.0-15.0); Immature Granulocyte Percent A 0.4 % (0-0.5); Lymphocytes Absolute Auto 2.14 K/mm3 (0.9-3.2); Mean Corpuscular HGB Conc 32.9 g/dl (32-36); Mean Corpuscular Hemoglobin 29.7 pg (26-34); Mean Corpuscular Volume 90.3 fl (80-100); Nucleated Red Blood Cells Absolute Auto 0.000 K/mm3 (0.0-0.012); Nucleated Red Blood Cells Perc 0.0 % (0.0-0.2); Platelet Count Result 268 k/mm3 (150-375); Red Blood Count 3.60 M/mm3 (4.2-5.4); White Blood Count 11.2 K/mm3 (4.5-10.0)
[2024-11-06 13:03] LABS: Add Urine Microscopic? YES; Appearance Urine Clear (Clear); Glucose Urine UA Negative (Negative); Leukocyte Esterase Ur 1+ LEU/UL (Negative); Nitrate Urine Negative (Negative); Non Pathogenic Casts 0-2; Specific Grav Ur 1.009 (1.001-1.035)
[2024-11-06 13:24] LABS: Alanine Aminotransferase 12 U/L (6-35); Albumin Level 3.2 g/dL (3.5-5.1); Alkaline Phosphatase 114 U/L (38-126); Anion Gap 7 mmol/L (4-12); Aspartate Amino Transferase 21 U/L (14-36); Bilirubin,Total 0.1 mg/dL (0.2-1.3); Blood Urea Nitrogen 11 mg/dL (7-17); Calcium 8.9 mg/dL (8.4-10.2); Carbon Dioxide 22 mmol/L (22-30); Chloride 106 mmol/L (98-107); Estimated Glomerular Filt Rate > 60; Glucose 116 mg/dL (65-110); Potassium 3.9 mmol/L (3.4-5.0); Sodium 135 mmol/L (137-145); Total Protein 6.2 g/dL (6.3-8.2); Uric Acid 6.8 mg/dL (2.5-7.5)
[2024-11-06 13:35] LABS: Total Protein Urine Random 15 mg/dL; Ur Ttl Prot Creatinine Ratio 0.22 mg/mg (0-0.20)
[2024-11-06 14:11] VITALS: BP 144/80; PULSE 82
[2024-11-13 11:39] LABS: Hematocrit 33.5 % (37.0-47.0); Hemoglobin 11.3 g/dL (12.0-15.0); Immature Granulocyte Percent A 0.6 % (0-0.5); Lymphocytes Absolute Auto 2.74 K/mm3 (0.9-3.2); Mean Corpuscular HGB Conc 33.7 g/dl (32-36); Mean Corpuscular Hemoglobin 30.3 pg (26-34); Mean Corpuscular Volume 89.8 fl (80-100); Nucleated Red Blood Cells Absolute Auto 0.000 K/mm3 (0.0-0.012); Nucleated Red Blood Cells Perc 0.0 % (0.0-0.2); Platelet Count Result 232 k/mm3 (150-375); Red Blood Count 3.73 M/mm3 (4.2-5.4); White Blood Count 12.4 K/mm3 (4.5-10.0)
[2024-11-13 11:45] LABS: Add Urine Microscopic? YES; Appearance Urine Clear (Clear); Glucose Urine UA Negative (Negative); Leukocyte Esterase Ur Negative LEU/UL (Negative); Nitrate Urine Negative (Negative); Non Pathogenic Casts 0-2; Specific Grav Ur 1.027 (1.001-1.035)
[2024-11-13 11:54] LABS: Alanine Aminotransferase 13 U/L (6-35); Albumin Level 3.3 g/dL (3.5-5.1); Alkaline Phosphatase 131 U/L (38-126); Anion Gap 6 mmol/L (4-12); Aspartate Amino Transferase 23 U/L (14-36); Bilirubin,Total 0.2 mg/dL (0.2-1.3); Blood Urea Nitrogen 11 mg/dL (7-17); Calcium 9.8 mg/dL (8.4-10.2); Carbon Dioxide 24 mmol/L (22-30); Chloride 105 mmol/L (98-107); Estimated Glomerular Filt Rate > 60; Glucose 105 mg/dL (65-110); Potassium 3.9 mmol/L (3.4-5.0); Sodium 135 mmol/L (137-145); Total Protein 6.5 g/dL (6.3-8.2); Uric Acid 7.5 mg/dL (2.5-7.5)
[2024-11-13 11:55] LABS: Total Protein Urine Random 92 mg/dL; Ur Ttl Prot Creatinine Ratio 0.37 mg/mg (0-0.20)
[2024-11-13 12:40] VITALS: BP 131/89; PULSE 74
--- NOTE | ~2024-11-16 | US_ITS ---
EXAMINATION: US OB limited DATE: 10/23/2024 11:35 INDICATION: Gestational hypertension during third trimester . Assess amniotic fluid index. TECHNIQUE: Real-time ultrasound of the pelvis was performed. The interpreting radiologist was not pre sent for the study. COMPARISON: None. FINDINGS: There is a single living fetus in vertex presentation. The placenta is posterior. heart rate i s 152 beats per minute (bpm). The amniotic fluid index is 13.3 cm, which is normal. (5th%-95%: 8.8-23 .8 cm at the 1 weeks estimated gestational age). IMPRESSION: 1. Single living fetus in vertex presentation with heart rate of 152 bpm. 2. Normal amniotic fluid index of 13.3 cm. Reviewed, dictated and finalized at location A. IMPRESSION: 1. Single living fetus in vertex presentation with heart rate of 152 bpm . 2. Normal amniotic fluid index of 13.3 cm.
--- NOTE | ~2024-11-16 | US_ITS ---
EXAMINATION: US OB BPP wo non-stress DATE: 11/13/2024 12:41 INDICATION: Preeclampsia during third trimester . TECHNIQUE: Real-time pelvic ultrasound was performed. The interpreting radiologist was not present fo r the study. COMPARISON: None. FINDINGS: There is a single living fetus in vertex presentation. The placenta is posterior. heart rate i s 133 beats per minute (bpm). Biophysical profile performed by the technologist: breathing (30 sec sustained breathing in 30 minutes): 2 out of 2 movement (3 gross body movements in 30 minutes): 2 out of 2 tone (one episode of estxxmb-jvsupxsnc-oqdrquf limb movement): 2 out of 2 Amniotic fluid pocket (2 cm): 2 out of 2 Total score: 8 out of 8 IMPRESSION: 1. Single living fetus in vertex presentation with heart rate of 133 bpm. 2. Biophysical profile 8 out of 8. Reviewed, dictated and finalized at location B.
--- NOTE | ~2024-11-16 | US_ITS ---
LIMITED OBSTETRIC ULTRASOUND/BIOPHYSICAL PROFILE Ordering provider: David Tolbert MD History: . BPP and CODY . Comparison: None. FINDINGS: MATERNAL CERVIX: Not visualized. cm which is normal (normal is equal to or greater than 3.0 cm). PRESENTATION: Vertex. Longitudinal lie. PLACENTAL LOCATION: Posterior. No previa. HEART RATE: 136 bpm (normal is between 110 to 160 bpm). AMNIOTIC FLUID INDEX: 12.6 cm. 5th percentile areas 8.6 cm. 95th percentile is 24.2 cm. Largest vert ical pocket is 4.5 cm. normal (CODY between 5-25 cm in from 20-35 weeks gestation is considered normal ). OTHER: Maternal ovaries not visualized. SCORE: breathing movements: 2 movements: 2 tone: 2 Amniotic fluid volume: 2 Total: 8 IMPRESSION: Normal biophysical profile. Normal amniotic fluid. Reviewed, dictated and finalized at location A.
--- NOTE | ~2024-11-16 | US_ITS ---
EXAM EXAMINATION: US OB limited DATE: 10/10/2024 13:22 CDT INDICATION: Evaluate amniotic fluid index, patient with high blood pressure. COMPARISON: 05/30/2024 TECHNIQUE: Real-time transabdominal obstetric ultrasound. FINDINGS: Estimated date of delivery by prior ultrasound examination is 12/19/2024. 1 para 1 There is a single intrauterine gestation in vertex presentation. The placenta is posterior. No images of the placental tip in relation to the cervix are submitted. The cervix is not measured on static imaging. cardiac activity and movement is noted with a heart rate of 151 beats per minute. Amniotic fluid index measures 18.5 cm (within normal limits for gestation of 30 weeks). IMPRESSION: Single intrauterine gestation in vertex presentation with cardiac activity identified. The placenta is posterior, without images in relation to the cervix. Amniotic fluid index is within normal limits, as detailed above. Reviewed, dictated and finalized at location A. IMPRESSION: Single intrauterine gestation in vertex presentation with cardiac activit y identified. The placenta is posterior, without images in relation to the cervix. Amniotic fluid index is within normal limits, as detailed above.
--- NOTE | ~2024-11-16 | US_ITS ---
LIMITED OBSTETRIC ULTRASOUND Ordering provider: David Tolbert MD History: . CODY and EFW . Comparison: None. FINDINGS: MATERNAL CERVIX: Not visualized. cm which is normal (normal is equal to or greater than 3.0 cm). PRESENTATION: Vertex. Longitudinal lie. PLACENTAL LOCATION: Posterior. No previa. HEART RATE: 133 bpm (normal is between 110 to 160 bpm). AMNIOTIC FLUID INDEX: 13.1 cm. 5th percentile is 8.6 cm. 95th percentile is 24.2 cm. Largest vertica l pocket is 4.7 cm. -- BIOMETRICS: BPD: 80.5 mm = 32 weeks and 2 days. HC: 291.7 mm = 32 weeks and 1 day. FL: 62.9 mm = 32 weeks and 4 days. AC: 290 mm = 33 weeks. HC/AC: 1.01 FL/BPD: 78.15. FL/AC: 21.7.. CI: 78.16. Estimated weight is 2037 gm. EFW/GP: 22.4%. OTHER: Maternal ovaries not visualized. IMPRESSION: Single live fetus of vertex presentation. Ultrasound age is 32 weeks and 4 days. BILL is December 25, 2024. Reviewed, dictated and finalized at location A. IMPRESSION: Single live fetus of vertex presentation. Ultrasound age is 32 weeks and 4 days . BILL is December 25, 2024.
--- NOTE | ~2024-11-16 | US_ITS ---
EXAM: US OB BPP wo non-stress - 11/10/2024 12:00 CDT History: 19 years old Female with Gestational hypertension Comparison: None available. Technique Real time transabdominal obstetric sonographic imaging was performed. Findings A single live intrauterine gestation is identified. Lie: longitudinal Presentation: vertex Placental position: Posterior heart rate: 146 beats per minute DVP: 3.65 cm Biophysical profile: breathing movement: 2 Gross body movement: 2 tone: 2 Qualitative AFV: 2 Total BPP score: 8 of 8. Impression Total biophysical profile score is 8 out of 8. Reviewed, dictated and finalized at location A. Impression Total biophysical profile score is 8 out of 8.
--- NOTE | ~2024-11-16 | US_ITS ---
EXAMINATION: US OB BPP wo non-stress DATE: 11/06/2024 14:29 INDICATION: Hypertension during third trimester . Assess amniotic fluid index.. TECHNIQUE: Real-time pelvic ultrasound was performed. The interpreting radiologist was not present fo r the study. COMPARISON: None. FINDINGS: There is a single living fetus in vertex presentation. The placenta is posterior. heart rate i s 146 beats per minute (bpm). Normal cervical length of 4.2 cm. Normal amniotic fluid index of 13.1 c m. Biophysical profile performed by the technologist: breathing (30 sec sustained breathing in 30 minutes): 2 out of 2 movement (3 gross body movements in 30 minutes): 2 out of 2 tone (one episode of tyswrxm-aoiuplplp-hxboxnx limb movement): 2 out of 2 Amniotic fluid pocket (2 cm): 2 out of 2 Total score: 8 out of 8 IMPRESSION: 1. Single living fetus in vertex presentation with heart rate of 146 bpm. 2. Biophysical profile 8 out of 8. 3. Normal amniotic fluid index of 13.1 cm. Reviewed, dictated and finalized at location A.
--- NOTE | ~2024-11-16 | US_ITS ---
EXAMINATION: US OB limited DATE: 10/27/2024 13:53 INDICATION: Hypertension during third trimester . Assess amniotic fluid index. TECHNIQUE: Real-time ultrasound of the pelvis was performed. The interpreting radiologist was not pre sent for the study. COMPARISON: 11/02/2024 FINDINGS: There is a single living fetus in vertex presentation. The placenta is posterior. heart rate i s 136 beats per minute (bpm). The amniotic fluid index is 11.3 cm, which is normal. (5th%-95%: 8.6-24 .2 cm at 32 weeks estimated gestational age). IMPRESSION: 1. Single living fetus in vertex presentation with heart rate of 136 bpm. 2. Normal amniotic fluid index of 11.3 cm. Reviewed, dictated and finalized at location A. IMPRESSION: 1. Single living fetus in vertex presentation with heart rate of 136 bpm . 2. Normal amniotic fluid index of 11.3 cm.
== END 2024-12-14 09:52 | disposition other institution (70) ==
LOC: ANHOBOP 12:30
PROVIDERS: Visit Provider Obstetrics & Gynecology
DX: O13.9 Gestational [pregnancy-induced] hypertension without significant proteinuria, unspecified trimester (principal)
CPT/HCPCS: 36415; 59025; 76815; 76816; 76819; 80053; 81001; 82570; 84156; 84550; 85025; 87086; J2274

== ENCOUNTER 2024-11-16 12:30 | Inpatient (IN) | payer OTHER, SELFPAY ==
[2024-11-16] VITALS (38 sets, daily range): BP systolic 133–176; BP diastolic 79–113; PULSE 69–99; RESP 14; TEMP 36.8–37.3; BMI 41.1
--- OUTSIDE RECORDS SUMMARY | 2024-11-16 13:07 | XMS_ITS | Clinical Summary ---
Author Organization [facility] Address [address] [place] [address] Phone Care Team Providers Care Glazier Stained Glass Name Role Phone Unavailable Primary Care Provider Unavailabl e Encounters Date Type Department Care Team Description 10/31/2024 External Device Data STL ABSTRACTION Provider, Abstract 10/10/2024 External Device Data STL ABSTRACTION Provider, Abstract 10/05/2024 External Device Data STL ABSTRACTION Provider, Abstract 10/04/2024 External Device Data STL ABSTRACTION Provider, Abstract 10/03/2024 3:16 PM CDT - 10/03/2024 11:59 PM CDT Hospital Encounter [facility] Maternal and [facility] [id number] [place] [phone] Ham Guerra MD Discharge Disposition: Home or Self Care 10/03/2024 External Device Data STL ABSTRACTION Provider, Abstract 08/31/2024 2:15 PM CDT - 08/31/2024 11:59 PM CDT Hospital Encounter [facility] Maternal and [facility] [place] [address] [place] [address] Maged Ambriz MD Discharge Disposition: Home or Self Care 08/29/2024 External Device Data STL ABSTRACTION Provider, Abstract from Last 3 Months Social History Tobacco Use Types Packs/Day Years Used Date Smoking Tobacco: Never Assessed Comments Unknown Sex and Gender Information Value Date Recorded Sex Assigned at Not on file 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 NO: [id number] Referring MD: HAM GUERRA MD Site: [facility] Wire Harness Assembler: Saundra Douglas RDMS : 2005 Age: 19 ----- INDICATION ----- Screening Follow-Up Maternal Obesity (BMI<40) Complicating CODING ----- Diagnoses Z3A.29: Weeks of gestation O99.213: Obesity complicating Z36.2: Encounter for other screening follow-up Procedures 14158: Ultrasound, uterus, real time with image documentation, [...] 3 lb 0 oz EFW by Hadlock ([id number]) Head / Face / Neck Biometry: Roll Shop Supervisor 5.9 mm CM 5.4 mm 13% Nicolaides [...] and date of were verified by the evaporator prior to the exam IMPRESSION ----- IUP [...] Pat. Name:Chelsea STEPHENStha Date:10/03/2024 2:47pm Pat. NO: [id number] MD:HAM GUERRA MD [facility]Saund[facility] Douglas RDMS :2005Age:19 ----- INDICATION ----- Screening Follow-Up Maternal Obesity (BMI<40) Complicating CODING ----- Diagnoses Z3A.29: Weeks of gestation O99.213: Obesity complicating Z36.2: Encounter for other screeningfollow-up Procedures 89733: Ultrasound, uterus, real time withimage documentation, follow up, transabdominal approach per fetus HISTORY ----- OB History 1 MATERNAL ASSESSMENT ----- Physical Exam Weight 80 kg. BMI 28.57 kg/m METHOD ----- Transabdominal ultrasound examination ----- Toth . Number of fetuses: 1 DATING ----- GA by prior [id number] w + 0 d BILL by prior [...] 2d16% Hadlock OFD 93.3 mm 30w 1d78% Jsoe HC 262.0 mm 28w 4d9% Hadlock Cerebellum tr 33.2 mm 29w 4d42% Bowers AC 250.7 mm 29w 2d52% Hadlock Femur 56.3 mm 29w 4d52% Hadlock HC / AC 1.05 27%[employer]olaEdge [employer] Weight Calculation: EFW 1,357 g 28w 6d45% Hadlock EFW (lb,oz) 3 lb 0 oz EFW by Hadlock ([id number]) Head / Face / Neck Biometry: Roll Shop Supervisor 5.9 mm CM 5.4 mm 13%Nicoyeniides Extremities [...] and date of were verified by the evaporator prior tothe exam IMPRESSION ----- IUP at [...]
--- OUTSIDE RECORDS SUMMARY | 2024-11-16 13:07 | XMS_ITS | Encounter Summary ---
Author Organization 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
--- OUTSIDE RECORDS SUMMARY | 2024-11-16 13:07 | XMS_ITS | Clinical Summary ---
Author Organization [facility] Address [address] [place] [address] Care Team Providers Care Anesthesia Technician Name Role Phone Severino Zelaya Primary Care Provider Unavailsushil e Source Comments [facility],non-owned Affiliates and Associated Physician Practices is amultiple site organization consisting of ambulatory clinics and hospital sitesin [place], [place], [place] and [place]. This disclosure is being madepursuant to the Care Everywhere program and may not contain all information available regarding this patient. 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
--- OUTSIDE RECORDS SUMMARY | 2024-11-16 13:07 | XMS_ITS | Encounter Summary ---
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
--- OUTSIDE RECORDS SUMMARY | 2024-11-16 13:07 | XMS_ITS | Clinical Summary ---
Author Organization [facility] Address [address] [place] [address] Care Team Providers Care Housing Installer Name Role Phone Unavailable Primary Care Provider [...] Vaccine (1 - season) 2024 PHQ-2 (Physician [place]) 05/17/2024 DTaP, Tdap and Td Vaccines (7 [...]
[2024-11-16 13:43] LABS: Hematocrit 34.7 % (37.0-47.0); Hemoglobin 12.1 g/dL (12.0-15.0); Immature Granulocyte Percent A 0.9 % (0-0.5); Lymphocytes Absolute Auto 2.48 K/mm3 (0.9-3.2); Mean Corpuscular HGB Conc 34.9 g/dl (32-36); Mean Corpuscular Hemoglobin 30.8 pg (26-34); Mean Corpuscular Volume 88.3 fl (80-100); Nucleated Red Blood Cells Absolute Auto 0.000 K/mm3 (0.0-0.012); Nucleated Red Blood Cells Perc 0.0 % (0.0-0.2); Platelet Count Result 232 k/mm3 (150-375); Red Blood Count 3.93 M/mm3 (4.2-5.4); White Blood Count 14.0 K/mm3 (4.5-10.0)
[2024-11-16 13:53] LABS: Alanine Aminotransferase 16 U/L (6-35); Albumin Level 3.2 g/dL (3.5-5.1); Alkaline Phosphatase 126 U/L (38-126); Anion Gap 8 mmol/L (4-12); Aspartate Amino Transferase 30 U/L (14-36); Bilirubin,Total 0.3 mg/dL (0.2-1.3); Blood Urea Nitrogen 14 mg/dL (7-17); Calcium 9.1 mg/dL (8.4-10.2); Carbon Dioxide 19 mmol/L (22-30); Chloride 106 mmol/L (98-107); Estimated Glomerular Filt Rate > 60; Glucose 128 mg/dL (65-110); Potassium 3.9 mmol/L (3.4-5.0); Sodium 133 mmol/L (137-145); Total Protein 6.3 g/dL (6.3-8.2); Uric Acid 7.3 mg/dL (2.5-7.5)
--- NOTE | 2024-11-16 13:55 | P.HP_ITS ---
H&P: HPI History of Present Illness Date/Time: 11/16/24 13:55 Chief Complaint: preeclampsia with severe range blood pressures Narrative: 19-year-old G1 at 35 weeks with history of gestational hypertension since early 3rd trimester. Her PIH labs have been monitored. She was started on labetalol and blood pressures were normal. Blood pressure started increasing last week not severe range and on presentation for surveillance testing today she had severe range blood pressures. She did have a recent 24 hour urine that ruled her in for preeclampsia with over 2000 proteinuria. She denies any headache scotomata or right upper quadrant pain. She was recommended for induction of labor today due to preeclampsia with severe range pressures. She has been informed of risk of not proceeding with induction risk to her and the fetus. Informed of risk of prematurity. Reviewed the process for induction. She agrees to the induction. Reviewed magnesium indications in active labor. Review of Systems Review of Systems: All systems reviewed & are unremarkable except as noted in HPI and below Constitutional: Constitutional: Reports no additional constitutional complaints and Denies headache(s) Eyes: Eyes: Denies spots in vision ENT: Reports system reviewed and no additional complaints, except as documented and Denies headache(s) Cardiovascular: Cardiovascular: Denies chest pain and Denies dyspnea Respiratory: Respiratory: Denies dyspnea Gastrointestinal: Gastrointestinal: Reports no additional gastrointestinal complaints Genitourinary: Genitourinary: Reports amenorrhea Musculoskeletal: Musculoskeletal: Reports no additional musculoskeletal complaints Integumentary/Breasts: Skin/Breast: Denies breast mass and Denies rash Neurologic: Denies headache(s) Psychiatric: Psychiatric: Reports no additional psychiatric complaints [facility] Past Medical History Medical History Morbid obesity Preeclampsia Environmental allergies Asthma Acid reflux Anemia Family History Family History Grandparent Breast cancer Diabetes mellitus Hypertension Lung cancer Father Diabetes mellitus Hypertension Social History Social History Smoking status: Never smoker Alcohol intake: never Substance use: never Do You Feel Safe in your Home?: Yes Lack of Transportation: No Lack of Food: Never True Current Housing: I Have Housing Concerned About Future Housing: No Difficulty Paying Gas/Electric Bills: No Difficulty Paying for Meds: No Currently Unemployed: No Education: High School Diploma/GED Difficulty w/ Childcare or Family Care: No Living arrangements: with family Occupation/Education: student Gender identity (if verbalized by the patient): Female Sexual Orientation (if Verbalized by the Patient): Straight or Heterosexual Spiritual care concerns: No Meds Home Medications and Allergies Home Medications ?Medication ?Instructions ?Recorded ?Confirmed ?Type albuterol sulfate 2.5 mg/3 mL 2.5 mg (3 mL) inhalation Q4H PRN 10/12/22 11/16/24 Rx (0.083 %) solution for nebulization shortness of breath or wheezing #75 mL labetalol 200 mg tablet 200 mg PO Q12H #60 tabs 10/05/24 11/16/24 Rx ferrous sulfate 325 mg (65 mg 325 mg PO DAILY 10/19/24 11/16/24 History iron) tablet vitamin#30 30 mg iron-10 1 cap PO HS 11/16/24 11/16/24 History mg iron-folic acid 1 mg-omg3 capsule Allergies Allergy/AdvReac Type Severity Reaction Status Date / Time No Known Allergies Allergy Verified 11/16/24 12:40 Vital Signs Vital Signs - 24 hr 11/16/24 13:26 11/16/24 13:30 11/16/24 13:31 Pulse Rate 75 82 71 Blood Pressure 173/87 H 155/92 H 11/16/24 13:55 Pulse Rate 79 Blood Pressure 172/109 H Exam Const: General: no acute distress Eyes: General: appearance normal, both eyes and all related structures Resp: Effort & Inspection: normal respiratory effort Cardio: Rate: regular rate GI: Other: Gravid no fundal tenderness no right upper quadrant pain Skin: General skin exam: no rashes or lesions noted Neuro: Cognition (Neuro): normal cognition Extrem: General: normal to inspection Psych: Mental Status: mental status grossly normal H&P: Results Labs Labs: BMP 11/16/24 11/16/24 11/16/24 13:31 13:31 13:31 Sodium 133 L Cancelled Potassium 3.9 Cancelled Chloride 106 Carbon Dioxide BUN Creatinine Glucose Calcium 11/16/24 11/16/24 11/16/24 13:31 13:31 13:31 Sodium Potassium Chloride Cancelled Carbon Dioxide 19 L Cancelled BUN 14 Cancelled Creatinine 0.74 Glucose Calcium 11/16/24 11/16/24 11/16/24 13:31 13:31 13:31 Sodium Potassium Chloride Carbon Dioxide BUN Creatinine Cancelled Glucose 128 H Cancelled Calcium 9.1 Cancelled Liver Function 11/16/24 11/16/24 11/16/24 Range/Units 13:31 13:31 13:31 Total Bilirubin 0.3 Cancelled (0.2-1.3) mg/dL AST 30 Cancelled (14-36) U/L ALT 16 (6-35) U/L Alkaline Phosphatase (38-126) U/L Albumin (3.5-5.1) g/dL 11/16/24 11/16/24 11/16/24 Range/Units 13:31 13:31 13:31 Total Bilirubin (0.2-1.3) mg/dL AST (14-36) U/L ALT Cancelled (6-35) U/L Alkaline Phosphatase 126 Cancelled (38-126) U/L Albumin 3.2 L Cancelled (3.5-5.1) g/dL Assessment and Plan Assessment and plan (1) Pre-eclampsia during in third trimester, antepartum: Code(s): O14.93 - Unspecified pre-eclampsia, third trimester Status: Acute Assessment and Plan: 1. Admit 2. Antihypertensive management 3. Ampicillin for GBS prophylaxis.
[2024-11-16 14:22] LABS: Syphilis IgG/IgM Antibody Non-Reactive (Nonreactive)
--- NOTE | 2024-11-16 14:48 | LDADM ---
This patient, Aris Stephens, was admitted to Labor/Delivery/Recovery 106 on 11/16/24 at 12:30. Plans for labor, pain management and were discussed with patient. Patient/family oriented to hospital policies and general routines including ID bracelet, bed and alarms, visiting hours, pain management, procedures, bathroom and other care routines, personal items, smoking policy, room service/diet and guest tray routines, security routines, and visiting hours. Patient/Family are encouraged to report perceived risks to care and to ask questions if they do not understand what they are told or what they should do. See [facility]BIX for further documentation.
[2024-11-16] MEDS: LACTATED RINGERS 1,000 ML 125 ML IV CONT (15:58)
[2024-11-16] MEDS: AMPICILLIN 2 GM/NS 100 ML 2 GM/100 ML BAG IVPB (15:58)
--- NOTE | 2024-11-16 17:28 | P.PNAN_ITS ---
Anes - Eval Pre Procedure Procedure: Labor epidural Date/Time: 11/16/24 17:28 Surgeon: Tomasz Preop Diagnosis: Abdominal pain with contractions Pre Op Diagnosis: IOL Patient Data Age: 19 Gender: F Height: 1.65 m Weight: 112 kg Last Vital Signs Pulse 84 11/16/24 17:15 BP 136/80 11/16/24 17:15 O2 Del Method Room Air 11/16/24 14:46 Allergies Allergy/AdvReac Type Severity Reaction Status Date / Time No Known Allergies Allergy Verified 11/16/24 12:40 Home Medications ?Medication ?Instructions ?Recorded ?Confirmed ?Type albuterol sulfate 2.5 mg/3 mL 2.5 mg (3 mL) inhalation Q4H PRN 10/12/22 11/16/24 Rx (0.083 %) solution for nebulization shortness of breath or wheezing #75 mL labetalol 200 mg tablet 200 mg PO Q12H #60 tabs 10/05/24 11/16/24 Rx ferrous sulfate 325 mg (65 mg 325 mg PO DAILY 10/19/24 11/16/24 History iron) tablet vitamin#30 30 mg iron-10 1 cap PO HS 11/16/24 11/16/24 History mg iron-folic acid 1 mg-omg3 capsule Laboratory Tests 11/16/24 11/16/24 11/16/24 13:31 13:31 13:31 WBC 14.0 H K/mm3 (4.5-10.0) RBC 3.93 L M/mm3 (4.2-5.4) Hgb 12.1 g/dL (12.0-15.0) Hct 34.7 L % (37.0-47.0) MCV 88.3 fl (80-100) MCH 30.8 pg (26-34) MCHC 34.9 g/dl (32-36) RDW 14.3 % (11.5-14.5) Plt Count 232 k/mm3 (150-375) MPV 11.2 H fl (7.4-10.4) Immature Gran % (Auto) 0.9 H % (0-0.5) Neut % (Auto) 75.3 H % (45.5-73.1) Lymph % (Auto) 17.7 L % (18.3-44.2) [place] % (Auto) 5.6 % (2.6-8.5) Eos % (Auto) 0.4 % (0-4.4) Baso % (Auto) 0.1 L % (0.2-1.2) Lymph # (Auto) 2.48 K/mm3 (0.9-3.2) [place] # (Auto) 0.8 H K/mm3 (0.1-0.6) Eos # (Auto) 0.1 K/mm3 (0-0.3) Baso # (Auto) 0.0 K/mm3 (0.0-0.1) Abs Immat Gran (auto) 0.12 H K/mm3 (0.00-0.031) Absolute Neuts (auto) 10.5 H K/mm3 (1.3-6.7) Absolute Nucleated RBC 0.000 K/mm3 (0.0-0.012) Nucleated RBC % 0.0 % (0.0-0.2) Sodium 133 L mmol/L Cancelled (137-145) Potassium 3.9 mmol/L Cancelled (3.4-5.0) Chloride 106 mmol/L (98-107) Carbon Dioxide Anion Gap BUN Creatinine Estim Creat Clear Calc Estimated GFR Glucose Uric Acid Calcium Total Bilirubin AST ALT Alkaline Phosphatase Total Protein Albumin Syphilis IgG/IgM Ab Blood Type Antibody Screen 11/16/24 11/16/24 11/16/24 13:31 13:31 13:31 WBC RBC Hgb Hct MCV MCH MCHC RDW Plt Count MPV Immature Gran % (Auto) Neut % (Auto) Lymph % (Auto) [place] % (Auto) Eos % (Auto) Baso % (Auto) Lymph # (Auto) [place] # (Auto) Eos # (Auto) Baso # (Auto) Abs Immat Gran (auto) Absolute Neuts (auto) Absolute Nucleated RBC Nucleated RBC % Sodium Potassium Chloride Cancelled Carbon Dioxide 19 L mmol/L Cancelled (22-30) Anion Gap 8 mmol/L Cancelled (4-12) BUN 14 mg/dL (7-17) Creatinine Estim Creat Clear Calc Estimated GFR Glucose Uric Acid Calcium Total Bilirubin AST ALT Alkaline Phosphatase Total Protein Albumin Syphilis IgG/IgM Ab Blood Type Antibody Screen 11/16/24 11/16/24 11/16/24 13:31 13:31 13:31 WBC RBC Hgb Hct MCV MCH MCHC RDW Plt Count MPV Immature Gran % (Auto) Neut % (Auto) Lymph % (Auto) [place] % (Auto) Eos % (Auto) Baso % (Auto) Lymph # (Auto) [place] # (Auto) Eos # (Auto) Baso # (Auto) Abs Immat Gran (auto) Absolute Neuts (auto) Absolute Nucleated RBC Nucleated RBC % Sodium Potassium Chloride Carbon Dioxide Anion Gap BUN Cancelled Creatinine 0.74 mg/dL Cancelled (0.7-1.0) Estim Creat Clear Calc Not Reportable Cancelled Estimated GFR > 60 (59 - ) Glucose Uric Acid Calcium Total Bilirubin AST ALT Alkaline Phosphatase Total Protein Albumin Syphilis IgG/IgM Ab Blood Type Antibody Screen 11/16/24 11/16/24 11/16/24 13:31 13:31 13:31 WBC RBC Hgb Hct MCV MCH MCHC RDW Plt Count MPV Immature Gran % (Auto) Neut % (Auto) Lymph % (Auto) [place] % (Auto) Eos % (Auto) Baso % (Auto) Lymph # (Auto) [place] # (Auto) Eos # (Auto) Baso # (Auto) Abs Immat Gran (auto) Absolute Neuts (auto) Absolute Nucleated RBC Nucleated RBC % Sodium Potassium Chloride Carbon Dioxide Anion Gap BUN Creatinine Estim Creat Clear Calc Estimated GFR Cancelled Glucose 128 H mg/dL Cancelled (65-110) Uric Acid 7.3 mg/dL (2.5-7.5) Calcium 9.1 mg/dL Cancelled (8.4-10.2) Total Bilirubin 0.3 mg/dL (0.2-1.3) AST ALT Alkaline Phosphatase Total Protein Albumin Syphilis IgG/IgM Ab Blood Type Antibody Screen 11/16/24 11/16/24 11/16/24 13:31 13:31 13:31 WBC RBC Hgb Hct MCV MCH MCHC RDW Plt Count MPV Immature Gran % (Auto) Neut % (Auto) Lymph % (Auto) [place] % (Auto) Eos % (Auto) Baso % (Auto) Lymph # (Auto) [place] # (Auto) Eos # (Auto) Baso # (Auto) Abs Immat Gran (auto) Absolute Neuts (auto) Absolute Nucleated RBC Nucleated RBC % Sodium Potassium Chloride Carbon Dioxide Anion Gap BUN Creatinine Estim Creat Clear Calc Estimated GFR Glucose Uric Acid Calcium Total Bilirubin Cancelled AST 30 U/L Cancelled (14-36) ALT 16 U/L Cancelled (6-35) Alkaline Phosphatase 126 U/L (38-126) Total Protein Albumin Syphilis IgG/IgM Ab Blood Type Antibody Screen 11/16/24 11/16/24 11/16/24 13:31 13:31 13:31 WBC RBC Hgb Hct MCV MCH MCHC RDW Plt Count MPV Immature Gran % (Auto) Neut % (Auto) Lymph % (Auto) [place] % (Auto) Eos % (Auto) Baso % (Auto) Lymph # (Auto) [place] # (Auto) Eos # (Auto) Baso # (Auto) Abs Immat Gran (auto) Absolute Neuts (auto) Absolute Nucleated RBC Nucleated RBC % Sodium Potassium Chloride Carbon Dioxide Anion Gap BUN Creatinine Estim Creat Clear Calc Estimated GFR Glucose Uric Acid Calcium Total Bilirubin AST ALT Alkaline Phosphatase Cancelled Total Protein 6.3 g/dL Cancelled (6.3-8.2) Albumin 3.2 L g/dL Cancelled (3.5-5.1) Syphilis IgG/IgM Ab Non-reactive (Nonreactive) Blood Type O Positive Antibody Screen Negative : gestational age HCG: positive Patient hx anesthesia problems: none Family hx anesthesia problems: none Results Review: All pre-operative results and documents have been reviewed as part of the pre- operative evaluation. [facility] Past Medical History Medical History Morbid obesity Preeclampsia Environmental allergies Asthma Acid reflux Anemia Family History Family History Grandparent Breast cancer Diabetes mellitus Hypertension Lung cancer Father Diabetes mellitus Hypertension Social History Social History Smoking status: Never smoker Alcohol intake: never Substance use: never Do You Feel Safe in your Home?: Yes Lack of Transportation: No Lack of Food: Never True Current Housing: I Have Housing Concerned About Future Housing: No Difficulty Paying Gas/Electric Bills: No Difficulty Paying for Meds: No Currently Unemployed: No Education: High School Diploma/GED Difficulty w/ Childcare or Family Care: No Living arrangements: with family Occupation/Education: student Gender identity (if verbalized by the patient): Female Sexual Orientation (if Verbalized by the Patient): Straight or Heterosexual Spiritual care concerns: No Exam Day of Procedure 11/16/24 17:28 Patient weight: morbidly obese Airway: Mallampati scale class II
[2024-11-16] MEDS: ACETAMINOPHEN 500 MG TABLET 1000 MG PO (18:27)
[2024-11-16] MEDS: AMPICILLIN 1 GM/NS 50 ML 1 GM/50 ML BAG IVPB (19:39)
[2024-11-16] MEDS: LABETALOL HCL 100 MG TABLET 400 MG PO (21:19)
[2024-11-16] MEDS: LACTATED RINGERS 500 ML 999 ML IV CONT (23:30)
[2024-11-16] MEDS: FAMOTIDINE 20 MG/2 ML VIAL IV PUSH (23:32)
[2024-11-17] VITALS (220 sets, daily range): BP systolic 105–173; BP diastolic 27–103; PULSE 62–108; RESP 15–20; TEMP 36.3–37.2; O2SAT 95–100
[2024-11-17] MEDS: AMPICILLIN 1 GM/NS 50 ML 1 GM/50 ML BAG IVPB ×5 (00:04→16:09)
[2024-11-17] MEDS: LABETALOL HCL 100 MG TABLET 400 MG PO ×3 (05:23→21:54)
[2024-11-17] MEDS: ONDANSETRON INJ 4 MG/2 ML VIAL IV PUSH ×2 (06:19→17:09)
[2024-11-17] MEDS: MAGNESIUM SULF 4 GM/WATER100ML 4 GM/100 ML BAG IVPB (06:22)
[2024-11-17] MEDS: MAGNESIUM SULF 20GM/WATER500ML 500 ML 50 MG IV CONT ×2 (06:54→16:40)
[2024-11-17] MEDS: LACTATED RINGERS 1,000 ML 125 ML IV CONT ×3 (07:00→21:59)
--- NOTE | 2024-11-17 07:40 | PM.OBPNVD ---
OB - PN: Subj Subjective Date/time seen: 11/16/24 1600 Interval history: Cat 2, tracing occasional mild variables, Blood pressures in severe range, improved after 3 doses of Labetolol. A dose of Procardia given. Blood pressures improved. Cytotec and Ampicillin. Plan for Mag in active labor or sooner if needed. OB - PN: Obj Data Labs 11/16/24 13:31 11/16/24 13:31 Labs: Laboratory Results - last 24 hr 11/16/24 11/16/24 11/16/24 13:31 13:31 13:31 WBC 14.0 H RBC 3.93 L Hgb 12.1 Hct 34.7 L MCV 88.3 MCH 30.8 MCHC 34.9 RDW 14.3 Plt Count 232 MPV 11.2 H Immature Gran % (Auto) 0.9 H Neut % (Auto) 75.3 H Lymph % (Auto) 17.7 L [place] % (Auto) 5.6 Eos % (Auto) 0.4 Baso % (Auto) 0.1 L Lymph # (Auto) 2.48 [place] # (Auto) 0.8 H Eos # (Auto) 0.1 Baso # (Auto) 0.0 Abs Immat Gran (auto) 0.12 H Absolute Neuts (auto) 10.5 H Absolute Nucleated RBC 0.000 Nucleated RBC % 0.0 Sodium 133 L Cancelled Potassium 3.9 Cancelled Chloride 106 Carbon Dioxide Anion Gap BUN Creatinine Estim Creat Clear Calc Estimated GFR Glucose Uric Acid Calcium Total Bilirubin AST ALT Alkaline Phosphatase Total Protein Albumin Syphilis IgG/IgM Ab Blood Type Antibody Screen 11/16/24 11/16/24 11/16/24 13:31 13:31 13:31 WBC RBC Hgb Hct MCV MCH MCHC RDW Plt Count MPV Immature Gran % (Auto) Neut % (Auto) Lymph % (Auto) [place] % (Auto) Eos % (Auto) Baso % (Auto) Lymph # (Auto) [place] # (Auto) Eos # (Auto) Baso # (Auto) Abs Immat Gran (auto) Absolute Neuts (auto) Absolute Nucleated RBC Nucleated RBC % Sodium Potassium Chloride Cancelled Carbon Dioxide 19 L Cancelled Anion Gap 8 Cancelled BUN 14 Creatinine Estim Creat Clear Calc Estimated GFR Glucose Uric Acid Calcium Total Bilirubin AST ALT Alkaline Phosphatase Total Protein Albumin Syphilis IgG/IgM Ab Blood Type Antibody Screen 11/16/24 11/16/24 11/16/24 13:31 13:31 13:31 WBC RBC Hgb Hct MCV MCH MCHC RDW Plt Count MPV Immature Gran % (Auto) Neut % (Auto) Lymph % (Auto) [place] % (Auto) Eos % (Auto) Baso % (Auto) Lymph # (Auto) [place] # (Auto) Eos # (Auto) Baso # (Auto) Abs Immat Gran (auto) Absolute Neuts (auto) Absolute Nucleated RBC Nucleated RBC % Sodium Potassium Chloride Carbon Dioxide Anion Gap BUN Cancelled Creatinine 0.74 Cancelled Estim Creat Clear Calc Not Reportable Cancelled Estimated GFR > 60 Glucose Uric Acid Calcium Total Bilirubin AST ALT Alkaline Phosphatase Total Protein Albumin Syphilis IgG/IgM Ab Blood Type Antibody Screen 11/16/24 11/16/24 11/16/24 13:31 13:31 13:31 WBC RBC Hgb Hct MCV MCH MCHC RDW Plt Count MPV Immature Gran % (Auto) Neut % (Auto) Lymph % (Auto) [place] % (Auto) Eos % (Auto) Baso % (Auto) Lymph # (Auto) [place] # (Auto) Eos # (Auto) Baso # (Auto) Abs Immat Gran (auto) Absolute Neuts (auto) Absolute Nucleated RBC Nucleated RBC % Sodium Potassium Chloride Carbon Dioxide Anion Gap BUN Creatinine Estim Creat Clear Calc Estimated GFR Cancelled Glucose 128 H Cancelled Uric Acid 7.3 Calcium 9.1 Cancelled Total Bilirubin 0.3 AST ALT Alkaline Phosphatase Total Protein Albumin Syphilis IgG/IgM Ab Blood Type Antibody Screen 11/16/24 11/16/24 11/16/24 13:31 13:31 13:31 WBC RBC Hgb Hct MCV MCH MCHC RDW Plt Count MPV Immature Gran % (Auto) Neut % (Auto) Lymph % (Auto) [place] % (Auto) Eos % (Auto) Baso % (Auto) Lymph # (Auto) [place] # (Auto) Eos # (Auto) Baso # (Auto) Abs Immat Gran (auto) Absolute Neuts (auto) Absolute Nucleated RBC Nucleated RBC % Sodium Potassium Chloride Carbon Dioxide Anion Gap BUN Creatinine Estim Creat Clear Calc Estimated GFR Glucose Uric Acid Calcium Total Bilirubin Cancelled AST 30 Cancelled ALT 16 Cancelled Alkaline Phosphatase 126 Total Protein Albumin Syphilis IgG/IgM Ab Blood Type Antibody Screen 11/16/24 11/16/24 11/16/24 13:31 13:31 13:31 WBC RBC Hgb Hct MCV MCH MCHC RDW Plt Count MPV Immature Gran % (Auto) Neut % (Auto) Lymph % (Auto) [place] % (Auto) Eos % (Auto) Baso % (Auto) Lymph # (Auto) [place] # (Auto) Eos # (Auto) Baso # (Auto) Abs Immat Gran (auto) Absolute Neuts (auto) Absolute Nucleated RBC Nucleated RBC % Sodium Potassium Chloride Carbon Dioxide Anion Gap BUN Creatinine Estim Creat Clear Calc Estimated GFR Glucose Uric Acid Calcium Total Bilirubin AST ALT Alkaline Phosphatase Cancelled Total Protein 6.3 Cancelled Albumin 3.2 L Cancelled Syphilis IgG/IgM Ab Non-reactive Blood Type O Positive Antibody Screen Negative OB - PN A/P Time Spent With Patient Time: Total time spent is greater than 50% in coordination of care (as documented) at patient's floor/unit and/or counseling patient:
--- NOTE | 2024-11-17 07:42 | PM.OBPNVD ---
OB - PN: Subj Subjective Date/time seen: 11/17/24 07:42 Interval history: Her blood pressures increased to severe range at midnight responded to hydralazine and started to increase at 5am. Her Labetolol oral dose increased last night. She had 2 doses of Cytotec since admission. Cervix ft prior to giving second dose. MFM contacted this am per protocol. She denies headache scotomata or RUQ pain. Has nausea. Has back pain continuous 5-6. Minimal ctx on toco. Cervix 2/75/-2. Will start Magnesium. She request epidural. OB - PN: Obj Data Labs 11/16/24 13:31 11/16/24 13:31 Labs: Laboratory Results - last 24 hr 11/16/24 11/16/24 11/16/24 13:31 13:31 13:31 WBC 14.0 H RBC 3.93 L Hgb 12.1 Hct 34.7 L MCV 88.3 MCH 30.8 MCHC 34.9 RDW 14.3 Plt Count 232 MPV 11.2 H Immature Gran % (Auto) 0.9 H Neut % (Auto) 75.3 H Lymph % (Auto) 17.7 L [place] % (Auto) 5.6 Eos % (Auto) 0.4 Baso % (Auto) 0.1 L Lymph # (Auto) 2.48 [place] # (Auto) 0.8 H Eos # (Auto) 0.1 Baso # (Auto) 0.0 Abs Immat Gran (auto) 0.12 H Absolute Neuts (auto) 10.5 H Absolute Nucleated RBC 0.000 Nucleated RBC % 0.0 Sodium 133 L Cancelled Potassium 3.9 Cancelled Chloride 106 Carbon Dioxide Anion Gap BUN Creatinine Estim Creat Clear Calc Estimated GFR Glucose Uric Acid Calcium Total Bilirubin AST ALT Alkaline Phosphatase Total Protein Albumin Syphilis IgG/IgM Ab Blood Type Antibody Screen 11/16/24 11/16/24 11/16/24 13:31 13:31 13:31 WBC RBC Hgb Hct MCV MCH MCHC RDW Plt Count MPV Immature Gran % (Auto) Neut % (Auto) Lymph % (Auto) [place] % (Auto) Eos % (Auto) Baso % (Auto) Lymph # (Auto) [place] # (Auto) Eos # (Auto) Baso # (Auto) Abs Immat Gran (auto) Absolute Neuts (auto) Absolute Nucleated RBC Nucleated RBC % Sodium Potassium Chloride Cancelled Carbon Dioxide 19 L Cancelled Anion Gap 8 Cancelled BUN 14 Creatinine Estim Creat Clear Calc Estimated GFR Glucose Uric Acid Calcium Total Bilirubin AST ALT Alkaline Phosphatase Total Protein Albumin Syphilis IgG/IgM Ab Blood Type Antibody Screen 11/16/24 11/16/24 11/16/24 13:31 13:31 13:31 WBC RBC Hgb Hct MCV MCH MCHC RDW Plt Count MPV Immature Gran % (Auto) Neut % (Auto) Lymph % (Auto) [place] % (Auto) Eos % (Auto) Baso % (Auto) Lymph # (Auto) [place] # (Auto) Eos # (Auto) Baso # (Auto) Abs Immat Gran (auto) Absolute Neuts (auto) Absolute Nucleated RBC Nucleated RBC % Sodium Potassium Chloride Carbon Dioxide Anion Gap BUN Cancelled Creatinine 0.74 Cancelled Estim Creat Clear Calc Not Reportable Cancelled Estimated GFR > 60 Glucose Uric Acid Calcium Total Bilirubin AST ALT Alkaline Phosphatase Total Protein Albumin Syphilis IgG/IgM Ab Blood Type Antibody Screen 11/16/24 11/16/24 11/16/24 13:31 13:31 13:31 WBC RBC Hgb Hct MCV MCH MCHC RDW Plt Count MPV Immature Gran % (Auto) Neut % (Auto) Lymph % (Auto) [place] % (Auto) Eos % (Auto) Baso % (Auto) Lymph # (Auto) [place] # (Auto) Eos # (Auto) Baso # (Auto) Abs Immat Gran (auto) Absolute Neuts (auto) Absolute Nucleated RBC Nucleated RBC % Sodium Potassium Chloride Carbon Dioxide Anion Gap BUN Creatinine Estim Creat Clear Calc Estimated GFR Cancelled Glucose 128 H Cancelled Uric Acid 7.3 Calcium 9.1 Cancelled Total Bilirubin 0.3 AST ALT Alkaline Phosphatase Total Protein Albumin Syphilis IgG/IgM Ab Blood Type Antibody Screen 11/16/24 11/16/24 11/16/24 13:31 13:31 13:31 WBC RBC Hgb Hct MCV MCH MCHC RDW Plt Count MPV Immature Gran % (Auto) Neut % (Auto) Lymph % (Auto) [place] % (Auto) Eos % (Auto) Baso % (Auto) Lymph # (Auto) [place] # (Auto) Eos # (Auto) Baso # (Auto) Abs Immat Gran (auto) Absolute Neuts (auto) Absolute Nucleated RBC Nucleated RBC % Sodium Potassium Chloride Carbon Dioxide Anion Gap BUN Creatinine Estim Creat Clear Calc Estimated GFR Glucose Uric Acid Calcium Total Bilirubin Cancelled AST 30 Cancelled ALT 16 Cancelled Alkaline Phosphatase 126 Total Protein Albumin Syphilis IgG/IgM Ab Blood Type Antibody Screen 11/16/24 11/16/24 11/16/24 13:31 13:31 13:31 WBC RBC Hgb Hct MCV MCH MCHC RDW Plt Count MPV Immature Gran % (Auto) Neut % (Auto) Lymph % (Auto) [place] % (Auto) Eos % (Auto) Baso % (Auto) Lymph # (Auto) [place] # (Auto) Eos # (Auto) Baso # (Auto) Abs Immat Gran (auto) Absolute Neuts (auto) Absolute Nucleated RBC Nucleated RBC % Sodium Potassium Chloride Carbon Dioxide Anion Gap BUN Creatinine Estim Creat Clear Calc Estimated GFR Glucose Uric Acid Calcium Total Bilirubin AST ALT Alkaline Phosphatase Cancelled Total Protein 6.3 Cancelled Albumin 3.2 L Cancelled Syphilis IgG/IgM Ab Non-reactive Blood Type O Positive Antibody Screen Negative OB - PN A/P Time Spent With Patient Time: Total time spent is greater than 50% in coordination of care (as documented) at patient's floor/unit and/or counseling patient:
--- NOTE | 2024-11-17 07:46 | PM.OBDSVD ---
DS: Admitting Diagnosis Discharge Date 11/23/24 Admitting Diagnosis Pre- eclampsia with severe features. OB - DS: Summary Hospital Course Hospital Course: She was admitted for [facility] for pre-eclampsia with severe range blood pressures. Blood pressures improved initially with IV Labetolol and Procardia. Induction started with Cytotec. Blood pressures increased am of 11/17/24. Cervix dilated to 2. Magnesium started due to increased blood pressures. Epidural placed on request. She had intolerance to labor and had a primary . she was continued on magnesium for 24 hours. Continued on oral labetalol and Procardia. Blood pressures improved on postop day 2. She had adequate pain control by postop day 2 and was ambulating without problems and tolerating regular food had flatus and bowel movements. On postop day 3 her blood pressure started to increase. Her medications were adjusted and her blood pressures continued to increase and then she started having a severe headache. she was started back on magnesium. She did have PIH labs on postop day 3 and the liver function tests were mildly elevated. She was continued on the magnesium for 24 hours. She had repeat labs done on postop day 4 which were significant for liver tests had increased. magnesium was discontinued after 24 hours. Her blood pressures did improve. Liver function test decreased. She was discharged to home on post op day 5. OB Procedures : PIH Mgmt OB Procedures Intrapartum: OB Procedures: : None Peripartum Data Delivery Method: Section complications: none Status at Discharge Functional status at discharge: independent ambulation Time Spent with Patient Time attestation: Total time spent providing and/or coordinating discharge services: Exam Const: General: cooperative Orientation/consciousness: oriented to person, oriented to place and oriented to time HENMT: Face/Nose/Sinus: Normal external nose present Eyes: General: appearance normal, both eyes and all related structures Resp: Effort & Inspection: normal respiratory effort GI: Inspection: normal to inspection Skin: General skin exam: normal color Neuro: General: oriented to person, oriented to place and oriented to time Extrem: General: normal to inspection and no calf tenderness Psych: Appearance: grossly normal DS: Data Data Completed and Pending Labs on day of discharge: Labs from last 24 hours 11/16/24 11/16/24 11/16/24 13:31 13:31 13:31 WBC RBC Hgb Hct MCV MCH MCHC RDW Plt Count MPV Immature Gran % (Auto) Neut % (Auto) Lymph % (Auto) [place] % (Auto) Eos % (Auto) Baso % (Auto) Lymph # (Auto) [place] # (Auto) Eos # (Auto) Baso # (Auto) Abs Immat Gran (auto) Absolute Neuts (auto) Absolute Nucleated RBC Nucleated RBC % Sodium Potassium Chloride Carbon Dioxide Anion Gap BUN Creatinine Estim Creat Clear Calc Estimated GFR Glucose Uric Acid Calcium Total Bilirubin AST ALT Alkaline Phosphatase Cancelled Total Protein Cancelled 6.3 Albumin Cancelled 3.2 L Syphilis IgG/IgM Ab Non-reactive Blood Type O Positive Antibody Screen Negative 11/16/24 11/16/24 11/16/24 13:31 13:31 13:31 WBC RBC Hgb Hct MCV MCH MCHC RDW Plt Count MPV Immature Gran % (Auto) Neut % (Auto) Lymph % (Auto) [place] % (Auto) Eos % (Auto) Baso % (Auto) Lymph # (Auto) [place] # (Auto) Eos # (Auto) Baso # (Auto) Abs Immat Gran (auto) Absolute Neuts (auto) Absolute Nucleated RBC Nucleated RBC % Sodium Potassium Chloride Carbon Dioxide Anion Gap BUN Creatinine Estim Creat Clear Calc Estimated GFR Glucose Uric Acid Calcium Total Bilirubin Cancelled AST Cancelled 30 ALT Cancelled 16 Alkaline Phosphatase 126 Total Protein Albumin Syphilis IgG/IgM Ab Blood Type Antibody Screen 11/16/24 11/16/24 11/16/24 13:31 13:31 13:31 WBC RBC Hgb Hct MCV MCH MCHC RDW Plt Count MPV Immature Gran % (Auto) Neut % (Auto) Lymph % (Auto) [place] % (Auto) Eos % (Auto) Baso % (Auto) Lymph # (Auto) [place] # (Auto) Eos # (Auto) Baso # (Auto) Abs Immat Gran (auto) Absolute Neuts (auto) Absolute Nucleated RBC Nucleated RBC % Sodium Potassium Chloride Carbon Dioxide Anion Gap BUN Creatinine Estim Creat Clear Calc Estimated GFR Cancelled Glucose Cancelled 128 H Uric Acid 7.3 Calcium Cancelled 9.1 Total Bilirubin 0.3 AST ALT Alkaline Phosphatase Total Protein Albumin Syphilis IgG/IgM Ab Blood Type Antibody Screen 11/16/24 11/16/24 11/16/24 13:31 13:31 13:31 WBC RBC Hgb Hct MCV MCH MCHC RDW Plt Count MPV Immature Gran % (Auto) Neut % (Auto) Lymph % (Auto) [place] % (Auto) Eos % (Auto) Baso % (Auto) Lymph # (Auto) [place] # (Auto) Eos # (Auto) Baso # (Auto) Abs Immat Gran (auto) Absolute Neuts (auto) Absolute Nucleated RBC Nucleated RBC % Sodium Potassium Chloride Carbon Dioxide Anion Gap BUN Cancelled Creatinine Cancelled 0.74 Estim Creat Clear Calc Cancelled Not Reportable Estimated GFR > 60 Glucose Uric Acid Calcium Total Bilirubin AST ALT Alkaline Phosphatase Total Protein Albumin Syphilis IgG/IgM Ab Blood Type Antibody Screen 11/16/24 11/16/24 11/16/24 13:31 13:31 13:31 WBC RBC Hgb Hct MCV MCH MCHC RDW Plt Count MPV Immature Gran % (Auto) Neut % (Auto) Lymph % (Auto) [place] % (Auto) Eos % (Auto) Baso % (Auto) Lymph # (Auto) [place] # (Auto) Eos # (Auto) Baso # (Auto) Abs Immat Gran (auto) Absolute Neuts (auto) Absolute Nucleated RBC Nucleated RBC % Sodium Potassium Chloride Cancelled Carbon Dioxide Cancelled 19 L Anion Gap Cancelled 8 BUN 14 Creatinine Estim Creat Clear Calc Estimated GFR Glucose Uric Acid Calcium Total Bilirubin AST ALT Alkaline Phosphatase Total Protein Albumin Syphilis IgG/IgM Ab Blood Type Antibody Screen 11/16/24 11/16/24 11/16/24 13:31 13:31 13:31 WBC 14.0 H RBC 3.93 L Hgb 12.1 Hct 34.7 L MCV 88.3 MCH 30.8 MCHC 34.9 RDW 14.3 Plt Count 232 MPV 11.2 H Immature Gran % (Auto) 0.9 H Neut % (Auto) 75.3 H Lymph % (Auto) 17.7 L [place] % (Auto) 5.6 Eos % (Auto) 0.4 Baso % (Auto) 0.1 L Lymph # (Auto) 2.48 [place] # (Auto) 0.8 H Eos # (Auto) 0.1 Baso # (Auto) 0.0 Abs Immat Gran (auto) 0.12 H Absolute Neuts (auto) 10.5 H Absolute Nucleated RBC 0.000 Nucleated RBC % 0.0 Sodium Cancelled 133 L Potassium Cancelled 3.9 Chloride 106 Carbon Dioxide Anion Gap BUN Creatinine Estim Creat Clear Calc Estimated GFR Glucose Uric Acid Calcium Total Bilirubin AST ALT Alkaline Phosphatase Total Protein Albumin Syphilis IgG/IgM Ab Blood Type Antibody Screen Discharge Plan Discharge Attending physician on discharge: David Tolbert Consulting providers: Agnieszka Hastings; Gregory Chinchilla Jr.; Ebony Hickey Discharging Clinician: David Tolbert Anticipated Discharge Date/Time: 11/23/24 07:34 Patient Disposition: Home Activity: may shower, no straining, no driving and pelvic rest Diet: regular Discharge Instructions: Education: Mom and Baby Guide Given to: Mother Follow-Up: Call your delivering provider's office for an appointment to be seen in: 1 Week [facility]. Appointment Date/Time: November 24, 2024 at 9:00 am What to expect at your follow-up visit: Blood Pressure Check Physical Assessment Call [phone] if you are unable to keep your appointment time. BREAST CARE: * Wear a snug supportive bra. * For engorgement discomfort: Breast Feeding: * Apply warm moist washcloths * Express milk as needed to relieve engorgement * Wear loose clothing Bottle Feeding: * May apply ice packs * For sore nipples: * Identify correct latch-on * Apply warm moist washcloths before and after nursing * Air dry nipples after nursing * May apply Lansinoh cream to nipples ABDOMINAL INCISION: * Allow incision to air dry * Do NOT use lotions or powders on your incision * When showering, allow soap and water to run over the incision, but do not wash incision PERINEAL CARE: * Until bleeding stops, use your scout bottle after urinating * Change your pad frequently throughout the day * You may take sitz baths several times a day (fill your bathtub with warm water and soak for 20 minutes.) Do NOT bathe in the water * No tub baths until seen by your physician - You may shower ACTIVITY: * Rest as much as possible. * Do not exercise or lift anything heavier than your baby (such as laundry or other children.) * Avoid stairs or driving as much as possible. * Do not put anything into the vagina. No douching, tampons, or sexual activity until seen by physician. NOTIFY PHYSICIAN IF YOU HAVE ANY QUESTIONS OR IF ANY OF THE FOLLOWING SYMPTOMS OCCUR: * If your incision becomes red, swollen, or more painful than what you have experienced in the hospital. * If your vaginal bleeding becomes foul smelling. * If your vaginal bleeding becomes more heavy than a period or if your bleeding changes from pink to bright red. However, you may pass an occasional walnut-sized clot once or twice for the first week . * If you experience a sharp, shooting pain in your calves. * If you discover a hard, reddened area on your breast or if you experience flu-like symptoms. DIET: * Eat regular, well-balanced meals. * Drink plenty of fluids daily. If , drink to thirst. May take over the counter Ibuprofen, 600mg every six hours as needed. Patient Language: Guatemalan Stand Alone Forms: General Discharge Information Follow-up/Referrals: David Tolbert MD [Physician] - 1 Week (Call for appointment) Discharge Medications: New polysaccharide iron complex 150 mg iron Capsule 150 mg PO BIDWM Qty: 60 0RF oxycodone 5 mg Tablet 5 mg PO Q4H PRN (Reason: Pain Rated 4-6) Qty: 15 0RF Continued albuterol sulfate 2.5 mg /3 mL (0.083 %) solution for nebulization 2.5 mg inhalation Q4H PRN (Reason: shortness of breath or wheezing) Qty: 75 0RF ferrous sulfate 325 mg (65 mg iron) tablet 325 mg PO DAILY PNV #[id number] 30 mg iron-10 mg iron-1 mg capsule 1 cap PO HS Rx Instructions: please send out any with DHA covered under patients insurance. nifedipine [Procardia XL] 90 mg tablet extended release 24hr 90 mg PO DAILY Qty: 30 0RF Discontinued labetalol 200 mg tablet 200 mg PO Q12H Qty: 60 1RF No Action labetalol 300 mg tablet 600 mg PO Q8H Qty: 60 1RF Date of admission: 11/16/24 12:30 Primary Care Provider: PHYSICIAN,ANESTHESIOLOGY TEACHER Admitting Provider: David Tolbert Attending physician on admission: David Tolbert Condition: Stable
--- NOTE | 2024-11-17 08:06 | PM.OBPNVD ---
OB - PN: Subj Subjective Date/time seen: 11/17/24 08:06 Interval history: fht 125, Cat 2, AROM, clear, IUPC, 2/80/-2. OB - PN: Obj Data Labs 11/16/24 13:31 11/16/24 13:31 Labs: Laboratory Results - last 24 hr 11/16/24 11/16/24 11/16/24 13:31 13:31 13:31 WBC 14.0 H RBC 3.93 L Hgb 12.1 Hct 34.7 L MCV 88.3 MCH 30.8 MCHC 34.9 RDW 14.3 Plt Count 232 MPV 11.2 H Immature Gran % (Auto) 0.9 H Neut % (Auto) 75.3 H Lymph % (Auto) 17.7 L [place] % (Auto) 5.6 Eos % (Auto) 0.4 Baso % (Auto) 0.1 L Lymph # (Auto) 2.48 [place] # (Auto) 0.8 H Eos # (Auto) 0.1 Baso # (Auto) 0.0 Abs Immat Gran (auto) 0.12 H Absolute Neuts (auto) 10.5 H Absolute Nucleated RBC 0.000 Nucleated RBC % 0.0 Sodium 133 L Cancelled Potassium 3.9 Cancelled Chloride 106 Carbon Dioxide Anion Gap BUN Creatinine Estim Creat Clear Calc Estimated GFR Glucose Uric Acid Calcium Total Bilirubin AST ALT Alkaline Phosphatase Total Protein Albumin Syphilis IgG/IgM Ab Blood Type Antibody Screen 11/16/24 11/16/24 11/16/24 13:31 13:31 13:31 WBC RBC Hgb Hct MCV MCH MCHC RDW Plt Count MPV Immature Gran % (Auto) Neut % (Auto) Lymph % (Auto) [place] % (Auto) Eos % (Auto) Baso % (Auto) Lymph # (Auto) [place] # (Auto) Eos # (Auto) Baso # (Auto) Abs Immat Gran (auto) Absolute Neuts (auto) Absolute Nucleated RBC Nucleated RBC % Sodium Potassium Chloride Cancelled Carbon Dioxide 19 L Cancelled Anion Gap 8 Cancelled BUN 14 Creatinine Estim Creat Clear Calc Estimated GFR Glucose Uric Acid Calcium Total Bilirubin AST ALT Alkaline Phosphatase Total Protein Albumin Syphilis IgG/IgM Ab Blood Type Antibody Screen 11/16/24 11/16/24 11/16/24 13:31 13:31 13:31 WBC RBC Hgb Hct MCV MCH MCHC RDW Plt Count MPV Immature Gran % (Auto) Neut % (Auto) Lymph % (Auto) [place] % (Auto) Eos % (Auto) Baso % (Auto) Lymph # (Auto) [place] # (Auto) Eos # (Auto) Baso # (Auto) Abs Immat Gran (auto) Absolute Neuts (auto) Absolute Nucleated RBC Nucleated RBC % Sodium Potassium Chloride Carbon Dioxide Anion Gap BUN Cancelled Creatinine 0.74 Cancelled Estim Creat Clear Calc Not Reportable Cancelled Estimated GFR > 60 Glucose Uric Acid Calcium Total Bilirubin AST ALT Alkaline Phosphatase Total Protein Albumin Syphilis IgG/IgM Ab Blood Type Antibody Screen 11/16/24 11/16/24 11/16/24 13:31 13:31 13:31 WBC RBC Hgb Hct MCV MCH MCHC RDW Plt Count MPV Immature Gran % (Auto) Neut % (Auto) Lymph % (Auto) [place] % (Auto) Eos % (Auto) Baso % (Auto) Lymph # (Auto) [place] # (Auto) Eos # (Auto) Baso # (Auto) Abs Immat Gran (auto) Absolute Neuts (auto) Absolute Nucleated RBC Nucleated RBC % Sodium Potassium Chloride Carbon Dioxide Anion Gap BUN Creatinine Estim Creat Clear Calc Estimated GFR Cancelled Glucose 128 H Cancelled Uric Acid 7.3 Calcium 9.1 Cancelled Total Bilirubin 0.3 AST ALT Alkaline Phosphatase Total Protein Albumin Syphilis IgG/IgM Ab Blood Type Antibody Screen 11/16/24 11/16/24 11/16/24 13:31 13:31 13:31 WBC RBC Hgb Hct MCV MCH MCHC RDW Plt Count MPV Immature Gran % (Auto) Neut % (Auto) Lymph % (Auto) [place] % (Auto) Eos % (Auto) Baso % (Auto) Lymph # (Auto) [place] # (Auto) Eos # (Auto) Baso # (Auto) Abs Immat Gran (auto) Absolute Neuts (auto) Absolute Nucleated RBC Nucleated RBC % Sodium Potassium Chloride Carbon Dioxide Anion Gap BUN Creatinine Estim Creat Clear Calc Estimated GFR Glucose Uric Acid Calcium Total Bilirubin Cancelled AST 30 Cancelled ALT 16 Cancelled Alkaline Phosphatase 126 Total Protein Albumin Syphilis IgG/IgM Ab Blood Type Antibody Screen 11/16/24 11/16/24 11/16/24 13:31 13:31 13:31 WBC RBC Hgb Hct MCV MCH MCHC RDW Plt Count MPV Immature Gran % (Auto) Neut % (Auto) Lymph % (Auto) [place] % (Auto) Eos % (Auto) Baso % (Auto) Lymph # (Auto) [place] # (Auto) Eos # (Auto) Baso # (Auto) Abs Immat Gran (auto) Absolute Neuts (auto) Absolute Nucleated RBC Nucleated RBC % Sodium Potassium Chloride Carbon Dioxide Anion Gap BUN Creatinine Estim Creat Clear Calc Estimated GFR Glucose Uric Acid Calcium Total Bilirubin AST ALT Alkaline Phosphatase Cancelled Total Protein 6.3 Cancelled Albumin 3.2 L Cancelled Syphilis IgG/IgM Ab Non-reactive Blood Type O Positive Antibody Screen Negative OB - PN A/P Time Spent With Patient Time: Total time spent is greater than 50% in coordination of care (as documented) at patient's floor/unit and/or counseling patient:
[2024-11-17] MEDS: OXYTOCIN 30 UNITS/NS 500 ML 30 UNITS/500 ML BAG IV CONT (09:34)
[2024-11-17] MEDS: LORATADINE 10 MG TABLET PO (09:59)
[2024-11-17] MEDS: ACETAMINOPHEN 500 MG TABLET 1000 MG PO (12:45)
[2024-11-17] MEDS: SODIUM CHLORIDE 0.9% IV 300 ML 600 ML I-UTERINE (15:53)
[2024-11-17] MEDS: FAMOTIDINE 20 MG/2 ML VIAL IV PUSH (17:08)
[2024-11-17] MEDS: ceFAZolin 2 GM/D5W 50 ML 2 GM/50 ML BAG IVPB (17:09)
[2024-11-17] MEDS: AZITHROMYCIN 500 MG/NS 250 ML 500 MG/250 ML BAG 250 MG IVPB (17:10)
--- NOTE | 2024-11-17 17:14 | PM.OBPNVD ---
OB - PN: Subj Subjective Date/time seen: 11/17/24 17:14 Interval history: fht 120, minimal variability, cat 2, periods of absent variability, periods of late decelerations, and moderate variables, and late decelerations, improved with amnioinfusion, then progressed with minimal variability, pitocin discontinued, variability persisted minimal, cervix 4-5/90/-2, large caput. Informed patient of recommendation for primary section for nonreassuring tracing, reviewed risk and benefit of section and risk of continuing induction. She agreed with section. OB - PN: Obj Data Labs 11/16/24 13:31 11/16/24 13:31 OB - PN A/P Time Spent With Patient Time: Total time spent is greater than 50% in coordination of care (as documented) at patient's floor/unit and/or counseling patient:
--- NOTE | 2024-11-17 17:50 | S_PTH ---
PATIENT: Aris Stephens LOC: [facility] U#:[id number] AGE/SX: 19/F ROOM: 283 RE11/16/[address]: David Tolbert MD : 2005 BED: 00 DIS: 11/23/2024 SPEC #: [id number] RECD: 11/20/24 10:21 STATUS: ADAN REQ #: [id number] CHRISTINA: 11/17/24 17:[address]: David Tolbert DEPT: [facility] Surgical RECD BY: T[place] Fernando ENTERED: 11/20/24 10:21 SP TYPE: Surgical OTHR DR: VAN HELPER PHYSICIAN Tissues: A - Placenta Procedures: Hematoxylin and Eosin Stain Gross and Microscopic Level 5
--- NOTE | 2024-11-17 18:31 | P.PCNOB_ITS ---
OB - Delivery Note Procedure Delivery date: 11/17/24 Pre-op diagnosis: Preeclampsia w severe features and Other ( intolerance to labor) Post-op Diagnosis: Same Induction method: Per Misoprostol Protocol Delivery augmentation: Rupture of Membranes and Pitocin Delivery monitor: External FHT and Internal Uterine Prior to decision for section, [facility] labor guidelines were considered and discussed with the patient and staff. Decision made to proceed with the section.: Yes Procedure Performed: Primary Surgeon: David Tolbert MD Anesthesia type: Epidural Description of Procedure/Findings: Male , born at 1743, apgars 5,8 4lb4oz After informed consent, risks and benefits of the procedure was discussed with the patient. The patient was taken to the operating room where she was placed in the dorsal lithotomy position with leftward tilt. After the prior placed epidural anesthesia was found to be adequate, she was then prepped and draped in the usual sterile fashion. A Pfannenstiel skin incision was made with a scalpel and carried through to the underlying layer of fascia. The fascia was then nicked in the midline, extending bilaterally. The fascia was dissected off the rectus muscles bluntly and sharply, superiorly and inferiorly. The rectus muscles were in the midline, and peritoneum was identified and entered bluntly. The pelvic organs were visualized. The bladder blade was then inserted. The vesicouterine peritoneum was identified and entered sharply with Metzenbaum scissors and extended bilaterally. Bladder was displaced well below incision area. The low transverse uterine incision was then made with the scalpel and extended with bilateral index fingers in a crescent-shaped fashion. Amniotic cavity entered, clear fluid noted. The head was delivered and the rest of the infant was delivered. The cord was clamped twice and cut. The was then handed off to the awaiting pediatric staff. The placenta was then delivered manually. The uterine cavity was sponge curetted. The uterus was then exteriorized. The uterine incision was then closed with 0 vicryl in a running locked fashion. A second layer closed with 0 Vicryl. Uterine atony initially and improved. Hemostasis noted. Posterior cul de sac irrigated. The uterus was then returned to the abdomen. Bilateral gutters were cleared off all clots and debris. The uterine incision was noted to be hemostatic. Interceed placed on uterine incision and vertically on front of uterus. The muscle bellies were inspected and noted to be hemostatic. The subfascial layer was noted to be hemostatic, and the fascia was closed with 0 Vicryl in a running fashion. The subcutaneous layer was irrigated and then approximated with 3-0 Vicryl. The skin was closed with 4.0 vicryl on a [place] needle. Dermabond applied at incision. Op site used for dressing. All instruments, needle, and lap counts were correct x3. The patient was taken to the recovery room in stable condition. Estimated Blood Loss: 345 Urine Output: 900 Drains: No Packing: No Pathology: Yes (Placenta and cord) Complications: No immediate complications Condition: Stable Disposition: Floor [place] Baby Date of : 11/17/24 Time of : 17:43 Gestational Age by Date: 35 Infant gender: Male Weight (pounds): 4 Weight (ounces): 4 presentation: vertex position: Left Occiput Transverse Placenta delivery description: Manual Removal Cord Vessel Description: 3 Vessels score one minute: 5 score five minutes: 8
[2024-11-17] MEDS: HYDROmorphone HCL INJ (*CRX) 1 MG/ML SYR 0.5 MG IV PUSH ×3 (18:53→20:25)
[2024-11-17] MEDS: KETOROLAC 15 MG/ML VIAL (*BKC) IV PUSH (20:25)
[2024-11-17] MEDS: MUPIROCIN 2% OINT 22 GM TUBE 1 APPLIC TOPICAL (22:08)
--- NOTE | 2024-11-17 22:37 | OBPPTRN ---
Patient transferred to post room #283 via bed. Support person present. Oriented to unit, room, information board, rooming in, admission packet and security measures. Patient verbalizes understanding.
[2024-11-18] VITALS (11 sets, daily range): BP systolic 123–154; BP diastolic 72–97; PULSE 72–82; RESP 16–19; TEMP 36.4–36.8; O2SAT 95–97
[2024-11-18] MEDS: ACETAMINOPHEN 500 MG TABLET 1000 MG PO ×4 (02:15→20:09)
[2024-11-18] MEDS: KETOROLAC 15 MG/ML VIAL (*BKC) IV PUSH ×3 (02:16→14:12)
[2024-11-18] MEDS: ceFAZolin 1 GM/NS 50 ML 1 GM/50 ML BAG IVPB (02:17)
[2024-11-18] MEDS: MAGNESIUM SULF 20GM/WATER500ML 500 ML 50 MG IV CONT ×2 (02:24→12:17)
[2024-11-18] MEDS: LIDOCAINE 5% PATCH 1 PATCH TRANSDERM (04:31)
[2024-11-18 04:58] LABS: Hematocrit 28.1 % (37.0-47.0); Hemoglobin 9.2 g/dL (12.0-15.0); Immature Granulocyte Percent A 0.6 % (0-0.5); Lymphocytes Absolute Auto 2.55 K/mm3 (0.9-3.2); Mean Corpuscular HGB Conc 32.7 g/dl (32-36); Mean Corpuscular Hemoglobin 29.8 pg (26-34); Mean Corpuscular Volume 90.9 fl (80-100); Nucleated Red Blood Cells Absolute Auto 0.000 K/mm3 (0.0-0.012); Nucleated Red Blood Cells Perc 0.0 % (0.0-0.2); Platelet Count Result 141 k/mm3 (150-375); Red Blood Count 3.09 M/mm3 (4.2-5.4); White Blood Count 14.2 K/mm3 (4.5-10.0)
[2024-11-18] MEDS: MULTIVIT/MIN/PREN/FOL AC/IRON TABLET 1 TAB PO (08:00)
[2024-11-18] MEDS: SIMETHICONE 80 MG TAB.CHEW PO ×3 (08:01→17:07)
[2024-11-18] MEDS: DOCUSATE SODIUM 100 MG CAPSULE PO ×2 (08:01→17:06)
[2024-11-18] MEDS: LABETALOL HCL 100 MG TABLET 400 MG PO ×3 (08:02→22:18)
[2024-11-18] MEDS: MUPIROCIN 2% OINT 22 GM TUBE 1 APPLIC TOPICAL ×2 (08:06→20:59)
--- NOTE | 2024-11-18 09:24 | WPDANLDPN2 ---
Anes-Prog Note L&D Date/Time: 11/18/24 09:24 Comfortable throughout: labor and section Neuraxial method: epidural Epidural/Spinal procedure site: clean & non-tender Neuro status: Neuro function grossly intact. Cardiovascular status: normal Respiratory status: normal Airway patency: baseline Mental status: baseline Post-Op hydration status: normal Vital Signs: Last Vital Signs Temp 98 F 11/18/24 07:04 Pulse 72 11/18/24 08:02 Resp 18 11/18/24 07:04 BP 136/87 11/18/24 07:04 Pulse Ox 96 11/18/24 07:04 O2 Del Method Room Air 11/16/24 14:46 Pain score (VAS): 4 I/O: Intake & Output 11/17/24 11/18/24 11/18/24 23:59 07:59 15:59 Intake Total 1092.5 1396.7 Output Total 1860 1300 Balance -767.5 96.7 Post-procedural complaints: pruritis severe, treatment refractory Patient feedback: Patient satisfied with anesthetic care.
--- NOTE | 2024-11-18 09:25 | WPDANLDNPN2 ---
Anes-Prog Note L&D-Neuraxial Date/Time: 11/18/24 09:25 Neuraxial medications: epidural PF morphine Opiod-related complaints: pruritis severe, treatment refractory Patient feedback: Patient satisfied with post-operative pain management.
--- NOTE | 2024-11-18 09:38 | P.PNOB_ITS ---
OB - PN: Subj Subjective Date/time seen: 11/18/24 09:38 Interval history: She denies headache, scotomata or RUQ pain. Denies leg pain. Lochia mild. Patient comments: pain well controlled [place] baby status: doing well OB - PN: Obj Data Labs 11/18/24 04:41 11/16/24 13:31 Labs: Laboratory Results - last 24 hr 11/18/24 04:41 WBC 14.2 H RBC 3.09 L Hgb 9.2 L Hct 28.1 L MCV 90.9 MCH 29.8 MCHC 32.7 RDW 14.5 Plt Count 141 L MPV 9.8 Immature Gran % (Auto) 0.6 H Neut % (Auto) 76.6 H Lymph % (Auto) 17.9 L [place] % (Auto) 4.6 Eos % (Auto) 0.1 Baso % (Auto) 0.2 Lymph # (Auto) 2.55 [place] # (Auto) 0.7 H Eos # (Auto) 0.0 Baso # (Auto) 0.0 Abs Immat Gran (auto) 0.08 H Absolute Neuts (auto) 10.9 H Absolute Nucleated RBC 0.000 Nucleated RBC % 0.0 OB - PN A/P Assessment and Plan (1) delivery delivered: Code(s): O82 - Encounter for delivery without indication Status: Acute Assessment and Plan: Doing well. Continue routine post op care. (2) Pre-eclampsia, severe: Code(s): O14.10 - Severe pre-eclampsia, unspecified trimester Status: Acute Assessment and Plan: No severe symptoms or blood pressure ranges. Continue Magnesium until 24 hours. Continue maintenance antihypertensives. Time Spent With Patient Time: Total time spent is greater than 50% in coordination of care (as documented) at patient's floor/unit and/or counseling patient: Exam 2 Const: General: comfortable and no acute distress Resp: Effort & Inspection: normal respiratory effort Cardio: Rate: regular rate GI: Other: Abd- incision intact no drainage. Neuro: General: patient oriented x3 Extrem: General: no calf tenderness Right upper extremity: edema (mild bilat) Psych: Mental Status: mental status grossly normal
--- NOTE | 2024-11-18 10:12 | PC.NURSE ---
Introductions were made, then consulted with patient to assess needs related to . Mother states that she is currently bottle feeding and denies needing assistance at this time. Mother will call this RN if she needs assistance in relation to and/or pumping.
[2024-11-18] MEDS: oxyCODONE HCL (*CRX) 5 MG TAB IR PO ×3 (10:56→20:09)
[2024-11-18] MEDS: LACTATED RINGERS 1,000 ML 125 ML IV CONT (12:16)
[2024-11-18] MEDS: IBUPROFEN 600 MG TABLET PO (20:09)
[2024-11-19] VITALS (11 sets, daily range): BP systolic 137–158; BP diastolic 74–90; PULSE 68–82; RESP 16–18; TEMP 36.1–36.7; O2SAT 97–98
[2024-11-19] MEDS: ACETAMINOPHEN 500 MG TABLET 1000 MG PO ×4 (02:27→21:14)
[2024-11-19] MEDS: IBUPROFEN 600 MG TABLET PO ×4 (02:27→21:14)
[2024-11-19] MEDS: oxyCODONE HCL (*CRX) 5 MG TAB IR 10 MG PO (04:54)
[2024-11-19] MEDS: LABETALOL HCL 100 MG TABLET 400 MG PO ×3 (06:37→23:06)
[2024-11-19] MEDS: MULTIVIT/MIN/PREN/FOL AC/IRON TABLET 1 TAB PO (09:15)
[2024-11-19] MEDS: MUPIROCIN 2% OINT 22 GM TUBE 1 APPLIC TOPICAL (09:16)
[2024-11-19] MEDS: SIMETHICONE 80 MG TAB.CHEW PO ×3 (09:16→17:12)
[2024-11-19] MEDS: DOCUSATE SODIUM 100 MG CAPSULE PO ×2 (09:16→17:06)
--- NOTE | 2024-11-19 09:26 | P.PNOB_ITS ---
OB - PN: Subj Subjective Date/time seen: 11/19/24 09:26 Interval history: She denies headache, scotomata or RUQ pain. Denies leg pain. Lochia decreased. She has ambulated in room. Tolerating regular diet. OB - PN: Obj Data Labs 11/18/24 04:41 11/16/24 13:31 OB - PN A/P Assessment and Plan (1) delivery delivered: Code(s): O82 - Encounter for delivery without indication Status: Acute Assessment and Plan: POD2. Doing well. Routine post op care. Encourage ambulation. (2) Pre-eclampsia, severe: Code(s): O14.10 - Severe pre-eclampsia, unspecified trimester Status: Acute Assessment and Plan: No signs or symptoms. Blood pressures elevated. Will add Procardia. Time Spent With Patient Time: Total time spent is greater than 50% in coordination of care (as documented) at patient's floor/unit and/or counseling patient: Exam 2 Const: General: comfortable and no acute distress Resp: Effort & Inspection: normal respiratory effort GI: Other: fundus below umbilicus, incision intact no drainage Extrem: General: normal to inspection, no calf tenderness and edema (tr bilat) Psych: Mental Status: mental status grossly normal
[2024-11-19] MEDS: oxyCODONE HCL (*CRX) 5 MG TAB IR PO ×2 (11:50→17:07)
--- NOTE | 2024-11-19 18:10 | WPDANLDNPN2 ---
Anes-Prog Note L&D-Neuraxial Date/Time: 11/19/24 18:10 Patient feedback: Patient satisfied with post-operative pain management.
--- NOTE | 2024-11-19 18:11 | WPDANLDPN2 ---
Anes-Prog Note L&D Date/Time: 11/19/24 18:11 Comfortable throughout: labor and section Neuraxial method: epidural Epidural/Spinal procedure site: clean & non-tender Neuro status: Neuro function grossly intact. Cardiovascular status: normal Respiratory status: normal Airway patency: baseline Mental status: baseline Post-Op hydration status: normal Vital Signs: Last Vital Signs Temp 36.1 C L 11/19/24 15:00 Pulse 71 11/19/24 15:03 Resp 16 11/19/24 06:30 BP 158/90 H 11/19/24 15:00 Pulse Ox 98 11/19/24 06:30 O2 Del Method Room Air 11/16/24 14:46 Pain score (VAS): 0 I/O: Intake & Output 11/19/24 11/19/24 11/19/24 07:59 15:59 23:59 Intake Total 1200 1340 500 Output Total 433 565 2211 Balance 600 540 -500 Post-procedural complaints: pruritis severe, treatment refractory Patient feedback: Patient satisfied with anesthetic care.
[2024-11-20] VITALS (19 sets, daily range): BP systolic 135–174; BP diastolic 80–104; PULSE 64–107; RESP 16–98; TEMP 36.4–36.7; O2SAT 98–100
[2024-11-20] MEDS: IBUPROFEN 600 MG TABLET PO ×4 (03:45→20:59)
[2024-11-20] MEDS: ACETAMINOPHEN 500 MG TABLET 1000 MG PO ×4 (03:45→20:58)
[2024-11-20] MEDS: MUPIROCIN 2% OINT 22 GM TUBE 1 APPLIC TOPICAL (07:44)
[2024-11-20] MEDS: SIMETHICONE 80 MG TAB.CHEW PO ×3 (07:45→16:51)
[2024-11-20] MEDS: DOCUSATE SODIUM 100 MG CAPSULE PO ×2 (07:45→16:51)
[2024-11-20] MEDS: MULTIVIT/MIN/PREN/FOL AC/IRON TABLET 1 TAB PO (07:45)
[2024-11-20] MEDS: LABETALOL HCL 100 MG TABLET 400 MG PO (07:45)
[2024-11-20 10:53] LABS: Hematocrit 28.6 % (37.0-47.0); Hemoglobin 9.4 g/dL (12.0-15.0); Platelet Count Result 188 k/mm3 (150-375)
[2024-11-20 11:05] LABS: Alanine Aminotransferase 25 U/L (6-35); Albumin Level 2.9 g/dL (3.5-5.1); Alkaline Phosphatase 103 U/L (38-126); Anion Gap 3 mmol/L (4-12); Aspartate Amino Transferase 53 U/L (14-36); Bilirubin,Total 0.2 mg/dL (0.2-1.3); Blood Urea Nitrogen 10 mg/dL (7-17); Calcium 8.7 mg/dL (8.4-10.2); Carbon Dioxide 23 mmol/L (22-30); Chloride 109 mmol/L (98-107); Estimated CRCL calculation 134 ml/min; Estimated Glomerular Filt Rate > 60; Glucose 87 mg/dL (65-110); Potassium 4.4 mmol/L (3.4-5.0); Sodium 135 mmol/L (137-145); Total Protein 5.8 g/dL (6.3-8.2)
--- NOTE | 2024-11-20 11:11 | PC.NURSE ---
Verbally spoke with Dr. Tolbert at 0930 this AM. Requests that patient receive an extra dose of Procardia 30mg XL now and BP recheck in 15 minutes.
[2024-11-20] MEDS: oxyCODONE HCL (*CRX) 5 MG TAB IR PO ×2 (13:33→23:35)
[2024-11-20] MEDS: LABETALOL HCL 100 MG TABLET 600 MG PO ×2 (15:31→23:35)
--- NOTE | 2024-11-20 15:38 | PC.NURSE ---
Patient called out at 1530 stating she had a headache with a rating of 4/10 pain scale. BP 148/92. Scheduled Tylenol, Motrin, and labetalol administered.
[2024-11-20] MEDS: LACTATED RINGERS 1,000 ML 75 ML IV CONT ×2 (16:44→16:50)
[2024-11-20] MEDS: MAGNESIUM SULF 4 GM/WATER100ML 4 GM/100 ML BAG IVPB (16:49)
--- NOTE | 2024-11-20 17:13 | P.PNOB_ITS ---
OB - PN: Subj Subjective Date/time seen: 11/20/24 0920 Interval history: She states she feels better. She has ambulated without problems. She denies headache, scotomata or RUQ pain. Minimal lochia. Baby doing well. OB - PN: Obj Data Labs 11/20/24 10:33 11/20/24 10:33 Labs: Laboratory Results - last 24 hr 11/20/24 10:33 Hgb 9.4 L Hct 28.6 L Plt Count 188 MPV 9.4 Sodium 135 L Potassium 4.4 Chloride 109 H Carbon Dioxide 23 Anion Gap 3 L BUN 10 Creatinine 0.72 Estim Creat Clear Calc 134 Estimated GFR > 60 Glucose 87 Calcium 8.7 Total Bilirubin 0.2 AST 53 H ALT 25 Alkaline Phosphatase 103 Total Protein 5.8 L Albumin 2.9 L OB - PN A/P Assessment and Plan (1) Pre-eclampsia, severe: Code(s): O14.10 - Severe pre-eclampsia, unspecified trimester Status: Acute Assessment and Plan: Blood pressures increasing, will increase Procardia and check labs. She denies symptoms. (2) delivery delivered: Code(s): O82 - Encounter for delivery without indication Status: Acute Assessment and Plan: POD3. She is doing well. Pain controlled. Routine post care. Time Spent With Patient Time: Total time spent is greater than 50% in coordination of care (as documented) at patient's floor/unit and/or counseling patient: Exam 2 Const: General: comfortable and no acute distress Resp: Effort & Inspection: normal respiratory effort GI: Other: fundus below umbilicus, incision intact no drainage Extrem: General: normal to inspection, no calf tenderness and edema (tr bilat) Psych: Mental Status: mental status grossly normal
--- NOTE | 2024-11-20 17:16 | PM.OBPNVD ---
OB - PN: Subj Subjective Date/time seen: 11/20/24 17:16 Interval history: Blood pressures severe range this am. PIH labbs drawn. Blood pressures did improve after Hydralazine. She did start complaining of headache, labs significant for increase LFT, normal on admission. Will start Magnesium. OB - PN: Obj Data Labs 11/20/24 10:33 11/20/24 10:33 Labs: Laboratory Results - last 24 hr 11/20/24 10:33 Hgb 9.4 L Hct 28.6 L Plt Count 188 MPV 9.4 Sodium 135 L Potassium 4.4 Chloride 109 H Carbon Dioxide 23 Anion Gap 3 L BUN 10 Creatinine 0.72 Estim Creat Clear Calc 134 Estimated GFR > 60 Glucose 87 Calcium 8.7 Total Bilirubin 0.2 AST 53 H ALT 25 Alkaline Phosphatase 103 Total Protein 5.8 L Albumin 2.9 L OB - PN A/P Time Spent With Patient Time: Total time spent is greater than 50% in coordination of care (as documented) at patient's floor/unit and/or counseling patient:
[2024-11-20] MEDS: MAGNESIUM SULF 20GM/WATER500ML 500 ML 50 MG IV CONT (17:34)
[2024-11-20] MEDS: ZOLPIDEM TARTRATE (*CRX) 5 MG TABLET PO (20:59)
[2024-11-21] VITALS (10 sets, daily range): BP systolic 126–145; BP diastolic 72–91; PULSE 86–101; RESP 14–18; TEMP 36.3–36.9; O2SAT 97–100
[2024-11-21] MEDS: MAGNESIUM SULF 20GM/WATER500ML 500 ML 50 MG IV CONT ×2 (03:16→13:01)
[2024-11-21] MEDS: ACETAMINOPHEN 500 MG TABLET 1000 MG PO ×4 (03:18→21:42)
[2024-11-21] MEDS: IBUPROFEN 600 MG TABLET PO ×4 (03:19→21:42)
[2024-11-21] MEDS: LACTATED RINGERS 1,000 ML 75 ML IV CONT (07:29)
[2024-11-21] MEDS: LABETALOL HCL 100 MG TABLET 600 MG PO ×3 (07:32→23:37)
[2024-11-21] MEDS: DOCUSATE SODIUM 100 MG CAPSULE PO ×2 (07:32→17:10)
[2024-11-21] MEDS: SIMETHICONE 80 MG TAB.CHEW PO ×3 (07:33→17:10)
[2024-11-21] MEDS: MUPIROCIN 2% OINT 22 GM TUBE 1 APPLIC TOPICAL ×2 (09:00→21:46)
[2024-11-21 09:14] LABS: Alanine Aminotransferase 62 U/L (6-35); Albumin Level 3.0 g/dL (3.5-5.1); Alkaline Phosphatase 111 U/L (38-126); Anion Gap 6 mmol/L (4-12); Aspartate Amino Transferase 100 U/L (14-36); Bilirubin,Total 0.2 mg/dL (0.2-1.3); Blood Urea Nitrogen 8 mg/dL (7-17); Calcium 7.8 mg/dL (8.4-10.2); Carbon Dioxide 23 mmol/L (22-30); Chloride 104 mmol/L (98-107); Estimated CRCL calculation 134 ml/min; Estimated Glomerular Filt Rate > 60; Glucose 93 mg/dL (65-110); Potassium 4.3 mmol/L (3.4-5.0); Sodium 133 mmol/L (137-145); Total Protein 6.1 g/dL (6.3-8.2)
[2024-11-21 09:26] LABS: Hematocrit 30.0 % (37.0-47.0); Hemoglobin 9.7 g/dL (12.0-15.0); Mean Corpuscular HGB Conc 32.3 g/dl (32-36); Mean Corpuscular Hemoglobin 30.1 pg (26-34); Mean Corpuscular Volume 93.2 fl (80-100); Platelet Count Result 221 k/mm3 (150-375); Red Blood Count 3.22 M/mm3 (4.2-5.4); White Blood Count 9.7 K/mm3 (4.5-10.0)
--- NOTE | 2024-11-21 14:35 | PC.NURSE ---
Pt complains of slight blurred vision, but no headache or epigastric pain. Told pt to call out if it gets worse or if she needs help to the bathroom. she verbalized understanding.
[2024-11-22] VITALS (9 sets, daily range): BP systolic 132–148; BP diastolic 75–94; PULSE 83–100; RESP 16–18; TEMP 36.5–36.8; O2SAT 98–99
[2024-11-22] MEDS: IBUPROFEN 600 MG TABLET PO ×4 (03:40→21:46)
[2024-11-22] MEDS: ACETAMINOPHEN 500 MG TABLET 1000 MG PO ×4 (03:40→21:46)
[2024-11-22] MEDS: SIMETHICONE 80 MG TAB.CHEW PO ×3 (07:29→17:28)
[2024-11-22] MEDS: LABETALOL HCL 100 MG TABLET 600 MG PO ×3 (07:30→23:33)
--- NOTE | 2024-11-22 08:54 | PC.NURSE ---
Checked in with patient to assess needs related to . Mother is currently pumping and supplementing with formula. She states that pumping is going well and she denies needing any further education regarding pumping and feeding. Mother voiced that she would like to attempt with next feeding. Encouraged mother to call for assistance with next feed. Explained the need to continue supplementing minimum of 35cc as ordered by crisis manager.
--- NOTE | 2024-11-22 09:02 | P.PNOB_ITS ---
OB - PN: Subj Subjective Date/time seen: 11/22/24 1500 Interval history: She states she feels fine, no headache, scotomata or RUQ pain. Patient comments: pain well controlled, tolerating diet and flatus present OB - PN: Obj Data Labs 11/21/24 08:54 11/21/24 08:54 Labs: Laboratory Results - last 24 hr 11/21/24 08:54 WBC 9.7 RBC 3.22 L Hgb 9.7 L Hct 30.0 L MCV 93.2 MCH 30.1 MCHC 32.3 RDW 15.2 H Plt Count 221 MPV 9.2 Sodium 133 L Potassium 4.3 Chloride 104 Carbon Dioxide 23 Anion Gap 6 BUN 8 Creatinine 0.72 Estim Creat Clear Calc 134 Estimated GFR > 60 Glucose 93 Calcium 7.8 L Total Bilirubin 0.2 AST 100 H ALT 62 H Alkaline Phosphatase 111 Total Protein 6.1 L Albumin 3.0 L OB - PN A/P Assessment and Plan (1) delivery delivered: Code(s): O82 - Encounter for delivery without indication Status: Acute Assessment and Plan: POD5. Doing well. (2) Pre-eclampsia, severe: Code(s): O14.10 - Severe pre-eclampsia, unspecified trimester Status: Acute Assessment and Plan: Blood pressures improved. No severe symptoms. LFT decreasing. Continue antihypertensive. Time Spent With Patient Time: Total time spent is greater than 50% in coordination of care (as documented) at patient's floor/unit and/or counseling patient: Exam 2 Const: General: comfortable and no acute distress Resp: Effort & Inspection: normal respiratory effort GI: Other: fundus below umbilicus, incision intact no drainage Extrem: General: normal to inspection, no calf tenderness and edema (tr bilat) Psych: Mental Status: mental status grossly normal
[2024-11-22] MEDS: MUPIROCIN 2% OINT 22 GM TUBE 1 APPLIC TOPICAL ×2 (09:36→21:50)
[2024-11-22] MEDS: DOCUSATE SODIUM 100 MG CAPSULE PO ×2 (09:36→17:28)
[2024-11-22] MEDS: MULTIVIT/MIN/PREN/FOL AC/IRON TABLET 1 TAB PO (09:36)
[2024-11-22 09:45] LABS: Alanine Aminotransferase 60 U/L (6-35); Aspartate Amino Transferase 63 U/L (14-36)
[2024-11-22] MEDS: LIDOCAINE 5% PATCH 1 PATCH TRANSDERM (10:29)
--- NOTE | 2024-11-22 11:16 | PC.NURSE ---
MD ordered max 10 minute attempt for before supplementing. This RN assisted with attempting to latch infant. Several positions were attempted but unsuccessful. Infant would latch and suckle 2-3 times and break the latch. Mother will call this RN to assist with next feeding attempt at the breast.
[2024-11-22] MEDS: oxyCODONE HCL (*CRX) 5 MG TAB IR PO (20:05)
[2024-11-23 03:50] VITALS: BP 135/83; PULSE 93; RESP 14
[2024-11-23] MEDS: IBUPROFEN 600 MG TABLET PO ×2 (03:54→09:35)
[2024-11-23] MEDS: ACETAMINOPHEN 500 MG TABLET 1000 MG PO ×2 (03:54→09:35)
[2024-11-23 04:47] LABS: Alanine Aminotransferase 46 U/L (6-35); Aspartate Amino Transferase 46 U/L (14-36)
[2024-11-23 07:43] VITALS: PULSE 93
[2024-11-23] MEDS: SIMETHICONE 80 MG TAB.CHEW PO (07:43)
[2024-11-23] MEDS: LABETALOL HCL 100 MG TABLET 600 MG PO (07:43)
[2024-11-23 09:13] VITALS: BP 137/92; PULSE 95; RESP 18; TEMP 36.8; O2SAT 100
[2024-11-23] MEDS: DOCUSATE SODIUM 100 MG CAPSULE PO (09:35)
[2024-11-23] MEDS: TETANUS,DIPHTHERIA,AC PERTUSSIS ADULT (0.5 ML) BOOSTRIX IM (09:35)
[2024-11-23] MEDS: MULTIVIT/MIN/PREN/FOL AC/IRON TABLET 1 TAB PO (09:35)
[2024-11-23] MEDS: MUPIROCIN 2% OINT 22 GM TUBE 1 APPLIC TOPICAL (09:36)
--- NOTE | 2024-11-23 10:18 | PC.NURSE ---
Checked in with patient to assess any needs related to . Mother is currently pumping and bottle feeding with expressed breastmilk and/or formula. She states that pumping is going well and she denies needing any further education regarding pumping and feeding at this time. Per mother she did attempt to put baby to breast yesterday but does not wish to put baby to breast at this time, she would like to continue with pumping and bottle feeding. Mother is feeding appropriately for growth of and understands stimulating infant to eat if needed. has had appropriate feedings in the last 24 hours meets the outcomes for weight, output, blood sugar and jaundice at this time. Reinforced understanding of milk production, transition of milk, signs of adequate intake, transition of stool, prevention/relief of engorgement, plugged ducts, mastitis, responsive watching for feeding cues, community resources, and when to call a provider using the resource of the feeding sheet along with the mom and baby guide. Mother voiced understanding of the information shared, is confident to continue effectively feed her infant, when to call for assistance, denies any additional assistance or education at this time. Mother will be discharged today to a no care bed, will not be discharged today. [facility] referral form signed and faxed to the [facility] office. Reported to the Primary RN.
--- NOTE | 2024-11-23 12:23 | PC.NURSE ---
Patient viewed the discharge video Mother & Baby Care, The First Two Weeks. Patient was given the opportunity and encouraged to ask questions. Patient verbalized understanding of information shared and has been given the mother/baby guide for home reference.
[2024-11-24 09:28] VITALS: BP 136/85; PULSE 102; RESP 18; TEMP 36.5; O2SAT 100
== END 2024-11-23 12:23 | disposition home or self-care (01) | DRG 540 ==
LOC: ANHOBPP 13:39 → ANHLDR 13:43 → ANHOB2 11-18 00:43
PROVIDERS: Admitting Provider Obstetrics & Gynecology; Visit Provider Obstetrics & Gynecology
PROC: 10D00Z1 Extraction of Products of Conception, Low, Open Approach (ICD-10-PCS; CPT 59514; principal; 2024-11-17 17:20)
DX: O14.14 Severe pre-eclampsia complicating childbirth (principal); Z37.0 Single live birth; Z3A.35 35 weeks gestation of pregnancy; O36.8330 Maternal care for abnormalities of the fetal heart rate or rhythm, third trimester, not applicable or unspecified
CPT/HCPCS: 36415; 80053; 84450; 84460; 84550; 85014; 85018; 85025; 85027; 85049; 86593; 86850; 86900; 86901; 88307; 90715; A9270; J0290; J0360; J0456; J0690; J1171; J1200; J1885; J2003; J2004; J2405; J2590; J2795; J3475; J7030; J7120

== ENCOUNTER 2024-12-11 16:53 | Outpatient (CLI) | payer OTHER, SELFPAY ==
--- OUTSIDE RECORDS SUMMARY | 2024-12-11 16:57 | XMS_ITS | Encounter Summary ---
Author Organization [facility] Address [address] [place] [address] Care Team Providers Care Chemical Dependency Attendant Name Role Phone Severino Zelaya Primary Care Provider Unavailabl e Reason for Visit * Reason Comments Refill Request Encounter Details Date Type Department Care Team (Late st Contact Info) Description 04/22/2021 Refill [facility] [address] [facility] [place] [phone] Marialuisa Gupta, [address] [place] [address] Refill Request Social History Tobacco [...] on file 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
--- OUTSIDE RECORDS SUMMARY | 2024-12-11 16:57 | XMS_ITS | Encounter Summary ---
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
--- OUTSIDE RECORDS SUMMARY | 2024-12-11 16:57 | XMS_ITS | Clinical Summary ---
Author Organization [facility] Address [address] [place] [address] Phone Care Team Providers Care Disbursing Officer Name Role Phone Unavailable Primary Care Provider Unavailabl e Encounters Date Type Department Care Team Description 11/29/2024 External Device Data [facility] ABSTRACTION Provider, Abstract 11/28/2024 External Device Data [facility] ABSTRACTION Provider, Abstract 10/31/2024 External Device Data [facility] ABSTRACTION Provider, Abstract 10/10/2024 External Device Data [facility] ABSTRACTION Provider, Abstract 10/05/2024 External Device Data [facility] ABSTRACTION Provider, Abstract 10/04/2024 External Device Data [facility] ABSTRACTION Provider, Abstract 10/03/2024 3:16 PM CDT - 10/03/2024 11:59 PM CDT Hospital Encounter 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 Gender Identity Not on file Sexual Orientation Not on file Plan of Treatment Health Maintenance Due Date Last Done Comments HEPATITIS B VACCINES (4 of 4 - 4-dose series) 05/28/2005 05/14/2005, 04/02/2005, 2004 CHLAMYDIA SCREENING (ANNUAL) 11-24 YEARS 09/13/2015 INFLUENZA VACCINE (#1) 2024 DTAP/TDAP/TD VACCINES (2 - T d or Tdap) 02/18/2025 02/18/2015, 01/09/2010, 03/04/2006, Additional history exists HPV VACCINES Completed 03/18/2020, 11/15, 01/23/2016 Procedures Procedure Name Priority Date/Time Associated Diagnosis Comments US OB FOLLOW UP PER FETUS Routine 10/03/2024 4:17 PM CDT Encounter for supervision of normal first in second trimester from Last 3 Months Results * US OB FOLLOW UP PER FETUS (10/03/2024 4:17 PM CDT) Anatomical Region Laterality Modality Pelvis Ultrasound 10/03/2024 2:47 PM CDT Narrative 10/03/2024 4:17 PM CDT STL FOLLOW UP ----- Pat. Name: ARIS STEPH[place] Study Date: 10/03/2024 2:47pm Pat. NO: [id number] Referring MD: DAVID GUERRA MD Site: [facility] Forging Machine Operator: Saundra Douglas RDMS : 2005 Age: 19 ----- INDICATION ----- Screening Follow-Up Maternal Obesity (BMI<40) Complicating CODING ----- Diagnoses Z3A.29: Weeks of gestation O99.213: Obesity complicating Z36.2: Encounter for other screening follow-up Procedures [id number]: Ultrasound, uterus, real time with image documentation, [...] 3 lb 0 oz EFW by Hadlock ([id number]) Head / Face / Neck Biometry: Spool Carrier 5.9 mm CM 5.4 mm 13% Nicolaides [...] and date of were verified by the group insurance special agent prior to the exam IMPRESSION ----- IUP [...] 10/03/2024 ST FOLLOW UP ----- Pat. Name:Chelsea STEPHENStonemoi Date:10/03/2024 2:47pm Pat. NO: [id number] MD:DAVID GUERRA MD [facility]:Saundra Douglas RDMS :2005Age:19 ----- INDICATION ----- Screening Follow-Up Maternal Obesity (BMI<40) Complicating CODING ----- Diagnoses Z3A.29: Weeks of gestation O99.213: Obesity complicating Z36.2: Encounter for other screeningfollow-up Procedures 30728: Ultrasound, uterus, real time withimage documentation, follow up, transabdominal approach per fetus HISTORY ----- OB History 1 MATERNAL ASSESSMENT ----- Physical Exam Weight 80 kg. BMI 28.57 kg/m METHOD ----- Transabdominal ultrasound examination ----- Toth . Number of fetuses: 1 DATING ----- GA by prior [id number] w + 0 d BILL by prior [...] 3 lb 0 oz EFW by Hadlock ([id number]) Head / Face / Neck Biometry: Spool Carrier 5.9 mm CM 5.4 mm 13%Nicolaides Extremities [...] and date of were verified by the group insurance special agent prior tothe exam IMPRESSION ----- IUP at 29w 0d cephalic presentation AGA growth pattern, EFW 1357 g (45%) with appropriate interval growth Normal amniotic fluid volume, CODY 15.5 cm, MVP 6.2 cm The remaining images from the anatomic survey are completed today withnormal appearance of 4ch and LVOT. Anatomy is now complete. Recommendations: - Follow up as clinically indicated us David Guerra MD ORDERABLES Final Result from Last 3 Months Insurance MEDICAID [place]
--- OUTSIDE RECORDS SUMMARY | 2024-12-11 16:57 | XMS_ITS | Clinical Summary ---
Author Organization [facility] Address [address] [place] [address] Care Team Providers Care Sprinkler Inspector Name Role Phone Unavailable Primary Care Provider [...] Vaccine (1 - season) 2024 PHQ-2 (Physician [place]) 05/17/2024 DTaP, Tdap and Td Vaccines (7 [...]
--- OUTSIDE RECORDS SUMMARY | 2024-12-11 16:57 | XMS_ITS | Clinical Summary ---
Author Organization [facility] Address [address] [facility] [place] [address] Care Team Providers Care Hunting Sales Associate Name Role Phone Severino Zelaya Primary Care Provider Unavailabl e Source Comments [facility],non-owned Affiliates and Associated Physician Practices is amultiple site organization consisting of ambulatory clinics and hospital sitesin [place], [place], [place] and [place]. This disclosure is being madepursuant to the Care Everywhere program and may not contain all information available regarding this patient. 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 Gender Identity Not on file Sexual [...] 2024 DEPRESSION SCREENING 05/17/2024 01/20/2024 INFLUENZA VACCINE (#1) 2025 6, 02/18/2015, 01/14/2011 DTAP/TDAP/TD VACCINES (7 - Td or Tdap) 02/18/2025 02/18/2015, 01/09/2010, 03/04/2006, Additional history exists ZOSTER VACCINE (1 of 2) 2054 PNEUMOCOCCAL VACCINE Completed 09/17/2005, 05/14/2005, 04/02/2005, Additional history exists HIB VACCINE Completed 03/04/2006, 03/17, 2004 MENINGOCOCCAL GROUPS A/C/Y/W VACCINE Aged Out 02/24/2016 No longer eligible based on patient's age to complete this topic HPV VACCINE Completed 03/18/2020, 11/15, 01/23/2016 Insurance [facility] SELF PAY NO INSURANCE Member Subscriber Plan / Payer (Ef fective for All Dates) Name:Aris Stephens Member ID:Not on file Relation to Subscriber:Not on file Name:ARIS STEPHENS Subscriber ID:Not on file (Home) Address: [address] [place] [address] Payer ID:Not on file Group ID:Not on file Type:Self Pay Address: [place], [place] [facility] Care Teams Hunting Sales Associate Relationship Specialty Start Date End Date Severino Zelaya Update Information PCP - General 07/03/20
[2024-12-11 17:21] LABS: Hematocrit 32.1 % (37.0-47.0); Hemoglobin 10.8 g/dL (12.0-15.0); Immature Granulocyte Percent A 0.3 % (0-0.5); Lymphocytes Absolute Auto 2.04 K/mm3 (0.9-3.2); Mean Corpuscular HGB Conc 33.6 g/dl (32-36); Mean Corpuscular Hemoglobin 29.4 pg (26-34); Mean Corpuscular Volume 87.5 fl (80-100); Nucleated Red Blood Cells Absolute Auto 0.000 K/mm3 (0.0-0.012); Nucleated Red Blood Cells Perc 0.0 % (0.0-0.2); Platelet Count Result 291 k/mm3 (150-375); Red Blood Count 3.67 M/mm3 (4.2-5.4); White Blood Count 7.7 K/mm3 (4.5-10.0)
[2024-12-11 17:25] VITALS: BP 149/81; PULSE 64
[2024-12-11 17:31] VITALS: BP 140/74; PULSE 63
[2024-12-11 17:46] VITALS: BP 142/72; PULSE 61
[2024-12-11 17:46] LABS: Alanine Aminotransferase 30 U/L (6-35); Albumin Level 3.9 g/dL (3.5-5.1); Alkaline Phosphatase 83 U/L (38-126); Anion Gap 11 mmol/L (4-12); Aspartate Amino Transferase 32 U/L (14-36); Bilirubin,Total 0.3 mg/dL (0.2-1.3); Blood Urea Nitrogen 9 mg/dL (7-17); Calcium 9.4 mg/dL (8.4-10.2); Carbon Dioxide 22 mmol/L (22-30); Chloride 105 mmol/L (98-107); Estimated Glomerular Filt Rate > 60; Glucose 111 mg/dL (65-110); Potassium 3.6 mmol/L (3.4-5.0); Sodium 138 mmol/L (137-145); Total Protein 6.9 g/dL (6.3-8.2); Uric Acid 5.9 mg/dL (2.5-7.5)
[2024-12-11 18:01] VITALS: BP 151/83; PULSE 64
--- NOTE | 2024-12-11 18:06 | PC.NURSE ---
Dr. Varela on the unit. Lab results and blood pressure report as well. Headache also reported to provider. okay with pt going home and take her own pain medications. Pt has follow up on with Dr. Tolbert.
[2024-12-11 18:08] VITALS: BP 149/81; PULSE 64
== END 2024-12-11 18:18 | disposition home or self-care (01) ==
LOC: ANHOBOP 16:56 → ANHOBPP 16:56
PROVIDERS: Visit Provider Obstetrics & Gynecology
DX: O13.9 Gestational [pregnancy-induced] hypertension without significant proteinuria, unspecified trimester (principal); Z3A.00 Weeks of gestation of pregnancy not specified
CPT/HCPCS: 36415; 80053; 84550; 85025; 99199

== ENCOUNTER 2025-01-23 15:17 | Outpatient (NON) | payer OTHER, SELFPAY ==
[2025-01-23 15:26] LABS: Add Urine Microscopic? YES; Appearance Urine Clear (Clear); Glucose Urine UA Negative (Negative); Leukocyte Esterase Ur 1+ LEU/UL (Negative); Nitrate Urine Negative (Negative); Specific Grav Ur >= 1.030 (1.010-1.020)
--- OUTSIDE RECORDS SUMMARY | 2025-01-23 16:35 | XMS_ITS | Encounter Summary ---
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
--- OUTSIDE RECORDS SUMMARY | 2025-01-23 16:35 | XMS_ITS | Clinical Summary ---
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
--- OUTSIDE RECORDS SUMMARY | 2025-01-23 16:35 | XMS_ITS | Clinical Summary ---
Author Organization [facility] Address [address] [place] [address] Care Team Providers Care Power Lineman Name Role Phone Unavailable Primary Care Provider [...] 2 - Standard) 2020 Hepatitis C 2022 PHQ-2 (Physician [place]) 05/17/2024 COVID-19 Vaccine ( - season) 2025 DTaP, Tdap and Td Vaccines (7 - [...]
--- OUTSIDE RECORDS SUMMARY | 2025-01-23 16:35 | XMS_ITS | Encounter Summary ---
Author Organization [facility] Address [address] [facility] [place] [address] Care Team Providers Care Civil Transportation Engineer Name Role Phone Severino Zelaya Primary Care Provider Unavailabl e Reason for Visit * Reason Comments Refill Request Encounter Details Date Type Department Care Team (Late st Contact Info) Description 04/22/2021 Refill [facility] [address] [facility] [place] [phone] Marialuisa Gupta, [address] [place] [address] Refill Request Social History Tobacco [...] on file 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
--- OUTSIDE RECORDS SUMMARY | 2025-01-23 16:35 | XMS_ITS | Clinical Summary ---
Author Organization [facility] Address [address] [place] [address] Care Team Providers Care Brooch Maker Novelty Name Role Phone Severino Zelaya Primary Care Provider Unavailabl e Source Comments [facility],non-owned Affiliates and Associated Physician Practices is amultiple site organization consisting of ambulatory clinics and hospital sitesin [place], [place] and [place]. This disclosure is being madepursuant to the Care Everywhere program and may not contain all information available regarding this patient. 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 Gender Identity Not on file Sexual [...] - Standard) 2020 HEPATITIS C SCREENING 09/08/2022 DEPRESSION SCREENING 05/17/2024 01/20/2024 COVID-19 VACCINE ( - season) 2025 INFLUENZA VACCINE (#1) 2025 6, 02/18/2015, 01/14/2011 [...] HPV VACCINE Completed 03/18/2020, 11/15, 01/23/2016 Insurance [facility] SELF PAY NO INSURANCE Member Subscriber Plan / Payer (Ef fective for All Dates) Name:Aris Stephens Member ID:Not on file Relation to Subscriber:Not on file Name:ARIS STEPHENS Subscriber ID:Not on file (Home) Address: [address] [place] [address] Payer ID:Not on file Group ID:Not on file Type:Self Pay Address: [place], [place] [facility] Care Teams Brooch Maker Novelty Relationship Specialty Start Date End Date Severino Zelaya Update Information PCP - General 07/03/20
== END 2025-01-23 15:18 | disposition home or self-care (01) ==
LOC: CHSLAB 15:19
PROVIDERS: Visit Provider Nurse Practitioner Family
DX: O14.10 Severe pre-eclampsia, unspecified trimester (principal); R10.2 Pelvic and perineal pain; R82.90 Unspecified abnormal findings in urine
CPT/HCPCS: 81001; 87086

== ENCOUNTER 2025-05-05 13:55 | Emergency (ER) | payer OTHER, SELFPAY ==
--- OUTSIDE RECORDS SUMMARY | 2025-05-05 13:59 | XMS_ITS | Encounter Summary ---
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
--- OUTSIDE RECORDS SUMMARY | 2025-05-05 13:59 | XMS_ITS | Clinical Summary ---
Author Organization [facility] Address [address] [place] [phone] Phone Care Team Providers Care Crushing Foreman Name Role Phone Unavailable Primary Care Provider Unavailabl e Encounters Date Type Department Care Team Description 05/01/2025 External Device Data [facility] ABSTRACTION Provider, Abstract 03/06/2025 External Device Data [facility] ABSTRACTION Provider, Abstract from Last 3 Months Social History Tobacco Use Types Packs/Day Years Used Date Smoking Tobacco: Never Assessed Comments Unknown Sex and Gender Information Value Date Recorded Sex Assigned at Not on file 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
--- OUTSIDE RECORDS SUMMARY | 2025-05-05 13:59 | XMS_ITS | Encounter Summary ---
Author Organization [facility] Address [address] [place] [address] Care Team Providers Care Tube Inspector Name Role Phone Severino Zelaya Primary Care Provider Unavailabl e Reason for Visit * Reason Comments Refill Request Encounter Details Date Type Department Care Team (Late st Contact Info) Description 04/22/2021 Refill [facility] [address] [facility], [place] [id number] Marialuisa Gupta, [address] [place] [address] Refill Request Social History Tobacco [...] on file 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
--- OUTSIDE RECORDS SUMMARY | 2025-05-05 13:59 | XMS_ITS | Clinical Summary ---
Author Organization [facility] Address [address] [place] [address] Care Team Providers Care Embroidery Designer Name Role Phone Severino Zelaya Primary Care Provider Unavailabl e Source Comments [facility],non-owned Affiliates and Associated Physician Practices is amultiple site organization consisting of ambulatory clinics and hospital sitesin [place], [place], [place] and [place]. This disclosure is being madepursuant to the Care Everywhere program and may not contain all information available regarding this patient. 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 Gender Identity Not on file Sexual Orientation [...] 09/08/2022 DEPRESSION SCREENING 05/17/2024 01/20/2024 COVID-19 VACCINE (1 - season) 2025 INFLUENZA VACCINE (#1) 2025 [...] HPV VACCINE Completed 03/18/2020, 11/15, 01/23/2016 Insurance [facility] SELF PAY NO INSURANCE Member Subscriber Plan / Payer (Ef fective for All Dates) Name:Aris Stephens Member ID:Not on file Relation to Subscriber:Not on file Name:ARIS STEPHENS Subscriber ID:Not on file (Home) Address: [address] [place] [address] Payer ID:Not on file Group ID:Not on file Type:Self Pay Address: [place], [place] [facility] Care Teams Embroidery Designer Relationship Specialty Start Date End Date Severino Zelaya Update Information PCP - General 07/03/20
--- OUTSIDE RECORDS SUMMARY | 2025-05-05 13:59 | XMS_ITS | Clinical Summary ---
Author Organization [facility] Address [address] [place] [address] Care Team Providers Care Political Science Professor Name Role Phone Unavailable Primary Care Provider [...] Standard) 2020 Hepatitis C 2022 PHQ-2 (Physician [place]) 05/17/2024 COVID-19 Vaccine (1 - season) 2025 Influenza Adult (#1) 2025 01/23/2016, 02/18/2015, 01/14/2011 DTaP, Tdap and Td Vaccines (7 - Td or Tdap) 02/18/2025 02/18/2015, 01/09/2010, 03/04/2006, Additional history exists Pneumococcal Vaccine: Pediatrics (0 to 5 Years) and At-Risk Patients (6 to 49 Years) Completed 09/17/2005, 05/14/2005, 04/02/2005, Additional history exists Hepatitis A Vaccines Completed 02/03/2007, 03/04/20 06 Meningococcal Vaccine Aged Out 02/24/2016 No radha nitin eligible based on patient's age to complete this topic HPV Vaccines Completed 03/18/2020, 11/15, 01/23/2016 RSV Immunizations Under 20 Months Aged Out No longer eligible based on patient's age to complete this topic Insurance
--- NOTE | 2025-05-05 14:00 | ED.URI ---
HPI - URI/Sore Throat General Chief Complaint: Upper Respiratory Infection Stated Complaint: Sinus Time Seen by Provider: 05/05/25 14:18 Source: patient, RN notes reviewed and old records reviewed Mode of arrival: ambulatory Limitations: no limitations History of Present Illness HPI Narrative: 19-year-old female presents to the [facility] with a 2 day history of nasal congestion, runny nose. Had a sore throat which is much better. Did take a dose of allergy medication. denies cough, fever Treatments prior to arrival: other ( allergy med) Related Data Home Medications ?Medication ?Instructions ?Recorded ?Confirmed ?Last Taken ?Type levonorgestrel (Mirena) 1 device intrauterine ONCE 03/15/25 03/20/25 Unknown History Allergies Allergy/AdvReac Type Severity Reaction Status Date / Time No Known Allergies Allergy Verified 05/05/25 14:12 Review of Systems Review of Systems: All systems reviewed & are unremarkable except as noted in HPI and below Constitutional: Constitutional: Reports no additional constitutional complaints ENT: Reports as per HPI, Reports nasal congestion and Reports nasal discharge Cardiovascular: Cardiovascular: Reports no additional cardiovascular complaints, Denies chest pain and Denies dyspnea Respiratory: Respiratory: Reports no additional respiratory complaints, Denies chest congestion, Denies cough and Denies dyspnea Musculoskeletal: Musculoskeletal: Reports no additional musculoskeletal complaints Integumentary/Breasts: Skin/Breast: Reports system reviewed and no additional complaints, except as docu PMFSH Past Medical History Medical History Morbid obesity Preeclampsia Environmental allergies Asthma Acid reflux Anemia Family History Family History Grandparent Breast cancer Diabetes mellitus Hypertension Lung cancer Father Diabetes mellitus Hypertension Social History Social History Smoking status: Never smoker Alcohol intake: never Substance use: never Lack of Transportation: No Lack of Food: Never True Current Housing: I Have Housing Concerned About Future Housing: No Difficulty Paying Gas/Electric Bills: No Difficulty Paying for Meds: No Currently Unemployed: No Education: High School Diploma/GED Difficulty w/ Childcare or Family Care: No Living arrangements: with family Occupation/Education: student Gender identity (if verbalized by the patient): Female Sexual Orientation (if Verbalized by the Patient): Straight or Heterosexual Spiritual care concerns: No Comments At the time of my signature, I reviewed and agree with the nursing past medical, surgical, social, and family history. There is no relevant family history pertinent to the patient complaint. Exam Const: General: cooperative, healthy appearing, comfortable, no acute distress, well developed, alert and well nourished Nutritional Appearance: well nourished Orientation/consciousness: patient oriented x3 Limitations: no limitations HENMT: Head: normal to inspection Ears: hearing grossly normal bilaterally, external ears normal, TM's normal bilaterally, EAC's normal, mastoids normal and no periauricular adenopathy Face/Nose/Sinus: Normal external nose present, Normal nasal mucous membranes and turbinates present, Nasal discharge present clear bilateral and face symmetric Mouth: Yes Normal oral and palatal mucosa present, Yes lip normal, Yes tongue normal and Yes moist mucous membranes Throat: posterior oropharynx normal, uvula midline, postnasal drainage and no uvular edema Eyes: General: appearance normal, both eyes and all related structures Alignment and Position: alignment normal Neck: Neck: normal visual inspection, full ROM, no lymphadenopathy and no meningeal signs Chest: Chest palpation & inspection: normal inspection of the chest Resp: Effort & Inspection: normal respiratory effort and able to speak in complete sentences Auscultation: clear to auscultation bilaterally, no crackles, no rales, no rhonchi and no wheezes Cardio: Rate: regular rate Skin: General skin exam: normal color and no rashes or lesions noted Neuro: General: patient oriented x3, gait normal, moves all extremities and no meningeal signs Cognition (Neuro): normal cognition Speech: normal speech Gait exam (Neuro): Normal gait present Extrem: General: normal to inspection, full ROM, capillary refill normal and normal gait Psych: Appearance: grossly normal and well kempt Mental Status: mental status grossly normal Speech and movement: Normal speech and movement present and Clear speech present Affect: normal affect Attitude: cooperative Course Course Level of Care: Express Care Visit Vital Signs Vital signs: Vital Signs Temperature 97.9 F 05/05/25 14:13 Pulse Rate 108 H 05/05/25 14:13 Respiratory Rate 18 05/05/25 14:13 Blood Pressure 142/84 H 05/05/25 14:13 Pulse Oximetry 98 05/05/25 14:13 Oxygen Delivery Room Air 05/05/25 14:13 Temperature 97.9 F 05/05/25 14:13 Pulse Rate 108 H 05/05/25 14:13 Respiratory Rate 18 05/05/25 14:13 Blood Pressure 142/84 H 05/05/25 14:13 Pulse Oximetry 98 05/05/25 14:13 Oxygen Delivery Room Air 05/05/25 14:13 reviewed MDM MDM Narrative Medical decision making narrative: patient sitting in exam room. Patient is nontoxic, vitals are stable. Patient presents with a to possibly 3 day history of runny nose and sinus congestion. Did take allergy medication. No other treatment prior to arrival. Patient was offered flu, COVID and strep which she has politely declined at this time. Clear rhinorrhea without nasal bogginess or erythema. TMs within normal limits. Significant postnasal drainage with sniffling is noted on exam. No other acute findings. Lungs were clear patient appropriate for outpatient treatment with close follow-up for viral URI Discharge instructions reviewed with patient, as well as provided in writing per nursing staff. The instructions also include specific and strict return/GO TO THE ER as well as f/u information. All questions have been answered, and the patient deny any further questions with discharge and discharge plan. Some parts of this dictation were generated by voice recognition software and may contain typographical and/or grammatical inaccuracies. Differential Diagnosis Differential Diagnosis: Differential diagnostic considerations for upper respiratory infection include upper respiratory infection, croup, otitis media, sinusitis, viral infection, bronchitis, influenza, pharyngitis, strep, uvulitis.? Discharge Plan Discharge Clinical Impression: Sinusitis, Viral infection, PND (post-nasal drip) Patient Disposition: Home Condition: Stable Instructions: Antibiotic Form, Sinusitis (ED) Additional Instructions: Your symptoms are likely due to a viral illness, which is not treated with antibiotics. Typically viral infections last 7-10 days, can linger for couple of weeks. It is very important to treat your symptoms. Drink plenty of water, Gatorade, Pedialyte, ice pops or Jell-O. -Alternate Tylenol and Motrin per package directions for fever or pain. You can alternate every 4 hours -Antihistamine medication such as Zyrtec/Claritin during the day can help improve symptoms. -doing daily nasal irrigations can help relieve pressure your sinuses. Things like a Neti pot -Use Flonase twice a day for 5 days then daily to help reduce the inflammation and dry up your sinuses. -You can also use Mucinex. Be sure to drink plenty of water with this medication at least 8 ounces with every dose and it is important to drink 8 to 10 glasses of water per day. Water is a natural decongestant -Eat and drink things that are easy to swallow, like tea or soup, or popsicles. -Oral rinses such as: Salt water gargles and/or may use topical anesthetic (eg. Chloraseptic spray) or lozenges to relieve dryness or throat pain). -Frequent hand washing or hand agriculturist is one of the best ways to prevent spread of infection. -Using a vaporizer or humidifier at night will also help thin secretions and help with coughing up phlegm. -Follow up with primary care provider in 7-10 days if condition is not improving - For new or worsening symptoms go directly to the nearest ER Patient Language: Kyrgyz Prescriptions: No Action Mirena 21 mcg/24hr (up to 8 yrs) 52 mg intrauterine device 1 device intrauterine ONCE Rx Instructions: as a single dose labetalol 200 mg tablet 200 mg PO DAILY Qty: 30 1RF Follow-up/Referrals: Merari Atkins APRN [Primary Care Provider, Family Practice] - 2 Weeks Clinical Impression: PND (post-nasal drip); Sinusitis; Viral infection Stand Alone Forms: Work/School Release IP Time of Disposition: 14:23
[2025-05-05 14:13] VITALS: BP 142/84; PULSE 108; RESP 18; TEMP 36.6; O2SAT 98
== END 2025-05-05 14:30 | disposition home or self-care (01) ==
PROVIDERS: Emergency Provider Nurse Practitioner; PCP Nurse Practitioner Family
DX: J32.9 Chronic sinusitis, unspecified (principal); B34.9 Viral infection, unspecified; R09.82 Postnasal drip; J45.909 Unspecified asthma, uncomplicated; K21.9 Gastro-esophageal reflux disease without esophagitis; E66.01 Morbid (severe) obesity due to excess calories; Z68.35 Body mass index [BMI] 35.0-35.9, adult
CPT/HCPCS: 99211; G0463